=== PATIENT | male | born 1945 | race Caucasian/White ===

== ENCOUNTER 2023-12-24 10:46 | Outpatient (OUT) | payer MEDICARE, SELFPAY ==
--- NOTE | 2023-12-24 | XR_ITS ---
The [address] [id number] Patient Name: STEVEN DANIELS MRN: [id number] date: 1945 Sex: M Assigned Patient Location: Current Patient Location: Accession/Order Number: [id number] Exam Date: 12/24/2023 11:00 Report Date: 12/28/2023 08:58 At the request of: WILFRIDO DAMON Procedure: XR lumbar spine min 4V EXAMINATION: XR lumbar spine min 4V HISTORY: LUMBAR SPINE PAIN COMPARISON: No relevant comparison available. FINDINGS: BONES: Neutral projection demonstrates 9 mm retrolisthesis of L2 on L3. Posterior decompression and transpedicular fusion L2-L3. Moderate spondylosis and facet osteoarthropathy DISC SPACES: Moderate multilevel disc space narrowing PARASPINOUS: Negative. No paraspinous abnormality is seen. OTHER: No transient spondylolisthesis with flexion or extension. Diffuse atherosclerosis XR/XR lumbar spine min 4V IMPRESSION: Stable fusion with no dynamic instability Electronically authenticated by: KALANI ROUSSEAU Date: 12/28/2023 08:58
== END 2023-12-24 10:47 | disposition home or self-care (01) ==
PROVIDERS: Visit Provider Orthopaedic Surgery Orthopaedic Surgery of the Spine
DX: M54.50 Low back pain, unspecified (principal); M43.26 Fusion of spine, lumbar region
CPT/HCPCS: 72110

== ENCOUNTER 2024-02-24 09:17 | Outpatient (OUT) | payer MEDICARE, SELFPAY ==
--- OUTSIDE RECORDS SUMMARY | 2024-02-24 09:22 | XMS_ITS | CCD ---
Author Organization [facility] [place] [facility] Care Team Providers Care Pcas Name Role Phone Venkatesh Gallagher Primary Care Unavailab Venkatesh Beck Consulting UnavailMD LIONEL Sanchez Attending Unavailable Venkatesh Gallagher Primary Care Unavailab MD LIONEL Buchanan Attending Unavailable Venkatesh Gallagher Primary Care Unavailab Venkatesh Beck Consulting Unavailab MD ILONEL Buchanan Attending Unavailable Venkatesh Gallagher Primary Care Unavailab Venkatesh Beck Consulting Unavailab MD LIONEL Buchanan Attending Unavailable Venkatesh Gallagher Primary Care Unavailab MD LIONEL Buchanan Attending Unavailable MD LIONEL TOMLINSON Attending Unavailable Venkatesh Gallagher Primary Care Unavailab Venkatesh Beck Primary Care Unavailab Venkatesh Beck Attending Unavailab MD LIONEL Buchanan Admitting Unavailable Tomás Fishman Consulting Unavailable Venkatesh Gallagher Primary Care Unavailab MD LIONEL Buchanan Attending Unavailable MD LIONEL TOMLINSON Attending Unavailable MD LIONEL TOMLINSON Admitting Unavailable Tomás Fishman Consulting Unavailable Venkatesh Gallagher Primary Care Unavailab Venkatesh Beck Consulting UnavailArelis Marrero MD Primary Care Provider [phone] ARELIS FORBES Primary Care Unavailable KALANI RODRIGUEZ Admitting Unavailable KALANI RODRIGUEZ Attending Unavailable ALEXSANDER SPENCER Consulting Unavailable JEFFREY ESPINO Consulting Unavailable JEFFREY ESPINO Admitting Unavailable JEFFREY ESPINO Attending Unavailable ANDREI, ARELIS F Primary Care Unavailable PASHA, TARIF A Consulting Unavailable ANDREI, ARELIS Gonzalez Primary Care Unavailable DIBARDINO, JEFFREY Referring Unavailable ANDREI, ARELIS Gonzalez Primary Care Unavailable SCHELKUN, EUGENIO L Referring Unavailable ANDREI, ARELIS Gonzalez Primary Care Unavailable SCHELKUN, EUGENIO L Referring Unavailable ANDREI, ARELIS Gonzalez Primary Care Unavailable SCHELKUN, EUGENIO L Referring Unavailable ANDREI, ARELIS Gonzalez Primary Care Unavailable SCHELKUN, EUGENIO L Referring Unavailable ANDREI, ARELIS Gonzalez Primary Care Unavailable DIBARDINO, JEFFREY Referring Unavailable DANIELERSARAHY Attending Unavailable ANDREI, ARELIS Gonzalez Attending Unavailable ANDREI, ARELIS Gonzalez Referring Unavailable ROSANGELAELIO ODEN Attending Unavailable ANDREI, ARELIS Gonzalez Referring Unavailable ELIO ADAMES Attending Unavailable ANDREI, ARELIS Gonzalez Referring Unavailable SHARON SALVADOR Attending Unavailable ANDREI, ARELIS Gonzalez Referring Unavailable ANDREI, ARELIS Gonzalez Attending Unavailable ANDREI, ARELIS Gonzalez Referring Unavailable Andrei , Arelis Gonzalez Primary Care Provider Andrei CLARK, Arelis Gonzalez Unavailable Allergies Allergy Classification Reported Allergen(s) Allergy Type Date of Onset Reaction(s) Facility Penicillins (antibiotic) (1 source) Penicillin; Translations: [penicillin] Drug Allergy [facility] Sulfonamides (antibiotic) (1 source) Sulfonamides (Antibiotic); Translations: [sulfa drugs] Drug Allergy [facility] (6 sources) Penicillins Propensity to adverse reactions to drug 8 Other (See Comments), Swelling [employer] Work Phone: (6 sources) pregabalin Drug Allergy 0 Swelling [employer] Work Phone: (6 sources) Sulfonamides (Antibiotic) Propensity to adverse reactions to drug 8 Other (See Comments) [employer] Work Phone: (1 source) Penicillin G Drug Allergy 3 Hives [facility] Work Phone: (1 source) Pregabalin Propensity to adverse reactions 0 Swelling [facility] (1 source) Sulfanilamide Allergy to substance 3 Hives [facility] NEGATED: Highlighted row has been ruled out! (6 sources) Other Propensity to adverse reactions Swelling [employer] Medications Current Medications Medication Drug Class(es) Dates Sig (Normalized) Sig (Original) acetaminophen 325 mg oral tablet (3 sources) Start: 05-27-2021 take 650 mg by mouth every four hours as needed for pain, then take 4000 mg by mouth every twenty-four hours as needed for pain 650 mg, Oral, EVERY 4 HOURS PRN, Pain Mild (1-3), Fever, Fever >100.5 F (38 C), Starting on Wed05/27/21 at 1247 Maximum dose of acetaminophen is 4000 mg from all sources in 24 hours. Post-op Start: 04-22-2021 take 650 mg by mouth every four hours as needed for pain, then take 4000 mg by mouth every twenty-four hours as needed for pain 650 mg, Oral, EVERY 4 HOURS PRN, Pain Mild (1-3), Fever, Fever >100.5 F (38 C), Starting on Darlene 04/24/21 at 1618 Maximum dose of acetaminophen is 4000 mg from all sources in 24 hours. Recovery(Cath) acetaminophen 325 mg / oxyCODONE hydrochloride 5 mg oral tablet (2 sources) Opioid Agonist Start: 05-31-2021 End: 06-07-2021 take 1 tablet by mouth every eight hours as needed for pain oxyCODONE-acetaminophen (PERCOCET) 5-325 MG per tablet Indications: S/P CABG x 3 Take 1 tablet by mouth every 8 hours as needed for Pain for up to 7 days. 21 tablet 0 05/31/2021 06/07/2021 Active Start: 05-27-2021 oxyCODONE-acet aminophen (PERCOCET) 5-325 MG per tablet 1 tablet 500 ml albumin human, fdc 50 mg/ml injection (1 source) Human Serum Albumin Start: 05-27-2021 25 g, IntraVENous, at 500 mL/hr, Administer over 60 Minutes, PRN, Other, PAD below goal and Low CI and/or Low BP and /or Low urine output per hemodynamic goals, Starting on Wed05/27/21 at 1247 Up to a max of 2000 mL. Notify surgeon for further orders if max volume infused. Post-op albuterol 0.833 mg/ml / ipratropium bromide 0.167 mg/ml inhalation solution (1 source) Anticholinergic, beta2-Adrenergic Agonist Start: 05-27-2021 1 ampule, Inhalation, EVERY 4 HOURS WHILE AWAKE, First dose on Wed05/27/21 at 1600, Post-op amiodarone hydrochloride 200 mg oral tablet (4 sources) Antiarrhythmic Start: 05-31-2021 take 1 tablet by mouth twice daily amiodarone (CORDARONE) 200 MG tablet Take 1 tablet by mouth 2 times daily 30 tablet 0 05/31/2021 Active Start: 05-27-2021 take 200 mg by mouth three times daily 200 mg, Oral, 3 TIMES DAILY, First dose on Wed05/27/21 at 1400, Post-op aspirin 81 mg delayed release oral tablet (7 sources) Platelet Aggregation Inhibitor, Nonsteroidal Anti-inflammatory Drug Start: 05-27-2021 take 1 tablet by mouth once daily aspirin 81 MG EC tablet Take 1 tablet by mouth daily 30 tablet 3 05/31/2021 Active Start: 05-27-2021 aspirin chewab le tablet 81 mg Start: 04-24-2021 aspirin EC tab let 81 mg atorvastatin 40 mg oral tablet (11 sources) HMG-CoA Reductase Inhibitor Start: 02-18-2024 take 1 tablet by mouth once daily atorvastatin (Lipitor) 40 MG tablet 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) TAKE 1 TABLET BY MOUTH ONCE DAILY 90 tablet 11 02/18/2024 Active Start: 12-26-2022 End: 02-18-2024 take 1 tablet by mouth once daily atorvastatin (Lipitor) 40 MG tablet 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) TAKE 1 TABLET BY MOUTH ONCE DAILY 90 tablet 3 12/26/2022 02/18/2024 Discontinued Start: 05-28-2021 take 1 tablet by antonio th once daily atorvastatin (LIPITOR) 80 MG tablet Take 1 tablet by mouth nightly 30 tablet 3 05/31/2021 Active Start: 04-24-2021 atorvastatin ( LIPITOR) tablet 80 mg End: 05-31-2021 take 1 tablet by mouth once daily in the evening atorvastatin (LIPITOR) 40 MG tablet Take 40 mg by mouth every evening 0 05/31/2021 Discontinued (Stop Taking at Discharge) bisacodyl 5 mg delayed release oral tablet (1 source) Stimulant Laxative Start: 05-27-2021 take 5 mg by mouth once daily as needed for constipation 5 mg, Oral, DAILY PRN, Constipation, Starting on Wed05/27/21 at 1247 First line therapy for constipation. Post-op calcium chloride 1,000 mg in sodium chloride 0.9 % 100 mL IVPB (1 source) Start: 05-27-2021 1,000 mg, IntraVENous, at 100 mL/hr, Administer over 60 Minutes, PRN, Other, Electrolyte Replacement, Starting on Wed05/27/21 at 1247 Administer 1 gram over 1 hour for ionic calcium level less than 1.05 mmol/L Post-op cetirizine hydrochloride 10 mg oral tablet (4 sources) Histamine-1 Receptor Antagonist Start: 05-27-2021 End: 05-31-2021 take 10 mg by mouth once daily 10 mg, Oral, DAILY, First dose on Wed05/27/21 at 1315 cholecalciferol 0.025 mg oral tablet (8 sources) Vitamin D Start: 05-27-2021 take 1 tablet by mouth once daily Vitamin D (CHOLECALCIFEROL) 25 MCG (1000 UT) TABS tablet Take 1 tablet by mouth daily 60 tablet 0 06/01/2021 Active take 1 capsule by mo uth in the morning cholecalciferol (Vitamin D-3) 25 MCG (1000 UT) capsule Take 25 mcg by mouth in the morning. Active End: 05-31-2021 Vitamin D (CHOLECALCIFEROL) 25 MCG (1000 UT) TABS tablet Take 1,000 Units by mouth daily 0 05/31/2021 Discontinued (Stop Taking at Discharge) clopidogrel 75 mg oral tablet (5 sources) P2Y12 Platelet Inhibitor Start: 07-21-2022 take 1 tablet by mouth in the morning clopidogrel (Plavix) 75 MG tablet Take 75 mg by mouth in the morning. 07/21/2022 Active Start: 05-28-2021 take 1 tablet by antonio th once daily clopidogrel (PLAVIX) 75 MG tablet Take 1 tablet by mouth daily 30 tablet 3 05/31/2021 Active diphenhydrAMINE hydrochloride 25 mg oral tablet (1 source) Histamine-1 Receptor Antagonist Start: 05-28-2021 take 25 mg by mouth once daily as needed for sleep 25 mg, Oral, NIGHTLY PRN, Sleep, Starting on Wed05/28/21 at 0000, Post-op 0.4 ml enoxaparin sodium 100 mg/ml prefilled syringe (1 source) Low Molecular Weight Heparin Start: 04-22-2021 inject 40 mg by subcutaneous injection once daily 40 mg, SubCUTAneous, DAILY, First dose on Wed04/22/21 at 1845 fentaNYL (SUBLIMAZE) injection 25 mcg (1 source) Start: 05-27-2021 fentaNYL (SUBLIMAZE) injection 25 mcg ferrous gluconate 240 mg oral tablet (1 source) Start: 03-12-2023 End: 03-11-2024 take 1 tablet by mouth at mealtime ferrous gluconate (Fergon) 240 (27 Fe) MG tablet Indications: Iron deficiency anemia secondary to inadequate dietary iron intake Take 1 tablet (240 mg) by mouth in the morning. Take with meals. 90 tablet 3 03/12/2023 03/11/2024 Active ferrous sulfate 325 mg delayed release oral tablet (7 sources) Start: 06-01-2021 take 1 tablet by mouth once daily at breakfast ferrous sulfate (FE TABS 325) 325 (65 Fe) MG EC tablet Take 1 tablet by mouth daily (with breakfast) 90 tablet 3 06/01/2021 Active Start: 05-29-2021 ferrous sulfat e (FE TABS 325) EC tablet 325 mg End: 05-31-2021 take 220 mg by mouth once daily ferrous sulfate 220 (44 Fe) MG/5ML solution Take 220 mg by mouth daily 0 05/31/2021 Discontinued (Stop Taking at Discharge) 4 ml furosemide 10 mg/ml injection (4 sources) Loop Diuretic Start: 05-30-2021 furosemide (LA SIX) injection 40 mg Start: 05-28-2021 End: 05-30-2021 furosemide (LASIX) injection 20 mg Start: 05-28-2021 End: 05-28-2021 furosemide (LASIX) 10 MG/ML injection gabapentin 400 mg oral capsule (6 sources) Anti-epileptic Agent Start: 08-02-2023 take 1 capsule by mouth twice daily gabapentin (Neurontin) 400 MG capsule Indications: Radiculopathy, unspecified spinal region TAKE 1 CAPSULE BY MOUTH TWICE DAILY 180 capsule 3 08/02/2023 Active Start: 05-27-2021 End: 05-31-2021 take 400 mg by mouth three times daily 400 mg, Oral, 3 TIMES DAILY, First dose on Wed05/27/21 at 1400 glucagon (rdna) 1 mg injection (2 sources) Antihypoglycemic Agent Start: 05-27-2021 take 1 mL intravenously every hour 1 mg, IntraMUSCular, PRN, Low blood sugar, Blood glucose less than 70 mg/dL and patient NOT ALERT or NPO and does not have IV access., Starting on Wed05/27/21 at 1247 After administration, attempt intravenous access and start D5W at 100 mL/hr. Repeat blood glucose in 15 minutes x2 and notify provider. Start: 04-23-2021 glucagon (rDNA ) injection 1 mg 1000 ml glucose 500 mg/ml injection (6 sources) Start: 05-27-2021 15 g, Oral, NH N, Low blood sugar, Starting on Wed05/27/21 at 1247 If blood glucose less than 50 mg/dL and patient ALERT and TOLERATING PO, give 2 tubes glucose gel. If blood glucose less than 70 mg/dL and patient ALERT and TOLERATING PO, give 1 tube glucose gel. Repeat blood glucose in 15 minutes. If blood glucose is less than 70 mg/dL, repeat treatment and recheck blood glucose in 15 minutes x2 and notify provider. Post-op Start: 05-27-2021 12.5 g, IntraV ENous, PRN, Low blood sugar, Blood glucose less than 70 mg/dL and patient NOT ALERT or NPO., Starting on Wed05/27/21 at 1247 If patient does not respond within 5 minutes, repeat dose x1. Start D5W at 100 mL/hour until ordering provider can be reached. Repeat blood glucose in 15 minutes. If blood glucose is less than 70 mg/dL, repeat treatment and recheck blood glucose in 15 minutes x2. If using Glucostabilizer, dose as instructed per system. Post-op Start: 05-27-2021 100 mL/hr, Int raVENous, PRN, Low blood sugar, Starting on Wed05/27/21 at 1247 Start infusion following administration of dextrose 50% or glucagon. Post-op Start: 04-23-2021 glucose (GLUTO SE) 40 % oral gel 15 g Start: 04-23-2021 dextrose 50 % IV solution Start: 04-23-2021 dextrose 5 % s olution 1 ml hydrALAZINE hydrochloride 20 mg/ml injection (1 source) Arteriolar Vasodilator Start: 05-27-2021 5 mg, IntraVENous, EVERY 5 MIN PRN, High Blood Pressure, Starting on Wed05/27/21 at 1247 Refer to hemodynamic goals for specific blood pressure parameters. May repeat doses up to a total of 20mg IV every 6 hours. Post-op insulin glargine 100 unt/ml injectable solution (1 source) Insulin Analog Start: 05-28-2021 15 Units (rounded from 14.895 Units = 0.15 Units/kg 99.3 kg), SubCUTAneous, NIGHTLY, First dose on Wed05/28/21 at 2100, Post-op insulin lispro 100 unt/ml injectable solution (2 sources) Insulin Analog Start: 04-23-2021 insulin lispro (HUMALOG) injection vial 0-3 Units 100 ml magnesium sulfate 10 mg/ml injection (1 source) Start: 05-27-2021 1,000 mg, IntraVENous, at 100 mL/hr, Administer over 1 Hours, PRN, Other, Electrolyte Replacement, Starting on Wed05/27/21 at 1247 For magnesium less than 2 mg/dl give 1 gram X 2 doses (Total of 2 grams). Check with MD if elevation of BUN and creatinine. Repeat magnesium level in AM. Post-op metoclopramide 5 mg oral tablet (1 source) Dopamine-2 Receptor Antagonist Start: 05-29-2021 metoclopramide (REGLAN) tablet 5 mg metoprolol tartrate 25 mg oral tablet (11 sources) beta-Adrenergic Mandie Start: 09-09-2022 take 1 tablet by mouth in the morning metoprolol tartrate (Lopressor) 25 MG tablet Take 25 mg by mouth in the morning and 25 mg before bedtime. 09/09/2022 Active Start: 05-27-2021 2.5 mg, IntraV ENous, EVERY 10 MIN PRN, High Blood Pressure, For HR greater than 120, Starting on Wed05/27/21 at 1247, For 3 doses Call cardiothoracic surgeon if HR still greater than 120 after 3 doses Please hold for HR less than 70 and/or SBP less than 100 Post-op Start: 04-24-2021 End: 05-31-2021 take 1 tablet by mouth twice daily metoprolol tartrate (LOPRESSOR) 25 MG tablet Take 1 tablet by mouth 2 times daily 60 tablet 3 05/31/2021 Active mupirocin 0.02 mg/mg topical ointment (1 source) RNA Synthetase Inhibitor Antibacterial Start: 05-27-2021 End: 06-01-2021 Nasal, 2 TIMES DAILY, First dose on Wed05/27/21 at 1315, For 10 doses, Post-op norepinephrine (LEVOPHED) 16 mg in sodium chloride 0.9 % 250 mL infusion (1 source) Start: 05-27-2021 0.2 mcg/kg/min 99.3 kg (18.6188 mL/hr, rounded to 18.6 mL/hr), IntraVENous, CONTINUOUS PRN, Cardiac Index above hemodynamic goal, SBP below hemodynamic goal and PAD above hemodynamic goal, Starting on Wed05/27/21 at 1247 Initial Dose is 0.04 mcg/kg/min. &nbsp ; May titrate up to 3.3 mcg/kg/min & nbsp;Titrate by 0.05 mcg/kg/min no faster than every 1 minute to goal M ay titrate outside of defined titration parameters (increments and frequency) under the direction of the provider. If cardiac index above hemodynamic goal or SBP above hemodynamic goal or PAD above hemodynamic goal, wean drip, re-evaluate, once hemodynamic parameters are back within range; resume drip using previous ordered parameters. For unstable, emergent situation, may titrate accordingly to meet hemodynamic goal. Notify Physician if reach max dose and patient not at hemodynamic goal of 0.08 mcg/kg/min Post-op ondansetron 4 mg oral tablet (3 sources) Serotonin-3 Receptor Antagonist Start: 06-03-2021 take 1 tablet by mouth every eight hours as needed for nausea ondansetron (ZOFRAN) 4 MG tablet Indications: Nausea Take 1 tablet by mouth every 8 hours as needed for Nausea or Vomiting 30 tablet 0 06/03/2021 Active Start: 05-27-2021 4 mg, IntraVEN ous, EVERY 8 HOURS PRN, Nausea, Starting on Wed05/27/21 at 1247, Post-op ondansetron (ZOFRAN-ODT) disintegrating tablet 4 mg (1 source) Start: 04-22-2021 ondansetron (ZOFRAN-ODT) disintegrating tablet 4 mg pantoprazole 20 mg delayed release oral tablet (10 sources) Proton Pump Inhibitor Start: 11-23-2023 take 1 tablet by mouth once daily pantoprazole (ProtoNix) 20 MG EC tablet Indications: Gastroesophageal reflux disease with esophagitis without hemorrhage TAKE 1 TABLET BY MOUTH ONCE DAILY 90 tablet 3 11/23/2023 Active Start: 05-27-2021 take 1 tablet by antonio once daily pantoprazole (PROTONIX) 40 MG tablet Take 1 tablet by mouth daily 30 tablet 3 06/01/2021 Active Start: 04-25-2021 End: 05-31-2021 pantoprazole (PROTONIX) tabl et 20 mg polyethylene glycol [id number] mg powder for oral solution (1 source) Osmotic Laxative Start: 05-27-2021 17 g, Oral, D AILY, First dose on Wed05/27/21 at 1315, Post-op 50 ml potassium chloride 0.4 meq/ml injection (1 source) Start: 05-27-2021 20 mEq, IntraV ENous, at 25 mL/hr, PRN, Other, Electrolyte Replacement, Starting on Wed05/27/21 at 1247 KCL 40 mEq IVPB for K less than 3.5 mmol/l. &nbs p;KCL 30 mEq IVPB for K 3.5-3.9 mmol/l. KCL 20 mEq IVPB for K 4-4.4 mmol/l. ALL KCL doses to be given in central line only. Notify MD if K greater than 5 mmol/l. Post-op 5 ml sodium chloride 9 mg/ml injection (12 sources) Start: 05-27-2021 10 mL, IntraVE Nous, EVERY 12 HOURS SCHEDULED (2 times per day), First dose on Wed05/27/21 at 2100, Post-op Start: 05-27-2021 take 10 mL intravenously once 10 mL, IntraVENous, PRN, Line Care, Starting on Wed05/27/21 at 1247 After every IV line use Post-op Start: 05-27-2021 take 25 mL intraveno usly every hour as needed 25 mL, IntraVENous, at 100 mL/hr, PRN, If patient receiving piggyback infusions without ordered maintenance IV fluids or with frequent/long duration piggyback infusions, Starting on e 05/27/21 at 1247 Administer at the same rate as the piggyback being infused. Post-op Start: 04-23-2021 End: 04-23-2021 5-40 mL, IntraVENous, PRN, L ine Care, Starting on Darlene 04/24/21 at 1618 For Line Patency: Peripheral IV = 5 mL; Midline or Central Line = 10 mL/lumen. If following IV push medication, administer flush at same rate as the IV push. Flush volume is determined by type of infusion therapy being given. For non-viscous solutions use: Peripheral IV = 5 mL Midline or Central Line = 10 mL/lumen For viscous solutions (i.e. blood components, parenteral nutrition, contrast media, or after obtaining blood sample) use: Peripheral IV = 10 mL Midline or Central Line = 20 mL/lumen Recovery(Cath) Start: 04-22-2021 take 1 dose intraven ously twice daily 5-40 mL, IntraVENous, EVERY 12 HOURS SCHEDULED (2 times per day), First dose on Darlene 04/24/21 at 2100 For Line Patency: Peripheral IV = 5 mL; Midline or Central Line = 10 mL/lumen. If following IV push medication, administer flush at same rate as the IV push. Flush volume is determined by type of infusion therapy being given. For non-viscous solutions use: Peripheral IV = 5 mL Midline or Central Line = 10 mL/lumen For viscous solutions (i.e. blood components, parenteral nutrition, contrast media, or after obtaining blood sample) use: Peripheral IV = 10 mL Midline or Central Line = 20 mL/lumen Recovery(Cath) Start: 04-22-2021 take 5-40 mL intrave nously once as needed 5-40 mL, IntraVENous, PRN, Line Care, After every IV line use, Starting on Wed04/22/21 at 1831 For Line Patency: Peripheral IV = 5 mL; Midline or Central Line = 10 mL/lumen. If following IV push medication, administer flush at same rate as the IV push. Flush volume is determined by type of infusion therapy being given. For non-viscous solutions use: Peripheral IV = 5 mL Midline or Central Line = 10 mL/lumen For viscous solutions (i.e. blood components, parenteral nutrition, contrast media, or after obtaining blood sample) use: Peripheral IV = 10 mL Midline or Central Line = 20 mL/lumen Start: 04-22-2021 take 25 mL intraveno usly every hour as needed 25 mL, IntraVENous, at 100 mL/hr, PRN, If patient receiving piggyback infusions without ordered maintenance IV fluids or with frequent/long duration piggyback infusions, Starting on Darlene 04/24/21 at 1618 Administer at the same rate as the piggyback being infused. Recovery(Cath) sodium phosphate, dibasic 35.5 mg/ml / sodium phosphate, monobasic 96.4 mg/ml enema (1 source) Start: 05-27-2021 1 enema, Recta l, DAILY PRN, Constipation, Starting on Wed05/27/21 at 1247 Second line therapy for constipation, After 24 hours, if no result from first line PRN therapy, give second line therapy in combination with first line therapy. Post-op tamsulosin hydrochloride 0.4 mg oral capsule (4 sources) alpha-Adrenergic Mandie Start: 05-29-2021 take 1 capsule by mouth once daily tamsulosin (FLOMAX) 0.4 MG capsule Take 1 capsule by mouth daily 30 capsule 3 06/01/2021 Active traZODone hydrochloride 50 mg oral tablet (6 sources) Serotonin Reuptake Inhibitor Start: 05-27-2021 take 50 mg by mouth once daily 50 mg, Oral, NIGHTLY, First dose on Wed05/27/21 at 2100 Start: 04-22-2021 End: 05-31-2021 traZODone (DESYREL) tablet 5 0 mg triamcinolone acetonide 1 mg/ml topical cream (1 source) Corticosteroid Start: 08-26-2023 triamcinolone (Kenalog) 0.1 % cream Indications: Allergic contact dermatitis due to plants, except food Apply to affected areas on the arms, up to twice a day when flared, do not use one the face, groin, or underarms, 30 day supply 80 g 11 08/26/2023 Active vitamin b12 1 mg oral tablet (7 sources) Vitamin B12 Start: 06-01-2021 take 1 tablet by mouth once daily vitamin B-12 1000 MCG tablet Take 1 tablet by mouth daily 30 tablet 3 06/01/2021 Active Start: 05-27-2021 take 1000 ug by mout h once daily 1,000 mcg, Oral, DAILY, First dose on Wed05/27/21 at 1315 End: 05-31-2021 take 1 tablet by mouth once daily Cyanocobalamin (VITAMIN B-12) 1000 MCG extended release tablet Take 1,000 mcg by mouth daily 0 05/31/2021 Discontinued (Stop Taking at Discharge) Completed/Discontinued Medications Medication Drug Class(es) Dates Sig (Normalized) Sig (Original) calcium chloride 0.0014 meq/ml / potassium chloride 0.004 meq/ml / sodium chloride 0.103 meq/ml / sodium lactate 0.028 meq/ml injectable solution (1 source) Start: 2 End: 2 lactated ringers infusion chlorhexidine gluconate 1.2 mg/ml mouthwash (1 source) Start: 2 End: 2 chlorhexidine (PERIDEX) 0.12 % solution 15 mL hydroCHLOROthiazide 25 mg oral tablet (4 sources) Thiazide Diuretic End: 2 take 1 tablet by mouth once daily hydroCHLOROthiazide (HYDRODIURIL) 25 MG tablet Take 25 mg by mouth daily 0 05/31/2021 Discontinued (Stop Taking at Discharge) insulin regular (HUMULIN R;NOVOLIN R) 100 Units in sodium chloride 0.9 % 100 mL infusion (1 source) Start: 2 End: 2 take 1 [IU] intravenously every hour, then take 1 mL intravenously every hour 1 Units/hr (1 mL/hr), IntraVENous, CONTINUOUS, Starting on Wed05/27/21 at 1315 Low target 80. High target 130. Begin infusion rate by the following formula: (BG - 60) x 0.03 = insulin units per hour. Adjust current multiplier(0.03) in drip formula by doing the following steps: * Whenever BG is greater than 130 increase multiplier by 0.01 * Whenever BG is less than 80 decrease multiplier by 0.01 * Whenever BG is between 80 - 130 no change in multiplier * Recalculate insulin dose with every BG drawn, even if the multiplier does not change. Post-op losartan potassium 100 mg oral tablet (4 sources) Angiotensin 2 Receptor Mandie End: 2 take 1 tablet by mouth once daily losartan (COZAAR) 100 MG tablet Take 100 mg by mouth daily 0 05/31/2021 Discontinued (Stop Taking at Discharge) meperidine hydrochloride 50 mg/ml injectable solution (1 source) Opioid Agonist Start: 2 End: 2 25 mg, IntraVENous, ONCE PRN, Shivering, Starting on Wed05/27/21 at 1247, For 1 dose, Post-op 100 ml propofol 10 mg/ml injection (2 sources) General Anesthetic Start: 2 End: 2 10 mcg/kg/min 99.3 kg (5.958 mL/hr, rounded to 6 mL/hr), IntraVENous, CONTINUOUS, Starting on Wed05/27/21 at 1315 For sedation, titrate to RASS -1 to -2 Dose Range: 5 to 50 mcg/kg/min Max dose: 50 mcg/kg/min Contac t physician if max dose does not achieve desired response If RASS 1 point below goal - decrease dose by 5mcg/kg/min no faster than every 5 min If RASS 2 points below goal- decrease dose by 10mcg/kg/min no faster than every 5 min If RASS at goal, continue current dose If RASS 2 or more points above goal - increase dose by 10mcg/kg/min no faster than every 5 min If RASS 1 point above goal - increase dosee by 5mcg/kg/min no faster than every 5 min If after titration rate change patient exhibits adverse hemodynamic response, next titration rate change may be adjusted by one-half of the previous rate change If patient fails sedation interruption, resume propofol titration at 50% of previous rate Do not administer through the same I.V. catheter with blood or plasma. Tubing and any unused portions of propofol vials should be discarded after 12 hours. Post-op regadenoson (LEXISCAN) injection 0.4 mg (1 source) Start: 1 End: 1 regadenoson (LEXISCAN) injection 0.4 mg 10 ml sodium bicarbonate 84 mg/ml injection (1 source) Start: 2 End: 2 50 mEq, IntraVENous, EVERY 30 MIN PRN, Other, For Base deficit greater than -5, Starting on Wed05/27/21 at 1247, For 3 days Please call MD if greater than 2 amps is administered Post-op technetium sestamibi (CARDIOLITE) injection 11 millicurie (1 source) Start: 1 End: 1 technetium sestamibi (CARDIOLITE) injection 11 millicurie technetium sestamibi (CARDIOLITE) injection 42.5 millicurie (1 source) Start: 1 End: 1 technetium sestamibi (CARDIOLITE) injection 42.5 millicurie vancomycin (VANCOCIN) 1500 mg in dextrose 5 % 250 mL IVPB (1 source) Start: 2 End: 2 1,500 mg, IntraVENous, EVERY 12 HOURS, 3 doses, First dose on Wed05/27/21 at 1315, Last dose on Wed05/28/21 at 1315 Do not give if Creatinine greater than 1.4. Give first dose 12 hours after pre op dose. Post-op Problems Active Problems Problem Classification Problem Date Documented Da te Episodic/Chronic Coronary atherosclerosis and other heart disease (8 sources) Multi vessel coronary artery disease; Translations: [Atherosclerotic heart disease of [place] coronary artery without angina pectoris] Onset: 05-27-2021 Chronic Disorders of lipid metabolism (1 source) Hypercholesterolemia ; Translations: [Pure hypercholesterolemia , unspecified] Onset: 11-17-2022 11-17-2022 Chronic Esophageal disorders (1 source) Gastro-esophageal reflux disease with esophagitis; Translations: [Gastroesophageal reflux disease with esophagitis] Onset: 11-17-2022 11-17-2022 Chronic Essential hypertension (1 source) Benign essential hypertension; Translations: [Essential (primary) hypertension] Onset: 11-17-2022 11-17-2022 Chronic Nutritional deficiencies (1 source) Vitamin D deficiency; Translations: [Vitamin D deficiency, unspecified] Onset: 11-17-2022 11-17-2022 Chronic Osteoarthritis (8 sources) Osteoarthritis of left knee joint; Translations: [Unilateral primary osteoarthritis, left knee] Onset: 08-01-2018 04-24-2021 Chronic Other nervous system disorders (1 source) Neuropathy; Translations: [Polyneuropathy, unspecified] Onset: 11-17-2022 11-17-2022 Chronic Other nervous system disorders (1 source) Chronic pain; Translations: [Other chronic pain] Onset: 11-17-2022 11-17-2022 Chronic Other nervous system disorders (1 source) Cervical myelopathy; Translations: [Disease of spinal cord, unspecified] Onset: 11-09-2023 11-09-2023 Chronic Other nervous system disorders (1 source) Ulnar neuropathy of left arm; Translations: [Lesion of ulnar nerve, left upper limb] Onset: 11-09-2023 11-09-2023 Chronic Other nutritional; endocrine; and metabolic disorders (1 source) Body mass index 30+ - obesity; Translations: [Obesity, unspecified] Onset: 11-17-2022 11-17-2022 Chronic Other upper respiratory disease (1 source) Allergic rhinitis due to pollen; Translations: [Allergic rhinitis due to pollen] Onset: 11-17-2022 11-17-2022 Chronic Spondylosis; intervertebral disc disorders; other back problems (10 sources) Lumbosacral spondylosis without myelopathy; Translations: [Spondylosis without myelopathy or radiculopathy, lumbosacral region] Onset: 11-22-2018 04-24-2021 Chronic Past or Other Problems Problem Classification Problem Date Documented Da te Episodic/Chronic Acute and unspecified renal failure (2 sources) Acute injury of kidney; Translations: [Acute kidney failure, unspecified] Onset: 03-31-2020 Episodic Deficiency and other anemia (6 sources) Iron deficiency anemia; Translations: [Iron deficiency anemia, unspecified] Onset: 04-04-2020 04-24-2021 Episodic Deficiency and other anemia (1 source) Iron deficiency anemia secondary to inadequate dietary iron intake; Translations: [Other iron deficiency anemias] Onset: 11-17-2022 11-17-2022 Episodic Deficiency and other anemia (1 source) Anemia; Translations: [Anemia, unspecified] Onset: 11-17-2022 Resolved: 11-17-2022 11-17-2022 Episodic Gastritis and duodenitis (1 source) Acute hemorrhagic gastritis; Translations: [Gastritis, unspecified, with bleeding] Onset: 11-17-2022 Resolved: 11-17-2022 11-17-2022 Episodic Miscellaneous mental health disorders (1 source) Primary insomnia; Translations: [Primary insomnia] Onset: 11-17-2022 Resolved: 11-09-2023 11-09-2023 Chronic Nutritional deficiencies (7 sources) Cobalamin deficiency; Translations: [Deficiency of other specified B group vitamins] Onset: 04-04-2020 04-24-2021 Episodic Other acquired deformities (1 source) Lumbar spondylolisthesis; Translations: [Spondylolisthesis , lumbar region] Onset: 11-17-2022 11-17-2022 Episodic Other gastrointestinal disorders (1 source) Diarrhea; Translations: [Diarrhea, unspecified] Onset: 03-31-2020 Resolved: 11-09-2023 11-09-2023 Episodic Other non-epithelial cancer of skin (1 source) Basal cell carcinoma of upper extremity; Translations: [Basal cell carcinoma of skin of right upper limb, including shoulder] Onset: 11-17-2022 11-17-2022 Episodic Other non-traumatic joint disorders (1 source) Pain in left knee; Translations: [Pain in joint, lower leg] Onset: 09-06-2018 11-18-2022 Episodic Residual codes; unclassified (1 source) Obstructive sleep apnea syndrome; Translations: [Obstructive sleep apnea (adult) (pediatric)] Onset: 11-17-2022 Resolved: 11-09-2023 11-09-2023 Chronic Spondylosis; intervertebral disc disorders; other back problems (11 sources) Peripheral neuritis; Translations: [Radiculopathy, lumbar region] Onset: 10-11-2018 04-24-2021 Episodic Syncope (15 sources) Near syncope; Translations: [Syncope and collapse] Onset: 03-31-2020 Resolved: 11-09-2023 Episodic Viral infection (1 source) Disease caused by 2019-nCoV; Translations: [COVID-19] Onset: 03-31-2020 11-18-2022 Episodic Results Test Name Value Interpretation Reference Range Facility MR LUMBAR SPINE W AND WO CON TRASTon 11-18-2023 MR LUMBAR SPINE W AND WO CONTRAST Exam: MR - MRI LUMBAR SPINE WWO CONTRAST Clinical History: Chronic low back pain radiating into left leg, numbness, tingling Reference Exam: X-ray 09/28/2023 FINDINGS: Technique: Multiplanar MRI evaluation is provided, having been acquired without IV contrast, performed in the dedicated spine coil. This scan is then repeated after the IV delivery of MRI contrast material. MRI contrast: ProHance, 20 mL Findings: Normal conus medullaris terminating at T12-L1. Sagittal STIR imaging: No abnormal STIR weighted signal is identified. Bilateral pedicle screw fixation with posterior stabilization at L2-L3. Disc replacement L4-L5. Extrathecal fluid collection relative to the posterior elements of L4-L5, extending in cephalocaudad extent 5.4 cm, 5.7 cm in width, and 2.3 cm in anterior/posterior dimension. Screw tracts are present in the L3, L4, L5, and S1 pedicles. The hardware has been removed from these locations. Thoracolumbar junction: Degenerative disc changes with endplate degenerative phenomenon. L1-2: Minor disc space height loss and desiccation. Minimal dorsal bulging of disc material. The L1 nerve roots course through patent neuroforamina. No canal diameter sequela. L2-3: Gentle retrolisthesis of L2 on the axis of L3. This level is fused with bilateral pedicle fixation screws and posterior stabilization devices. No residual disc pathology. The L2 nerve roots course through slightly narrowed neuroforamina. No canal diameter sequela. L3-4: Disc space height loss. Prior fusion. No residual recurrent disc pathology. L3 nerve roots are thought to course through slightly narrowed neuroforamina. No canal diameter sequela. L4-5: Disc space height loss. Disc replacement. Prior fusion. The L4 nerve roots course through patent neuroforamina. No canal diameter sequela. L5-S1: Disc space height loss. Prior fusion. No residual recurrent disc pathology. The S1 nerve roots are appropriately contained in the canal. The L5 nerve roots course through patent neuroforamina. No canal diameter sequela. There is no spondylolisthesis or spondylolysis. There are no infiltrative or destructive processes. There are no paraspinous abnormalities. Post gadolinium enhanced imaging: Normal enhancement. No abnormal enhancement. Impression: 1. Extensive postprocedural changes in the lumbar spine. 2. Seroma in the dorsal soft tissues at the L4-L5 level. 3. No significant residual or recurrent disc pathology. 4. Negative for acute compression or other fracture. No significant subluxation. 5. Post gadolinium enhanced imaging demonstrates appropriate enhancement and no abnormal enhancement. Dictated on: 11/18/2023 4:57 PM This report has been electronically signed and approved by the interpreting Radiologist. Electronically Signed Lanre Martinez M.D. 2023-11-19 15:26:46 Normal Not Available XR LUMBAR SPINE 2-3 VIEWSon 09-28-2023 XR LUMBAR SPINE 2-3 VIEWS FINDINGS: L2-3 pedicle screw fusion hardware, Grade I retrolisthesis at, above, and below this level. L3-S1 laminectomy, endplate and posterior element fusion. No osseous or hardware acute fracture. Prominent aorto iliac arterial calcifications. IMPRESSION: Post-surgical changes, no acute fracture TRANSCRIBED BY: ELECTRONICALLY SIGNED BY: Cayden Franks MD Normal Not Available XR THORACIC SPINE 3 VIEWSon 09-28-2023 XR THORACIC SPINE 3 VIEWS FINDINGS: Mild midthoracic dextroscoliosis. Endplate sclerosis, anterior osteophyte formation throughout the mid and distal thoracic spine. Normal alignment. Mild central end plate depressions. No acute fracture. Sternotomy wires. IMPRESSION: Diffuse thoracic arthritis, normal alignment, no acute fracture TRANSCRIBED BY: ELECTRONICALLY SIGNED BY: Cayden Franks MD Normal Not Available Basic Metabolic Panelon 05-1 7-2022 Anion gap [Moles/Vol] 14 mmol/L Normal 12-20 [facility] Comment on above: Result Comment: Effe ctive 05/15/2019 reference range changed. Performed By: #### B MP #### [facility] [address], [place] [id number] Calcium [Mass/Vol] 9.2 mg/dL Normal 8.6-10.2 [facility] [place] [facility] Comment on above: Performed By: #### B MP #### [facility] [address], [place] [id number] Chloride [Moles/Vol] 105 mmol/L Normal 98-107 [facility] Comment on above: Performed By: #### B MP #### [facility] [address], [place] [id number] CO2 [Moles/Vol] 26 mmol/L Normal 20-31 [facility] Comment on above: Performed By: #### B MP #### [facility] [address], [place] [id number] Creatinine [Mass/Vol] 1.1 mg/dL Normal 0.7-1.4 [facility] Comment on above: Performed By: #### B MP #### [facility] [address], [place] [id number] eGFRAA 83 mL/min/1.73m2 Normal >60 [facility] Comment on above: Performed By: #### B MP #### [facility] [address], [place] [id number] eGFRNAA 69 mL/min/1.73m2 Normal >60 [facility] Comment on above: Performed By: #### B MP #### [facility] [address], [place] [id number] Glucose [Mass/Vol] 104 mg/dL High 65-99 [facility] [place] [facility] Comment on above: Result Comment: For FASTING Glucose --- ADA reference ranges: Normal 65-99 mg/dl Prediabetes 100-125 Diabetes >/= 126 Performed By: #### B MP #### [facility] [address], [place] [id number] Potassium [Moles/Vol] 4.5 mmol/L Normal 3.5-5.[address] [facility] Comment on above: Performed By: #### B MP #### [facility] [address], [place] [id number] Sodium [Moles/Vol] 140 mmol/L Normal 135-146 [facility] Comment on above: Performed By: #### B MP #### [facility] [address], [place] [id number] Urea nitrogen [Mass/Vol] 14 mg/dL Normal 7-[address] [facility] Comment on above: Performed By: #### B MP #### [facility] [address], [place] [id number] Diagnostic Mammogram, Bilate ral w/Cory (3D)on 09-19-2021 Diagnostic Mammogram, Bilateral w/Cory (3D) COMPARISON: No prior examinations are available for comparison TECHNIQUE: 2D and 3D Tomosynthesis of the right and left breasts was performed. FINDINGS: Breast composition demonstrates almost entirely fat. No suspicious microcalcifications, asymmetry, architectural distortion or associated features are present. IMPRESSION: BI RADS 1 : NEGATIVE MAMMOGRAM Board Certified Radiologist. Accredited by the ACR and FDA. MAMMOGRAPHY IS VERY IMPORTANT TO YOUR HEALTH. THE CURRENT [employer] GUIDELINES RECOMMENDS ANNUAL MAMMOGRAPHY BEGINNING AT AGE 40. THIS FACILITY USES A REMINDER SYSTEM TO ENSURE ALL PATIENTS RECEIVE REMINDER NOTIFICATIONS AT THE APPROPRIATE TIME BASED ON THE RECOMMENDATIONS OF THIS EXAM. Report reported and signed by Cayden Franks on 09/19/2021 [address] [facility] Complete Blood Count with Au to Diffon 07-09-2021 Basophils (Bld) [#/Vol] 0.03 10*3/uL Normal 0.00-0.[address] [facility] Comment on above: Performed By: #### C BCAD #### [facility] [address], [place] [id number] Basophils/100 WBC (Bld) 0.4 % Normal [facility] Comment on above: Performed By: #### C BCAD #### [facility] [address], [place] [id number] Eosinophils (Bld) [#/Vol] 0.11 10*3/uL Normal 0.02-0.[address] [facility] Comment on above: Performed By: #### C BCAD #### [facility] [address], [place] [id number] Eosinophils/100 WBC (Bld) 1.5 % Normal [facility] Specialist Comment on above: Performed By: #### C BCAD #### [facility] [address], [place] [id number] Erythrocyte distribution width (RBC) [Ratio] 13.7 % Normal 11.0-15.0 [facility] Comment on above: Performed By: #### C BCAD #### [facility] [address], [place] [id number] Hematocrit (Bld) [Volume fraction] 36.4 % Low 38.5-50.0 [facility] Comment on above: Performed By: #### C BCAD #### [facility] [address], [place] [id number] Hemoglobin (Bld) [Mass/Vol] 11.2 g/dL Low 13.0-17.1 [facility] Comment on above: Performed By: #### C BCAD #### [facility] [address], [place] [id number] Lymphocytes (Bld) [#/Vol] 2.2 10*3/uL Normal 0.9-3.9 [facility] Comment on above: Performed By: #### C BCAD #### [facility] [address], [place] [id number] Lymphocytes/100 WBC (Bld) 30.4 % Normal [facility] Comment on above: Performed By: #### C BCAD #### [facility] [address], [place] [id number] MCH (RBC) [Entitic mass] 27.9 pg Normal 27.0-33.0 [facility] Comment on above: Performed By: #### C BCAD #### [facility] [address], [place] [id number] MCHC (RBC) [Mass/Vol] 30.8 g/dL Low 32.0-36.0 [facility] Comment on above: Performed By: #### C BCAD #### [facility] [address], [place] [id number] MCV (RBC) [Entitic vol] 91 fL Normal 80-100 [facility] Comment on above: Performed By: #### C BCAD #### [facility] [address], [place] [id number] Monocytes (Bld) [#/Vol] 0.7 10*3/uL Normal 0.2-0.9 [facility] Comment on above: Performed By: #### C BCAD #### [facility] [address], [place] [id number] Monocytes/100 WBC (Bld) 10.2 % Normal [facility] Comment on above: Performed By: #### C BCAD #### [facility] [address], [place] [id number] Neutrophils (Bld) [#/Vol] 4.2 10*3/uL Normal 1.5-7.8 [facility] Comment on above: Performed By: #### C BCAD #### [facility] [address], [place] [id number] Neutrophils/100 WBC (Bld) 57.1 % Normal [facility] Comment on above: Performed By: #### C BCAD #### [facility] [address], [place] [id number] Platelet mean volume (Bld) [Entitic vol] 11.30 fL Normal 7.50-12.50 [facility] Comment on above: Performed By: #### C BCAD #### [facility] [address], [place] [id number] Platelets (Bld) [#/Vol] 203 10*3/uL Normal 140-400 [facility] Comment on above: Performed By: #### C BCAD #### [facility] [address], [place] [id number] RBC (Bld) [#/Vol] 4.01 10*6/uL Low 4.20-5.80 [facility] Specialist Comment on above: Performed By: #### C BCAD #### [facility] [address], [place] [id number] RDW-SD 46.0 fL Normal 37.0-50.0 [place] [facility] Comment on above: Performed By: #### C BCAD #### [facility] [address], [place] [id number] WBC (Bld) [#/Vol] 7.3 10*3/uL Normal 3.8-11.0 [facility] Comment on above: Performed By: #### C BCAD #### [facility] [address], [place] [id number] XR CHEST (2 VW)on 06-10-2021 XR CHEST (2 VW) EXAMINATION: TWO XRAY VIEWS OF THE CHEST 06/10/2021 11:24 am COMPARISON: May 31, 2021 HISTORY: ORDERING SYSTEM PROVIDED HISTORY: S/P CABG (coronary artery bypass graft) FINDINGS: Improved aeration throughout the lungs with decreased congestive changes. Redemonstrated left basilar atelectasis or infiltrate and small left-sided pleural effusion. Cardiac size stable. Sternotomy wire sutures present. No acute osseous abnormality. IMPRESSION: Decreased congestive changes. Small left-sided pleural effusion with atelectasis or infiltrate left base. Interpreted by: Cristian Szymanski DO Signed by: Cristian Szymanski DO 06/10/21 Final result Normal [facility] Decreased congestive changes. Small left-sided pleural effusion with atelectasis or infiltrate left base. [facility] EXAMINATION: TWO XRAY VIEWS OF THE CHEST 06/10/2021 11:24 am COMPARISON: May 31, 2021 HISTORY: ORDERING SYSTEM PROVIDED HISTORY: S/P CABG (coronary artery bypass graft) FINDINGS: Improved aeration throughout the lungs with decreased congestive changes. Redemonstrated left basilar atelectasis or infiltrate and small left-sided pleural effusion. Cardiac size stable. Sternotomy wire sutures present. No acute osseous abnormality. [facility] Cristian Szymanski DO - 06/10/2021 EXAMINATION: TWO XRAY VIEWS OF THE CHEST 06/10/2021 11:24 am COMPARISON: May 31, 2021 HISTORY: ORDERING SYSTEM PROVIDED HISTORY: S/P CABG (coronary artery bypass graft) FINDINGS: Improved aeration throughout the lungs with decreased congestive changes. Redemonstrated left basilar atelectasis or infiltrate and small left-sided pleural effusion. Cardiac size stable. Sternotomy wire sutures present. No acute osseous abnormality. IMPRESSION: Decreased congestive changes. Small left-sided pleural effusion with atelectasis or infiltrate left base. [employer] Work Phone: Radiology Study observation (narrative) [employer] Work Phone: XR CHEST (2 VW)Ordered By: Conor Szymanski on 06-10-2021 [employer] Phone: Basic Metabolic Panelon 05-11 Anion gap [Moles/Vol] 10 mmol/L 9 - 17 mmol/L [employer] Calcium [Mass/Vol] 8.1 mg/dL Low 8.6 - 10. 4 mg/dL [employer] Chloride [Moles/Vol] 105 mmol/L 98 - 107 mmol/L [employer] CO2 [Moles/Vol] 26 mmol/L 20 - 31 mmol/L [employer] Creatinine [Mass/Vol] 1.44 mg/dL High 0.70 - 1.20 mg/dL [employer] GFR 58 mL/min Low >60 [employer] GFR Non- 48 mL/min Low >60 [employer] GFR/1.73 sq M.predicted MDRD (S/P/Bld) [Vol rate/Area] [employer] Comment on above: Average GFR for 70 o r more years old: 75 mL/min/1.73sq m Chronic Kidney Disease: <60 mL/min/1.73sq m Kidney failure: <15 mL/min/1.73sq m eGFR calculated using average adult body mass. Additional eGFR calculator available at: http://www.[employer]multiple_crcl_2012.htm GFR/1.73 sq M.predicted MDRD (S/P/Bld) [Vol rate/Area] NOT REPORTED [employer] Glucose [Mass/Vol] 133 mg/dL High 70 - 99 mg/dL [facility] [employer] Interpretation and review of laboratory results Abnormal [employer] Potassium [Moles/Vol] 4.5 mmol/L 3.7 - 5.3 mmol/L [employer] Sodium [Moles/Vol] 141 mmol/L 135 - 144 mmol/L [employer] Urea nitrogen (BldV) [Mass/Vol] 36 mg/dL High 8 - 23 mg/dL [employer] Urea nitrogen/Creatinine (Bld) [Mass ratio] NOT REPORTED [facility] Basic Metabolic Profon 05-31 (cont.) Normal [facility] Comment on above: Result Comment: Aver age GFR for 70 or more years old: 75 mL/min/1.73sq m Chronic Kidney Disease: <60 mL/min/1.73sq m Kidney failure: <15 mL/min/1.73sq m eGFR calculated using average adult body mass. Additional eGFR calculator available at: http://www.[employer]/multiple_crcl_2011.htm Performed By: #### C DP, IPF, BMPX, BNP, TROPI, GLYHGB #### [employer] [address] [place] [phone] Web [employer] Strategist: Juancho Miguel MD Anion gap [Moles/Vol] 10 mmol/L Normal 9-17 [facility] Comment on above: Performed By: #### C DP, IPF, BMPX, BNP, TROPI, GLYHGB #### [facility] [address] [place] [phone] [employer] Strategist: Juancho Miguel MD Calcium [Mass/Vol] 8.1 mg/dL Low 8.6-10.4 [facility] Comment on above: Performed By: #### C DP, IPF, BMPX, BNP, TROPI, GLYHGB #### [facility] [employer] [address] [place] [phone] [employer] Strategist: Juancho Miguel MD Chloride [Moles/Vol] 105 mmol/L Normal 98-107 [facility] Comment on above: Performed By: #### C DP, IPF, BMPX, BNP, TROPI, GLYHGB #### [employer] [address] [place] [phone] [employer] Strategist: Juancho Miguel MD CO2 [Moles/Vol] 26 mmol/L Normal 20-31 [facility] Comment on above: Performed By: #### C DP, IPF, BMPX, BNP, TROPI, GLYHGB #### [address] [id number] [employer] Strategist: Juancho Miguel MD Creatinine [Mass/Vol] 1.44 mg/dL High 0.70-1.20 [facility] Comment on above: Performed By: #### C DP, IPF, BMPX, BNP, TROPI, GLYHGB #### [address] [id number] [employer] Strategist: Juancho Miguel MD GFR, Amer 58 mL/min Low >60 [facility] Comment on above: Performed By: #### C DP, IPF, BMPX, BNP, TROPI, GLYHGB #### [address] [address] [employer] Strategist: Juancho Miguel MD GFR,non Amer 48 mL/min Low >60 [facility] Comment on above: Performed By: #### C DP, IPF, BMPX, BNP, TROPI, GLYHGB #### [address] [id number] [employer] Strategist: Juancho Miguel MD Glucose [Mass/Vol] 133 mg/dL High 70-99 [facility] Comment on above: Performed By: #### C DP, IPF, BMPX, BNP, TROPI, GLYHGB #### [address] [id number] [employer] Strategist: Juancho Miguel MD Potassium [Moles/Vol] 4.5 mmol/L Normal 3.7-5.3 [facility] Comment on above: Performed By: #### C DP, IPF, BMPX, BNP, TROPI, GLYHGB #### [address] [address] Web Marketing Strategist: Juancho Miguel MD Sodium [Moles/Vol] 141 mmol/L Normal 135-144 [facility] Comment on above: Performed By: #### C DP, IPF, BMPX, BNP, TROPI, GLYHGB #### [facility] [employer] [facility] [place] [address] Web Marketing Strategist: Juancho Miguel MD Urea nitrogen [Mass/Vol] 36 mg/dL High 12-30 [facility] Comment on above: Performed By: #### C DP, IPF, BMPX, BNP, TROPI, GLYHGB #### [facility] [employer] [address] [place] [phone] Web Marketing Strategist: Juancho Miguel MD BUN/CRE Ratio NOT REPORTED Normal 01-27 [facility] Comment on above: Performed By: #### C DP, IPF, BMPX, BNP, TROPI, GLYHGB #### [facility] [employer] [address] [place] [phone] Web Marketing Strategist: Juancho Miguel MD Staging: NOT REPORTED Normal [facility] Comment on above: Performed By: #### C DP, IPF, BMPX, BNP, TROPI, GLYHGB #### [facility] [employer] [address] [place] [address] Web Marketing Strategist: Juancho Miguel MD CBCon 05-31-2021 Erythrocyte distribution width (RBC) [Ratio] 14.0 % Normal 11.8-14.4 [facility] Comment on above: Performed By: #### C DP, IPF, BMPX, BNP, TROPI, GLYHGB #### [facility] [employer] [address] [place] [phone] Web Marketing Strategist: Juancho Miguel MD Hematocrit (Bld) [Volume fraction] 25.0 % Low 40.7-50.3 [facility] Comment on above: Performed By: #### C DP, IPF, BMPX, BNP, TROPI, GLYHGB #### [facility] [employer] [address] [place] [address] Web Marketing Strategist: Juancho Miguel MD Hemoglobin (Bld) [Mass/Vol] 8.0 g/dL Low 13.0-17.0 [facility] Comment on above: Performed By: #### C DP, IPF, BMPX, BNP, TROPI, GLYHGB #### [address] [id number] Web Marketing Strategist: Juancho Miguel MD MCH (RBC) [Entitic mass] 29.7 pg Normal 25.2-33.5 [facility] Comment on above: Performed By: #### C DP, IPF, BMPX, BNP, TROPI, GLYHGB #### [address] [address] Web Marketing Strategist: Juancho Miguel MD MCHC (RBC) [Mass/Vol] 32.0 g/dL Normal 28.4-34.8 [facility] Comment on above: Performed By: #### C DP, IPF, BMPX, BNP, TROPI, GLYHGB #### [address] [address] Web Marketing Strategist: Juancho Miguel MD MCV (RBC) [Entitic vol] 92.9 fL Normal 82.6-102.9 [facility] Comment on above: Performed By: #### C DP, IPF, BMPX, BNP, TROPI, GLYHGB #### [address] [id number] Web Marketing Strategist: Juancho Miguel MD NRBC Automated 0.0 per 100 WBC Normal 0.0 [facility] Comment on above: Performed By: #### C DP, IPF, BMPX, BNP, TROPI, GLYHGB #### [address] [phone] Web Marketing Strategist: Juancho Miguel MD Platelet mean volume (Bld) [Entitic vol] 11.5 fL Normal 8.1-13.5 [facility] Comment on above: Performed By: #### C DP, IPF, BMPX, BNP, TROPI, GLYHGB #### [employer] [address] [place] [address] Web Marketing Strategist: Juancho Miguel MD Platelets (Bld) [#/Vol] 95 10*3/uL Low 138-453 [facility] Comment on above: Performed By: #### C DP, IPF, BMPX, BNP, TROPI, GLYHGB #### [employer] [address] [place] [address] Web Marketing Strategist: Juancho Miguel MD RBC (Bld) [#/Vol] 2.69 10*6/uL Low 4.21-5.77 [facility] Comment on above: Performed By: #### C DP, IPF, BMPX, BNP, TROPI, GLYHGB #### [facility] [place], [place] [phone] Web Marketing Strategist: Juancho Miguel MD WBC (Bld) [#/Vol] 8.2 10*3/uL Normal 3.5-11.3 [facility] Comment on above: Performed By: #### C DP, IPF, BMPX, BNP, TROPI, GLYHGB #### [employer] [facility] [place] [address] Web Marketing Strategist: Juancho Miguel MD Hematocrit (Bld) [Volume fraction] 25.0 % Low 40.7 - 50.3 % [facility] Hemoglobin.gastroin testinal spec 1 Ql (Stl) 8.0 g/dL Low 13.0 - 17.0 g/dL [facility] Interpretation and review of laboratory results Abnormal [facility] MCH (RBC) [Entitic mass] 29.7 pg 25.2 - 33.5 pg [facility] MCHC (RBC) [Mass/Vol] 32.0 g/dL 28.4 - 34.8 g/dL [facility] MCV (RBC) [Entitic vol] 92.9 fL 82.6 - 102.9 fL [facility] NRBC Automated 0.0 0.0 per 100 WBC [facility] Platelet distribution width (Bld) [Ratio] 14.0 % 11.8 - 14.4 % [facility] Platelet mean volume (Bld) [Entitic vol] 11.5 fL 8.1 - 13.5 fL [facility] Platelets (Bld) [#/Vol] 95 10*3/uL Low [facility] RBC (Bld) [#/Vol] 2.69 10*6/uL Low 4.21 - 5.7 7 m/uL [facility] WBC (Bld) [#/Vol] 8.2 10*3/uL [facility] Magnesiumon 05-31-2021 Magnesium [Mass/Vol] 2.3 mg/dL Normal 1.6-2.6 [facility] Comment on above: Performed By: #### C DP, IPF, BMPX, BNP, TROPI, GLYHGB #### [facility] [employer] [place] [address] Web Marketing Strategist: Juancho Miguel MD Magnesium [Mass/Vol] 2.3 mg/dL 1.6 - 2.6 mg/dL [facility] No Panel Informationon 05-31 [facility] PTon 05-31-2021 INR Coag (PPP) [Relative time] 0.9 {INR} Normal [facility] Comment on above: Result Comment: Therapeutic Range: Moderate Anticoagulant Intensity: INR = 2.0-3.0 High Anticoagulant Intensity: INR = 2.5-3.5 Performed By: #### C DP, IPF, BMPX, BNP, TROPI, GLYHGB #### [employer] [facility] [place] [address] Web Marketing Strategist: Juancho Miguel MD PT Coag (PPP) [Time] 10.0 s Normal 9.1-12.3 [facility] Comment on above: Performed By: #### C DP, IPF, BMPX, BNP, TROPI, GLYHGB #### [facility] [facility] [place] [address] Web Marketing Strategist: Juancho Miguel MD Protime-INRon 05-31-2021 INR Coag (Bld) [Relative time] 0.9 {INR} [facility] Comment on above: Therapeutic Range: Moderate Anticoagulant Intensity: INR = 2.0-3.0 High Anticoagulant Intensity: INR = 2.5-3.5 PT Coag (PPP) [Time] 10 s [facility] XR CHEST PORTABLEon 05-31-19 XR CHEST PORTABLE EXAMINATION: ONE XRAY VIEW OF THE CHEST 05/31/2021 6:06 am COMPARISON: 05/30/2021, 515 hours HISTORY: ORDERING SYSTEM PROVIDED HISTORY: Post op CABG TECHNOLOGIST PROVIDED HISTORY: Post op CABG Reason for Exam: Upright port, CABG 76-year-old male who is postop CABG FINDINGS: Portable upright view of the chest. Prior median sternotomy and CABG. signal engineer leads overlie the chest. No pneumothorax. Trachea midline. Stable cardiomegaly. Cardiac and mediastinal contours remain unchanged. Development of mild bibasilar airspace disease, atelectasis and/or infiltrate. Trace bilateral pleural effusions. Visualized osseous structures remain unchanged. IMPRESSION: 1. Mild bibasilar airspace disease, atelectasis and/or infiltrate. Trace bilateral pleural effusions. Follow-up is recommended to document resolution. 2. Stable cardiomegaly. Prior median sternotomy and CABG. Interpreted by: Jones Birmingham MD Signed by: Jones Birmingham MD 05/31/21 Final result Normal [facility] 1. Mild bibasilar airspace disease, atelectasis and/or infiltrate. Trace bilateral pleural effusions. Follow-up is recommended to document resolution. 2. Stable cardiomegaly. Prior median sternotomy and CABG. [facility] RIS CONSOLIDATED EXAMINATION: ONE XRAY VIEW OF THE CHEST 05/31/2021 6:06 am COMPARISON: 05/30/2021, 515 hours HISTORY: ORDERING SYSTEM PROVIDED HISTORY: Post op CABG TECHNOLOGIST PROVIDED HISTORY: Post op CABG Reason for Exam: Upright port, CABG 76-year-old male who is postop CABG FINDINGS: Portable upright view of the chest. Prior median sternotomy and CABG. signal engineer leads overlie the chest. No pneumothorax. Trachea midline. Stable cardiomegaly. Cardiac and mediastinal contours remain unchanged. Development of mild bibasilar airspace disease, atelectasis and/or infiltrate. Trace bilateral pleural effusions. Visualized osseous structures remain unchanged. [facility] Jones Ho MD - 05/31/2021 EXAMINATION: ONE XRAY VIEW OF THE CHEST 05/31/2021 6:06 am COMPARISON: 05/30/2021, 515 hours HISTORY: ORDERING SYSTEM PROVIDED HISTORY: Post op CABG TECHNOLOGIST PROVIDED HISTORY: Post op CABG Reason for Exam: Upright port, CABG 76-year-old male who is postop CABG FINDINGS: Portable upright view of the chest. Prior median sternotomy and CABG. signal engineer leads overlie the chest. No pneumothorax. Trachea midline. Stable cardiomegaly. Cardiac and mediastinal contours remain unchanged. Development of mild bibasilar airspace disease, atelectasis and/or infiltrate. Trace bilateral pleural effusions. Visualized osseous structures remain unchanged. IMPRESSION: 1. Mild bibasilar airspace disease, atelectasis and/or infiltrate. Trace bilateral pleural effusions. Follow-up is recommended to document resolution. 2. Stable cardiomegaly. Prior median sternotomy and CABG. [employer] Phone: Radiology Study observation (narrative) [employer] Phone: XR CHEST PORTABLEOrdered By: Jones Birmingham on 05-31-2021 [employer] Phone: Basic Metabolic Panelon 05-11 Anion gap [Moles/Vol] 13 mmol/L 9 - 17 mmol/L [employer] Calcium [Mass/Vol] 8.6 mg/dL 8.6 - 10. 4 mg/dL [employer] Chloride [Moles/Vol] 106 mmol/L 98 - 107 mmol/L [employer] CO2 [Moles/Vol] 22 mmol/L 20 - 31 mmol/L [employer] Creatinine [Mass/Vol] 1.3 mg/dL High 0.70 - 1.20 mg/dL [employer] GFR >60 >60 mL/min [employer] GFR Non- 54 mL/min Low >60 [employer] GFR/1.73 sq M.predicted MDRD (S/P/Bld) [Vol rate/Area] [employer] Comment on above: Average GFR for 70 o r more years old: 75 mL/min/1.73sq m Chronic Kidney Disease: <60 mL/min/1.73sq m Kidney failure: <15 mL/min/1.73sq m eGFR calculated using average adult body mass. Additional eGFR calculator available at: http://www.[employer]/multiple_crcl_2012.htm GFR/1.73 sq M.predicted MDRD (S/P/Bld) [Vol rate/Area] NOT REPORTED [facility] [employer] Glucose [Mass/Vol] 138 mg/dL High 70 - 99 mg/dL [facility] Interpretation and review of laboratory results Abnormal [facility] [employer] Potassium [Moles/Vol] 3.8 mmol/L 3.7 - 5.3 mmol/L [facility] [employer] Sodium [Moles/Vol] 141 mmol/L 135 - 144 mmol/L [facility] [employer] Urea nitrogen (BldV) [Mass/Vol] 37 mg/dL High 8 - 23 mg/dL [facility] [employer] Urea nitrogen/Creatinine (Bld) [Mass ratio] NOT REPORTED [facility] Basic Metabolic Profon 05-30 (cont.) Normal [facility] Comment on above: Result Comment: Aver age GFR for 70 or more years old: 75 mL/min/1.73sq m Chronic Kidney Disease: <60 mL/min/1.73sq m Kidney failure: <15 mL/min/1.73sq m eGFR calculated using average adult body mass. Additional eGFR calculator available at: http://www.[employer]/multiple_crcl_2011.htm Performed By: #### C DP, IPF, BMPX, BNP, TROPI, GLYHGB #### [employer] [facility] [place] [address] Web Marketing Strategist: Juancho Miguel MD Anion gap [Moles/Vol] 13 mmol/L Normal 9-17 [facility] Comment on above: Performed By: #### C DP, IPF, BMPX, BNP, TROPI, GLYHGB #### [employer] [address] [place] [address] Web Marketing Strategist: Juancho Miguel MD Calcium [Mass/Vol] 8.6 mg/dL Normal 8.6-10.4 [facility] Comment on above: Performed By: #### C DP, IPF, BMPX, BNP, TROPI, GLYHGB #### [facility] [employer] [address] [place] [phone] Web Marketing Strategist: Juancho Mgiuel MD Chloride [Moles/Vol] 106 mmol/L Normal 98-107 [facility] Comment on above: Performed By: #### C DP, IPF, BMPX, BNP, TROPI, GLYHGB #### [address] [address] Web Marketing Strategist: Juancho Miguel MD CO2 [Moles/Vol] 22 mmol/L Normal 20-31 [facility] Comment on above: Performed By: #### C DP, IPF, BMPX, BNP, TROPI, GLYHGB #### [address] [address] Web Marketing Strategist: Juancho Miguel MD Creatinine [Mass/Vol] 1.30 mg/dL High 0.70-1.20 [facility] Comment on above: Performed By: #### C DP, IPF, BMPX, BNP, TROPI, GLYHGB #### [facility] [employer] [address] [place] [address] Web Marketing Strategist: Juancho Miguel MD GFR, Amer >60 Normal >60 [facility] Comment on above: Performed By: #### C DP, IPF, BMPX, BNP, TROPI, GLYHGB #### [facility] [employer] [address] [place] [address] Web [employer] Strategist: Juancho Miguel MD GFR,non Amer 54 mL/min Low >60 [facility] Comment on above: Performed By: #### C DP, IPF, BMPX, BNP, TROPI, GLYHGB #### [facility] [employer] [address] [place] [address] Web Marketing Strategist: Juancho Miguel MD Glucose [Mass/Vol] 138 mg/dL High 70-99 [facility] Comment on above: Performed By: #### C DP, IPF, BMPX, BNP, TROPI, GLYHGB #### [facility] [employer] [address] [place] [address] Web Marketing Strategist: Juancho Miguel MD Potassium [Moles/Vol] 3.8 mmol/L Normal 3.7-5.3 [facility] Comment on above: Performed By: #### C DP, IPF, BMPX, BNP, TROPI, GLYHGB #### [facility] [employer] [address] [place] [address] Web Marketing Strategist: Juancho Miguel MD Sodium [Moles/Vol] 141 mmol/L Normal 135-144 [facility] Comment on above: Performed By: #### C DP, IPF, BMPX, BNP, TROPI, GLYHGB #### [facility] [employer] [address] [place] [address] Web Marketing Strategist: Juancho Miguel MD Urea nitrogen [Mass/Vol] 37 mg/dL High 8-23 [facility] Comment on above: Performed By: #### C DP, IPF, BMPX, BNP, TROPI, GLYHGB #### [facility] [employer] [address] [place] [address] Web Marketing Strategist: Juancho Miguel MD BUN/CRE Ratio NOT REPORTED Normal - [facility] Comment on above: Performed By: #### C DP, IPF, BMPX, BNP, TROPI, GLYHGB #### [facility] [place] [address] Web Marketing Strategist: Juancho Miguel MD Staging: NOT REPORTED Normal [facility] Comment on above: Performed By: #### C DP, IPF, BMPX, BNP, TROPI, GLYHGB #### [facility] [employer] [address] [place] [address] Web Marketing Strategist: Juancho Miguel MD CBCon 05-30-2021 Erythrocyte distribution width (RBC) [Ratio] 14.0 % Normal 11.8-14.4 [facility] Comment on above: Performed By: #### C DP, IPF, BMPX, BNP, TROPI, GLYHGB #### [address] [address] Web Marketing Strategist: Juancho Miguel MD Hematocrit (Bld) [Volume fraction] 25.4 % Low 40.7-50.3 [facility] Comment on above: Performed By: #### C DP, IPF, BMPX, BNP, TROPI, GLYHGB #### [address] [address] Web Marketing Strategist: Juancho Miguel MD Hemoglobin (Bld) [Mass/Vol] 8.2 g/dL Low 13.0-17.0 [facility] Comment on above: Performed By: #### C DP, IPF, BMPX, BNP, TROPI, GLYHGB #### [facility] [employer] [address] [place] [address] Web Marketing Strategist: Juancho Miguel MD MCH (RBC) [Entitic mass] 30.1 pg Normal 25.2-33.5 [facility] Comment on above: Performed By: #### C DP, IPF, BMPX, BNP, TROPI, GLYHGB #### [address] [address] Web Marketing Strategist: Juancho Miguel MD MCHC (RBC) [Mass/Vol] 32.3 g/dL Normal 28.4-34.8 [facility] Comment on above: Performed By: #### C DP, IPF, BMPX, BNP, TROPI, GLYHGB #### [address] [address] Web Marketing Strategist: Juancho Miguel MD MCV (RBC) [Entitic vol] 93.4 fL Normal 82.6-102.9 [facility] Comment on above: Performed By: #### C DP, IPF, BMPX, BNP, TROPI, GLYHGB #### [address] [address] Web Marketing Strategist: Juancho Miguel MD NRBC Automated 0.0 per 100 WBC Normal 0.0 [facility] Comment on above: Performed By: #### C DP, IPF, BMPX, BNP, TROPI, GLYHGB #### [address] [address] Web Marketing Strategist: Juancho Miguel MD Platelet mean volume (Bld) [Entitic vol] 11.7 fL Normal 8.1-13.5 [facility] Comment on above: Performed By: #### C DP, IPF, BMPX, BNP, TROPI, GLYHGB #### [address] [address] Web Marketing Strategist: Juancho Miguel MD Platelets (Bld) [#/Vol] 76 10*3/uL Low 138-453 [facility] Comment on above: Performed By: #### C DP, IPF, BMPX, BNP, TROPI, GLYHGB #### [address] [address] Web Marketing Strategist: Juancho Miguel MD RBC (Bld) [#/Vol] 2.72 10*6/uL Low 4.21-5.77 [facility] Comment on above: Performed By: #### C DP, IPF, BMPX, BNP, TROPI, GLYHGB #### [address] [address] Web Marketing Strategist: Juancho Miguel MD WBC (Bld) [#/Vol] 7.2 10*3/uL Normal 3.5-11.3 [facility] Comment on above: Performed By: #### C DP, IPF, BMPX, BNP, TROPI, GLYHGB #### [address] [place] [address] Web Marketing Strategist: Juancho Miguel MD Hematocrit (Bld) [Volume fraction] 25.4 % Low 40.7 - 50.3 % [facility] Hemoglobin.gastroin testinal spec 1 Ql (Stl) 8.2 g/dL Low 13.0 - 17.0 g/dL [facility] Interpretation and review of laboratory results Abnormal [facility] [employer] MCH (RBC) [Entitic mass] 30.1 pg 25.2 - 33.5 pg [facility] MCHC (RBC) [Mass/Vol] 32.3 g/dL 28.4 - 34.8 g/dL [facility] MCV (RBC) [Entitic vol] 93.4 fL 82.6 - 102.9 fL [facility] NRBC Automated 0.0 0.0 per 100 WBC [facility] Platelet distribution width (Bld) [Ratio] 14.0 % 11.8 - 14.4 % [facility] [employer] Platelet mean volume (Bld) [Entitic vol] 11.7 fL 8.1 - 13.5 fL [facility] [employer] Platelets (Bld) [#/Vol] 76 10*3/uL Low [facility] RBC (Bld) [#/Vol] 2.72 10*6/uL Low 4.21 - 5.7 7 m/uL [facility] WBC (Bld) [#/Vol] 7.2 10*3/uL [facility] Magnesiumon 05-30-2021 Magnesium [Mass/Vol] 2.4 mg/dL Normal 1.6-2.6 [facility] Comment on above: Performed By: #### C DP, IPF, BMPX, BNP, TROPI, GLYHGB #### [employer] [address] [place] [address] Web Marketing Strategist: Juancho Miguel MD Magnesium [Mass/Vol] 2.4 mg/dL 1.6 - 2.6 mg/dL [facility] No Panel Informationon 05-30 [facility] PTon 05-30-2021 INR Coag (PPP) [Relative time] 0.9 {INR} Normal [facility] Comment on above: Result Comment: Therapeutic Range: Moderate Anticoagulant Intensity: INR = 2.0-3.0 High Anticoagulant Intensity: INR = 2.5-3.5 Performed By: #### C DP, IPF, BMPX, BNP, TROPI, GLYHGB #### [employer] [address] [place], [place] [id number] Web [employer] Strategist: Juancho Miguel MD PT Coag (PPP) [Time] 9.6 s Normal 9.1-12.3 [facility] Comment on above: Performed By: #### C DP, IPF, BMPX, BNP, TROPI, GLYHGB #### [employer] [address] [place], [place] [phone] Web Marketing Strategist: Juancho Miguel MD Protime-INRon 05-30-2021 INR Coag (Bld) [Relative time] 0.9 {INR} [facility] Comment on above: Therapeutic Range: Moderate Anticoagulant Intensity: INR = 2.0-3.0 High Anticoagulant Intensity: INR = 2.5-3.5 PT Coag (PPP) [Time] 9.6 s [facility]on 05-30-19 XR CHEST PORTABLE EXAMINATION: ONE XRAY VIEW OF THE CHEST 05/30/2021 5:58 am COMPARISON: 29 May 2021 HISTORY: ORDERING SYSTEM PROVIDED HISTORY: Post op CABG TECHNOLOGIST PROVIDED HISTORY: Post op CABG Reason for Exam: post CABG upright port FINDINGS: AP portable upright view of the chest, electronically labeled regarding sides. Median sternotomy wires and postsurgical changes of CABG are observed. 2 chest tubes seen on the left, 1 of which may be a mediastinal tube. Left subclavian central venous catheter no longer visualized. Stable calcified granuloma within the left lateral lung. No focal infiltrates, effusions or pneumothoraces. Pulmonary vascularity is within normal limits. Cardiac size is borderline. Prior postsurgical changes of the lower cervical spine. The remaining visualized osseous and soft tissues are unchanged. IMPRESSION: No radiologic evidence of acute cardiopulmonary disease. Interpreted by: Jeffrey Nielson Signed by: Jeffrey Nielson 05/30/21 Final result Normal [facility] No radiologic eviden ce of acute cardiopulmonary disease. [facility] RIS CONSOLIDATED EXAMINATION: ONE XRAY VIEW OF THE CHEST 05/30/2021 5:58 am COMPARISON: 29 May 2021 HISTORY: ORDERING SYSTEM PROVIDED HISTORY: Post op CABG TECHNOLOGIST PROVIDED HISTORY: Post op CABG Reason for Exam: post CABG upright port FINDINGS: AP portable upright view of the chest, electronically labeled regarding sides. Median sternotomy wires and postsurgical changes of CABG are observed. 2 chest tubes seen on the left, 1 of which may be a mediastinal tube. Left subclavian central venous catheter no longer visualized. Stable calcified granuloma within the left lateral lung. No focal infiltrates, effusions or pneumothoraces. Pulmonary vascularity is within normal limits. Cardiac size is borderline. Prior postsurgical changes of the lower cervical spine. The remaining visualized osseous and soft tissues are unchanged. [facility] Jeffrey Moore J - 05/30/2021 EXAMINATION: ONE XRAY VIEW OF THE CHEST 05/30/2021 5:58 am COMPARISON: 29 May 2021 HISTORY: ORDERING SYSTEM PROVIDED HISTORY: Post op CABG TECHNOLOGIST PROVIDED HISTORY: Post op CABG Reason for Exam: post CABG upright port FINDINGS: AP portable upright view of the chest, electronically labeled regarding sides. Median sternotomy wires and postsurgical changes of CABG are observed. 2 chest tubes seen on the left, 1 of which may be a mediastinal tube. Left subclavian central venous catheter no longer visualized. Stable calcified granuloma within the left lateral lung. No focal infiltrates, effusions or pneumothoraces. Pulmonary vascularity is within normal limits. Cardiac size is borderline. Prior postsurgical changes of the lower cervical spine. The remaining visualized osseous and soft tissues are unchanged. IMPRESSION: No radiologic evidence of acute cardiopulmonary disease. [employer] Phone: Radiology Study observation (narrative) [employer] Phone: XR CHEST PORTABLEOrdered By: Jeffrey Nielson on 05-30-2021 [employer] Phone: Basic Metabolic Panelon 05-11 Anion gap [Moles/Vol] 11 mmol/L 9 - 17 mmol/L [employer] Calcium [Mass/Vol] 8.3 mg/dL Low 8.6 - 10. 4 mg/dL [employer] Chloride [Moles/Vol] 104 mmol/L 98 - 107 mmol/L [facility] [employer] CO2 [Moles/Vol] 24 mmol/L 20 - 31 mmol/L [facility] [employer] Creatinine [Mass/Vol] 1.67 mg/dL High 0.70 - 1.20 mg/dL [facility] [employer] GFR 49 mL/min Low >60 [facility] GFR Non- 40 mL/min Low >60 [facility] GFR/1.73 sq M.predicted MDRD (S/P/Bld) [Vol rate/Area] [facility] Comment on above: Average GFR for 70 o r more years old: 75 mL/min/1.73sq m Chronic Kidney Disease: <60 mL/min/1.73sq m Kidney failure: <15 mL/min/1.73sq m eGFR calculated using average adult body mass. Additional eGFR calculator available at: http://www.[employer]_crcl_2011.htm GFR/1.73 sq M.predicted MDRD (S/P/Bld) [Vol rate/Area] NOT REPORTED [facility] [employer] Glucose [Mass/Vol] 123 mg/dL High 70 - 99 mg/dL [facility] Interpretation and review of laboratory results Abnormal [facility] Potassium [Moles/Vol] 4.4 mmol/L 3.7 - 5.3 mmol/L [facility] [employer] Sodium [Moles/Vol] 139 mmol/L 135 - 144 mmol/L [facility] Urea nitrogen (BldV) [Mass/Vol] 35 mg/dL High 8 - 23 mg/dL [facility] [employer] Urea nitrogen/Creatinine (Bld) [Mass ratio] NOT REPORTED [facility] Basic Metabolic Profon 05-29 (cont.) Normal [facility] Comment on above: Result Comment: Aver age GFR for 70 or more years old: 75 mL/min/1.73sq m Chronic Kidney Disease: <60 mL/min/1.73sq m Kidney failure: <15 mL/min/1.73sq m eGFR calculated using average adult body mass. Additional eGFR calculator available at: http://www.[employer]ing [employer] [email or web address] Performed By: #### C DP, IPF, BMPX, BNP, TROPI, GLYHGB #### [address] [address] Web Marketing Strategist: Juancho Miguel MD Anion gap [Moles/Vol] 11 mmol/L Normal 9-17 [facility] Comment on above: Performed By: #### C DP, IPF, BMPX, BNP, TROPI, GLYHGB #### [address] [address] Web Marketing Strategist: Juancho Miguel MD Calcium [Mass/Vol] 8.3 mg/dL Low 8.6-10.4 [facility] Comment on above: Performed By: #### C DP, IPF, BMPX, BNP, TROPI, GLYHGB #### [address] [address] Web Marketing Strategist: Juancho Miguel MD Chloride [Moles/Vol] 104 mmol/L Normal 98-107 [facility] Comment on above: Performed By: #### C DP, IPF, BMPX, BNP, TROPI, GLYHGB #### [address] [address] Web Marketing Strategist: Juancho Miguel MD CO2 [Moles/Vol] 24 mmol/L Normal 20-31 [facility] Comment on above: Performed By: #### C DP, IPF, BMPX, BNP, TROPI, GLYHGB #### [address] [address] Web Marketing Strategist: Juancho Miguel MD Creatinine [Mass/Vol] 1.67 mg/dL High 0.70-1.20 [facility] Comment on above: Performed By: #### C DP, IPF, BMPX, BNP, TROPI, GLYHGB #### [address] [address] Web Marketing Strategist: Juancho Miguel MD GFR, Amer 49 mL/min Low >60 [facility] Comment on above: Performed By: #### C DP, IPF, BMPX, BNP, TROPI, GLYHGB #### [facility] [employer] [address] [place] [address] Web Marketing Strategist: Juancho Miguel MD GFR,non Amer 40 mL/min Low >60 [facility] Comment on above: Performed By: #### C DP, IPF, BMPX, BNP, TROPI, GLYHGB #### [address] [address] Web Marketing Strategist: Juancho Miguel MD Glucose [Mass/Vol] 123 mg/dL High 70-99 [facility] Comment on above: Performed By: #### C DP, IPF, BMPX, BNP, TROPI, GLYHGB #### [address] [address] Web Marketing Strategist: Juancho Miguel MD Potassium [Moles/Vol] 4.4 mmol/L Normal 3.7-5.3 [facility] Comment on above: Performed By: #### C DP, IPF, BMPX, BNP, TROPI, GLYHGB #### [address] [address] Web Marketing Strategist: Juancho Miguel MD Sodium [Moles/Vol] 139 mmol/L Normal 135-144 [facility] Comment on above: Performed By: #### C DP, IPF, BMPX, BNP, TROPI, GLYHGB #### [address] [address] Web Marketing Strategist: Juancho Miguel MD Urea nitrogen [Mass/Vol] 35 mg/dL High 8-23 [facility] Comment on above: Performed By: #### C DP, IPF, BMPX, BNP, TROPI, GLYHGB #### [facility] [employer] [address] [place] [address] Web Marketing Strategist: Juancho Miguel MD BUN/CRE Ratio NOT REPORTED Normal 9-20 [facility] Comment on above: Performed By: #### C DP, IPF, BMPX, BNP, TROPI, GLYHGB #### [address] [phone] Web Marketing Strategist: Juancho Miguel MD Staging: NOT REPORTED Normal [facility] Comment on above: Performed By: #### C DP, IPF, BMPX, BNP, TROPI, GLYHGB #### [address] [phone] Web Marketing Strategist: Juancho Miguel MD CALCIUM, IONIZEDon Calcium [Moles/Vol] 1.17 mmol/L 1.13 - 1 .33 mmol/L [facility] 05-29-2021 Erythrocyte distribution width (RBC) [Ratio] 14.1 % Normal 11.8-14.4 [facility] Comment on above: Performed By: #### C DP, IPF, BMPX, BNP, TROPI, GLYHGB #### [address] [phone] Web Marketing Strategist: Juancho Miguel MD Hematocrit (Bld) [Volume fraction] 26.3 % Low 40.7-50.3 [facility] Comment on above: Performed By: #### C DP, IPF, BMPX, BNP, TROPI, GLYHGB #### [address] [address] Web Marketing Strategist: Juancho Miguel MD Hemoglobin (Bld) [Mass/Vol] 8.4 g/dL Low 13.0-17.0 [facility] Comment on above: Performed By: #### C DP, IPF, BMPX, BNP, TROPI, GLYHGB #### [address] [address] Web Marketing Strategist: Juancho Miguel MD MCH (RBC) [Entitic mass] 29.9 pg Normal 25.2-33.5 [facility] Comment on above: Performed By: #### C DP, IPF, BMPX, BNP, TROPI, GLYHGB #### [address] [address] Web Marketing Strategist: Juancho Miguel MD MCHC (RBC) [Mass/Vol] 31.9 g/dL Normal 28.4-34.8 [facility] Comment on above: Performed By: #### C DP, IPF, BMPX, BNP, TROPI, GLYHGB #### [address] [address] Web Marketing Strategist: Juancho Miguel MD MCV (RBC) [Entitic vol] 93.6 fL Normal 82.6-102.9 [facility] Comment on above: Performed By: #### C DP, IPF, BMPX, BNP, TROPI, GLYHGB #### [address] [address] Web Marketing Strategist: Juancho Miguel MD NRBC Automated 0.0 per 100 WBC Normal 0.0 [facility] Comment on above: Performed By: #### C DP, IPF, BMPX, BNP, TROPI, GLYHGB #### [address] [address] Web Marketing Strategist: Juancho Miguel MD Platelet mean volume (Bld) [Entitic vol] 11.8 fL Normal 8.1-13.5 [facility] Comment on above: Performed By: #### C DP, IPF, BMPX, BNP, TROPI, GLYHGB #### [address] [address] Web Marketing Strategist: Juancho Miguel MD Platelets (Bld) [#/Vol] 73 10*3/uL Low 138-453 [facility] Comment on above: Performed By: #### C DP, IPF, BMPX, BNP, TROPI, GLYHGB #### [address] [phone] Web Marketing Strategist: Juancho Miguel MD RBC (Bld) [#/Vol] 2.81 10*6/uL Low 4.21-5.77 [facility] Comment on above: Performed By: #### C DP, IPF, BMPX, BNP, TROPI, GLYHGB #### [employer] [facility] [address] [place], [place] [phone] Web Marketing Strategist: Juancho Miguel MD WBC (Bld) [#/Vol] 8.7 10*3/uL Normal 3.5-11.3 [facility] Comment on above: Performed By: #### C DP, IPF, BMPX, BNP, TROPI, GLYHGB #### [facility] [address] [place], [place] [phone] Web Marketing Strategist: Juancho Miguel MD Hematocrit (Bld) [Volume fraction] 26.3 % Low 40.7 - 50.3 % [facility] Hemoglobin.gastroin testinal spec 1 Ql (Stl) 8.4 g/dL Low 13.0 - 17.0 g/dL [facility] Interpretation and review of laboratory results Abnormal [facility] [employer] MCH (RBC) [Entitic mass] 29.9 pg 25.2 - 33.5 pg [facility] MCHC (RBC) [Mass/Vol] 31.9 g/dL 28.4 - 34.8 g/dL [facility] MCV (RBC) [Entitic vol] 93.6 fL 82.6 - 102.9 fL [facility] [employer] NRBC Automated 0.0 0.0 per 100 WBC [facility] [employer] Platelet distribution width (Bld) [Ratio] 14.1 % 11.8 - 14.4 % [facility] [employer] Platelet mean volume (Bld) [Entitic vol] 11.8 fL 8.1 - 13.5 fL [facility] [employer] Platelets (Bld) [#/Vol] 73 10*3/uL Low [facility] [employer] RBC (Bld) [#/Vol] 2.81 10*6/uL Low 4.21 - 5.7 7 m/uL [facility] [employer] WBC (Bld) [#/Vol] 8.7 10*3/uL [facility] [employer] Calcium, [employer] 05-29-2021 Calcium [Moles/Vol] 1.17 mmol/L Normal 1.13-1.33 [facility] Comment on above: Performed By: #### C DP, IPF, BMPX, BNP, TROPI, GLYHGB #### [employer] [address] [place], [place] [phone] Web Marketing Strategist: Juancho Miguel MD Magnesiumon 05-29-2021 Magnesium [Mass/Vol] 2.4 mg/dL Normal 1.6-2.6 [facility] Comment on above: Performed By: #### C DP, IPF, BMPX, BNP, TROPI, GLYHGB #### [facility] [place] [address] Web Marketing Strategist: Juancho Miguel MD Magnesium [Mass/Vol] 2.4 mg/dL 1.6 - 2.6 mg/dL [facility] No Panel Informationon 05-29 [facility] POC Glucose Fingerstickon Glucose [Mass/Vol] 132 mg/dL High 75 - 110 mg/dL [facility] Interpretation and review of laboratory results Abnormal [facility] Glucose [Mass/Vol] 108 mg/dL 75 - 110 mg/dL [facility] Glucose [Mass/Vol] 105 mg/dL 75 - 110 mg/dL [facility] Glucose [Mass/Vol] 120 mg/dL High 75 - 110 mg/dL [facility] Interpretation and review of laboratory results Abnormal [facility] PTon 05-29-2021 INR Coag (PPP) [Relative time] 0.9 {INR} Normal [facility] Comment on above: Result Comment: Therapeutic Range: Moderate Anticoagulant Intensity: INR = 2.0-3.0 High Anticoagulant Intensity: INR = 2.5-3.5 Performed By: #### C DP, IPF, BMPX, BNP, TROPI, GLYHGB #### [employer] [address] [place] [address] Web Marketing Strategist: Juancho Miguel MD PT Coag (PPP) [Time] 9.9 s Normal 9.1-12.3 [facility] Comment on above: Performed By: #### C DP, IPF, BMPX, BNP, TROPI, GLYHGB #### [facility] [employer] [address] [place] [address] Web Marketing Strategist: Juancho Miguel MD [employer]-INRon 05-29-2021 INR Coag (Bld) [Relative time] 0.9 {INR} [facility] Comment on above: Therapeutic Range: Moderate Anticoagulant Intensity: INR = 2.0-3.0 High Anticoagulant Intensity: INR = 2.5-3.5 PT Coag (PPP) [Time] 9.9 s [facility] XR CHEST PORTABLEon 05-29-19 XR CHEST PORTABLE EXAMINATION: ONE XRAY VIEW OF THE CHEST 05/29/2021 5:56 am COMPARISON: 05/28/2021, 05/27/2021 HISTORY: ORDERING SYSTEM PROVIDED HISTORY: Post op CABG TECHNOLOGIST PROVIDED HISTORY: Post op CABG Reason for Exam: post CABG upright port FINDINGS: Chest tubes remain in place. No pneumothorax identified. Left subclavian line remains in place. The cardiac and mediastinal contours appear unchanged. Vascular congestion and basilar subsegmental atelectasis is without appreciable change. No new airspace disease or significant effusion identified. IMPRESSION: No significant interval change. Interpreted by: Malik Smith MD Signed by: Malik Smith MD 05/29/21 Final result Normal [facility] No significant inter sanchez change. [facility] EXAMINATION: ONE XRAY VIEW OF THE CHEST 05/29/2021 5:56 am COMPARISON: 05/28/2021, 05/27/2021 HISTORY: ORDERING SYSTEM PROVIDED HISTORY: Post op CABG TECHNOLOGIST PROVIDED HISTORY: Post op CABG Reason for Exam: post CABG upright port FINDINGS: Chest tubes remain in place. No pneumothorax identified. Left subclavian line remains in place. The cardiac and mediastinal contours appear unchanged. Vascular congestion and basilar subsegmental atelectasis is without appreciable change. No new airspace disease or significant effusion identified. [facility] Malik Smith MD - 05/29/2021 EXAMINATION: ONE XRAY VIEW OF THE CHEST 05/29/2021 5:56 am COMPARISON: 05/28/2021, 05/27/2021 HISTORY: ORDERING SYSTEM PROVIDED HISTORY: Post op CABG TECHNOLOGIST PROVIDED HISTORY: Post op CABG Reason for Exam: post CABG upright port FINDINGS: Chest tubes remain in place. No pneumothorax identified. Left subclavian line remains in place. The cardiac and mediastinal contours appear unchanged. Vascular congestion and basilar subsegmental atelectasis is without appreciable change. No new airspace disease or significant effusion identified. IMPRESSION: No significant interval change. [employer] Work Phone: Radiology Study observation (narrative) [employer] Phone: XR CHEST PORTABLEOrdered By: Malik Smith on 05-29-2021 [employer] Phone: Basic Metabolic Panelon 05-10 Anion gap [Moles/Vol] 15 mmol/L 9 - 17 mmol/L [employer] Calcium [Mass/Vol] 8.1 mg/dL Low 8.6 - 10. 4 mg/dL [employer] Chloride [Moles/Vol] 105 mmol/L 98 - 107 mmol/L [employer] CO2 [Moles/Vol] 22 mmol/L 20 - 31 mmol/L [employer] Creatinine [Mass/Vol] 1.67 mg/dL High 0.70 - 1.20 mg/dL [employer] GFR 49 mL/min Low >60 [employer] GFR Non- 40 mL/min Low >60 [employer] GFR/1.73 sq M.predicted MDRD (S/P/Bld) [Vol rate/Area] [employer] Comment on above: Average GFR for 70 o r more years old: 75 mL/min/1.73sq m Chronic Kidney Disease: <60 mL/min/1.73sq m Kidney failure: <15 mL/min/1.73sq m eGFR calculated using average adult body mass. Additional eGFR calculator available at: http://www.[employer]multiple_crcl_2012.htm GFR/1.73 sq M.predicted MDRD (S/P/Bld) [Vol rate/Area] NOT REPORTED [employer] Glucose [Mass/Vol] 133 mg/dL High 70 - 99 mg/dL [facility] Interpretation and review of laboratory results Abnormal [facility] Potassium [Moles/Vol] 4.8 mmol/L 3.7 - 5.3 mmol/L [facility] Sodium [Moles/Vol] 142 mmol/L 135 - 144 mmol/L [facility] Urea nitrogen (BldV) [Mass/Vol] 25 mg/dL High 8 - 23 mg/dL [facility] Urea nitrogen/Creatinine (Bld) [Mass ratio] NOT REPORTED [facility] Basic Metabolic Profon 05-28 (cont.) Normal [facility] Comment on above: Result Comment: Aver age GFR for 70 or more years old: 75 mL/min/1.73sq m Chronic Kidney Disease: <60 mL/min/1.73sq m Kidney failure: <15 mL/min/1.73sq m eGFR calculated using average adult body mass. Additional eGFR calculator available at: http://www.[employer]/multiple_crcl_2012.htm Performed By: #### C DP, IPF, BMPX, BNP, TROPI, GLYHGB #### [employer] [address] [place] [address] [phone] Web Marketing Strategist: Juancho Miguel MD Anion gap [Moles/Vol] 15 mmol/L Normal 9-17 [facility] Comment on above: Performed By: #### C DP, IPF, BMPX, BNP, TROPI, GLYHGB #### [employer] [address] [place] [address] [phone] Web Marketing Strategist: Juancho Miguel MD Calcium [Mass/Vol] 8.1 mg/dL Low 8.6-10.4 [facility] Comment on above: Performed By: #### C DP, IPF, BMPX, BNP, TROPI, GLYHGB #### [employer] [address] [place] [phone] Web Marketing Strategist: Juancho Miguel MD Chloride [Moles/Vol] 105 mmol/L Normal 98-107 [facility] Comment on above: Performed By: #### C DP, IPF, BMPX, BNP, TROPI, GLYHGB #### [employer] [address] [place] [address] Web Marketing Strategist: Juancho Miguel MD CO2 [Moles/Vol] 22 mmol/L Normal 20-31 [facility] Comment on above: Performed By: #### C DP, IPF, BMPX, BNP, TROPI, GLYHGB #### [address] [address] Web Marketing Strategist: Juancho Miguel MD Creatinine [Mass/Vol] 1.67 mg/dL High 0.70-1.20 [facility] Comment on above: Performed By: #### C DP, IPF, BMPX, BNP, TROPI, GLYHGB #### [address] [address] Web Marketing Strategist: Juancho Miguel MD GFR, Amer 49 mL/min Low >60 [facility] Comment on above: Performed By: #### C DP, IPF, BMPX, BNP, TROPI, GLYHGB #### [facility] [employer] [address] [place] [address] Web Marketing Strategist: Juancho Miguel MD GFR,non Amer 40 mL/min Low >60 [facility] Comment on above: Performed By: #### C DP, IPF, BMPX, BNP, TROPI, GLYHGB #### [address] [address] Web Marketing Strategist: Juancho Miguel MD Glucose [Mass/Vol] 133 mg/dL High 70-99 [facility] Comment on above: Performed By: #### C DP, IPF, BMPX, BNP, TROPI, GLYHGB #### [facility] [employer] [address] [place] [address] Web [employer] Strategist: Juancho Miguel MD Potassium [Moles/Vol] 4.8 mmol/L Normal 3.7-5.3 [facility] Comment on above: Performed By: #### C DP, IPF, BMPX, BNP, TROPI, GLYHGB #### [facility] [place], [place] [phone] Web Marketing Strategist: Juancho Miguel MD Sodium [Moles/Vol] 142 mmol/L Normal 135-144 [facility] Comment on above: Performed By: #### C DP, IPF, BMPX, BNP, TROPI, GLYHGB #### [facility] [address] [place] [address] [phone] Web Marketing Strategist: Juancho Miguel MD Urea nitrogen [Mass/Vol] 25 mg/dL High - [facility] Comment on above: Performed By: #### C DP, IPF, BMPX, BNP, TROPI, GLYHGB #### [facility] [employer] [address] [place] [address] [phone] Web Marketing Strategist: Juancho Miguel MD BUN/CRE Ratio NOT REPORTED Normal - [facility] Comment on above: Performed By: #### C DP, IPF, BMPX, BNP, TROPI, GLYHGB #### [facility] [employer] [address] [place] [phone] Web Marketing Strategist: Juancho Miguel MD Staging: NOT REPORTED Normal [facility] Comment on above: Performed By: #### C DP, IPF, BMPX, BNP, TROPI, GLYHGB #### [facility] [employer] [address] [place] [address] [phone] Web Marketing Strategist: Juancho Miguel MD CALCIUM, IONIZEDon Calcium [Moles/Vol] 1.11 mmol/L Low 1.13 - 1 .33 mmol/L [facility] Interpretation and review of laboratory results Abnormal [facility] CBCon 05-28-2021 Erythrocyte distribution width (RBC) [Ratio] 14.1 % Normal 11.8-14.4 [facility] Comment on above: Performed By: #### C DP, IPF, BMPX, BNP, TROPI, GLYHGB #### [address] [address] Web Marketing Strategist: Juancho Miguel MD Hematocrit (Bld) [Volume fraction] 30.2 % Low 40.7-50.3 [facility] Comment on above: Performed By: #### C DP, IPF, BMPX, BNP, TROPI, GLYHGB #### [address] [address] Web Marketing Strategist: Juancho Miguel MD Hemoglobin (Bld) [Mass/Vol] 9.4 g/dL Low 13.0-17.0 [facility] Comment on above: Performed By: #### C DP, IPF, BMPX, BNP, TROPI, GLYHGB #### [address] [address] Web Marketing Strategist: Juancho Miguel MD MCH (RBC) [Entitic mass] 29.9 pg Normal 25.2-33.5 [facility] Comment on above: Performed By: #### C DP, IPF, BMPX, BNP, TROPI, GLYHGB #### [address] [address] Web Marketing Strategist: Juancho Miguel MD MCHC (RBC) [Mass/Vol] 31.1 g/dL Normal 28.4-34.8 [facility] Comment on above: Performed By: #### C DP, IPF, BMPX, BNP, TROPI, GLYHGB #### [address] [address] Web Marketing Strategist: Juancho Miguel MD MCV (RBC) [Entitic vol] 96.2 fL Normal 82.6-102.9 [facility] Comment on above: Performed By: #### C DP, IPF, BMPX, BNP, TROPI, GLYHGB #### [address] [address] Web Marketing Strategist: Juancho Miguel MD NRBC Automated 0.0 per 100 WBC Normal 0.0 [facility] Comment on above: Performed By: #### C DP, IPF, BMPX, BNP, TROPI, GLYHGB #### [facility] [address] [place] [phone] Web Marketing Strategist: Juancho Miguel MD Platelet mean volume (Bld) [Entitic vol] 11.0 fL Normal 8.1-13.5 [facility] Comment on above: Performed By: #### C DP, IPF, BMPX, BNP, TROPI, GLYHGB #### [facility] [employer] [address] [place] [phone] Web [employer] Strategist: Juancho Miguel MD Platelets (Bld) [#/Vol] 81 10*3/uL Low 138-453 [facility] Comment on above: Performed By: #### C DP, IPF, BMPX, BNP, TROPI, GLYHGB #### [facility] [address] [place] [phone] Web Marketing Strategist: Juancho Miguel MD RBC (Bld) [#/Vol] 3.14 10*6/uL Low 4.21-5.77 [facility] Comment on above: Performed By: #### C DP, IPF, BMPX, BNP, TROPI, GLYHGB #### [facility] [employer] [address] [place] [address] Web Marketing Strategist: Juancho Miguel MD WBC (Bld) [#/Vol] 10.6 10*3/uL Normal 3.5-11.3 [facility] Comment on above: Performed By: #### C DP, IPF, BMPX, BNP, TROPI, GLYHGB #### [facility] [employer] [address] [place] [phone] Web [employer] Strategist: Juancho Miguel MD Hematocrit (Bld) [Volume fraction] 30.2 % Low 40.7 - 50.3 % [facility] Hemoglobin.gastroin testinal spec 1 Ql (Stl) 9.4 g/dL Low 13.0 - 17.0 g/dL [facility] Interpretation and review of laboratory results Abnormal [facility] MCH (RBC) [Entitic mass] 29.9 pg 25.2 - 33.5 pg [facility] MCHC (RBC) [Mass/Vol] 31.1 g/dL 28.4 - 34.8 g/dL [facility] MCV (RBC) [Entitic vol] 96.2 fL 82.6 - 102.9 fL [facility] NRBC Automated 0.0 0.0 per 100 WBC [facility] Platelet distribution width (Bld) [Ratio] 14.1 % 11.8 - 14.4 % [facility] Platelet mean volume (Bld) [Entitic vol] 11.0 fL 8.1 - 13.5 fL [facility] Platelets (Bld) [#/Vol] 81 10*3/uL Low [facility] RBC (Bld) [#/Vol] 3.14 10*6/uL Low 4.21 - 5.7 7 m/uL [facility] WBC (Bld) [#/Vol] 10.6 10*3/uL [facility] Erythrocyte distribution width (RBC) [Ratio] 13.6 % Normal 11.8-14.4 [facility] Comment on above: Performed By: #### C DP, IPF, BMPX, BNP, TROPI, GLYHGB #### [employer] [address] [place] [address] Web Marketing Strategist: Juancho Miguel MD Hematocrit (Bld) [Volume fraction] 26.5 % Low 40.7-50.3 [facility] Comment on above: Performed By: #### C DP, IPF, BMPX, BNP, TROPI, GLYHGB #### [employer] [address] [place] [address] Web Marketing Strategist: Juancho Miguel MD Hemoglobin (Bld) [Mass/Vol] 8.6 g/dL Low 13.0-17.0 [facility] Comment on above: Performed By: #### C DP, IPF, BMPX, BNP, TROPI, GLYHGB #### [address] [address] [employer] Strategist: Juancho Miguel MD MCH (RBC) [Entitic mass] 29.8 pg Normal 25.2-33.5 [facility] Comment on above: Performed By: #### C DP, IPF, BMPX, BNP, TROPI, GLYHGB #### [address] [address] [employer] Strategist: Juancho Miguel MD MCHC (RBC) [Mass/Vol] 32.5 g/dL Normal 28.4-34.8 [facility] Comment on above: Performed By: #### C DP, IPF, BMPX, BNP, TROPI, GLYHGB #### [address] [address] Web [employer] Strategist: Juancho Miguel MD MCV (RBC) [Entitic vol] 91.7 fL Normal 82.6-102.9 [facility] Comment on above: Performed By: #### C DP, IPF, BMPX, BNP, TROPI, GLYHGB #### [address] [address] [employer] Strategist: Juancho Miguel MD NRBC Automated 0.0 per 100 WBC Normal 0.0 [facility] Comment on above: Performed By: #### C DP, IPF, BMPX, BNP, TROPI, GLYHGB #### [address] [address] [employer] Strategist: Juancho Miguel MD Platelet mean volume (Bld) [Entitic vol] 10.5 fL Normal 8.1-13.5 [facility] Comment on above: Performed By: #### C DP, IPF, BMPX, BNP, TROPI, GLYHGB #### [address] [address] [employer] Strategist: Juancho Miguel MD Platelets (Bld) [#/Vol] 78 10*3/uL Low 138-453 [facility] Comment on above: Performed By: #### C DP, IPF, BMPX, BNP, TROPI, GLYHGB #### [employer] [address] [place], [place] [phone] Web [employer] Strategist: Juancho Miguel MD RBC (Bld) [#/Vol] 2.89 10*6/uL Low 4.21-5.77 [facility] Comment on above: Performed By: #### C DP, IPF, BMPX, BNP, TROPI, GLYHGB #### [employer] [facility] [place], [place] [phone] Web [employer] Strategist: Juancho Miguel MD WBC (Bld) [#/Vol] 8.5 10*3/uL Normal 3.5-11.3 [facility] Comment on above: Performed By: #### C DP, IPF, BMPX, BNP, TROPI, GLYHGB #### [employer] [address] [place], [place] [phone] Web [employer] Strategist: Juancho Miguel MD Hematocrit (Bld) [Volume fraction] 26.5 % Low 40.7 - 50.3 % [facility] Hemoglobin.gastroin testinal spec 1 Ql (Stl) 8.6 g/dL Low 13.0 - 17.0 g/dL [facility] Interpretation and review of laboratory results Abnormal [facility] MCH (RBC) [Entitic mass] 29.8 pg 25.2 - 33.5 pg [facility] MCHC (RBC) [Mass/Vol] 32.5 g/dL 28.4 - 34.8 g/dL [facility] MCV (RBC) [Entitic vol] 91.7 fL 82.6 - 102.9 fL [facility] NRBC Automated 0.0 0.0 per 100 WBC [facility] Platelet distribution width (Bld) [Ratio] 13.6 % 11.8 - 14.4 % [employer] Platelet mean volume (Bld) [Entitic vol] 10.5 fL 8.1 - 13.5 fL [employer] Platelets (Bld) [#/Vol] 78 10*3/uL Low [facility] RBC (Bld) [#/Vol] 2.89 10*6/uL Low 4.21 - 5.7 7 m/uL [facility] WBC (Bld) [#/Vol] 8.5 10*3/uL [facility] Erythrocyte distribution width (RBC) [Ratio] 13.5 % Normal 11.8-14.4 [facility] Comment on above: Performed By: #### C DP, IPF, BMPX, BNP, TROPI, GLYHGB #### [facility] [address] [place] [phone] [employer] Strategist: Juancho Miguel MD Hematocrit (Bld) [Volume fraction] 28.1 % Low 40.7-50.3 [facility] Comment on above: Performed By: #### C DP, IPF, BMPX, BNP, TROPI, GLYHGB #### [facility] [employer] [address] [place] [address] [phone] [employer]ist: Juancho Miguel MD Hemoglobin (Bld) [Mass/Vol] 9.3 g/dL Low 13.0-17.0 [facility] Comment on above: Performed By: #### C DP, IPF, BMPX, BNP, TROPI, GLYHGB #### [facility] [address] [place] [id number] Web Marketing Strategist: Juancho Miguel MD MCH (RBC) [Entitic mass] 30.0 pg Normal 25.2-33.5 [facility] Comment on above: Performed By: #### C DP, IPF, BMPX, BNP, TROPI, GLYHGB #### [facility] [employer] [address] [place] [address] [id number] Web Marketing Strategist: Juancho Miguel MD MCHC (RBC) [Mass/Vol] 33.1 g/dL Normal 28.4-34.8 [facility] Comment on above: Performed By: #### C DP, IPF, BMPX, BNP, TROPI, GLYHGB #### [address] [address] Web Marketing Strategist: Juancho Miguel MD MCV (RBC) [Entitic vol] 90.6 fL Normal 82.6-102.9 [facility] Comment on above: Performed By: #### C DP, IPF, BMPX, BNP, TROPI, GLYHGB #### [address] [address] Web Marketing Strategist: Juancho Miguel MD NRBC Automated 0.0 per 100 WBC Normal 0.0 [facility] Comment on above: Performed By: #### C DP, IPF, BMPX, BNP, TROPI, GLYHGB #### [address] [address] Web Marketing Strategist: Juancho Miguel MD Platelet mean volume (Bld) [Entitic vol] 10.5 fL Normal 8.1-13.5 [facility] Comment on above: Performed By: #### C DP, IPF, BMPX, BNP, TROPI, GLYHGB #### [address] [address] Web Marketing Strategist: Juancho Miguel MD Platelets (Bld) [#/Vol] 90 10*3/uL Low 138-453 [facility] Comment on above: Performed By: #### C DP, IPF, BMPX, BNP, TROPI, GLYHGB #### [address] [address] Web Marketing Strategist: Juancho Miguel MD RBC (Bld) [#/Vol] 3.10 10*6/uL Low 4.21-5.77 [facility] Comment on above: Performed By: #### C DP, IPF, BMPX, BNP, TROPI, GLYHGB #### [address] [address] Web Marketing Strategist: Juancho Miguel MD WBC (Bld) [#/Vol] 9.4 10*3/uL Normal 3.5-11.3 [facility] Comment on above: Performed By: #### C DP, IPF, BMPX, BNP, TROPI, GLYHGB #### [employer] [address] [place], [place] [id number] Web Marketing Strategist: Juancho Miguel MD Calcium, Ionicon 05-28-2021 Calcium [Moles/Vol] 1.11 mmol/L Low 1.13-1.33 [facility] Comment on above: Performed By: #### C DP, IPF, BMPX, BNP, TROPI, GLYHGB #### [facility] [address] [place], [place] [id number] Web Marketing Strategist: Juancho Miguel MD EKG 12 leadOrdered By: Deepali Hawkins on 05-28-2021 Atrial Rate 81 BPM [employer] Work Phone: P [place] 53 degrees [employer] Phone: P-R Interval 152 ms [employer] Phone: Q-T Interval 406 ms [employer] Phone: QRS Duration 94 ms [employer] Phone: QTc Calculation (Bazett) 471 ms [employer] Phone: R [place] 1 degrees [employer] Work Phone: T [place] 26 degrees [employer] Phone: Ventricular Rate 81 BPM [employer] Work Phone: [employer] Phone: EKG 12 leadon 05-28-2021 Normal sinus rhythm Normal ECG When compared with ECG of 22-APR-2021 13:47, QT has lengthened [facility] Demetrio Tierney MD - 05/28/2021 Normal sinus rhythm Normal ECG When compared with ECG of 22-APR-2021 13:47, QT has lengthened [employer] Work Phone: K (Potassium)on 05-28-2021 Potassium [Moles/Vol] 4.2 mmol/L Normal 3.7-5.3 [facility] Comment on above: Performed By: #### C DP, IPF, BMPX, BNP, TROPI, GLYHGB #### [employer] [address] [place], [place] [id number] Web Marketing Strategist: Juancho Miguel MD Laboratory - Blood bankon Blood product type Nom (BPU) Leukocyte Reduced Red Cell [facility] MAGNESIUMon 05-28-2021 Magnesium [Mass/Vol] 2.5 mg/dL 1.6 - 2.6 mg/dL [facility] Magnesiumon 05-28-2021 Magnesium [Mass/Vol] 2.2 mg/dL Normal 1.6-2.6 [facility] Comment on above: Performed By: #### C DP, IPF, BMPX, BNP, TROPI, GLYHGB #### [employer] [address] [place], [place] [id number] Web Marketing Strategist: Juancho Miguel MD Magnesium [Mass/Vol] 2.2 mg/dL 1.6 - 2.6 mg/dL [facility] Magnesium [Mass/Vol] 2.5 mg/dL Normal 1.6-2.6 [facility] Comment on above: Performed By: #### C DP, IPF, BMPX, BNP, TROPI, GLYHGB #### [facility] [place], [place] [id number] Web Marketing Strategist: Juancho Miguel MD No Panel Informationon 05-28 TEG Comment NOT REPORTED [facility] TEG Comment NOT REPORTED [facility] Crossmatch Result COMPATIBLE [facility] ealt Dispense Status REL FROM [facility] Transfusion Status OK TO TRANSFUSE [facility] 0 [facility] OPERATIVE REPORTon 2 OPERATIVE REPORT [address] [id number] OPERATIVE REPORT PATIENT NAME: STEVEN FORD : 1945 MED REC NO: [id number] ROOM: 1010 ACCOUNT NO: [id number] ADMIT DATE: 05/27/2021 PROVIDER: Jeffrey Espino MD DATE OF PROCEDURE: 05/27/2021 PRIMARY ATTENDING SURGEON: Jeffrey Espino MD OTHER ASSISTANTS: Included Cynthia Bartholomew RN, RFA and John Ramos CSA PREOPERATIVE DIAGNOSES: Critical multivessel coronary artery disease, history of non-STEMI, CHF, volume overload. POSTOPERATIVE DIAGNOSES: Critical multivessel coronary artery disease, history of non-STEMI, CHF, volume overload. PROCEDURES PERFORMED: Median sternotomy; EMILIE; endoscopic vein harvest; CABG x3 with skeletonized ZARAGOZA to LAD, reverse saphenous vein graft 1 to OM1, and reverse saphenous vein graft 2 to RPDA. COMPLICATIONS: None. CONDITION: Stable. DISPOSITION: To CVICU. ESTIMATED BLOOD LOSS: Not applicable. ANESTHESIA: General endotracheal with Dr. Saavedra. CARDIOPULMONARY BYPASS TIME: 63 minutes. CROSS-CLAMP TIME: 53 minutes. LOWEST TEMPERATURE: 33.8 degrees. INDICATIONS FOR SURGERY: The patient is a 76-year-old man who was with the above-mentioned diagnoses and was found to be an appropriate candidate for surgical revascularization. He was thus taken to surgery on 05/27/2021 with the consent of he and his family. FINDINGS AT SURGERY: There was good quality skeletonized left internal mammary artery and there was good quality reverse saphenous vein graft. This allowed CABG x3 as described above. There were palpable pulses in all the grafts with no EKG or echo evidence of any ischemia at the conclusion of the case. SURGERY IN DETAIL: The patient was identified in his bed in the CVICU and was transported to the operating room where he was induced for general endotracheal anesthesia without difficulty. This included an uneventful endotracheal intubation, the appropriate placement of lines and access for cardiac surgery. He was prepped and draped in normal sterile fashion. The time-out was performed and documented. The operation began with the performance of the midline median sternotomy through which I took down his skeletonized left internal mammary artery while simultaneous endoscopic vein harvest was performed. Once all the conduit was taken and deemed appropriate, a pericardial well was created. A preliminary dissection was performed in order to achieve aorto-right atrial cardiopulmonary bypass which was achieved with excellent flows and drainage after appropriate heparinization. I placed an ascending aorta cardioplegia needle in the ascending aorta. A cross-clamp was applied and a dose of cold del Nido solution was given to achieve an adequate diastolic arrest. I placed topical ice. I looked about the heart with the above-mentioned findings. I then conducted the operation by performing the reverse saphenous vein graft anastomosis first to the RPDA. I then performed a reverse saphenous vein graft anastomosis to the OM. I then performed a skeletonized ZARAGOZA to LAD anastomosis and lastly connected the proximal portion of the reverse saphenous vein grafts to their takeoffs at the ascending aorta. The heart was de-aired, the cross-clamp was removed, and there was the eventual return of normal sinus rhythm. A ventricular wire was placed. Ultimately, I was able to wean the patient from cardiopulmonary bypass with good hemodynamics on minimal inotropic support. Satisfied with this, I thus decannulated and administered protamine. Hemostasis was achieved and verified and chest tubes were placed. The sternum was closed with my double stainless steel wire technique. The remainder of the incisions were closed in usual layered fashion. There were no adequately trained or available residents for assistance in this operation, and the presence of Cynthia Bartholomew and John Ramos were critical for the first assistance necessary to complete the operation and also for the independent performance of the endoscopic vein harvest. JEFFREY ESPINO MD [id number] Doc#: [id number] CC: Normal [facility] POC Glucose Fingerstickon Glucose [Mass/Vol] 125 mg/dL High 75 - 110 mg/dL [facility] Interpretation and review of laboratory results Abnormal [facility] Glucose [Mass/Vol] 112 mg/dL High 75 - 110 mg/dL [facility] Interpretation and review of laboratory results Abnormal [facility] Glucose [Mass/Vol] 114 mg/dL High 75 - 110 mg/dL [facility] Interpretation and review of laboratory results Abnormal [facility] Glucose [Mass/Vol] 113 mg/dL High 75 - 110 mg/dL [facility] Interpretation and review of laboratory results Abnormal [facility] Glucose [Mass/Vol] 128 mg/dL High 75 - 110 mg/dL [facility] Interpretation and review of laboratory results Abnormal [facility] Glucose [Mass/Vol] 118 mg/dL High 75 - 110 mg/dL [facility] Interpretation and review of laboratory results Abnormal [facility] Glucose [Mass/Vol] 134 mg/dL High 75 - 110 mg/dL [facility] Interpretation and review of laboratory results Abnormal [facility] Glucose [Mass/Vol] 123 mg/dL High 75 - 110 mg/dL [facility] Interpretation and review of laboratory results Abnormal [facility] POC Kaolin TEGon 05-28-2021 POC Angle TEG 65.2 deg 59 - 74 deg [facility] POC EPL TEG 0.7 % 0.0 - 15.0 % [facility] POC Kinetics TEG 1.8 min 1 - 3 min [facility] POC LY30(Lysis) TEG 0.7 % 0 - 8 % [facility] POC MA(Max Clot) TEG 62.4 mm 55 - 74 mm [facility] POC Reaction Time TEG 7.0 min 4 - 9 min [facility] POC Angle TEG 68.4 deg 59 - 74 deg [facility] POC EPL TEG NOT REPORTED 0.0 - 15.0 % [facility] POC Kinetics TEG 1.5 min 1 - 3 min [facility] POC LY30(Lysis) TEG NOT REPORTED 0 - 8 % [facility] POC MA(Max Clot) TEG 69.7 mm 55 - 74 mm [facility] POC Reaction Time TEG 6.0 min 4 - 9 min [facility] POC Kaolin TEG with Heparino n 05-28-2021 POC Angle TEG w Hep 63.8 deg 59 - 74 deg [facility] POC EPL TEG W/HEP 0.3 % 0.0 - 15.0 % [facility] POC Kinetics TEG w Hep 1.8 min 1 - 3 min [facility] POC LY30(Lysis) TEG w Hep 0.3 % 0 - 8 % [facility] POC Max Clot TEG w Hep 61.7 mm 55 - 74 mm [facility] POC Reaction Time TEG w Hep 7.1 min 4 - 9 min [facility] POC Angle TEG w Hep 67.7 deg 59 - 74 deg [facility] POC EPL TEG W/HEP NOT REPORTED 0.0 - 15.0 % [facility] [employer] POC Kinetics TEG w Hep 1.6 min 1 - 3 min [facility] [employer] POC LY30(Lysis) TEG w Hep NOT REPORTED 0 - 8 % [facility] [employer] POC Max Clot TEG w Hep 69.3 mm 55 - 74 mm [facility] [employer] POC Reaction Time TEG w Hep 6.4 min 4 - 9 min [facility] [employer] PTon 05-28-2021 INR Coag (PPP) [Relative time] 1.1 {INR} Normal [facility] Comment on above: Result Comment: Therapeutic Range: Moderate Anticoagulant Intensity: INR = 2.0-3.0 High Anticoagulant Intensity: INR = 2.5-3.5 Performed By: #### C DP, IPF, BMPX, BNP, TROPI, GLYHGB #### [employer] [facility] [place] [address] Web Marketing Strategist: Juancho Miguel MD PT Coag (PPP) [Time] 11.2 s Normal 9.1-12.3 [facility] Comment on above: Performed By: #### C DP, IPF, BMPX, BNP, TROPI, GLYHGB #### [employer] [facility] [place] [address] Web Marketing Strategist: Juancho Miguel MD Potassiumon 05-28-2021 Potassium [Moles/Vol] 4.2 mmol/L 3.7 - 5.3 mmol/L [facility] Protime-INRon 05-28-2021 INR Coag (Bld) [Relative time] 1.1 {INR} [facility] [employer] Comment on above: Therapeutic Range: Moderate Anticoagulant Intensity: INR = 2.0-3.0 High Anticoagulant Intensity: INR = 2.5-3.5 PT Coag (PPP) [Time] 11.2 s [facility] [employer] TYPE AND SCREENon 05-28-2021 ABO/Rh Negative [facility] Arm Band Number [id number] [facility] Expiration Date 05/30/2021,2359 [employer] Unit Number [id number] [facility] Unit Number [id number] [facility] Unit Number [id number] [facility] Unit Number [id number] [facility] XR CHEST PORTABLEon 05-28-19 XR CHEST PORTABLE EXAMINATION: ONE XRAY VIEW OF THE CHEST 05/28/2021 6:02 am COMPARISON: 05/27/2021 HISTORY: ORDERING SYSTEM PROVIDED HISTORY: Post op CABG TECHNOLOGIST PROVIDED HISTORY: Post op CABG Reason for Exam: post CABG upright port FINDINGS: Median sternotomy wires are noted. The endotracheal tube and enteric tube have been removed. Mediastinal drain and left chest tube remain in place. Cardiac monitoring leads are overlying the chest. Mild cardiomegaly is unchanged. Mild vascular congestion and hazy bibasilar opacity is not significantly changed. No visible pneumothorax. IMPRESSION: 1. Interval extubation. Mediastinal drain and left chest tube remain in place. 2. Unchanged mild vascular congestion and hazy bibasilar opacity. Interpreted by: Génesis Quintero DO Signed by: Génesis Quintero DO 05/28/21 Final result Normal [facility] 1. Interval extubati on. Mediastinal drain and left chest tube remain in place. 2. Unchanged mild vascular congestion and hazy bibasilar opacity. MHPN RIS CONSOLIDATED EXAMINATION: ONE XRAY VIEW OF THE CHEST 05/28/2021 6:02 am COMPARISON: 05/27/2021 HISTORY: ORDERING SYSTEM PROVIDED HISTORY: Post op CABG TECHNOLOGIST PROVIDED HISTORY: Post op CABG Reason for Exam: post CABG upright port FINDINGS: Median sternotomy wires are noted. The endotracheal tube and enteric tube have been removed. Mediastinal drain and left chest tube remain in place. Cardiac monitoring leads are overlying the chest. Mild cardiomegaly is unchanged. Mild vascular congestion and hazy bibasilar opacity is not significantly changed. No visible pneumothorax. MHPN RIS CONSOLIDATED Génesis Quintero DO - 05/28/2021 EXAMINATION: ONE XRAY VIEW OF THE CHEST 05/28/2021 6:02 am COMPARISON: 05/27/2021 HISTORY: ORDERING SYSTEM PROVIDED HISTORY: Post op CABG TECHNOLOGIST PROVIDED HISTORY: Post op CABG Reason for Exam: post CABG upright port FINDINGS: Median sternotomy wires are noted. The endotracheal tube and enteric tube have been removed. Mediastinal drain and left chest tube remain in place. Cardiac monitoring leads are overlying the chest. Mild cardiomegaly is unchanged. Mild vascular congestion and hazy bibasilar opacity is not significantly changed. No visible pneumothorax. IMPRESSION: 1. Interval extubation. Mediastinal drain and left chest tube remain in place. 2. Unchanged mild vascular congestion and hazy bibasilar opacity. [employer] Work Phone: Radiology Study observation (narrative) [employer] Work Phone: XR CHEST PORTABLEOrdered By: Génesis Quintero on 05-28-2021 [employer] Work Phone: APTTon 05-27-2021 aPTT Coag (Bld) [Time] 27.4 s Normal 20.5-30.5 [facility] Comment on above: Result Comment: IV Heparin Therapy Range: 48.6-77.8 Performed By: #### C DP, IPF, BMPX, BNP, TROPI, GLYHGB #### [facility] [address] [place] [address] Web Marketing Strategist: Juancho Miguel MD aPTT Coag (Bld) [Time] 27.4 s [facility] [employer] Comment on above: IV Heparin Therapy Range: 48.6-77.8 Arterial Blood Gas, POCon Sanjeev Test NOT REPORTED [facility] FIO2 NOT REPORTED [facility] HCO3 (Bld) [Moles/Vol] 22.2 mmol/L 21.0 - 28.0 mmol/L [facility] Mode NOT REPORTED [facility] Negative Base Excess, Art 4 High [employer] O2 Device/Flow/% NOT REPORTED [facility] Oxygen saturation in Blood 98 % 94.0 - 98.0 % [facility] POC pCO2 42.2 [facility] POC pCO2 Temp 44 mm Hg [facility] POC pH 7.329 Low [facility] POC pH Temp 7.32 [facility] POC PO2 119.9 High [facility] [employer] POC pO2 Temp 126 mm Hg [facility] [employer] Positive Base Excess, Art NOT REPORTED [employer] Pt Temp 38.0 [facility] [employer] Sample Site NOT REPORTED [facility] h TCO2 (calc), Art NOT REPORTED 22.0 - 29.0 mmol/L [facility] Sanjeev Test NOT REPORTED [facility] FIO2 NOT REPORTED [facility] HCO3 (Bld) [Moles/Vol] 23.9 mmol/L 21.0 - 28.0 mmol/L [facility] Health Mode NOT REPORTED [facility] Negative Base Excess, Art 4 High [facility] O2 Device/Flow/% NOT REPORTED [facility] Oxygen saturation in Blood 96 % 94.0 - 98.0 % [facility] POC pCO2 61.4 High [facility] POC pCO2 Temp NOT REPORTED mm Hg [facility] POC pH 7.199 Critically low [facility] POC pH Temp NOT [facility]PORTED [facility] POC PO2 105.6 [facility] POC pO2 Temp NOT REPORTED mm Hg [facility] th Positive Base Excess, Art NOT REPORTED [facility] Pt Temp NOT REPORTED [facility] Sample Site NOT REPORTED [facility] TCO2 (calc), Art NOT REPORTED 22.0 - 29.0 mmol/L [facility] Sanjeev Test NOT APPLICABLE [facility] FIO2 40.0 [facility] HCO3 (Bld) [Moles/Vol] 24.1 mmol/L 21.0 - 28.0 mmol/L [facility] Health Interpretation and review of laboratory results Abnormal [facility] Health Mode NOT REPORTED [facility] Negative Base Excess, Art 5 High [facility] O2 Device/Flow/% NOT REPORTED [facility] Oxygen saturation in Blood 95 % 94.0 - 98.0 % [facility] POC pCO2 65.0 High [facility] POC pCO2 Temp NOT REPORTED mm Hg [facility] POC pH 7.177 Critically low [facility] th POC pH Temp NOT REPORTED [facility] P[facility] PO2 95.1 [facility] POC pO2 Temp NOT REPORTED mm Hg [facility] th Positive Base Excess, Art NOT REPORTED [facility] Pt Temp NOT REPORTED [facility] Sample Site Arterial Line [facility] th TCO2 (calc), Art NOT REPORTED 22.0 - 29.0 mmol/L [facility] Sanjeev Test NOT APPLICABLE [facility] FIO2 40.0 [facility] HCO3 (Bld) [Moles/Vol] 21.7 mmol/L 21.0 - 28.0 mmol/L [facility] Health Mode NOT REPORTED [facility] Negative Base Excess, Art 7 High [facility] O2 Device/Flow/% NOT REPORTED [facility] Oxygen saturation in Blood 94 % 94.0 - 98.0 % [facility] POC pCO2 61.9 High [facility] POC pCO2 Temp NOT REPORTED mm Hg [facility] POC pH 7.153 Critically low [facility] POC pH Temp NOT REPORTED [facility] POC PO2 92.6 [facility] POC pO2 Temp NOT REPORTED mm Hg [facility] Positive Base Excess, Art NOT REPORTED [facility] Pt Temp NOT REPORTED [facility] Sample Site Arterial Line [facility] TCO2 (calc), Art NOT REPORTED 22.0 - 29.0 mmol/L [facility] Sanjeev Test NOT REPORTED [facility] FIO2 100.0 [facility] HCO3 (Bld) [Moles/Vol] 23.7 mmol/L 21.0 - 28.0 mmol/L [facility] Mode NOT REPORTED [facility] Negative Base Excess, Art 2 [facility] O2 Device/Flow/% Adult Ventil[facility] Oxygen saturation in Blood 100 % High 94.0 - 98.0 % [facility] POC pCO2 42.2 [facility] POC pCO2 Temp NOT REPORTED mm Hg [facility] POC pH 7.357 [facility] POC pH Temp NOT REPORTED [facility] POC PO2 375.8 High [facility] POC pO2 Temp NOT REPORTED mm Hg [facility] Positive Base Excess, Art NOT REPORTED [facility] Pt Temp NOT REPORTED [facility] Health Sample Site Arterial Line [facility] TCO2 (calc), Art NOT REPORTED 22.0 - 29.0 mmol/L [facility] Sanjeev Test NOT REPORTED [facility] FIO2 NOT REPORTED [facility] HCO3 (Bld) [Moles/Vol] 24.1 mmol/L 21.0 - 28.0 mmol/L [facility] Mode NOT REPORTED [facility] Negative Base Excess, Art 1 [facility] O2 Device/Flow/% NOT REPORTED [facility] Oxygen saturation in Blood 99 % High 94.0 - 98.0 % [facility] POC pCO2 39.5 [facility] POC pCO2 Temp NOT REPORTED mm Hg [facility] POC pH 7.394 [facility] POC pH Temp NOT REPORTED [facility] POC PO2 136.1 High [facility] POC pO2 Temp NOT REPORTED mm Hg [facility] Positive Base Excess, Art NOT REPORTED [facility] Pt Temp NOT REPORTED [facility] Health Sample Site NOT REPORTED [facility] TCO2 (calc), Art NOT REPORTED 22.0 - 29.0 mmol/L [facility] Sanjeev Test NOT REPORTED [facility] FIO2 NOT REPORTED [facility] HCO3 (Bld) [Moles/Vol] 25.6 mmol/L 21.0 - 28.0 mmol/L [facility] Mode NOT REPORTED [facility] Negative Base Excess, Art NOT REPORTED [facility] O2 Device/Flow/% NOT REPORTED [facility] Oxygen saturation in Blood 100 % High 94.0 - 98.0 % [facility] POC pCO2 35.5 [facility] POC pCO2 Temp NOT REPORTED mm Hg [facility] POC pH 7.466 High [facility] POC pH Temp NOT REPORTED [facility] POC PO2 377.7 High [facility] POC pO2 Temp NOT REPORTED mm Hg [facility] Positive Base Excess, Art 2 [facility] Pt Temp NOT REPORTED [facility] Health Sample Site NOT REPORTED [facility] TCO2 (calc), Art NOT REPORTED 22.0 - 29.0 mmol/L [facility] Sanjeev Test NOT REPORTED [facility] FIO2 NOT REPORTED [facility] HCO3 (Bld) [Moles/Vol] 26.6 mmol/L 21.0 - 28.0 mmol/L [facility] Mode NOT REPORTED [facility] Negative Base Excess, Art NOT REPORTED [facility] O2 Device/Flow/% NOT REPORTED [facility] Oxygen saturation in Blood 100 % High 94.0 - 98.0 % [facility] POC pCO2 40.4 [facility] POC pCO2 Temp NOT REPORTED mm Hg [facility] POC pH 7.427 [facility] POC pH Temp NOT REPORTED [facility] POC PO2 458.5 High [facility] POC pO2 Temp NOT REPORTED mm Hg [facility] Positive Base Excess, Art 2 [facility] Pt Temp NOT REPORTED [facility] Health Sample Site NOT REPORTED [facility] TCO2 (calc), Art NOT REPORTED 22.0 - 29.0 mmol/L [facility] Sanjeev Test NOT REPORTED [facility] FIO2 NOT REPORTED [facility] HCO3 (Bld) [Moles/Vol] 29.6 mmol/L High 21.0 - 28.0 mmol/L [facility] Mode NOT REPORTED [facility] Negative Base Excess, Art NOT REPORTED [facility] O2 Device/Flow/% NOT REPORTED [facility] Oxygen saturation in Blood 100 % High 94.0 - 98.0 % [facility] POC pCO2 64.6 High [facility] POC pCO2 Temp NOT REPORTED mm Hg [facility] POC pH 7.269 Low [facility] POC pH Temp NOT REPORTED [facility] POC PO2 235.5 High [facility] POC pO2 Temp NOT REPORTED mm Hg [facility] th Positive Base Excess, Art 1 [facility] Pt Temp NOT REPORTED [facility] Sample Site NOT REPORTED [facility] Healt h TCO2 (calc), Art NOT REPORTED 22.0 - 29.0 mmol/L [facility] [employer] Sanjeev Test NOT REPORTED [facility] FIO2 NOT REPORTED [facility] [employer] HCO3 (Bld) [Moles/Vol] 27.3 mmol/L 21.0 - 28.0 mmol/L [facility] [employer] Mode NOT REPORTED [facility] [employer] Negative Base Excess, Art NOT REPORTED [employer] O2 Device/Flow/% NOT REPORTED [facility] [employer] Oxygen saturation in Blood 100 % High 94.0 - 98.0 % [employer] POC pCO2 41.5 [facility] POC pCO2 Temp NOT REPORTED [facility] pH 7.426 [facility] POC pH Temp NOT REPORTED [facility] h POC PO2 221.1 High [facility] POC pO2 Temp NOT REPORTED mm Hg [facility] th Positive Base Excess, Art 3 [facility] Pt Temp NOT REPORTED [facility] Sample Site NOT REPORTED [facility] h TCO2 (calc), Art NOT REPORTED 22.0 - 29.0 mmol/L [employer] Basic Metabolic Panelon 05-10 Anion gap [Moles/Vol] 20 mmol/L High 9 - 17 mmol/L [employer] Calcium [Mass/Vol] 8.5 mg/dL Low 8.6 - 10. 4 mg/dL [employer] Chloride [Moles/Vol] 113 mmol/L High 98 - 107 mmol/L [employer] CO2 [Moles/Vol] 16 mmol/L Low 20 - 31 mmol/L [employer] Creatinine [Mass/Vol] 1.23 mg/dL High 0.70 - 1.20 mg/dL [employer] GFR >60 >60 mL/min [employer] GFR Non- 57 mL/min Low >60 [employer] GFR/1.73 sq M.predicted MDRD (S/P/Bld) [Vol rate/Area] [facility] [employer] Comment on above: Average GFR for 70 o r more years old: 75 mL/min/1.73sq m Chronic Kidney Disease: <60 mL/min/1.73sq m Kidney failure: <15 mL/min/1.73sq m eGFR calculated using average adult body mass. Additional eGFR calculator available at: http://www.Inhabi/multiple_crcl_2012.htm GFR/1.73 sq M.predicted MDRD (S/P/Bld) [Vol rate/Area] NOT REPORTED [facility] [employer] Glucose [Mass/Vol] 120 mg/dL High 70 - 99 mg/dL [facility] Potassium [Moles/Vol] 4.2 mmol/L 3.7 - 5.3 mmol/L [facility] Sodium [Moles/Vol] 149 mmol/L High 135 - 144 mmol/L [facility] Urea nitrogen (BldV) [Mass/Vol] 22 mg/dL 8 - 23 mg/dL [facility] Urea nitrogen/Creatinine (Bld) [Mass ratio] NOT REPORTED [facility] Basic Metabolic Profon 05-27 (cont.) Normal [facility] Comment on above: Result Comment: Aver age GFR for 70 or more years old: 75 mL/min/1.73sq m Chronic Kidney Disease: <60 mL/min/1.73sq m Kidney failure: <15 mL/min/1.73sq m eGFR calculated using average adult body mass. Additional eGFR calculator available at: http://www.Inhabi/multiple_crcl_2012.htm Performed By: #### C DP, IPF, BMPX, BNP, TROPI, GLYHGB #### [employer] [address] [place] [phone] Web Marketing Strategist: Juancho Miguel MD Anion gap [Moles/Vol] 20 mmol/L High 9-17 [facility] Comment on above: Performed By: #### C DP, IPF, BMPX, BNP, TROPI, GLYHGB #### [employer] [address] [place] [phone] Web Marketing Strategist: Juancho Miguel MD Calcium [Mass/Vol] 8.5 mg/dL Low 8.6-10.4 [facility] Comment on above: Performed By: #### C DP, IPF, BMPX, BNP, TROPI, GLYHGB #### [facility] [address] [place] [address] Web Marketing Strategist: Juancho Miguel MD Chloride [Moles/Vol] 113 mmol/L High 98-107 [facility] Comment on above: Performed By: #### C DP, IPF, BMPX, BNP, TROPI, GLYHGB #### [address] [address] Web Marketing Strategist: Juancho Miguel MD CO2 [Moles/Vol] 16 mmol/L Low 20-31 [facility] Comment on above: Performed By: #### C DP, IPF, BMPX, BNP, TROPI, GLYHGB #### [address] [address] Web Marketing Strategist: Juancho Miguel MD Creatinine [Mass/Vol] 1.23 mg/dL High 0.70-1.20 [facility] Comment on above: Performed By: #### C DP, IPF, BMPX, BNP, TROPI, GLYHGB #### [address] [address] Web Marketing Strategist: Juancho Miguel MD GFR, Amer >60 Normal >60 [facility] Comment on above: Performed By: #### C DP, IPF, BMPX, BNP, TROPI, GLYHGB #### [address] [address] Web Marketing Strategist: Junacho Miguel MD GFR,non Amer 57 mL/min Low >60 [facility] Comment on above: Performed By: #### C DP, IPF, BMPX, BNP, TROPI, GLYHGB #### [address] [address] Web Marketing Strategist: Juancho Miguel MD Glucose [Mass/Vol] 120 mg/dL High 70-99 [facility] Comment on above: Performed By: #### C DP, IPF, BMPX, BNP, TROPI, GLYHGB #### [facility] [employer] [address] [place] [address] Web Marketing Strategist: Juancho Miguel MD Potassium [Moles/Vol] 4.2 mmol/L Normal 3.7-5.3 [facility] Comment on above: Performed By: #### C DP, IPF, BMPX, BNP, TROPI, GLYHGB #### [facility] [employer] [address] [place] [address] Web Marketing Strategist: Juancho Miguel MD Sodium [Moles/Vol] 149 mmol/L High 135-144 [facility] Comment on above: Performed By: #### C DP, IPF, BMPX, BNP, TROPI, GLYHGB #### [facility] [employer] [address] [place] [address] Web Marketing Strategist: Juancho Miguel MD Urea nitrogen [Mass/Vol] 22 mg/dL Normal 8-23 [facility] Comment on above: Performed By: #### C DP, IPF, BMPX, BNP, TROPI, GLYHGB #### [facility] [employer] [address] [place] [phone] Web Marketing Strategist: Juancho Miguel MD BUN/CRE Ratio NOT REPORTED Normal 9-20 [facility] Comment on above: Performed By: #### C DP, IPF, BMPX, BNP, TROPI, GLYHGB #### [facility] [employer] [address] [place] [phone] Web Marketing Strategist: Juancho Miguel MD Staging: NOT REPORTED Normal [facility] Comment on above: Performed By: #### C DP, IPF, BMPX, BNP, TROPI, GLYHGB #### [facility] [employer] [address] [place] [phone] Web Marketing Strategist: Juancho Miguel MD CALCIUM, IONIC (POC)on 05-27 POC Ionized Calcium 1.22 mmol/L 1.15 - 1 .33 mmol/L [facility] POC Ionized Calcium 1.32 mmol/L 1.15 - 1 .33 mmol/L [facility] POC Ionized Calcium 1.01 mmol/L Low 1.15 - 1 .33 mmol/L [facility] POC Ionized Calcium 1.03 mmol/L Low 1.15 - 1 .33 mmol/L [facility] POC Ionized Calcium 1.23 mmol/L 1.15 - 1 .33 mmol/L [facility] POC Ionized Calcium 1.17 mmol/L 1.15 - 1 .33 mmol/L [facility] CALCIUM, IONIZEDon Calcium [Moles/Vol] 1.13 mmol/L 1.13 - 1 .33 mmol/L [facility] CBCon 05-27-2021 Hematocrit (Bld) [Volume fraction] 28.1 % Low 40.7 - 50.3 % [facility] Hemoglobin.gastroin testinal spec 1 Ql (Stl) 9.3 g/dL Low 13.0 - 17.0 g/dL [facility] Interpretation and review of laboratory results Abnormal [facility] MCH (RBC) [Entitic mass] 30.0 pg 25.2 - 33.5 pg [facility] MCHC (RBC) [Mass/Vol] 33.1 g/dL 28.4 - 34.8 g/dL [facility] MCV (RBC) [Entitic vol] 90.6 fL 82.6 - 102.9 fL [facility] NRBC Automated 0.0 0.0 per 100 WBC [facility] Platelet distribution width (Bld) [Ratio] 13.5 % 11.8 - 14.4 % [facility] Platelet mean volume (Bld) [Entitic vol] 10.5 fL 8.1 - 13.5 fL [facility] Platelets (Bld) [#/Vol] 90 10*3/uL Low [facility] RBC (Bld) [#/Vol] 3.10 10*6/uL Low 4.21 - 5.7 7 m/uL [facility] WBC (Bld) [#/Vol] 9.4 10*3/uL [facility] Erythrocyte distribution width (RBC) [Ratio] 12.9 % Normal 11.8-14.4 [facility] Comment on above: Performed By: #### C DP, IPF, BMPX, BNP, TROPI, GLYHGB #### [address] [address] Web Marketing Strategist: Juancho Miguel MD Hematocrit (Bld) [Volume fraction] 30.3 % Low 40.7-50.3 [facility] Comment on above: Performed By: #### C DP, IPF, BMPX, BNP, TROPI, GLYHGB #### [place] [address] Web Marketing Strategist: Juancho Miguel MD Hemoglobin (Bld) [Mass/Vol] 10.1 g/dL Low 13.0-17.0 [facility] Comment on above: Performed By: #### C DP, IPF, BMPX, BNP, TROPI, GLYHGB #### [place] [address] Web Marketing Strategist: Juancho Miguel MD MCH (RBC) [Entitic mass] 30.1 pg Normal 25.2-33.5 [facility] Comment on above: Performed By: #### C DP, IPF, BMPX, BNP, TROPI, GLYHGB #### [place] [address] Web Marketing Strategist: Juancho Miguel MD MCHC (RBC) [Mass/Vol] 33.3 g/dL Normal 28.4-34.8 [facility] Comment on above: Performed By: #### C DP, IPF, BMPX, BNP, TROPI, GLYHGB #### [place] [address] Web Marketing Strategist: Juancho Miguel MD MCV (RBC) [Entitic vol] 90.2 fL Normal 82.6-102.9 [facility] Comment on above: Performed By: #### C DP, IPF, BMPX, BNP, TROPI, GLYHGB #### [place] [phone] Web Marketing Strategist: Juancho Miguel MD NRBC Automated 0.0 per 100 WBC Normal 0.0 [facility] Comment on above: Performed By: #### C DP, IPF, BMPX, BNP, TROPI, GLYHGB #### [facility] [place] [address] Web Marketing Strategist: Juancho Miguel MD Platelet mean volume (Bld) [Entitic vol] 10.3 fL Normal 8.1-13.5 [facility] Comment on above: Performed By: #### C DP, IPF, BMPX, BNP, TROPI, GLYHGB #### [facility] [employer] [address] [place] [phone] Web Marketing Strategist: Juancho Miguel MD Platelets (Bld) [#/Vol] 80 10*3/uL Low 138-453 [facility] Comment on above: Performed By: #### C DP, IPF, BMPX, BNP, TROPI, GLYHGB #### [facility] [employer] [address] [place] [address] Web Marketing Strategist: Juancho Miguel MD RBC (Bld) [#/Vol] 3.36 10*6/uL Low 4.21-5.77 [facility] Comment on above: Performed By: #### C DP, IPF, BMPX, BNP, TROPI, GLYHGB #### [facility] [employer] [address] [place] [phone] Web Marketing Strategist: Juancho Miguel MD WBC (Bld) [#/Vol] 9.2 10*3/uL Normal 3.5-11.3 [facility] Comment on above: Performed By: #### C DP, IPF, BMPX, BNP, TROPI, GLYHGB #### [facility] [place] [address] Web Marketing Strategist: Juancho Miguel MD Hematocrit (Bld) [Volume fraction] 30.3 % Low 40.7 - 50.3 % [employer] Hemoglobin.gastroin testinal spec 1 Ql (Stl) 10.1 g/dL Low 13.0 - 17.0 g/dL [facility] Interpretation and review of laboratory results Abnormal [facility] [employer] MCH (RBC) [Entitic mass] 30.1 pg 25.2 - 33.5 pg [facility] MCHC (RBC) [Mass/Vol] 33.3 g/dL 28.4 - 34.8 g/dL [facility] [employer] MCV (RBC) [Entitic vol] 90.2 fL 82.6 - 102.9 fL [facility] [employer] NRBC Automated 0.0 0.0 per 100 WBC [employer] Platelet distribution width (Bld) [Ratio] 12.9 % 11.8 - 14.4 % [employer] Platelet mean volume (Bld) [Entitic vol] 10.3 fL 8.1 - 13.5 fL [facility] [employer] Platelets (Bld) [#/Vol] 80 10*3/uL Low [facility] [employer] RBC (Bld) [#/Vol] 3.36 10*6/uL Low 4.21 - 5.7 7 m/uL [employer] WBC (Bld) [#/Vol] 9.2 10*3/uL [facility] Calcium, [employer]icon 05-27-2021 Calcium [Moles/Vol] 1.13 mmol/L Normal 1.13-1.33 [facility] Comment on above: Performed By: #### C DP, IPF, BMPX, BNP, TROPI, GLYHGB #### [facility] [address] [place] [address] Web Marketing Strategist: Juancho Miguel MD Creatinine W/GFR Point of Ca reon 05-27-2021 Creatinine [Mass/Vol] 1.26 mg/dL High 0.51 - 1.19 mg/dL [employer] GFR Non- 56 mL/min Low >60 [employer] GFR/1.73 sq M.predicted MDRD (S/P/Bld) [Vol rate/Area] mL/min/{1.73_m2} >60 mL/min [employer] GFR/1.73 sq M.predicted MDRD (S/P/Bld) [Vol rate/Area] [facility] Comment on above: Average GFR for 70 o r more years old: 75 mL/min/1.73sq m Chronic Kidney Disease: <60 mL/min/1.73sq m Kidney failure: <15 mL/min/1.73sq m eGFR calculated using average adult body mass. Additional eGFR calculator available at: http://www.Inhabi/multiple_crcl_2012.htm ELECTROLYTES PLUSon 05-27-19 Anion gap [Moles/Vol] 13 mmol/L 7 - 16 mmol/L [facility] Chloride [Moles/Vol] 105 mmol/L 98 - 107 mmol/L [facility] CO2 [Moles/Vol] 24 mmol/L 22 - 30 mmol/L [facility] Potassium [Moles/Vol] 3.9 mmol/L 3.5 - 4.5 mmol/L [facility] Sodium [Moles/Vol] 141 mmol/L 138 - 146 mmol/L [facility] Hemoglobin and hematocrit, b [facility] 05-27-2021 Hematocrit (Bld) [Volume fraction] 29 % Low 41 - 53 % [facility] Hemoglobin (Bld) [Mass/Vol] 9.9 g/dL Low 13.5 - 17.5 g/dL [facility] Hematocrit (Bld) [Volume fraction] 26 % Low 41 - 53 % [facility] Hemoglobin (Bld) [Mass/Vol] 8.7 g/dL Low 13.5 - 17.5 g/dL [facility] Hematocrit (Bld) [Volume fraction] 23 % Low 41 - 53 % [facility] Hemoglobin (Bld) [Mass/Vol] 7.8 g/dL Low 13.5 - 17.5 g/dL [facility] Hematocrit (Bld) [Volume fraction] 23 % Low 41 - 53 % [facility] Hemoglobin (Bld) [Mass/Vol] 7.7 g/dL Low 13.5 - 17.5 g/dL [facility] Hematocrit (Bld) [Volume fraction] 35 % Low 41 - 53 % [facility] Hemoglobin (Bld) [Mass/Vol] 12.0 g/dL Low 13.5 - 17.5 g/dL [facility] Hematocrit (Bld) [Volume fraction] 36 % Low 41 - 53 % [facility] Hemoglobin (Bld) [Mass/Vol] 12.4 g/dL Low 13.5 - 17.5 g/dL [facility] Lactic Acid, POCon POC Lactic Acid 3.27 mmol/L High 0.56 - 1.39 mmol/L [facility] POC Lactic Acid 3.45 mmol/L High 0.56 - 1.39 mmol/L [facility] Magnesiumon 05-27-2021 Magnesium [Mass/Vol] 2.7 mg/dL High 1.6-2.6 [facility] Comment on above: Performed By: #### C DP, IPF, BMPX, BNP, TROPI, GLYHGB #### [facility] [employer] [address] [place] [address] Web Marketing Strategist: Juancho Miguel MD Magnesium [Mass/Vol] 2.7 mg/dL High 1.6 - 2.6 mg/dL [facility] No Panel Informationon 05-27 Interpretation and review of laboratory results Abnormal [facility] Interpretation and review of laboratory results Abnormal [facility] Interpretation and review of laboratory results Abnormal [facility] Interpretation and review of laboratory results Abnormal [facility] Interpretation and review of laboratory results Abnormal [facility] Interpretation and review of laboratory results Abnormal [facility] Interpretation and review of laboratory results Abnormal [facility] Interpretation and review of laboratory results Abnormal [facility] Interpretation and review of laboratory results Abnormal [facility] Interpretation and review of laboratory results Abnormal [facility] POC Glucose Fingerstickon Glucose [Mass/Vol] 117 mg/dL High 75 - 110 mg/dL [facility] Interpretation and review of laboratory results Abnormal [facility] Glucose [Mass/Vol] 125 mg/dL High 75 - 110 mg/dL [facility] Interpretation and review of laboratory results Abnormal [facility] POCT Glucoseon 05-27-2021 Glucose [Mass/Vol] 114 mg/dL High 74 - 100 mg/dL [facility] Glucose [Mass/Vol] 157 mg/dL High 74 - 100 mg/dL [facility] Glucose [Mass/Vol] 126 mg/dL High 74 - 100 mg/dL [facility] Glucose [Mass/Vol] 97 mg/dL 74 - 100 mg/dL [facility] Glucose [Mass/Vol] 130 mg/dL High 74 - 100 mg/dL [facility] Glucose [Mass/Vol] 127 mg/dL High 74 - 100 mg/dL [facility] Glucose [Mass/Vol] 106 mg/dL High 74 - 100 mg/dL [facility] Glucose [Mass/Vol] 128 mg/dL High 74 - 100 mg/dL [facility] Glucose [Mass/Vol] 113 mg/dL High 74 - 100 mg/dL [facility] POCT urea (BUN)on 05-27-2021 Urea nitrogen [Mass/Vol] 22 mg/dL 8 - 26 mg/dL [facility] POTASSIUM (POC)on 05-27-2021 Potassium [Moles/Vol] 4.7 mmol/L High 3.5 - 4.5 mmol/L [facility] Potassium [Moles/Vol] 4.5 mmol/L 3.5 - 4.5 mmol/L [facility] Potassium [Moles/Vol] 5.1 mmol/L High 3.5 - 4.5 mmol/L [facility] Potassium [Moles/Vol] 4.9 mmol/L High 3.5 - 4.5 mmol/L [facility] Potassium [Moles/Vol] 4.3 mmol/L 3.5 - 4.5 mmol/L [facility] Potassium [Moles/Vol] 4.3 mmol/L 3.5 - 4.5 mmol/L [facility] PTon 05-27-2021 INR Coag (PPP) [Relative time] 1.1 {INR} Normal [facility] Comment on above: Result Comment: Therapeutic Range: Moderate Anticoagulant Intensity: INR = 2.0-3.0 High Anticoagulant Intensity: INR = 2.5-3.5 Performed By: #### C DP, IPF, BMPX, BNP, TROPI, GLYHGB #### [employer] [address] [place], [place] [id number] Web Marketing Strategist: Juancho Miguel MD PT Coag (PPP) [Time] 11.9 s Normal 9.1-12.3 [facility] Comment on above: Performed By: #### C DP, IPF, BMPX, BNP, TROPI, GLYHGB #### [employer] [address] [place], [place] [phone] Web Marketing Strategist: Juancho Miguel MD Protime-INRon 05-27-2021 INR Coag (Bld) [Relative time] 1.1 {INR} [facility] [employer] Comment on above: Therapeutic Range: Moderate Anticoagulant Intensity: INR = 2.0-3.0 High Anticoagulant Intensity: INR = 2.5-3.5 PT Coag (PPP) [Time] 11.9 s [facility] SODIUM (POC)on 05-27-2021 Sodium [Moles/Vol] 140 mmol/L 138 - 146 mmol/L [facility] TOTAL CO2on 05-27-2021 CO2 [Moles/Vol] 25 mmol/L 22 - 30 mmol/L [facility] CO2 [Moles/Vol] 26 mmol/L 22 - 30 mmol/L [facility] CO2 [Moles/Vol] 27 mmol/L 22 - 30 mmol/L [facility] CO2 [Moles/Vol] 31 mmol/L High 22 - 30 mmol/L [facility] CO2 [Moles/Vol] 28 mmol/L 22 - 30 mmol/L [facility] Type + Screenon 05-27-2021 Type + Screen Sample Expiration 05/30/2021,2359 Arm Band Number [id number] ABO/Rh(D) O NEGATIVE Antibody Screen NEGATIVE Unit Number [id number] Blood Component Type Leukocyte Reduced Red Cell Unit Division 00 Status of Unit REL FROM ALLOC Transfusion Status OK TO TRANSFUSE Crossmatch Result COMPATIBLE Unit Number [id number] Blood Component Type Leukocyte Reduced Red Cell Unit Division 00 Status of Unit REL FROM ALLOC Transfusion Status OK TO TRANSFUSE Crossmatch Result COMPATIBLE Unit Number [id number] Blood Component Type Leukocyte Reduced Red Cell Unit Division 00 Status of Unit REL FROM ALLOC Transfusion Status OK TO TRANSFUSE Crossmatch Result COMPATIBLE Unit Number [id number] Blood Component Type Leukocyte Reduced Red Cell Unit Division 00 Status of Unit REL FROM ALLOC Transfusion Status OK TO TRANSFUSE Crossmatch Result COMPATIBLE Normal [facility] Comment on above: Performed By: #### C DP, IPF, BMPX, BNP, TROPI, GLYHGB #### [employer] [address] [place], [place] [phone] Web Marketing Strategist: Juancho Miguel MD XR CHEST PORTABLEon 05-27-19 XR CHEST PORTABLE EXAMINATION: ONE XRAY VIEW OF THE CHEST 05/27/2021 2:05 pm COMPARISON: May 13, 2021 HISTORY: ORDERING SYSTEM PROVIDED HISTORY: Post op open heart surgery TECHNOLOGIST PROVIDED HISTORY: Post op open heart surgery FINDINGS: New sternotomy wires. New ET tube 1 cm above the alvaro. New enteric tube in the stomach. Chest tube on the left. Multiple leads project over the chest and are presumably external. Left subclavian catheter terminates in the superior vena cava. No pneumothorax. Perihilar interstitial infiltrates. Cardiomegaly. Mediastinum normal. Bony thorax intact. IMPRESSION: Interval sternotomy and new life support apparatus as above. Mild perihilar infiltrates. Interpreted by: Joey Valverde MD Signed by: Joey Valverde MD 05/27/21 Final result Normal [facility] Interval sternotomy and new life support apparatus as above. Mild perihilar infiltrates. MHPN RIS CONSOLIDATED EXAMINATION: ONE XRAY VIEW OF THE CHEST 05/27/2021 2:05 pm COMPARISON: May 13, 2021 HISTORY: ORDERING SYSTEM PROVIDED HISTORY: Post op open heart surgery TECHNOLOGIST PROVIDED HISTORY: Post op open heart surgery FINDINGS: New sternotomy wires. New ET tube 1 cm above the alvaro. New enteric tube in the stomach. Chest tube on the left. Multiple leads project over the chest and are presumably external. Left subclavian catheter terminates in the superior vena cava. No pneumothorax. Perihilar interstitial infiltrates. Cardiomegaly. Mediastinum normal. Bony thorax intact. MHPN RIS CONSOLIDATED Joey Valverde MD - 05/27/2021 EXAMINATION: ONE XRAY VIEW OF THE CHEST 05/27/2021 2:05 pm COMPARISON: May 13, 2021 HISTORY: ORDERING SYSTEM PROVIDED HISTORY: Post op open heart surgery TECHNOLOGIST PROVIDED HISTORY: Post op open heart surgery FINDINGS: New sternotomy wires. New ET tube 1 cm above the alvaro. New enteric tube in the stomach. Chest tube on the left. Multiple leads project over the chest and are presumably external. Left subclavian catheter terminates in the superior vena cava. No pneumothorax. Perihilar interstitial infiltrates. Cardiomegaly. Mediastinum normal. Bony thorax intact. IMPRESSION: Interval sternotomy and new life support apparatus as above. Mild perihilar infiltrates. [facility] [employer] Phone: Radiology Study observation (narrative) [facility] [employer] Phone: XR CHEST PORTABLEOrdered By: Joey Valverde on 05-27-2021 [facility] [employer] Phone: MRSA, DNA, Nasalon MRSA, DNA, Nasal NEGATIVE: MRSA DNA n ot detected by nucleic acid amplification. Normal [facility] Comment on above: Result Comment: Results should be used as an adjunct to nosocomial control efforts to identify patients needing enhanced precautions. The test is not intended to identify patients with staphylococcal infections. Results should not be used to guide or monitor treatment for MRSA infections. Performed By: #### M RSANO #### [address] [id number] Web Marketing Strategist: Juancho Miguel MD [facility] [address] [place] [address] [place] [address] Web Marketing Strategist: Kalani Olivares MD Arterial Blood Gaseson 05-13 Sanjeev Test PASS Normal [facility] Comment on above: Performed By: #### A BG #### [facility] [address] [place] [address] [place] [address] Web Marketing Strategist: Kalani Olivares MD Body Temp. 37.0 Normal [facility] Comment on above: Performed By: #### A BG #### [facility] [address] [place] [address] Web Marketing Strategist: Kalani Olivares MD Carboxy Hgb 0.5 % Normal 0-5 [facility] Comment on above: Result Comment: Reference Range: Non-Smokers 0-2% Average Smoker 2-4% Heavy Smoker <10% Performed By: #### A BG #### [facility] [address] [place] [address] Web Marketing Strategist: Kalani Olivares MD HCO3 (Bld) [Moles/Vol] 24.7 mmol/L Normal 22-26 [facility] Comment on above: Performed By: #### A BG #### [facility] [address] [place], [place] [phone] Web Marketing Strategist: Kalani Olivares MD Methemoglobin 0.2 % Normal 0.0-1.9 [facility] Comment on above: Performed By: #### A BG #### [facility] [address] [place], [place] [phone] Web Marketing Strategist: Kalani Olivares MD Negative Base Excess 0.4 mmol/L Normal 0.0-2.0 [facility] Comment on above: Performed By: #### A BG #### [facility] [address] [place], [place] [phone] Web Marketing Strategist: Kalani Olivares MD O2 Device/Flow/% ROOM AIR Normal [facility] Comment on above: Performed By: #### A BG #### [facility] [address] [place], [place] [id number] Web Marketing Strategist: Kalani Olivares MD Oxygen (Bld) [Partial pressure] 78.2 mm[Hg] Low 80-100 [facility] Comment on above: Performed By: #### A BG #### [facility] [address] [place], [place] [id number] Web Marketing Strategist: Kalani Olivares MD Oxygen saturation in Blood 95.3 % Normal 95-98 [facility] Comment on above: Performed By: #### A BG #### [facility] [address] [place], [place] 5487683 Web Marketing Strategist: Kalani Olivares MD pCO2 42.3 mmHg Normal 35-45 [facility] Comment on above: Performed By: #### A BG #### [facility] [address] [place] [id number] Web Marketing Strategist: Kalani Olivares MD pH (Bld) 7.384 [pH] Normal 7.35-7.45 [facility] Comment on above: Performed By: #### A BG #### [facility] [address] [place], [place] [id number] Web Marketing Strategist: Kalani Olivares MD Pt. Position SEMI-FOWLERS Normal [facility] Comment on above: Performed By: #### A BG #### [facility] [address] [place], [place] 5266183 Web Marketing Strategist: Kalani Olivares MD Site Drawn Right Brachial Artery Normal [facility] Comment on above: Performed By: #### A BG #### [facility] [address] [place], [place] 8506583 Web Marketing Strategist: Kalani Olivares MD FIO2 NOT REPORTED Normal [facility] Comment on above: Performed By: #### A BG #### [facility] [address] [place], [place] [id number] Web Marketing Strategist: Kalani Olivares MD Mode NOT REPORTED Normal [facility] Comment on above: Performed By: #### A BG #### [facility] [address] [place], [place] 1386983 Web Marketing Strategist: Kalani Olivares MD Notification Time NOT REPORTED Normal [facility] Comment on above: Performed By: #### A BG #### [facility] [address] [place], [place] 2096183 Web Marketing Strategist: Kalani Olivares MD Notification: NOT REPORTED Normal [facility] Comment on above: Performed By: #### A BG #### [facility] [address] [place], [place] 7152283 Web Marketing Strategist: Kalani Olivares MD Oxyhemoglobin NOT REPORTED Normal 95.0-98.0 [facility] Comment on above: Performed By: #### A BG #### [facility] [address] [place], [place] 9263083 Web Marketing Strategist: Kalani Olivares MD pCO2 Adj'd for Temp NOT REPORTED Normal [facility] Comment on above: Performed By: #### A BG #### [facility] [address] [place] [address] [place] [place], [place] [id number] Web Marketing Strategist: Kalani Olivares MD PEEP/CPAP NOT REPORTED Normal [facility] Comment on above: Performed By: #### A BG #### [facility] [address] [place], [place] [id number] Web Marketing Strategist: Kalani Olivares MD pH Adjst'd for Temp. NOT REPORTED Normal 7.350-7.450 [facility] Comment on above: Performed By: #### A BG #### [address] [place], [place] 2423683 Web Marketing Strategist: Kalani Olivares MD pO2 Adjst'd for Temp NOT REPORTED Normal 80.0-100.0 [facility] Comment on above: Performed By: #### A BG #### [facility] [address] [place] [address] [place] [address] Web Marketing Strategist: Kalani Olivares MD Positive Base Excess NOT REPORTED Normal 0.0-2.0 [facility] Comment on above: Performed By: #### A BG #### [facility] [address] [place] [address] Dr[place], [place] [id number] Web Marketing Strategist: Kalani Olivares MD PSV NOT REPORTED Normal [facility] Comment on above: Performed By: #### A BG #### [facility] [address] [place], [place] 6464383 Web Marketing Strategist: Kalani Olivares MD Respiratory Rate NOT REPORTED Normal [facility] Comment on above: Performed By: #### A BG #### [facility] [address] [place], [place] 1911583 Web Marketing Strategist: Kalani Olivares MD Set Rate NOT REPORTED Normal [facility] Comment on above: Performed By: #### A BG #### [facility] [address] [place], [facility]83 Web Marketing Strategist: Kalani Olivares MD Text for Respiratory NOT REPORTED Normal [facility] Comment on above: Performed By: #### A BG #### [facility] [address] [place] [address] Web Marketing Strategist: Kalani Olivares MD Total Hb NOT REPORTED Normal 12.0-16.0 [facility] Comment on above: Performed By: #### A BG #### [facility] [address] [place] [address] Web Marketing Strategist: Kalani Olivares MD Total Rate NOT REPORTED Normal [facility] Comment on above: Performed By: #### A BG #### [facility] [address] [place], [facility]83 Web Marketing Strategist: Kalani Olivares MD VT NOT REPORTED Normal [facility] Comment on above: Performed By: #### A BG #### [facility] [address] [place] [id number] Web Marketing Strategist: Kalani Olivares MD CBC Auto Differentialon 01-0 Absolute Eos # 0.23 [facility] Absolute Immature Granulocyte <0.03 [facility] Absolute Lymph # 2.70 [facility] alth Absolute [place] # 0.46 [facility] lt Basophils (Bld) [#/Vol] 0.05 10*3/uL [facility] Basophils/100 WBC (Bld) 1 % 0 - 2 % [facility] Differential Type NOT REPORTED [facility] Eosinophils/100 WBC (Bld) 4 % 1 - 4 % [facility] Hematocrit (Bld) [Volume fraction] 39.3 % Low 40.7 - 50.3 % [facility] Hemoglobin.gastroin testinal spec 1 Ql (Stl) 12.6 g/dL Low 13.0 - 17.0 g/dL [facility] Immature granulocytes/100 WBC (Bld) 0 % 0 [facility] Interpretation and review of laboratory results Abnormal [facility] Lymphocytes/100 WBC (Bld) 42 % 24 - 43 % [facility] MCH (RBC) [Entitic mass] 29.4 pg 25.2 - 33.5 pg [facility] MCHC (RBC) [Mass/Vol] 32.1 g/dL 28.4 - 34.8 g/dL [facility] MCV (RBC) [Entitic vol] 91.8 fL 82.6 - 102.9 fL [facility] Monocytes/100 WBC (Bld) 7 % 3 - 12 % [facility] NRBC Automated 0.0 0.0 per 100 WBC [facility] Platelet distribution width (Bld) [Ratio] 13.2 % 11.8 - 14.4 % [facility] Platelet Estimate NOT REPORTED [facility] Platelet mean volume (Bld) [Entitic vol] 10.9 fL 8.1 - 13.5 fL [facility] Platelets (Bld) [#/Vol] 158 10*3/uL [facility] RBC (Bld) [#/Vol] 4.28 10*6/uL 4.21 - 5.7 7 m/uL [facility] RBC (Bld) [#/Vol] NOT REPORTED [facility] Segmented neutrophils/100 WBC (Bld) 46 % 36 - 65 % [facility] Segs Absolute 3.05 [facility] h WBC (Bld) [#/Vol] 6.5 10*3/uL [facility] WBC (Bld) [#/Vol] NOT REPORTED [facility] CBC with Diffon 05-13-2021 Abs. Basophil 0.05 k/uL Normal 0.00-0.20 [facility] Comment on above: Performed By: #### P T, CP, CDP #### [facility] [address] [place] [address] Web Marketing Strategist: Kalani Olivares MD Abs.Imm.Granulocyte <0.03 Normal 0.00-0.30 [facility] Comment on above: Performed By: #### P T, CP, CDP #### [facility] [address] [place] [address] Web Marketing Strategist: Kalani Olivares MD Abs.Neutrophil (Seg) 3.05 k/uL Normal 1.50-8.10 [facility] Comment on above: Performed By: #### P T, CP, CDP #### [address] [place], [place] [address] Web Marketing Strategist: Kalani Olivares MD Basophils/100 WBC (Bld) 1 % Normal 0-2 [facility] Comment on above: Performed By: #### P T, CP, CDP #### [address] [place], [place] [address] Web Marketing Strategist: Kalani Olivares MD Eosinophils (Bld) [#/Vol] 0.23 10*3/uL Normal 0.00-0.44 [facility] Comment on above: Performed By: #### P T, CP, CDP #### [address] [place], [place] [address] Web Marketing Strategist: Kalani Olivares MD Eosinophils/100 WBC (Bld) 4 % Normal 1-4 [facility] Comment on above: Performed By: #### P T CP, CDP #### [address] [place], [facility] Web Marketing Strategist: Kalani Olivares MD Erythrocyte distribution width (RBC) [Ratio] 13.2 % Normal 11.8-14.4 [facility] Comment on above: Performed By: #### P T, CP, CDP #### [address] [place], [facility] Web Marketing Strategist: Kalani Olivares MD Hematocrit (Bld) [Volume fraction] 39.3 % Low 40.7-50.3 [facility] Comment on above: Performed By: #### P T, CP, CDP #### [address] [place], [facility] Web Marketing Strategist: Kalani Olivares MD Hemoglobin (Bld) [Mass/Vol] 12.6 g/dL Low 13.0-17.0 [facility] Comment on above: Performed By: #### P T, CP, CDP #### [address] [place], [place] [address] Web Marketing Strategist: Kalani Olivares MD Immature granulocytes/100 WBC (Bld) 0 % Normal 0 [facility] Comment on above: Performed By: #### P T, CP, CDP #### [address] [place], [facility] Web Marketing Strategist: Kalani Olivares MD Lymphocytes (Bld) [#/Vol] 2.70 10*3/uL Normal 1.10-3.70 [facility] Comment on above: Performed By: #### P T, CP, CDP #### [address] [place], [place] [address] Web Marketing Strategist: Kalani Olivares MD Lymphocytes/100 WBC (Bld) 42 % Normal 24-43 [facility] Comment on above: Performed By: #### P T, CP, CDP #### [address] [place], [place] [address] Web Marketing Strategist: Kalani Olivares MD MCH (RBC) [Entitic mass] 29.4 pg Normal 25.2-33.5 [facility] Comment on above: Performed By: #### P T, CP, CDP #### [address] [place], [facility]83 Web Marketing Strategist: Kalani Olivares MD MCHC (RBC) [Mass/Vol] 32.1 g/dL Normal 28.4-34.8 [facility] Comment on above: Performed By: #### P T, CP, CDP #### [address] [place] [address] Web Marketing Strategist: Kalani Olivares MD MCV (RBC) [Entitic vol] 91.8 fL Normal 82.6-102.9 [facility] Comment on above: Performed By: #### P T, CP, CDP #### [facility] [address] [place], [place] [id number] Web [employer] Strategist: Kalani Olivares MD Monocytes (Bld) [#/Vol] 0.46 10*3/uL Normal 0.10-1.20 [facility] Comment on above: Performed By: #### P T, CP, CDP #### [facility] [address] [place], [facility]83 Web Marketing Strategist: Kalani Olivares MD Monocytes/100 WBC (Bld) 7 % Normal 3-12 [facility] Comment on above: Performed By: #### P T, CP, CDP #### [address] [place], [facility]83 Web [employer] Strategist: Kalani Olivares MD Neutrophil (Seg) 46 % Normal 36-65 [facility] Comment on above: Performed By: #### P T, CP, CDP #### [facility] [address] [place] [address] Dr[address] [place], [facility]83 Web Marketing Strategist: Kalani Olivares MD NRBC Automated 0.0 per 100 WBC Normal 0.0 [facility] Comment on above: Performed By: #### P T, CP, CDP #### [address] [place], [facility]83 Web Marketing Strategist: Kalani Olivares MD Platelet mean volume (Bld) [Entitic vol] 10.9 fL Normal 8.1-13.5 [facility] Comment on above: Performed By: #### P T, CP, CDP #### [facility] [address] [place], [facility] Web Marketing Strategist: Kalani Olivares MD Platelets (Bld) [#/Vol] 158 10*3/uL Normal 138-453 [facility] Comment on above: Performed By: #### P T, CP, CDP #### [facility] [address] [place] [address] [place], [place] 7274983 Web [employer] Strategist: Kalani Olivares MD RBC (Bld) [#/Vol] 4.28 10*6/uL Normal 4.21-5.77 [facility] Comment on above: Performed By: #### P T, CP, CDP #### [address] [place], [place] 3429683 Web Marketing Strategist: Kalani Olivares MD WBC (Bld) [#/Vol] 6.5 10*3/uL Normal 3.5-11.3 [facility] Comment on above: Performed By: #### P T, CP, CDP #### [address] [place], [place] 0714883 Web Marketing Strategist: Kalani Olivares MD Auto Diff Performed NOT REPORTED Normal [facility] Comment on above: Performed By: #### P T, CP, CDP #### [address] [place], [place] 764[address]83 Web Marketing Strategist: Kalani Olivares MD Platelet Comment NOT REPORTED Normal [facility] Comment on above: Performed By: #### P T, CP, CDP #### [address] [place], [place] 4454383 Web Marketing Strategist: Kalani Olivares MD RBC morphology finding Nom (Bld) NOT REPORTED Normal [facility] Comment on above: Performed By: #### P T, CP, CDP #### [address] [place], [place] 5145983 Web Marketing Strategist: Kalani Olivares MD WBC Morphology NOT REPORTED Normal [facility] Comment on above: Performed By: #### P T, CP, CDP #### [address] [place], [place] 0537083 Web Marketing Strategist: Kalani Olivares MD Comp Metabolic Profon 2021 (cont.) Normal [facility] Comment on above: Result Comment: Aver age GFR for 70 or more years old: 75 mL/min/1.73sq m Chronic Kidney Disease: <60 mL/min/1.73sq m Kidney failure: <15 mL/min/1.73sq m eGFR calculated using average adult body mass. Additional eGFR calculator available at: http://www.[employer]/multiple_crcl_2011.htm Performed By: #### P T, CP, CDP #### [facility] [address] [place], [place] 3279883 Web Marketing Strategist: Kalani Olivares MD Albumin [Mass/Vol] 4.6 g/dL Normal 3.5-5.2 [facility] Comment on above: Performed By: #### P T, CP, CDP #### [address] [place], [place] 583[address]83 Web Marketing Strategist: Kalani Olivares MD Albumin/Glob Ratio 1.6 Normal 1.0-2.5 [facility] Comment on above: Performed By: #### P T, CP, CDP #### [address] [place], [place] 4925683 Web Marketing Strategist: Kalani Olivares MD Alkaline Phos 69 U/L Normal 40-129 [facility] Comment on above: Performed By: #### P T, CP, CDP #### [address] [place], [place] 4352983 Web Marketing Strategist: Kalani Olivares MD ALT [Catalytic activity/Vol] 27 U/L Normal 5-41 [facility] Comment on above: Performed By: #### P T, CP, CDP #### [facility] [address] [place] [address] Web Marketing Strategist: Kalani Olivares MD Anion gap [Moles/Vol] 10 mmol/L Normal 9-17 [facility] Comment on above: Performed By: #### P T, CP, CDP #### [address] [place], [place] 0693183 Web Marketing Strategist: Kalani Olivares MD AST [Catalytic activity/Vol] 20 U/L Normal <40 [facility] Comment on above: Performed By: #### P T, CP, CDP #### [facility] [address] [place], [place] 9189683 Web Marketing Strategist: Kalani Olivares MD Bilirubin [Mass/Vol] 0.53 mg/dL Normal 0.3-1.2 [facility] Comment on above: Performed By: #### P T, CP, CDP #### [facility] [address] [place], [place] 2935383 Web Marketing Strategist: Kalani Olivares MD BUN/CRE Ratio 16 Normal 9-20 [facility] Comment on above: Performed By: #### P T, CP, CDP #### [facility] [address] [place], [place] 2733983 Web Marketing Strategist: Kalani Olivares MD Calcium [Mass/Vol] 9.6 mg/dL Normal 8.6-10.4 [facility] Comment on above: Performed By: #### P T, CP, CDP #### [facility] [address] [place] [address] Dr[place], [place] 3267283 Web Marketing Strategist: Kalani Olivares MD Chloride [Moles/Vol] 103 mmol/L Normal 98-107 [facility] Comment on above: Performed By: #### P T, CP, CDP #### [facility] [address] [place], [place] 584[address]83 Web Marketing Strategist: Kalani Olivares MD CO2 [Moles/Vol] 28 mmol/L Normal 20-31 [facility] Comment on above: Performed By: #### P T, CP, CDP #### [facility] [address] [place], [place] 6637783 Web Marketing Strategist: Kalani Olivares MD Creatinine [Mass/Vol] 1.14 mg/dL Normal 0.70-1.20 [facility] Comment on above: Performed By: #### P T, CP, CDP #### [facility] [address] [place], [place] 8906283 Web Marketing Strategist: Kalani Olivares MD GFR, Amer >60 Normal >60 [facility] Comment on above: Performed By: #### P T, CP, CDP #### [facility] [address] [place], [place] 0897183 Web Marketing Strategist: Kalani Olivares MD GFR,non Amer >60 Normal >60 [facility] Comment on above: Performed By: #### P T, CP, CDP #### [address] [place], [place] 7347183 Web Marketing Strategist: Kalani Olivares MD Glucose [Mass/Vol] 103 mg/dL High 70-99 [facility] Comment on above: Performed By: #### P T, CP, CDP #### [address] [place], [place] 9801483 Web Marketing Strategist: Kalani Olivares MD Potassium [Moles/Vol] 4.2 mmol/L Normal 3.7-5.3 [facility] Comment on above: Performed By: #### P T, CP, CDP #### [address] [place], [place] 1475183 Web Marketing Strategist: Kalani Olivares MD Protein [Mass/Vol] 7.5 g/dL Normal 6.4-8.3 [facility] Comment on above: Performed By: #### P T, CP, CDP #### [facility] [address] [place] [address] [place], [place] 9924483 Web Marketing Strategist: Kalani Olivares MD Sodium [Moles/Vol] 141 mmol/L Normal 135-144 [facility] Comment on above: Performed By: #### P T, CP, CDP #### [address] [place] [address] Web Marketing Strategist: Kalani Olivares MD Staging: Normal [facility] Comment on above: Result Comment: Stag e 1: Some kidney damage normal GFR Stage 2: Mild kidney damage GFR 60-89 Stage 3: Moderate kidney damage GFR 30-59 Stage 4: Severe kidney damage GFR 15-29 Stage 5: Severe kidney damage GFR <15 ESRD - chronic treatment by dialysis or transplant Performed By: #### P T, FRANTZ, CDP #### [facility] [address] [place], [place] [phone] Web Marketing Strategist: Kalani Olivares MD Urea nitrogen [Mass/Vol] 18 mg/dL Normal 8-23 [facility] Comment on above: Performed By: #### P T, FRANTZ, CDP #### [facility] [address] [place], [place] 5652283 Web Marketing Strategist: Kalani Olivares MD Comprehensive Metabolic Pane [facility] 05-13-2021 Albumin [Mass/Vol] 4.6 g/dL 3.5 - 5.2 g/dL [facility] Albumin/Globulin [Mass ratio] 1.6 {ratio} [facility] ALP (Bld) [Catalytic activity/Vol] 69 U/L 40 - 129 U/L [facility] ALT [Catalytic activity/Vol] 27 U/L 5 - 41 U/L [facility] Anion gap [Moles/Vol] 10 mmol/L 9 - 17 mmol/L [facility] AST [Catalytic activity/Vol] 20 U/L <40 [facility] Bilirubin [Mass/Vol] 0.53 mg/dL 0.3 - 1.2 mg/dL [facility] Calcium [Mass/Vol] 9.6 mg/dL 8.6 - 10. 4 mg/dL [facility] Chloride [Moles/Vol] 103 mmol/L 98 - 107 mmol/L [facility] CO2 [Moles/Vol] 28 mmol/L 20 - 31 mmol/L [facility] Creatinine [Mass/Vol] 1.14 mg/dL 0.70 - 1.20 mg/dL [facility] Free PSA/Total PSA [Mass fraction] 7.5 g/dL 6.4 - 8.3 g/dL [facility] GFR >60 >60 mL/min [employer] GFR Non- >60 >60 mL/min [employer] Glucose [Mass/Vol] 103 mg/dL High 70 - 99 mg/dL [facility] Interpretation and review of laboratory results Abnormal [employer] Potassium [Moles/Vol] 4.2 mmol/L 3.7 - 5.3 mmol/L [employer] Sodium [Moles/Vol] 141 mmol/L 135 - 144 mmol/L [employer] Urea nitrogen (BldV) [Mass/Vol] 18 mg/dL 8 - 23 mg/dL [employer] Urea nitrogen/Creatinine (Bld) [Mass ratio] 16 [employer] [facility] LeadOrdered By: Kandice Perdomo hmad on 05-13-2021 Atrial Rate 58 BPM [employer] Work Phone: P [place] 46 degrees [employer] Work Phone: P-R Interval 144 ms [employer] Work Phone: Q-T Interval 424 ms [employer] Work Phone: QRS Duration 100 ms [employer] Work Phone: QTc Calculation (Bazett) 416 ms [employer] Work Phone: R [place] 31 degrees [employer] Work Phone: T [place] 53 degrees [employer] Work Phone: Ventricular Rate 58 BPM [facility] Work Phone: [employer] Work Phone: EKG 12 Leadon 05-13-[address] elevation, consider early repolarization Borderline ECG No previous ECGs available Confirmed by Kandice Tidwell MD ([id number]) on 05/13/2021 11:31:29 PM [facility] Kandice Tidwell MD - 05/13/[address] elevation, consider early repolarization Borderline ECG No previous ECGs available Confirmed by Kandice Tidwell MD ([id number]) on 05/13/2021 11:31:29 PM [employer] Work Phone: Laboratory - Chemistry and C hemistry - challengeon 05-13-2021 GFR/1.73 sq M.predicted MDRD (S/P/Bld) [Vol rate/Area] [facility] Comment on above: Average GFR for 70 o r more years old: 75 mL/min/1.73sq m Chronic Kidney Disease: <60 mL/min/1.73sq m Kidney failure: <15 mL/min/1.73sq m eGFR calculated using average adult body mass. Additional eGFR calculator available at: http://www.[employer]/multiple_crcl_2012.htm Stage 1: Some kidney damage normal GFR Stage 2: Mild kidney damage GFR 60-89 Stage 3: Moderate kidney damage GFR 30-59 Stage 4: Severe kidney damage GFR 15-29 Stage 5: Severe kidney damage GFR <15 ESRD - chronic treatment by dialysis or transplant MRSA, DNA, Nasalon 2 Specimen Description .NASAL SWAB Normal [facility] Comment on above: Performed By: #### M RSANO #### [facility] [address] [place], [place] 9334[address] Web Marketing Strategist: Juancho Miguel MD [facility] [address] [place] [address] [place] [address] Web Marketing Strategist: Kalani Olivares MD PTon 5 INR Coag (PPP) [Relative time] 1.0 {INR} Normal [facility] Comment on above: Result Comment: Non-therapeutic Range: INR = 0.9-1.2 Therapeutic Range: Moderate Anticoagulant Intensity: INR = 2.0-3.0 High Anticoagulant Intensity: INR = 2.5-3.5 Performed By: #### P T, CP, CDP #### [facility] [address] [place] [address] [place] [address] Web Marketing Strategist: Kalani Olivares MD PT Coag (PPP) [Time] 13.0 s Normal 11.5-14.2 [facility] Comment on above: Performed By: #### P T, CP, CDP #### [facility] [facility] [address] [place] [address] [place] [address] Web Marketing Strategist: Kalani Olivares MD Protime-INRon 05-13-2021 INR Coag (Bld) [Relative time] 1.0 {INR} [facility] Comment on above: Non-therapeutic Range: INR = 0.9-1.2 Therapeutic Range: Moderate Anticoagulant Intensity: INR = 2.0-3.0 High Anticoagulant Intensity: INR = 2.5-3.5 PT Coag (PPP) [Time] 13 s [facility] Urinalysis w/ Microon 2021 ----- Normal [facility] Comment on above: Performed By: #### U AMIC #### [facility] [address] [place] [address] Web Marketing Strategist: Kalani Olivares MD Bilirubin, SemiQt,Ur Negative Normal NEG [facility] Comment on above: Performed By: #### U AMIC #### [facility] [address] [place] [phone] Web Marketing Strategist: Kalani Olivares MD Blood, Urine Negative Normal NEG [facility] Comment on above: Performed By: #### U AMIC #### [facility] [address] [place] [address] Web Marketing Strategist: Kalani Olivares MD Clarity (U) Clear Normal CLEAR [facility] Comment on above: Performed By: #### U AMIC #### [facility] [address] [place], [place] [address] Web Marketing Strategist: Kalani Olivares MD Color (U) Yellow Normal YEL [facility] Comment on above: Performed By: #### U AMIC #### [facility] [address] [place] [address] Web Marketing Strategist: Kalani Olivares MD Epithelial cells LM Ql (Urine sed) 0 TO 2 Normal 0-5 [facility] Comment on above: Performed By: #### U AMIC #### [facility] [address] [place] [address] Web Marketing Strategist: Kalani Olivares MD Glucose Ql (U) Negative Normal NEG [facility] Comment on above: Performed By: #### U AMIC #### [facility] [address] [place] [address] Dr. [place], [place] [phone] Web Marketing Strategist: Kalani Olivares MD Ketones Ql (U) Negative Normal NEG [facility] Comment on above: Performed By: #### U AMIC #### [facility] [address] [place] [address] Dr. [place], [place] [phone] Web Marketing Strategist: Kalani Olivares MD Leukocyte esterase Test strip Ql (U) Negative Normal NEG [facility] Comment on above: Performed By: #### U AMIC #### [address] [place], [place] [phone] Web Marketing Strategist: Kalani Olivares MD Nitrite,Ur Negative Normal NEG [facility] Comment on above: Performed By: #### U AMIC #### [facility] [address] [place] [address] Dr. [place], [place] [phone] Web Marketing Strategist: Kalani Olivares MD PH,Ur 7.0 Normal 5.0-9.0 [facility] Comment on above: Performed By: #### U AMIC #### [address] [place], [place] [phone] Web Marketing Strategist: Kalani Olivares MD Protein Ql (U) Negative Normal NEG [facility] Comment on above: Performed By: #### U AMIC #### [facility] [address] [place] [address] [place] [address] Web Marketing Strategist: Kalani Olivares MD Spec. [place],Ur 1.015 Normal 1.010-1.020 [facility] Comment on above: Performed By: #### U AMIC #### [facility] [address] [place] [address] Dr. [place], [place] [phone] Web Marketing Strategist: Kalani Olivares MD Urine RBC's 0 TO 2 Normal 0-2 [facility] Comment on above: Performed By: #### U AMIC #### [facility] [address] [place] [phone] Web Marketing Strategist: Kalani Olivares MD Urine WBC's 0 TO 2 Normal 0-5 [facility] Comment on above: Performed By: #### U AMIC #### [facility] [address] [place] [phone] Web Marketing Strategist: Kalani Olivares MD Urobilinogen,Ur Normal Normal NORM [facility] Comment on above: Performed By: #### U AMIC #### [address] [place] [phone] Web Marketing Strategist: Kalani Olivares MD Amorphous sediment LM Ql (Urine sed) NOT REPORTED Normal NONE [facility] Comment on above: Performed By: #### U AMIC #### [address] [place] [phone] Web Marketing Strategist: Kalani Olivares MD Bacteria NOT REPORTED Normal [facility] Comment on above: Performed By: #### U AMIC #### [address] [place] [phone] Web Marketing Strategist: Kalani Olivares MD Casts NOT REPORTED Normal [facility] Comment on above: Performed By: #### U AMIC #### [facility] [address] [place] [phone] Web Marketing Strategist: Kalani Olivares MD Comment NOT REPORTED Normal [facility] Comment on above: Performed By: #### U AMIC #### [address] [place] [address] Web Marketing Strategist: Kalani Olivares MD Crystals LM Nom (Urine sed) NOT REPORTED Normal [facility] Comment on above: Performed By: #### U AMIC #### [facility] [address] [place] [address] Dr. [place], [place] [phone] Web Marketing Strategist: Kalani Olivares MD Epithelial, Renal NOT REPORTED Normal 0 [facility] Comment on above: Performed By: #### U AMIC #### [facility] [address] [place], [place] [phone] Web Marketing Strategist: Kalani Olivares MD Mucus Strands NOT REPORTED Normal NONE [facility] Comment on above: Performed By: #### U AMIC #### [facility] [address] [place], [place] [phone] Web Marketing Strategist: Kalani Olivares MD Other Observations NOT REPORTED Normal NREQ [facility] Comment on above: Performed By: #### U AMIC #### [facility] [address] [place], [place] [phone] Web Marketing Strategist: Kalani Olivares MD Trichomonas NOT REPORTED Normal NONE [facility] Comment on above: Performed By: #### U AMIC #### [facility] [address] [place], [place] [phone] Web Marketing Strategist: Kalani Olivares MD Yeast NOT REPORTED Normal [facility] Comment on above: Performed By: #### U AMIC #### [facility] [address] [place], [place] [phone] Web Marketing Strategist: Kalani Olivares MD Urinalysis with Microscopico n 05-13-2021 - [facility] Amorphous, UA NOT REPORTED None [facility] Bacteria, UA NOT REPORTED None [facility] Bilirubin Urine Negative NEGATIVE [facility] Casts UA NOT REPORTED /LPF [facility] Color, UA Yellow Yellow [facility] Crystals, UA NOT REPORTED None /HPF [facility] Epithelial Cells UA 0 TO 2 [facility] Glucose, Ur Negative NEGATIVE [facility] Ketones Ql (U) Negative NEGATIVE [facility] Leukocyte esterase Test strip Ql (U) Negative NEGATIVE [facility] Mucus, UA NOT REPORTED None [facility] Nitrite, Urine Negative NEGATIVE [facility] Other Observations UA NOT REPORTED NOT REQ. [facility] pH, UA 7.0 [facility] Protein, UA Negative NEGATIVE [facility] RBC, UA 0 TO 2 [facility] Renal Epithelial, UA NOT REPORTED 0 /HPF [facility] Specific [place], UA 1.015 [facility] Trichomonas, UA NOT REPORTED None [facility] Turbidity UA Clear Clear [facility] Urinalysis Comments NOT REPORTED [facility] Urine Hgb Negative NEGATIVE [facility] Urobilinogen, Urine Normal Normal [facility] WBC, UA 0 TO 2 [facility] Yeast, UA NOT REPORTED None [facility] XR CHEST (2 VW)on 05-13-2021 XR CHEST (2 VW) EXAMINATION: TWO XRAY VIEWS OF THE CHEST 05/13/2021 10:30 am COMPARISON: 04/22/2021 HISTORY: ORDERING SYSTEM PROVIDED HISTORY: CAD, multiple vessel TECHNOLOGIST PROVIDED HISTORY: Pre Op FINDINGS: The lungs are without acute focal process. There is no effusion or pneumothorax. The cardiomediastinal silhouette is stable. The osseous structures are stable. IMPRESSION: No acute process. Interpreted by: Venkatesh Gutierrez MD Signed by: Venkatesh Gutierrez MD 05/13/21 Final result Normal [facility] CBC Auto Differentialon 04-09 Absolute Eos # 0.21 [facility] Absolute Immature Granulocyte <0.03 [facility] Absolute Lymph # 3.26 [facility] alth Absolute [place] # 0.62 [facility] lt Basophils (Bld) [#/Vol] 0.03 10*3/uL [facility] Basophils/100 WBC (Bld) 0 % 0 - 2 % [facility] Differential Type NOT REPORTED [facility] Eosinophils/100 WBC (Bld) 3 % 1 - 4 % [facility] Hematocrit (Bld) [Volume fraction] 38.2 % Low 40.7 - 50.3 % [facility] Hemoglobin.gastroin testinal spec 1 Ql (Stl) 13.0 g/dL 13.0 - 17.0 g/dL [facility] Immature granulocytes/100 WBC (Bld) 0 % 0 [facility] Interpretation and review of laboratory results Abnormal [facility] Lymphocytes/100 WBC (Bld) 46 % High 24 - 43 % [facility] MCH (RBC) [Entitic mass] 29.5 pg 25.2 - 33.5 pg [facility] MCHC (RBC) [Mass/Vol] 34.0 g/dL 28.4 - 34.8 g/dL [facility] MCV (RBC) [Entitic vol] 86.8 fL 82.6 - 102.9 fL [facility] [employer] Monocytes/100 WBC (Bld) 9 % 3 - 12 % [facility] [employer] NRBC Automated 0.0 0.0 per 100 WBC [facility] Platelet distribution width (Bld) [Ratio] 13.3 % 11.8 - 14.4 % [facility] Platelet Estimate NOT REPORTED [facility] Platelet mean volume (Bld) [Entitic vol] NOT REPORTED 8.1 - 13.5 fL [facility] Platelets (Bld) [#/Vol] See Reflexed IPF Result [facility] alth RBC (Bld) [#/Vol] 4.40 10*6/uL 4.21 - 5.7 7 m/uL [facility] RBC (Bld) [#/Vol] NOT REPORTED [facility] [employer] Segmented neutrophils/100 WBC (Bld) 42 % 36 - 65 % [facility] [employer] Segs Absolute 2.98 [facility] WBC (Bld) [#/Vol] 7.1 10*3/uL [facility] WBC (Bld) [#/Vol] NOT REPORTED [facility] CBC with Diffon 04-25-2021 Abs. Basophil 0.03 k/uL Normal 0.00-0.20 [facility] Comment on above: Performed By: #### C DP, IPF, BMPX, BNP, TROPI, GLYHGB #### [employer] [address] [place] [address] Web Marketing Strategist: Juancho Miguel MD Abs.Imm.Granulocyte <0.03 Normal 0.00-0.30 [facility] Comment on above: Performed By: #### C DP, IPF, BMPX, BNP, TROPI, GLYHGB #### [employer] [address] [place], [place] [phone] Web Marketing Strategist: Juancho Miguel MD Abs.Neutrophil (Seg) 2.98 k/uL Normal 1.50-8.10 [facility] Comment on above: Performed By: #### C DP, IPF, BMPX, BNP, TROPI, GLYHGB #### [facility] [employer] [address] [place] [address] Web Marketing Strategist: Juancho Miguel MD Basophils/100 WBC (Bld) 0 % Normal 0-2 [facility] Comment on above: Performed By: #### C DP, IPF, BMPX, BNP, TROPI, GLYHGB #### [address] [address] Web Marketing Strategist: Juancho Miguel MD Eosinophils (Bld) [#/Vol] 0.21 10*3/uL Normal 0.00-0.44 [facility] Comment on above: Performed By: #### C DP, IPF, BMPX, BNP, TROPI, GLYHGB #### [address] [address] Web Marketing Strategist: Juancho Miguel MD Eosinophils/100 WBC (Bld) 3 % Normal 1-4 [facility] Comment on above: Performed By: #### C DP, IPF, BMPX, BNP, TROPI, GLYHGB #### [place] [address] Web Marketing Strategist: Juancho Miguel MD Erythrocyte distribution width (RBC) [Ratio] 13.3 % Normal 11.8-14.4 [facility] Comment on above: Performed By: #### C DP, IPF, BMPX, BNP, TROPI, GLYHGB #### [address] [address] Web Marketing Strategist: Juancho Miguel MD Hematocrit (Bld) [Volume fraction] 38.2 % Low 40.7-50.3 [facility] Comment on above: Performed By: #### C DP, IPF, BMPX, BNP, TROPI, GLYHGB #### [address] [address] Web Marketing Strategist: Juancho Miguel MD Hemoglobin (Bld) [Mass/Vol] 13.0 g/dL Normal 13.0-17.0 [facility] Comment on above: Performed By: #### C DP, IPF, BMPX, BNP, TROPI, GLYHGB #### [facility] [employer] [address] [place] [address] Web Marketing Strategist: Juancho Miguel MD Immature granulocytes/100 WBC (Bld) 0 % Normal 0 [facility] Comment on above: Performed By: #### C DP, IPF, BMPX, BNP, TROPI, GLYHGB #### [facility] [employer] [address] [place] [address] Web Marketing Strategist: Juancho Miguel MD Lymphocytes (Bld) [#/Vol] 3.26 10*3/uL Normal 1.10-3.70 [facility] Comment on above: Performed By: #### C DP, IPF, BMPX, BNP, TROPI, GLYHGB #### [facility] [employer] [address] [place] [address] Web Marketing Strategist: Juancho Miguel MD Lymphocytes/100 WBC (Bld) 46 % High 24-43 [facility] Comment on above: Performed By: #### C DP, IPF, BMPX, BNP, TROPI, GLYHGB #### [facility] [employer] [address] [place] [address] Web Marketing Strategist: Juancho Miguel MD [facility] (RBC) [Entitic mass] 29.5 pg Normal 25.2-33.5 [facility] Comment on above: Performed By: #### C DP, IPF, BMPX, BNP, TROPI, GLYHGB #### [facility] [employer] [address] [place] [address] Web Marketing Strategist: Juancho Miguel MD [facility] (RBC) [Mass/Vol] 34.0 g/dL Normal 28.4-34.8 [facility] Comment on above: Performed By: #### C DP, IPF, BMPX, BNP, TROPI, GLYHGB #### [address] [address] Web Marketing Strategist: Juancho Miguel MD MCV (RBC) [Entitic vol] 86.8 fL Normal 82.6-102.9 [facility] Comment on above: Performed By: #### C DP, IPF, BMPX, BNP, TROPI, GLYHGB #### [address] [address] Web Marketing Strategist: Juancho Miguel MD Monocytes (Bld) [#/Vol] 0.62 10*3/uL Normal 0.10-1.20 [facility] Comment on above: Performed By: #### C DP, IPF, BMPX, BNP, TROPI, GLYHGB #### [address] [address] Web Marketing Strategist: Juancho Miguel MD Monocytes/100 WBC (Bld) 9 % Normal 3-12 [facility] Comment on above: Performed By: #### C DP, IPF, BMPX, BNP, TROPI, GLYHGB #### [address] [address] Web Marketing Strategist: Juancho Miguel MD Neutrophil (Seg) 42 % Normal 36-65 [facility] Comment on above: Performed By: #### C DP, IPF, BMPX, BNP, TROPI, GLYHGB #### [address] [address] Web Marketing Strategist: Juancho Miguel MD NRBC Automated 0.0 per 100 WBC Normal 0.0 [facility] Comment on above: Performed By: #### C DP, IPF, BMPX, BNP, TROPI, GLYHGB #### [address] [address] Web Marketing Strategist: Juancho Miguel MD Platelet Count See Reflexed IPF Result Normal 138-453 [facility] Comment on above: Performed By: #### C DP, IPF, BMPX, BNP, TROPI, GLYHGB #### [facility] [employer] [address] [place] [address] Web Marketing Strategist: Juancho Miguel MD RBC (Bld) [#/Vol] 4.40 10*6/uL Normal 4.21-5.77 [facility] Comment on above: Performed By: #### C DP, IPF, BMPX, BNP, TROPI, GLYHGB #### [facility] [employer] [address] [place] [address] Web Marketing Strategist: Juancho Miguel MD WBC (Bld) [#/Vol] 7.1 10*3/uL Normal 3.5-11.3 [facility] Comment on above: Performed By: #### C DP, IPF, BMPX, BNP, TROPI, GLYHGB #### [address] [address] Web Marketing Strategist: Juancho Miguel MD Auto Diff Performed NOT REPORTED Normal [facility] Comment on above: Performed By: #### C DP, IPF, BMPX, BNP, TROPI, GLYHGB #### [address] [address] Web Marketing Strategist: Juancho Miguel MD MPV NOT REPORTED Normal 8.1-13.5 [facility] Comment on above: Performed By: #### C DP, IPF, BMPX, BNP, TROPI, GLYHGB #### [facility] [employer] [address] [place] [address] Web Marketing Strategist: Juancho Miguel MD Platelet Comment NOT REPORTED Normal [facility] Comment on above: Performed By: #### C DP, IPF, BMPX, BNP, TROPI, GLYHGB #### [facility] [employer] [address] [place] [address] Web Marketing Strategist: Juancho Miguel MD RBC morphology finding Nom (Bld) NOT REPORTED Normal [facility] Comment on above: Performed By: #### C DP, IPF, BMPX, BNP, TROPI, GLYHGB #### [facility] [address] [place], [place] [phone] Web Marketing Strategist: Juancho Miguel MD WBC Morphology NOT REPORTED Normal [facility] Comment on above: Performed By: #### C DP, IPF, BMPX, BNP, TROPI, GLYHGB #### [employer] [address] [place], [place] [phone] Web Marketing Strategist: Juancho Miguel MD CT CHEST WO CONTRASTon 04-25 CT CHEST WO CONTRAST EXAMINATION: CT OF THE CHEST WITHOUT CONTRAST 04/24/2021 7:18 pm TECHNIQUE: CT of the chest was performed without the administration of intravenous contrast. Multiplanar reformatted images are provided for review. Dose modulation, iterative reconstruction, and/or weight based adjustment of the mA/kV was utilized to reduce the radiation dose to as low as reasonably achievable. COMPARISON: None. HISTORY: ORDERING SYSTEM PROVIDED HISTORY: pre-op CABG TECHNOLOGIST PROVIDED HISTORY: pre-op CABG Reason for Exam: pre op FINDINGS: Mediastinum: There are a few small nonspecific lymph nodes seen in the middle mediastinum. No suspicious lymphadenopathy. Lungs/pleura: Mild bullous changes in the right lung.. No acute infiltrates. A few calcified pulmonary granulomas. No suspicious pulmonary masses are noted. No pleural effusions are identified. Cardiomediastinal Structures: Coronary arterial calcifications are seen. Intimal calcifications associated with the thoracic aorta. No evidence of thoracic aortic aneurysm . Cardiac chambers are normal. Status post CABG Upper Abdomen: Unremarkable Soft Tissues/Bones: There are hypertrophic degenerative changes in the thoracic spine. No acute osseous abnormalities. IMPRESSION: No acute intrathoracic abnormalities are noted. Coronary artery/atherosclerotic disease RECOMMENDATIONS: Unavailable Interpreted by: Kian Faye MD Signed by: Kian Faye MD 04/24/21 Final result Normal [facility] Comp Metabolic Profon 2020 (cont.) Normal [facility] Comment on above: Result Comment: Aver age GFR for 70 or more years old: 75 mL/min/1.73sq m Chronic Kidney Disease: <60 mL/min/1.73sq m Kidney failure: <15 mL/min/1.73sq m eGFR calculated using average adult body mass. Additional eGFR calculator available at: http://www.[employer]/multiple_crcl_2011.htm Performed By: #### C DP, IPF, BMPX, BNP, TROPI, GLYHGB #### [facility] [employer] [address] [place] [phone] Web Marketing Strategist: Juancho Miguel MD Albumin [Mass/Vol] 4.2 g/dL Normal 3.5-5.2 [facility] Comment on above: Performed By: #### C DP, IPF, BMPX, BNP, TROPI, GLYHGB #### [address] [address] Web Marketing Strategist: Juancho Miguel MD Albumin/Glob Ratio 1.4 Normal 1.0-2.5 [facility] Comment on above: Performed By: #### C DP, IPF, BMPX, BNP, TROPI, GLYHGB #### [facility] [employer] [address] [place] [address] Web Marketing Strategist: Juancho Miguel MD Alkaline Phos 69 U/L Normal 40-129 [facility] Comment on above: Performed By: #### C DP, IPF, BMPX, BNP, TROPI, GLYHGB #### [address] [address] Web Marketing Strategist: Juancho Miguel MD ALT [Catalytic activity/Vol] 26 U/L Normal 5-41 [facility] Comment on above: Performed By: #### C DP, IPF, BMPX, BNP, TROPI, GLYHGB #### [facility] [employer] [address] [place] [address] Web Marketing Strategist: Juancho Miguel MD Anion gap [Moles/Vol] 14 mmol/L Normal 9-17 [facility] Comment on above: Performed By: #### C DP, IPF, BMPX, BNP, TROPI, GLYHGB #### [facility] [employer] [address] [place] [phone] Web Marketing Strategist: Juancho Miguel MD AST [Catalytic activity/Vol] 24 U/L Normal <40 [facility] Comment on above: Performed By: #### C DP, IPF, BMPX, BNP, TROPI, GLYHGB #### [facility] [employer] [address] [place] [address] Web Marketing Strategist: Juancho Miguel MD Bilirubin [Mass/Vol] 0.71 mg/dL Normal 0.3-1.2 [facility] Comment on above: Performed By: #### C DP, IPF, BMPX, BNP, TROPI, GLYHGB #### [facility] [employer] [address] [place] [address] Web Marketing Strategist: Juancho Miguel MD Calcium [Mass/Vol] 9.1 mg/dL Normal 8.6-10.4 [facility] Comment on above: Performed By: #### C DP, IPF, BMPX, BNP, TROPI, GLYHGB #### [facility] [employer] [address] [place] [address] Web Marketing Strategist: Juancho Miguel MD Chloride [Moles/Vol] 105 mmol/L Normal 98-107 [facility] Comment on above: Performed By: #### C DP, IPF, BMPX, BNP, TROPI, GLYHGB #### [facility] [employer] [address] [place] [address] Web Marketing Strategist: Juancho Miguel MD CO2 [Moles/Vol] 23 mmol/L Normal 20-31 [facility] Comment on above: Performed By: #### C DP, IPF, BMPX, BNP, TROPI, GLYHGB #### [facility] [employer] [address] [place] [phone] Web Marketing Strategist: Juancho Miguel MD Creatinine [Mass/Vol] 1.04 mg/dL Normal 0.70-1.20 [facility] Comment on above: Performed By: #### C DP, IPF, BMPX, BNP, TROPI, GLYHGB #### [facility] [employer] [address] [place] [address] Web Marketing Strategist: Juancho Miguel MD GFR, Amer >60 Normal >60 [facility] Comment on above: Performed By: #### C DP, IPF, BMPX, BNP, TROPI, GLYHGB #### [facility] [employer] [address] [place] [phone] Web Marketing Strategist: Juancho Miguel MD GFR,non Amer >60 Normal >60 [facility] Comment on above: Performed By: #### C DP, IPF, BMPX, BNP, TROPI, GLYHGB #### [facility] [employer] [address] [place] [phone] Web Marketing Strategist: Juancho Miguel MD Glucose [Mass/Vol] 97 mg/dL Normal 70-99 [facility] Comment on above: Performed By: #### C DP, IPF, BMPX, BNP, TROPI, GLYHGB #### [facility] [employer] [address] [place] [phone] Web Marketing Strategist: Juancho Miguel MD Potassium [Moles/Vol] 4.3 mmol/L Normal 3.7-5.3 [facility] Comment on above: Performed By: #### C DP, IPF, BMPX, BNP, TROPI, GLYHGB #### [facility] [employer] [address] [place] [phone] Web Marketing Strategist: Juancho Miguel MD Protein [Mass/Vol] 7.1 g/dL Normal 6.4-8.3 [facility] Comment on above: Performed By: #### C DP, IPF, BMPX, BNP, TROPI, GLYHGB #### [facility] [employer] [address] [place] [phone] Web Marketing Strategist: Juancho Miguel MD Sodium [Moles/Vol] 142 mmol/L Normal 135-144 [facility] Comment on above: Performed By: #### C DP, IPF, BMPX, BNP, TROPI, GLYHGB #### [employer] [address] [place], [place] [phone] Web Marketing Strategist: Juancho Miguel MD Urea nitrogen [Mass/Vol] 21 mg/dL Normal 8- [facility] Comment on above: Performed By: #### C DP, IPF, BMPX, BNP, TROPI, GLYHGB #### [employer] [address] [place], [place] [phone] Web Marketing Strategist: Juancho Miguel MD BUN/CRE Ratio NOT REPORTED Normal 9- [facility] Comment on above: Performed By: #### C DP, IPF, BMPX, BNP, TROPI, GLYHGB #### [employer] [address] [place], [place] [id number] Web Marketing Strategist: Juancho Miguel MD Staging: NOT REPORTED Normal [facility] Comment on above: Performed By: #### C DP, IPF, BMPX, BNP, TROPI, GLYHGB #### [employer] [address] [place], [place] [id number] Web Marketing Strategist: Juancho Miguel MD Comprehensive Metabolic Pane [facility] 04-25-2021 Albumin [Mass/Vol] 4.2 g/dL 3.5 - 5.2 g/dL [facility] Albumin/Globulin [Mass ratio] 1.4 {ratio} [facility] ALP (Bld) [Catalytic activity/Vol] 69 U/L 40 - 129 U/L [facility] [employer] ALT [Catalytic activity/Vol] 26 U/L 5 - 41 U/L [facility] [employer] Anion gap [Moles/Vol] 14 mmol/L 9 - 17 mmol/L [facility] AST [Catalytic activity/Vol] 24 U/L <40 [facility] [employer] Bilirubin [Mass/Vol] 0.71 mg/dL 0.3 - 1.2 mg/dL [facility] [employer] Calcium [Mass/Vol] 9.1 mg/dL 8.6 - 10. 4 mg/dL [facility] [employer] Chloride [Moles/Vol] 105 mmol/L 98 - 107 mmol/L [facility] [employer] CO2 [Moles/Vol] 23 mmol/L 20 - 31 mmol/L [facility] [employer] Creatinine [Mass/Vol] 1.04 mg/dL 0.70 - 1.20 mg/dL [facility] [employer] Free PSA/Total PSA [Mass fraction] 7.1 g/dL 6.4 - 8.3 g/dL [facility] [employer] GFR >60 >60 mL/min [facility] [employer] GFR Non- >60 >60 mL/min [facility] [employer] GFR/1.73 sq M.predicted MDRD (S/P/Bld) [Vol rate/Area] [facility] Comment on above: Average GFR for 70 o r more years old: 75 mL/min/1.73sq m Chronic Kidney Disease: <60 mL/min/1.73sq m Kidney failure: <15 mL/min/1.73sq m eGFR calculated using average adult body mass. Additional eGFR calculator available at: http://www.[employer]/multiple_crcl_2012.htm GFR/1.73 sq M.predicted MDRD (S/P/Bld) [Vol rate/Area] NOT REPORTED [facility] Glucose [Mass/Vol] 97 mg/dL 70 - 99 mg/dL [facility] [employer] Potassium [Moles/Vol] 4.3 mmol/L 3.7 - 5.3 mmol/L [facility] [employer] Sodium [Moles/Vol] 142 mmol/L 135 - 144 mmol/L [facility] Urea nitrogen (BldV) [Mass/Vol] 21 mg/dL 8 - 23 mg/dL [facility] [employer] Urea nitrogen/Creatinine (Bld) [Mass ratio] NOT REPORTED [facility] Hemoglobin A1Con 04-25-2021 Glucose [Mass/Vol] 114 mg/dL Normal [facility] Comment on above: Result Comment: The ADA and AACC recommend providing the estimated average glucose result to permit better patient understanding of their HBA1c result. Performed By: #### C DP, IPF, BMPX, BNP, TROPI, GLYHGB #### [employer] [address] [place], [place] [id number] Web Marketing Strategist: Juancho Miguel MD HbA1c (Bld) [Mass fraction] 5.6 % Normal 4.0-6.0 [facility] Comment on above: Performed By: #### C DP, IPF, BMPX, BNP, TROPI, GLYHGB #### [address] [phone] Web Marketing Strategist: Juancho Miguel MD Immature Platelet Fractionon 2 Interpretation and review of laboratory results Abnormal [employer] Platelet, Fluorescence 129 Low [facility] [employer] Comment on above: ORDERED BY LAB Platelet, Immature Fraction 4.1 % 1.1 - 10.3 % [employer] Comment on above: [facility], Immature Fract.on 04-25 Platelet, Fluoresc. 129 k/uL Low 138-453 [facility] Comment on above: Result Comment: ORDE RED BY LAB Performed By: #### C DP, IPF, BMPX, BNP, TROPI, GLYHGB #### [facility] [employer] [address] [place] [id number] Web Marketing Strategist: Juancho Miugel MD PLT, Immature Fract. 4.1 % Normal 1.1-10.3 [facility] Comment on above: Result Comment: ORDE RED BY LAB Performed By: #### C DP, IPF, BMPX, BNP, TROPI, GLYHGB #### [address] [phone] Web Marketing Strategist: Juancho Miguel MD CT CHEST WO CONTRASTon 04-248 No acute intrathorac ic abnormalities are noted. Coronary artery/atherosclerotic disease RECOMMENDATIONS: Unavailable [facility] EXAMINATION: CT OF THE CHEST WITHOUT CONTRAST 04/24/2021 7:18 pm TECHNIQUE: CT of the chest was performed without the administration of intravenous contrast. Multiplanar reformatted images are provided for review. Dose modulation, iterative reconstruction, and/or weight based adjustment of the mA/kV was utilized to reduce the radiation dose to as low as reasonably achievable. COMPARISON: None. HISTORY: ORDERING SYSTEM PROVIDED HISTORY: pre-op CABG TECHNOLOGIST PROVIDED HISTORY: pre-op CABG Reason for Exam: pre op FINDINGS: Mediastinum: There are a few small nonspecific lymph nodes seen in the middle mediastinum. No suspicious lymphadenopathy. Lungs/pleura: Mild bullous changes in the right lung.. No acute infiltrates. A few calcified pulmonary granulomas. No suspicious pulmonary masses are noted. No pleural effusions are identified. Cardiomediastinal Structures: Coronary arterial calcifications are seen. Intimal calcifications associated with the thoracic aorta. No evidence of thoracic aortic aneurysm . Cardiac chambers are normal. Status post CABG Upper Abdomen: Unremarkable Soft Tissues/Bones: There are hypertrophic degenerative changes in the thoracic spine. No acute osseous abnormalities. [facility] Kian Faye MD - 04/24/2021 EXAMINATION: CT OF THE CHEST WITHOUT CONTRAST 04/24/2021 7:18 pm TECHNIQUE: CT of the chest was performed without the administration of intravenous contrast. Multiplanar reformatted images are provided for review. Dose modulation, iterative reconstruction, and/or weight based adjustment of the mA/kV was utilized to reduce the radiation dose to as low as reasonably achievable. COMPARISON: None. HISTORY: ORDERING SYSTEM PROVIDED HISTORY: pre-op CABG TECHNOLOGIST PROVIDED HISTORY: pre-op CABG Reason for Exam: pre op FINDINGS: Mediastinum: There are a few small nonspecific lymph nodes seen in the middle mediastinum. No suspicious lymphadenopathy. Lungs/pleura: Mild bullous changes in the right lung.. No acute infiltrates. A few calcified pulmonary granulomas. No suspicious pulmonary masses are noted. No pleural effusions are identified. Cardiomediastinal Structures: Coronary arterial calcifications are seen. Intimal calcifications associated with the thoracic aorta. No evidence of thoracic aortic aneurysm . Cardiac chambers are normal. Status post CABG Upper Abdomen: Unremarkable Soft Tissues/Bones: There are hypertrophic degenerative changes in the thoracic spine. No acute osseous abnormalities. IMPRESSION: No acute intrathoracic abnormalities are noted. Coronary artery/atherosclerotic disease RECOMMENDATIONS: Unavailable [employer] Phone: Radiology Study observation (narrative) [employer] Phone: CT CHEST WO CONTRASTOrdered By: Kian Faye on 04-24-2021 [employer] Phone: Catheterization and angiogra phy procedure details panelon 04-24-2021 Cardiac Diagnostic Report Demographics Patient LOGAN LANGSTON Date of Study 04/24/2021 Name Date of 1945 Gender Male Age 76 year(s) Race Room [id number]^HIRAM^DEMETRIO Height: 69 inch, 175.26 cm Number [id number] Weight: 209 pounds, 94.8 kg ID # Patient [id number] BSA: 2.1 m^2 BMI: 30.86 Acct # kg/m^2 MR # [id number] Performing Phil Almanza Physician Referring # Physician Assisting Physician Additional Comments H&P reviewed and patient examined by performing physician prior to the procedure on 04-24-21 at No changes noted. If changes, see note below.: Patient medications reviewed by Physician prior to procedure. Procedure Procedure Type: Diagnostic procedure: Lt Heart, Coronary Angio, LVgram Complications: - No complication Indications: - Angina - Unstable Conclusions Procedure Summary Multi-vessel Coronary Artery Disease. Normal LV systolic function. Recommendations CTS consult for CABG. Medical therapy as needed. Risk factor modification. Signature Angiographic Findings Cardiac Arteries and Lesion Findings LMCA: Mild irregularities 30-40%. LAD: Multiple stenosis. Lesion on Prox LAD: 70% stenosis. Lesion on Mid LAD: 80% stenosis. Lesion on 1st Diag: Proximal subsection.80% stenosis. LCx: Multiple stenosis. Lesion on Prox CX: 80% stenosis. Lesion on 1st Ob Belkis: Proximal subsection.90% stenosis. RCA: Multiple stenosis.Ectatic vessel Lesion on Dist RCA: 70% stenosis. Lesion on R PDA: Proximal subsection.80% stenosis. Coronary Tree Dominance: Right LV Analysis LV function assessed as:Normal. Ejection Fraction + --+---+ !Method !EF%! + --+---+ !LV gram !60 ! + --+---+ LV Segment Contractility 1 - Normal 3 - Mild 5 - Severe 7 - Dyskinesis hypokinesis hypokinesis 2 - 4 - Moderate 6 - Akinesis 8 - Aneurysm Hypokinesis hypokinesis Procedure Data Procedure Start Time: 04/24/2021 15:54. Procedure End Time: 04/24/2021 16:24. The procedure was explained in detail to the patient. Risks, complications and alternative treatments were reviewed. Written consent was obtained. Diagnostic Cath Status: Urgent Entry Locations - Percutaneous access was performed through the Right Radial artery. A 6 Fr sheath was inserted. Hemostasis was successfully obtained using Vasc Band. Procedure Medications: - Versed I.V. 2 mg. - Fentanyl I.V. 50 mcg. - Lidocaine HCl 1% 10mg/ml S.Q. 5 ml. - Verapamil I.A. 2.5 mg. - Nitroglycerin I.A. 400 mcg. - Heparin I.A. 2000 units. Catheters and Wires: - 6F Catheter JR 4 was used for LV Pressure. - 6F Catheter JR 4 was used for Left ventriculography. - 6F Catheter JR 4 was used for Right coronary angiography. - 6F Catheter JL 3.5 was used for Left coronary angiography. Contrast Material: - Isovue 18105 ml Fluoroscopy Time: Diagnostic: 1:08 minutes. Total: 1:08 minutes. Medical History Allergies - *Unlisted:(pencillin, sulfa, pregabalin). Risk Factors The patient risk factors include:treated hypercholesterolemia, treated hypertension, last creatinine: 1.4 mg/dl and creatinine clearance: 61.13 ml/min. Admission Data Admission Date: 04/22/2021 Admission Status: Outpatient. -The patient's anginal syndrome was assessed as CCS III according to the [place] clinical classification. Hemodynamics Condition: Baseline Room Air Estimated: 247.46Heart Rate: 78 bpm Pressure +-----+ ------+ !Site !Pressure ! +-----+ ------+ !AO !91/51 (68) ! +-----+ - (more content not included)... [facility] Phil Almanza MD - 04/24/2021 Cardiac Diagnostic Report Demographics Patient LOGAN LANGSTON Date of Study 04/24/2021 Name Date of 1945 Gender Male Age 76 year(s) Race Room [id number]^TALEB^MOHAMMED Height: 69 inch, 175.26 cm Number [employer] [id number] Weight: 209 pounds, 94.8 kg ID # Patient [id number] BSA: 2.1 m^2 BMI: 30.86 Acct # kg/m^2 MR # [id number] Performing Phil Almanza Physician Referring # Physician Assisting Physician Additional Comments H&P reviewed and patient examined by performing physician prior to the procedure on 04-24-21 at No changes noted. If changes, see note below.: Patient medications reviewed by Physician prior to procedure. Procedure Procedure Type: Diagnostic procedure: Lt Heart, Coronary Angio, LVgram Complications: - No complication Indications: - Angina - Unstable Conclusions Procedure Summary Multi-vessel Coronary Artery Disease. Normal LV systolic function. Recommendations CTS consult for CABG. Medical therapy as needed. Risk factor modification. Signature Angiographic Findings Cardiac Arteries and Lesion Findings LMCA: Mild irregularities 30-40%. LAD: Multiple stenosis. Lesion on Prox LAD: 70% stenosis. Lesion on Mid LAD: 80% stenosis. Lesion on 1st Diag: Proximal subsection.80% stenosis. LCx: Multiple stenosis. Lesion on Prox CX: 80% stenosis. Lesion on 1st Ob Belkis: Proximal subsection.90% stenosis. RCA: Multiple stenosis.Ectatic vessel Lesion on Dist RCA: 70% stenosis. Lesion on R PDA: Proximal subsection.80% stenosis. Coronary Tree Dominance: Right LV Analysis LV function assessed as:Normal. Ejection Fraction + --+--- + !Method !EF%! + --+--- + !LV gram !60 ! + --+--- + LV Segment Contractility 1 - Normal 3 - Mild 5 - Severe 7 - Dyskinesis hypokinesis hypokinesis 2 - 4 - Moderate 6 - Akinesis 8 - Aneurysm Hypokinesis hypokinesis Procedure Data Procedure Start Time: 04/24/2021 15:54. Procedure End Time: 04/24/2021 16:24. The procedure was explained in detail to the patient. Risks, complications and alternative treatments were reviewed. Written consent was obtained. Diagnostic Cath Status: Urgent Entry Locations - Percutaneous access was performed through the Right Radial artery. A 6 Fr sheath was inserted. Hemostasis was successfully obtained using Vasc Band. Procedure Medications: - Versed I.V. 2 mg. - Fentanyl I.V. 50 mcg. - Lidocaine HCl 1% 10mg/ml S.Q. 5 ml. - Verapamil I.A. 2.5 mg. - Nitroglycerin I.A. 400 mcg. - Heparin I.A. 2000 units. Catheters and Wires: - 6F Catheter JR 4 was used for LV Pressure. - 6F Catheter JR 4 was used for Left ventriculography. - 6F Catheter JR 4 was used for Right coronary angiography. - 6F Catheter JL 3.5 was used for Left coronary angiography. Contrast Material: - Isovue 07569 ml Fluoroscopy Time: Diagnostic: 1:08 minutes. Total: 1:08 minutes. Medical History Allergies - *Unlisted:(pencillin, sulfa, pregabalin). Risk Factors The patient risk factors include:treated hypercholesterolemia, treated hypertension, last creatinine: 1.4 mg/dl and creatinine clearance: 61.13 ml/min. Admission Data Admission Date: 04/22/2021 Admission Status: Outpatient. -The patient's anginal syndrome was assessed as CCS III according to the Vers[place] clinical classification. Hemodynamics Condition: Baseline Room Air Estimated: 247.46Heart Rate: 78 bpm Pressure +-----+ ------ + !Site !Pressure ! +-----+ ------ + !AO !91/51 (68) ! +-----+ ------ + !AO !89/47 (65) ! +-----+ ------ + !AO !102/58 (78) ! +-----+ ------ + !LV !105/2 ,7 ! +-----+ ------ + !LV !105/2 ,7 ! +-----+ ------ + Valve Gradients and Areas + +---------+ ---------+---------+--- -------+---------+----- ------ + !Valve !Peak !Mean !Area !Index !Flow !Source ! + +--------- (more content not included)... [employer] Phone: Catheterization and angiogra phy procedure details panelOrdered By: Phil Almanza on 04-24-2021 [employer] Phone: Catheterization and angiogra phy procedure details panelOrdered By: Unknown Result on 04-24-2021 [employer] ECHO Complete 2D W Doppler W Coloron 04-24-2021 Transthoracic Echocardiography Report (TTE) Patient Name FORD Date of Study 04/23/2021 STEVEN LANGSTON Date of 1945 Gender Male Age 76 year(s) Race Room Number 0344 Height: 69 inch, 175.26 cm Corporate ID [id number] Weight: 209 pounds, 94.8 kg # Patient Acct [id number] BSA: 2.1 m^2 BMI: 30.86 # kg/m^2 MR # [id number] [employer] Katie De La Torre Interpreting Physician Quinten Ingram Fellow Referring Nurse Practitioner Interpreting Referring Physician Demetrio Hawkins Type of Study TTE procedure:2D Echocardiogram, M-Mode, Doppler, Color Doppler. Procedure Date Date: 04/23/2021 Start: 12:31 PM Study Location: [facility] Technical Quality: Fair visualization Indications:Syncope. History / Tech. Comments: Procedure explained to patient. Patient Status: Inpatient Height: 69 inches Weight: 209 pounds BSA: 2.1 m^2 BMI: 30.86 kg/m^2 HR: 75 bpm CONCLUSIONS Summary Left ventricle is normal in size. Global left ventricular systolic function is normal. Calculated EF via 3D Heart Model is 54 %. Normal left ventricular wall thickness. Mildly dilated right ventricular cavity. Right ventricular function appears normal . Trivial mitral regurgitation. Trivial tricuspid regurgitation. Estimated right ventricular systolic pressure is 23 mmHg. Signature ------- ------- ------- ------- FINDINGS Left Atrium Left atrium is normal in size. Left Ventricle Left ventricle is normal in size. Global left ventricular systolic function is normal. Calculated EF via 3D Heart Model is 54 %. Normal left ventricular wall thickness. Right Atrium Right atrium is normal size . Right Ventricle Mildly dilated right ventricular cavity. Right ventricular function appears normal . Mitral Valve Normal mitral valve structure. Trivial mitral regurgitation. No mitral stenosis. Aortic Valve Aortic valve structure and function normal. Aortic valve is trileaflet. No aortic insufficiency. No aortic stenosis. Tricuspid Valve Normal tricuspid valve leaflets. Trivial tricuspid regurgitation. No tricuspid stenosis. Estimated right ventricular systolic pressure is 23 mmHg. Pulmonic Valve Pulmonic valve is normal in structure and function. No pulmonic insufficiency. No evidence of pulmonic stenosis. Pericardial Effusion No pericardial effusion seen. Miscellaneous Normal aortic root dimension. The ascending aorta is normal in size. E/E' average = 7.2. IVC normal diameter & inspiratory collapse indicating normal RA filling pressure . M-mode / 2D Measurements & Calculations: LVIDd:4.4 cm(3.7 - 5.6 cm) Diastolic Volume:160 ml LVIDs:3 cm(2.2 - 4.0 cm) Systolic Volume:74 ml IVSd:1.1 cm(0.6 - 1.1 cm) Aortic Root:3.3 cm(2.0 - 3.7 cm) LVPWd:1.1 cm(0.6 - 1.1 cm) LA Dimension: 3.2 cm(1.9 - 4.0 cm) Fractional Shortenin.82 % LA volume/Index: 53.87 ml /26m^2 Calculated LVEF (%): 53.75 % LVOT:2.1 cm RVDd:4.2 cm Mitral: Aortic Valve Area (P1/2-Time): 3.33 cm^2 Peak Velocity: 1.10 m/s Peak E-Wave: 0.50 m/s Mean Velocity: 0.78 m/s Peak A-Wave: 0.62 m/s Peak Gradient: 4.84 mmHg E/A Ratio: 0.81 Mean Gradient: 3 mmHg Peak Gradient: 1 mmHg Mean Gradient: 1 mmHg Deceleration Time: 250 msec Area (continuity): 3.31 cm^2 P1/2t: 66 msec AV VTI: 24.7 cm Area (continuity): 3.89 cm^2 Mean Velocity: 0.46 m/s Tricuspid: Pulmonic: Estimated RVSP: 23 mmHg Peak Velocity: 1.22 m/s Peak TR Velocity: 2.14 m/s Peak Gradient: 5.95 mmHg Peak TR Gradient: 18.3184 mmHg Estimated RA Pressure: 5 mmHg Estimated PASP: 23.32 mmHg Diastology / Tissue Doppler Septal Wall E' velocity:0.06 m/s Septal Wall E/E':8.5 Lateral Wall E' velocity:0.08 m/s Lateral Wall E/E':5.9 [facility] Quinten Ingram, - 04/24/2021 Transthoracic Echocardiography Report (TTE) Patient Name FORD Date of Study 04/23/2021 STEVEN LANGSTON Date of 1945 Gender Male Age 76 year(s) Race Room Number 0344 Height: 69 inch, 175.26 cm Corporate ID [id number] Weight: 209 pounds, 94.8 kg # Patient Acct [id number] BSA: 2.1 m^2 BMI: 30.86 # kg/m^2 MR # [id number] [employer] Wil, Katie Interpreting Physician Quinten Ingram Fellow Referring Nurse Practitioner Interpreting Referring Physician Demetrio Hawkins Fellow Type of Study TTE procedure:2D Echocardiogram, M-Mode, Doppler, Color Doppler. Procedure Date Date: 04/23/2021 Start: 12:31 PM Study Location: [facility] Technical Quality: Fair visualization Indications:Syncope. History / Tech. Comments: Procedure explained to patient. Patient Status: Inpatient Height: 69 inches Weight: 209 pounds BSA: 2.1 m^2 BMI: 30.86 kg/m^2 HR: 75 bpm CONCLUSIONS Summary Left ventricle is normal in size. Global left ventricular systolic function is normal. Calculated EF via 3D Heart Model is 54 %. Normal left ventricular wall thickness. Mildly dilated right ventricular cavity. Right ventricular function appears normal . Trivial mitral regurgitation. Trivial tricuspid regurgitation. Estimated right ventricular systolic pressure is 23 mmHg. Signature ------ - ------ - ------ - ------ - FINDINGS Left Atrium Left atrium is normal in size. Left Ventricle Left ventricle is normal in size. Global left ventricular systolic function is normal. Calculated EF via 3D Heart Model is 54 %. Normal left ventricular wall thickness. Right Atrium Right atrium is normal size . Right Ventricle Mildly dilated right ventricular cavity. Right ventricular function appears normal . Mitral Valve Normal mitral valve structure. Trivial mitral regurgitation. No mitral stenosis. Aortic Valve Aortic valve structure and function normal. Aortic valve is trileaflet. No aortic insufficiency. No aortic stenosis. Tricuspid Valve Normal tricuspid valve leaflets. Trivial tricuspid regurgitation. No tricuspid stenosis. Estimated right ventricular systolic pressure is 23 mmHg. Pulmonic Valve Pulmonic valve is normal in structure and function. No pulmonic insufficiency. No evidence of pulmonic stenosis. Pericardial Effusion No pericardial effusion seen. Miscellaneous Normal aortic root dimension. The ascending aorta is normal in size. E/E' average = 7.2. IVC normal diameter & inspiratory collapse indicating normal RA filling pressure . M-mode / 2D Measurements & Calculations: LVIDd:4.4 cm(3.7 - 5.6 cm) Diastolic Volume:160 ml LVIDs:3 cm(2.2 - 4.0 cm) Systolic Volume:74 ml IVSd:1.1 cm(0.6 - 1.1 cm) Aortic Root:3.3 cm(2.0 - 3.7 cm) LVPWd:1.1 cm(0.6 - 1.1 cm) LA Dimension: 3.2 cm(1.9 - 4.0 cm) Fractional Shortenin.82 % LA volume/Index: 53.87 ml /26m^2 Calculated LVEF (%): 53.75 % LVOT:2.1 cm RVDd:4.2 cm Mitral: Aortic Valve Area (P1/2-Time): 3.33 cm^2 Peak Velocity: 1.10 m/s Peak E-Wave: 0.50 m/s Mean Velocity: 0.78 m/s Peak A-Wave: 0.62 m/s Peak Gradient: 4.84 mmHg E/A Ratio: 0.81 Mean Gradient: 3 mmHg Peak Gradient: 1 mmHg Mean Gradient: 1 mmHg Deceleration Time: 250 msec Area (continuity): 3.31 cm^2 P1/2t: 66 msec AV VTI: 24.7 cm Area (continuity): 3.89 cm^2 Mean Velocity: 0.46 m/s Tricuspid: Pulmonic: Estimated RVSP: 23 mmHg Peak Velocity: 1.22 m/s Peak TR Velocity: 2.14 m/s Peak Gradient: 5.95 mmHg Peak TR Gradient: 18.3184 mmHg Estimated RA Pressure: 5 mmHg Estimated PASP: 23.32 mmHg Diastology / Tissue Doppler Septal Wall E' velocity:0.06 m/s Septal Wall E/E':8.5 Lateral Wall E' velocity:0.08 m/s Lateral Wall E/E':5.9 [employer] Phone: ECHO Complete 2D W Doppler W ColorOrdered By: Quinten Ingram on 04-24-2021 [employer] Phone: POC Glucose Fingerstickon Glucose [Mass/Vol] 108 mg/dL 75 - 110 mg/dL [facility] Glucose [Mass/Vol] 98 mg/dL 75 - 110 mg/dL [facility] Glucose [Mass/Vol] 96 mg/dL 75 - 110 mg/dL [facility] CARDIAC STRESS TESTon 2020 CARDIAC STRESS TEST [address] [address] CARDIAC STRESS TEST PATIENT NAME: STEVEN FORD : 1945 MED REC NO: [id number] ROOM: 0344 ACCOUNT NO: [id number] ADMIT DATE: 04/22/2021 PROVIDER: Demetrio Hawkins DATE OF STUDY: 04/23/2021 ORDERING PROVIDER: Demetrio Hawkins MD PRIMARY CARE PROVIDER: Arelis Forbes MD INTERPRETING PHYSICIAN: Demetrio Hawkins MD LEXISCAN STRESS STUDY: Indication: Chest pain Procedure was explained and consent was signed Medications: Lexiscan, 0.4 mg Resting heart rate: 66 bpm Resting blood pressure: 189/102 mm/Hg Infusion heart rate: 98 bpm Infusion blood pressure: 194/96 mm/Hg Resting EKG: Normal Stress heart response: Normal Response Stress BP response: Appropriate Stress EKG's: No changes seen Chest discomfort: None Ischemic EKG changes: None IMPRESSION: Electrocardiographicall y negative Lexiscan stress study. Radio-isotope results to follow from the department of Nuclear Medicine. DEMETRIO HAWKINS [place]/ELIZABETH Doc#: Unknown CC: Normal [facility] Cardiac Stress Test- W Pharm on 04-23-2021 Demetrio Hawkins MD - 04/23/2021 3:18 PM EST [address] [address] CARDIAC STRESS TEST PATIENT NAME: STEVEN FORD : 1945 MED REC NO: [id number] ROOM: 0344 ACCOUNT NO: [id number] ADMIT DATE: 04/22/2021 PROVIDER: Demetrio Hawkins DATE OF STUDY: 04/23/2021 ORDERING PROVIDER: Demetrio Hawkins MD PRIMARY CARE PROVIDER: Arelis Forbes MD INTERPRETING PHYSICIAN: Demetrio Hawkins MD LEXISCMARLON STRESS STUDY: Indication: Chest pain Procedure was explained and consent was signed Medications: Lexiscan, 0.4 mg Resting heart rate: 66 bpm Resting blood pressure: 189/102 mm/Hg Infusion heart rate: 98 bpm Infusion blood pressure: 194/96 mm/Hg Resting EKG: Normal Stress heart response: Normal Response Stress BP response: Appropriate Stress EKG's: No changes seen Chest discomfort: None Ischemic EKG changes: None IMPRESSION: Electrocardiographicall y negative Lexiscan stress study. Radio-isotope results to follow from the department of Nuclear Medicine. DEMETRIO HAWKINS [place]/SARAHMARLENEELKE Doc#: Unknown CC: [employer] Phone: TicketsNow Phone: EKG 12 LeadOrdered By: Mike Head on 04-23-2021 Atrial Rate 61 BPM [employer] Phone: P [place] 54 degrees [employer]Now Phone: P-R Interval 138 ms [employer] Phone: Q-T Interval 416 ms [employer] Phone: QRS Duration 92 ms [employer] Phone: QTc Calculation (Bazett) 418 ms [employer] Phone: R [place] 29 degrees [employer]Now Phone: T [place] 42 degrees [employer]Now Phone: Ventricular Rate 61 BPM [employer] Phone: [employer] Phone: EKG 12 Leadon 04-23-2021 Normal sinus rhythm Normal ECG No previous ECGs available [facility] STAngel Luis Tavarez MD - 04/23/2021 Normal sinus rhythm Normal ECG No previous ECGs available [employer] Phone: nm Cardiac Stress Test Nucle radha Woodsonon 04-23-2021 Perfusion: No significant perfusion defects at stress or rest. Function: Normal. Normal left ventricular ejection fraction is 62%. Risk stratification: LOW Notes concerning risk stratification: Risk stratification incorporates both clinical history and some testing results. Final risk determination is the responsibility of the ordering provider as other patient information and test results may increase or decrease the risk assessment reported for this examination. Risk stratification criteria are adapted from Noninvasive Risk Stratification criteria from Iyer et. Al, ACC/AATS/AHA/ASE/ASNC/S SUSIE/SCCT/STS 2017 Appropriate Use Criteria For Coronary Revascularization in Patients With Stable Ischemic Heart Disease [facility] Volume 69, Issue 17, September 2016 High risk (>3% annual or [place]) 1. Severe resting LV dysfunction (LVEF <35%) not readily explained by non coronary causes 2. Resting perfusion abnormalities greater than 10% of the myocardium in patients without prior history or evidence of MI3. Stress-induced perfusion abnormalities encumbering greater than or equal to 10% myocardium or stress segmental scores indicating multiple vascular territories with abnormalities 4. Stress-induced LV dilatation (TID ratio greater than 1.19 for exercise and greater than 1.39 for regadenoson) Intermediate risk (1% to 3% annual or [place]) 1. Mild/moderate resting LV dysfunction (LVEF 35% to 49%) not readily explained by non coronary causes. 2. Resting perfusion abnormalities in 5%-9.9% of the myocardium in patients without a history or prior evidence of [place] 3. Stress-induced perfusion abnormality encumbering 5%-9.9% of the myocardium or stress segmental scores indicating 1 vascular territory with abnormalities but without LV dilation 4. Small wall motion abnormality involving 1-2 segments and only 1 coronary bed. Low Risk (Less than 1% annual or [place]) 1. Normal or small myocardial perfusion defect at rest or with stress encumbering less than 5% of the myocardium. [facility] EXAMINATION: MYOCARDIAL PERFUSION IMAGING 04/23/2021 12:08 pm TECHNIQUE: For the rest study, 11 mCi of Tc 99 labeled sestamibi were injected. SPECT images were acquired. Under cardiology supervision, 0.4mg Lexiscan was infused. After pharmacologic stress, 42.5 mCi of Tc 99 labeled sestamibi were injected. SPECT images with ECG gating were acquired. COMPARISON: None Available. HISTORY: ORDERING SYSTEM PROVIDED HISTORY: Chest pain TECHNOLOGIST PROVIDED HISTORY: Reason for Exam: Chest pain Procedure Type->Rx chest pain Reason for Exam: chest pain, numbness in Arms or hands , Shortness of breath , Dizzy, Sweating, HTN, Additional signs and symptoms: near syncopal episode FINDINGS: Images interpreted utilizing [employer] system and Quinn software. Perfusion defect in the anterolateral segment is noted, mild with reperfusion, 1% of left ventricular myocardial involvement at stress. Perfusion elsewhere is unremarkable. Perfusion scores are visually adjusted to account for artifact. Summed stress score: 1 Summed rest score: 1 Summed reversibility score: 1 Function: End diastolic volume: 82mL Left ventricular ejection fraction: 62% Wall motion abnormalities: None. TID score: 0.87 (scores greater than 1.39 are considered elevated for Lexiscan stress with Tc99m) [facility] Wall, Arelis Castro MD - 04/23/2021 EXAMINATION: MYOCARDIAL PERFUSION IMAGING 04/23/2021 12:08 pm TECHNIQUE: For the rest study, 11 mCi of Tc 99 labeled sestamibi were injected. SPECT images were acquired. Under cardiology supervision, 0.4mg Lexiscan was infused. After pharmacologic stress, 42.5 mCi of Tc 99 labeled sestamibi were injected. SPECT images with ECG gating were acquired. COMPARISON: None Available. HISTORY: ORDERING SYSTEM PROVIDED HISTORY: Chest pain TECHNOLOGIST PROVIDED HISTORY: Reason for Exam: Chest pain Procedure Type->Rx chest pain Reason for Exam: chest pain, numbness in Arms or hands , Shortness of breath , Dizzy, Sweating, HTN, Additional signs and symptoms: near syncopal episode FINDINGS: Images interpreted utilizing [employer] system and Quinn software. Perfusion defect in the anterolateral segment is noted, mild with reperfusion, 1% of left ventricular myocardial involvement at stress. Perfusion elsewhere is unremarkable. Perfusion scores are visually adjusted to account for artifact. Summed stress score: 1 Summed rest score: 1 Summed reversibility score: 1 Function: End diastolic volume: 82mL Left ventricular ejection fraction: 62% Wall motion abnormalities: None. TID score: 0.87 (scores greater than 1.39 are considered elevated for Lexiscan stress with Tc99m) IMPRESSION: Perfusion: No significant perfusion defects at stress or rest. Function: Normal. Normal left ventricular ejection fraction is 62%. Risk stratification: LOW Notes concerning risk stratification: Risk stratification incorporates both clinical history and some testing results. Final risk determination is the responsibility of the ordering provider as other patient information and test results may increase or decrease the risk assessment reported for this examination. Risk stratification criteria are adapted from Noninvasive Risk Stratification criteria from Iyer et. Al, ACC/AATS/AHA/ASE/ASNC/S SUSIE/SCCT/STS 2017 Appropriate Use Criteria For Coronary Revascularization in Patients With Stable Ischemic Heart Disease [facility] Volume 69, Issue 17September 2016 High risk (>3% annual or [place]) 1. Severe resting LV dysfunction (LVEF <35%) not readily explained by non coronary causes 2. Resting perfusion abnormalities greater than 10% of the myocardium in patients without prior history or evidence of MI3. Stress-induced perfusion abnormalities encumbering greater than or equal to 10% myocardium or stress segmental scores indicating multiple vascular territories with abnormalities 4. Stress-induced LV dilatation (TID ratio greater than 1.19 for exercise and greater than 1.39 for regadenoson) Intermediate risk (1% to 3% annual or [place]) 1. Mild/moderate resting LV dysfunction (LVEF 35% to 49%) not readily explained by non coronary causes. 2. Resting perfusion abnormalities in 5%-9.9% of the myocardium in patients without a history or prior evidence of [place] 3. Stress-induced perfusion abnormality encumbering 5%-9.9% of the myocardium or stress segmental scores indicating 1 vascular territory with abnormalities but without LV dilation 4. Small wall motion abnormality involving 1-2 segments and only 1 coronary bed. Low Risk (Less than 1% annual or [place]) 1. Normal or small myocardial perfusion defect at rest or with stress encumbering less than 5% of the myocardium. [employer]Now Phone: Radiology Study observation (narrative) [employer] Phone: NM Cardiac Stress Test Nucle ar ImagingOrdered By: Arelis Munoz on 04-23-2021 [employer]Now Phone: NM MYOCARDIAL SPECT REST EXE RCISE OR RXon 04-23-2021 NM MYOCARDIAL SPECT REST EXERCISE OR RX EXAMINATION: MYOCARDIAL PERFUSION IMAGING 04/23/2021 12:08 pm TECHNIQUE: For the rest study, 11 mCi of Tc 99 labeled sestamibi were injected. SPECT images were acquired. Under cardiology supervision, 0.4mg Lexiscan was infused. After pharmacologic stress, 42.5 mCi of Tc 99 labeled sestamibi were injected. SPECT images with ECG gating were acquired. COMPARISON: None Available. HISTORY: ORDERING SYSTEM PROVIDED HISTORY: Chest pain TECHNOLOGIST PROVIDED HISTORY: Reason for Exam: Chest pain Procedure Type->Rx chest pain Reason for Exam: chest pain, numbness in Arms or hands , Shortness of breath , Dizzy, Sweating, HTN, Additional signs and symptoms: near syncopal episode FINDINGS: Images interpreted utilizing [employer] system and [employer] software. Perfusion defect in the anterolateral segment is noted, mild with reperfusion, 1% of left ventricular myocardial involvement at stress. Perfusion elsewhere is unremarkable. Perfusion scores are visually adjusted to account for artifact. Summed stress score: 1 Summed rest score: 1 Summed reversibility score: 1 Function: End diastolic volume: 82mL Left ventricular ejection fraction: 62% Wall motion abnormalities: None. TID score: 0.87 (scores greater than 1.39 are considered elevated for Lexiscan stress with Tc99m) IMPRESSION: Perfusion: No significant perfusion defects at stress or rest. Function: Normal. Normal left ventricular ejection fraction is 62%. Risk stratification: LOW Notes concerning risk stratification: Risk stratification incorporates both clinical history and some testing results. Final risk determination is the responsibility of the ordering provider as other patient information and test results may increase or decrease the risk assessment reported for this examination. Risk stratification criteria are adapted from Noninvasive Risk Stratification criteria from Iyer et. Al, ACC/AATS/AHA/ASE/ASNC/S SUSIE/SCCT/STS 2017 Appropriate Use Criteria For Coronary Revascularization in Patients With Stable Ischemic Heart Disease [facility] Volume 69, Issue 17, September 2016 High risk (>3% annual or [place]) 1. Severe resting LV dysfunction (LVEF <35%) not readily explained by non coronary causes 2. Resting perfusion abnormalities greater than 10% of the myocardium in patients without prior history or evidence of MI3. Stress-induced perfusion abnormalities encumbering greater than or equal to 10% myocardium or stress segmental scores indicating multiple vascular territories with abnormalities 4. Stress-induced LV dilatation (TID ratio greater than 1.19 for exercise and greater than 1.39 for regadenoson) Intermediate risk (1% to 3% annual or [place]) 1. Mild/moderate resting LV dysfunction (LVEF 35% to 49%) not readily explained by non coronary causes. 2. Resting perfusion abnormalities in 5%-9.9% of the myocardium in patients without a history or prior evidence of [place] 3. Stress-induced perfusion abnormality encumbering 5%-9.9% of the myocardium or stress segmental scores indicating 1 vascular territory with abnormalities but without LV dilation 4. Small wall motion abnormality involving 1-2 segments and only 1 coronary bed. Low Risk (Less than 1% annual or [place]) 1. Normal or small myocardial perfusion defect at rest or with stress encumbering less than 5% of the myocardium. Interpreted by: Arelis Munoz MD Signed by: Arelis Munoz MD 04/23/21 Final result Normal [facility] POC Glucose Fingerstickon Glucose [Mass/Vol] 105 mg/dL 75 - 110 mg/dL [facility] Glucose [Mass/Vol] 69 mg/dL Low 75 - 110 mg/dL [facility] Interpretation and review of laboratory results Abnormal [facility] Basic Metab w/rfx MGon 04-22 (cont.) Normal [facility] Comment on above: Result Comment: Aver age GFR for 70 or more years old: 75 mL/min/1.73sq m Chronic Kidney Disease: <60 mL/min/1.73sq m Kidney failure: <15 mL/min/1.73sq m eGFR calculated using average adult body mass. Additional eGFR calculator available at: http://www.DreamHost.com/multiple_crcl_2012.htm Performed By: #### C DP, IPF, BMPX, BNP, TROPI, GLYHGB #### [employer] [address] [place] [address] [phone] Web Marketing Strategist: Juancho Miguel MD Anion gap [Moles/Vol] 12 mmol/L Normal - [facility] Comment on above: Performed By: #### C DP, IPF, BMPX, BNP, TROPI, GLYHGB #### [address] [address] Web Marketing Strategist: uJancho Miguel MD Calcium [Mass/Vol] 9.2 mg/dL Normal 8.6-10.4 [facility] Comment on above: Performed By: #### C DP, IPF, BMPX, BNP, TROPI, GLYHGB #### [address] [address] Web Marketing Strategist: Juancho Miguel MD Chloride [Moles/Vol] 103 mmol/L Normal 98-107 [facility] Comment on above: Performed By: #### C DP, IPF, BMPX, BNP, TROPI, GLYHGB #### [address] [address] Web Marketing Strategist: Juancho Miguel MD CO2 [Moles/Vol] 25 mmol/L Normal 20-31 [facility] Comment on above: Performed By: #### C DP, IPF, BMPX, BNP, TROPI, GLYHGB #### [address] [address] Web [employer] Strategist: Juancho Miguel MD Creatinine [Mass/Vol] 1.37 mg/dL High 0.70-1.20 [facility] Comment on above: Performed By: #### C DP, IPF, BMPX, BNP, TROPI, GLYHGB #### [address] [address] Web Marketing Strategist: Juancoh Miguel MD GFR, Amer >60 Normal >60 [facility] Comment on above: Performed By: #### C DP, IPF, BMPX, BNP, TROPI, GLYHGB #### [facility] [employer] [address] [place] [id number] Web Marketing Strategist: Juancho Miguel MD GFR,non Amer 51 mL/min Low >60 [facility] Comment on above: Performed By: #### C DP, IPF, BMPX, BNP, TROPI, GLYHGB #### [facility] [employer] [address] [place] [phone] Web Marketing Strategist: Juancho Miguel MD Glucose [Mass/Vol] 116 mg/dL High 70-99 [facility] Comment on above: Performed By: #### C DP, IPF, BMPX, BNP, TROPI, GLYHGB #### [facility] [employer] [address] [place] [phone] Web Marketing Strategist: Juancho Miguel MD Potassium [Moles/Vol] 4.1 mmol/L Normal 3.7-5.3 [facility] Comment on above: Performed By: #### C DP, IPF, BMPX, BNP, TROPI, GLYHGB #### [address] [address] Web Marketing Strategist: Juancho Miguel MD Sodium [Moles/Vol] 140 mmol/L Normal 135-144 [facility] Comment on above: Performed By: #### C DP, IPF, BMPX, BNP, TROPI, GLYHGB #### [facility] [employer] [address] [place] [phone] Web Marketing Strategist: Juancho Miguel MD Urea nitrogen [Mass/Vol] 29 mg/dL High 8-23 [facility] Comment on above: Performed By: #### C DP, IPF, BMPX, BNP, TROPI, GLYHGB #### [facility] [employer] [address] [place] [phone] Web Marketing Strategist: Juancho Miguel MD BUN/CRE Ratio NOT REPORTED Normal 9-20 [facility] Comment on above: Performed By: #### C DP, IPF, BMPX, BNP, TROPI, GLYHGB #### [facility] [employer] [address] [place] [phone] Web Marketing Strategist: Juancho Miguel MD Staging: NOT REPORTED Normal [facility] Comment on above: Performed By: #### C DP, IPF, BMPX, BNP, TROPI, GLYHGB #### [employer] [address] [phone] Web Marketing Strategist: Juancho Miguel MD Basic Metabolic Panel w/ Ref brennon to MGon 04-22-2021 Anion gap [Moles/Vol] 12 mmol/L 9 - 17 mmol/L [employer] Calcium [Mass/Vol] 9.2 mg/dL 8.6 - 10. 4 mg/dL [employer] Chloride [Moles/Vol] 103 mmol/L 98 - 107 mmol/L [employer] CO2 [Moles/Vol] 25 mmol/L 20 - 31 mmol/L [employer] Creatinine [Mass/Vol] 1.37 mg/dL High 0.70 - 1.20 mg/dL [employer] GFR >60 >60 mL/min [employer] GFR Non- 51 mL/min Low >60 [employer] GFR/1.73 sq M.predicted MDRD (S/P/Bld) [Vol rate/Area] [facility] Comment on above: Average GFR for 70 o r more years old: 75 mL/min/1.73sq m Chronic Kidney Disease: <60 mL/min/1.73sq m Kidney failure: <15 mL/min/1.73sq m eGFR calculated using average adult body mass. Additional eGFR calculator available at: http://www.DreamHost.[employer]multiple_crcl_2012.htm GFR/1.73 sq M.predicted MDRD (S/P/Bld) [Vol rate/Area] NOT REPORTED [employer] Glucose [Mass/Vol] 116 mg/dL High 70 - 99 mg/dL [facility] [employer] Interpretation and review of laboratory results Abnormal [employer] Potassium [Moles/Vol] 4.1 mmol/L 3.7 - 5.3 mmol/L [employer] Sodium [Moles/Vol] 140 mmol/L 135 - 144 mmol/L [employer] Urea nitrogen (BldV) [Mass/Vol] 29 mg/dL High 8 - 23 mg/dL [employer] Urea nitrogen/Creatinine (Bld) [Mass ratio] NOT REPORTED [employer] [facility] Brain Natri. Peptideon 04-22 BNP Interpretation NOT REPORTED Normal [facility] Comment on above: Performed By: #### C DP, IPF, BMPX, BNP, TROPI, GLYHGB #### [employer] [address] [place], [place] [phone] Web Marketing Strategist: Juancho Miguel MD Natriuretic peptide B (Bld) [Mass/Vol] 361 pg/mL High <300 [facility] [employer] Comment on above: An age-independent cutoff point of 300 pg/ml has a 98% negative predictive value excluding acute heart failure. Result Comment: An age-independent cutoff point of 300 pg/ml has a 98% negative predictive value excluding acute heart failure. Performed By: #### C DP, IPF, BMPX, BNP, TROPI, GLYHGB #### [employer] [address] [place] [address] Web Marketing Strategist: Juancho Miguel MD Brain Natriuretic Peptideon 04-22-2021 BNP Interpretation NOT REPORTED [facility] Interpretation and review of laboratory results Abnormal [facility] CBC Auto Differentialon 04-09 Absolute Eos # 0.15 [facility] Absolute Immature Granulocyte <0.03 [facility] Absolute Lymph # 2.44 [facility] alth Absolute [place] # 0.49 [facility] lth Basophils (Bld) [#/Vol] 0.04 10*3/uL [facility] Basophils/100 WBC (Bld) 1 % 0 - 2 % [facility] Differential Type NOT REPORTED [facility] Eosinophils/100 WBC (Bld) 2 % 1 - 4 % [facility] Hematocrit (Bld) [Volume fraction] 38.2 % Low 40.7 - 50.3 % [facility] Hemoglobin.gastroin testinal spec 1 Ql (Stl) 12.2 g/dL Low 13.0 - 17.0 g/dL [facility] Immature granulocytes/100 WBC (Bld) 0 % 0 [facility] Interpretation and review of laboratory results Abnormal [facility] Lymphocytes/100 WBC (Bld) 38 % 24 - 43 % [facility] MCH (RBC) [Entitic mass] 29.0 pg 25.2 - 33.5 pg [facility] MCHC (RBC) [Mass/Vol] 31.9 g/dL 28.4 - 34.8 g/dL [facility] MCV (RBC) [Entitic vol] 90.7 fL 82.6 - 102.9 fL [facility] [employer] Monocytes/100 WBC (Bld) 8 % 3 - 12 % [facility] NRBC Automated 0.0 0.0 per 100 WBC [facility] Platelet distribution width (Bld) [Ratio] 13.4 % 11.8 - 14.4 % [employer] Platelet Estimate NOT REPORTED [facility] [employer] Platelet mean volume (Bld) [Entitic vol] NOT REPORTED 8.1 - 13.5 fL [facility] [employer] Platelets (Bld) [#/Vol] See Reflexed IPF Result [facility] RBC (Bld) [#/Vol] 4.21 10*6/uL 4.21 - 5.7 7 m/uL [facility] [employer] RBC (Bld) [#/Vol] NOT REPORTED [facility] [employer] Segmented neutrophils/100 WBC (Bld) 51 % 36 - 65 % [facility] [employer] Segs Absolute 3.27 [facility] h WBC (Bld) [#/Vol] 6.4 10*3/uL [facility] [employer] WBC (Bld) [#/Vol] NOT REPORTED [facility] [employer] CBC with Diffon 04-22-2021 Abs. Basophil 0.04 k/uL Normal 0.00-0.20 [facility] Comment on above: Performed By: #### C DP, IPF, BMPX, BNP, TROPI, GLYHGB #### [employer] [address] [place], [place] [phone] Web Marketing Strategist: Juancho Miguel MD Abs.Imm.Granulocyte <0.03 Normal 0.00-0.30 [facility] Comment on above: Performed By: #### C DP, IPF, BMPX, BNP, TROPI, GLYHGB #### [employer] [address] [place], [place] [phone] Web Marketing Strategist: Juancho Miguel MD Abs.Neutrophil (Seg) 3.27 k/uL Normal 1.50-8.10 [facility] Comment on above: Performed By: #### C DP, IPF, BMPX, BNP, TROPI, GLYHGB #### [employer] [address] [place] [phone] Web Marketing Strategist: Juancho Miguel MD Basophils/100 WBC (Bld) 1 % Normal 0-2 [facility] Comment on above: Performed By: #### C DP, IPF, BMPX, BNP, TROPI, GLYHGB #### [place] [address] Web [employer] Strategist: Juancho Miguel MD Eosinophils (Bld) [#/Vol] 0.15 10*3/uL Normal 0.00-0.44 [facility] Comment on above: Performed By: #### C DP, IPF, BMPX, BNP, TROPI, GLYHGB #### [place] [address] Web [employer] Strategist: Juancho Miguel MD Eosinophils/100 WBC (Bld) 2 % Normal 1-4 [facility] Comment on above: Performed By: #### C DP, IPF, BMPX, BNP, TROPI, GLYHGB #### [place] [address] Web Marketing Strategist: Juancho Miguel MD Erythrocyte distribution width (RBC) [Ratio] 13.4 % Normal 11.8-14.4 [facility] Comment on above: Performed By: #### C DP, IPF, BMPX, BNP, TROPI, GLYHGB #### [facility] [employer] [address] [place] [address] Web Marketing Strategist: Juancho Miguel MD Hematocrit (Bld) [Volume fraction] 38.2 % Low 40.7-50.3 [facility] Comment on above: Performed By: #### C DP, IPF, BMPX, BNP, TROPI, GLYHGB #### [facility] [employer] [address] [place] [phone] Web Marketing Strategist: Juancho Miguel MD Hemoglobin (Bld) [Mass/Vol] 12.2 g/dL Low 13.0-17.0 [facility] Comment on above: Performed By: #### C DP, IPF, BMPX, BNP, TROPI, GLYHGB #### [facility] [employer] [facility] [place] [address] Web Marketing Strategist: Juancho Miguel MD Immature granulocytes/100 WBC (Bld) 0 % Normal 0 [facility] Comment on above: Performed By: #### C DP, IPF, BMPX, BNP, TROPI, GLYHGB #### [facility] [employer] [address] [place] [id number] Web Marketing Strategist: Juancho Miguel MD Lymphocytes (Bld) [#/Vol] 2.44 10*3/uL Normal 1.10-3.70 [facility] Comment on above: Performed By: #### C DP, IPF, BMPX, BNP, TROPI, GLYHGB #### [facility] [employer] [address] [place] [phone] Web Marketing Strategist: Juancho Miguel MD Lymphocytes/100 WBC (Bld) 38 % Normal 24-43 [facility] Comment on above: Performed By: #### C DP, IPF, BMPX, BNP, TROPI, GLYHGB #### [facility] [employer] [facility] [place] [address] Web Marketing Strategist: Juancho Miguel MD MCH (RBC) [Entitic mass] 29.0 pg Normal 25.2-33.5 [facility] Comment on above: Performed By: #### C DP, IPF, BMPX, BNP, TROPI, GLYHGB #### [facility] [employer] [facility] [place] [address] Web Marketing Strategist: Juancho Miguel MD MCHC (RBC) [Mass/Vol] 31.9 g/dL Normal 28.4-34.8 [facility] Comment on above: Performed By: #### C DP, IPF, BMPX, BNP, TROPI, GLYHGB #### [address] [address] Web Marketing Strategist: Juancho Miguel MD MCV (RBC) [Entitic vol] 90.7 fL Normal 82.6-102.9 [facility] Comment on above: Performed By: #### C DP, IPF, BMPX, BNP, TROPI, GLYHGB #### [address] [address] Web Marketing Strategist: Juancho Miguel MD Monocytes (Bld) [#/Vol] 0.49 10*3/uL Normal 0.10-1.20 [facility] Comment on above: Performed By: #### C DP, IPF, BMPX, BNP, TROPI, GLYHGB #### [address] [id number] Web Marketing Strategist: Juancho Miguel MD Monocytes/100 WBC (Bld) 8 % Normal 3-12 [facility] Comment on above: Performed By: #### C DP, IPF, BMPX, BNP, TROPI, GLYHGB #### [address] [address] Web Marketing Strategist: Juancho Miguel MD Neutrophil (Seg) 51 % Normal 36-65 [facility] Comment on above: Performed By: #### C DP, IPF, BMPX, BNP, TROPI, GLYHGB #### [address] [address] Web Marketing Strategist: Juancho Miguel MD NRBC Automated 0.0 per 100 WBC Normal 0.0 [facility] Comment on above: Performed By: #### C DP, IPF, BMPX, BNP, TROPI, GLYHGB #### [address] [address] [address] Web Marketing Strategist: Juancho Miguel MD Platelet Count See Reflexed IPF Result Normal 138-453 [facility] Comment on above: Performed By: #### C DP, IPF, BMPX, BNP, TROPI, GLYHGB #### [id number] [place] [address] Web Marketing Strategist: Juancho Miguel MD RBC (Bld) [#/Vol] 4.21 10*6/uL Normal 4.21-5.77 [facility] Comment on above: Performed By: #### C DP, IPF, BMPX, BNP, TROPI, GLYHGB #### [facility] [address] [place] [address] Web Marketing Strategist: Juancho Miguel MD WBC (Bld) [#/Vol] 6.4 10*3/uL Normal 3.5-11.3 [facility] Comment on above: Performed By: #### C DP, IPF, BMPX, BNP, TROPI, GLYHGB #### [address] [address] Web Marketing Strategist: Junacho Miguel MD Auto Diff Performed NOT REPORTED Normal [facility] Comment on above: Performed By: #### C DP, IPF, BMPX, BNP, TROPI, GLYHGB #### [address] [address] Web Marketing Strategist: Juancho Miguel MD MPV NOT REPORTED Normal 8.1-13.5 [facility] Comment on above: Performed By: #### C DP, IPF, BMPX, BNP, TROPI, GLYHGB #### [facility] [employer] [address] [place] [address] Web Marketing Strategist: Juancho Miguel MD Platelet Comment NOT REPORTED Normal [facility] Comment on above: Performed By: #### C DP, IPF, BMPX, BNP, TROPI, GLYHGB #### [facility] [employer] [address] [place] [id number] Web Marketing Strategist: Juancho Miguel MD RBC morphology finding Nom (Bld) NOT REPORTED Normal [facility] Comment on above: Performed By: #### C DP, IPF, BMPX, BNP, TROPI, GLYHGB #### [facility] [place] [address] Web Marketing Strategist: Juancho Miguel MD WBC Morphology NOT REPORTED Normal [facility] Comment on above: Performed By: #### C DP, IPF, BMPX, BNP, TROPI, GLYHGB #### [facility] [address] [place] [id number] Web Marketing Strategist: Juancho Miguel MD COVID-19, Rapidon 04-22-2021 Specimen Description .NASOPHARYNGEAL SWAB [facility] Imm[facility] Platelet Fractionon 04-22-2021 Interpretation and review of laboratory results Abnormal [facility] Platelet, Fluorescence 128 Low [facility] Comment on above: ORDERED BY LAB Platelet, Immature Fraction 4.2 % 1.1 - 10.3 % [facility] [employer] Comment on above: ORDERED BY LAB [facility] No Panel Informationon 04-22 [facility] [employer] PLT, Immature Fract.on 04-22 Platelet, Fluoresc. 128 k/uL Low 138-453 [facility] Comment on above: Result Comment: ORDE RED BY LAB Performed By: #### C DP, IPF, BMPX, BNP, TROPI, GLYHGB #### [facility] [employer] [address] [place] [address] Web Marketing Strategist: Juancho Miguel MD PLT, Immature Fract. 4.2 % Normal 1.1-10.3 [facility] Comment on above: Result Comment: ORDE RED BY LAB Performed By: #### C DP, IPF, BMPX, BNP, TROPI, GLYHGB #### [facility] [employer] [facility] [place] [address] Web Marketing Strategist: Juancho Miguel MD [id number] 04-22-2021 SARS-CoV-2 (COVID-19) RNA HIPOLITO+probe Ql (Unsp spec) Not detected Normal NOTDET [facility] Comment on above: Rapid NAAT: The specimen is NEGATIVE for SARS-CoV-2, the novel coronavirus associated with COVID-19. The ID NOW COVID-19 assay is designed to detect the virus that causes COVID-19 in patients with signs and symptoms of infection who are suspected of COVID-19. An individual without symptoms of COVID-19 and who is not shedding SARS-CoV-2 virus would expect to have a negative (not detected) result in this assay. Negative results should be treated as presumptive and, if inconsistent with clinical signs and symptoms or necessary for patient management, should be tested with an alternative molecular assay. Negative results do not preclude SARS-CoV-2 infection and should not be used as the sole basis for patient management decisions. Fact sheet for Healthcare Providers: https://www.fda.gov/media/916453/download Fact sheet for Patients: https://www.fda.gov/media/849554/download Methodology: Isothermal Nucleic Acid Amplification Result Comment: Rapid NAAT: The specimen is NEGATIVE for SARS-CoV-2, the novel coronavirus associated with COVID-19. The ID NOW COVID-19 assay is designed to detect the virus that causes COVID-19 in patients with signs and symptoms of infection who are suspected of COVID-19. An individual without symptoms of COVID-19 and who is not shedding SARS-CoV-2 virus would expect to have a negative (not detected) result in this assay. Negative results should be treated as presumptive and, if inconsistent with clinical signs and symptoms or necessary for patient management, should be tested with an alternative molecular assay. Negative results do not preclude SARS-CoV-2 infection and should not be used as the sole basis for patient management decisions. Fact sheet for Healthcare Providers: https://www.fda.gov/media/652395/download Fact sheet for Patients: https://www.fda.gov/media/654119/download Methodology: Isothermal Nucleic Acid Amplification Performed By: #### C OVRB #### [employer] [facility] [place] [address] Web Marketing Strategist: Juancho Miguel MD Troponinon 04-22-2021 Troponin, High Sens 10 ng/L Normal 0-22 [facility] Comment on above: Result Comment: High Sensitivity Troponin values cannot be compared with other Troponin methodologies. Patients with high levels of Biotin oral intake (i.e >5mg/day) may have falsely decreased Troponin levels. Samples collected within 8 hours of biotin intake may require additional information for diagnosis. Performed By: #### T ROPI #### [employer] [address] [place] [address] Web Marketing Strategist: Juancho Miguel MD Troponin Interp. NOT REPORTED Normal [facility] Comment on above: Performed By: #### T ROPI #### [employer] [address] [place], [place] [id number] Web Marketing Strategist: Juancho Miguel MD Troponin T NOT REPORTED Normal <0.03 [facility] Comment on above: Performed By: #### T ROPI #### [employer] [address] [place], [place] [id number] Web Marketing Strategist: Juancho Miguel MD Troponin Interp [facility]ED [facility] NOT REPORTED <0.03 ng/mL [facility] Troponin, High Sensitivity 10 ng/L 0 - 22 ng/L [facility] Comment on above: High Sensitivity Troponin values cannot be compared with other Troponin methodologies. Patients with high levels of Biotin oral intake (i.e >5mg/day) may have falsely decreased Troponin levels. Samples collected within 8 hours of biotin intake may require additional information for diagnosis. [facility] Troponin, High Sens 12 ng/L Normal 0-22 [facility] Comment on above: Result Comment: High Sensitivity Troponin values cannot be compared with other Troponin methodologies. Patients with high levels of Biotin oral intake (i.e >5mg/day) may have falsely decreased Troponin levels. Samples collected within 8 hours of biotin intake may require additional information for diagnosis. Performed By: #### C DP, IPF, BMPX, BNP, TROPI, GLYHGB #### [employer] [address] [place], [place] [phone] Web Marketing Strategist: Juancho Miguel MD Troponin Interp. NOT REPORTED Normal [facility] Comment on above: Performed By: #### C DP, IPF, BMPX, BNP, TROPI, GLYHGB #### [facility] [address] [place] [address] Web Marketing Strategist: Juancho Miguel MD Troponin T NOT REPORTED Normal <0.03 [facility] Comment on above: Performed By: #### C DP, IPF, BMPX, BNP, TROPI, GLYHGB #### [address] [address] Web Marketing Strategist: Juancho Miguel MD Troponin Interp NOT REPORTED [facility] Troponin T NOT REPORTED <0.03 ng/mL [facility] Troponin, High Sensitivity 12 ng/L 0 - 22 ng/L [facility] Comment on above: High Sensitivity Troponin values cannot be compared with other Troponin methodologies. Patients with high levels of Biotin oral intake (i.e >5mg/day) may have falsely decreased Troponin levels. Samples collected within 8 hours of biotin intake may require additional information for diagnosis. UA w/Reflex Cultureon 2020 Bilirubin, SemiQt,Ur Negative Normal NEG [facility] Comment on above: Performed By: #### U AX #### [address] [address] Web Marketing Strategist: Juancho Miguel MD Blood, Urine Negative Normal NEG [facility] Comment on above: Performed By: #### U AX #### [address] [address] Web Marketing Strategist: Juancho Miguel MD Clarity (U) Clear Normal CLEAR [facility] Comment on above: Performed By: #### U AX #### [facility] [employer] [address] [place] [address] Web Marketing Strategist: Juancho Miguel MD Color (U) Dark Yellow Abnormal YEL [facility] Comment on above: Performed By: #### U AX #### [address] [address] Web Marketing Strategist: Juancho Miguel MD Comment Microscopic exam not performed based on chemical results unless requested in Normal [facility] Comment on above: Result Comment: orig inal order. Performed By: #### U AX #### [address] [address] Web Marketing Strategist: Juancho Miguel MD Glucose Ql (U) Negative Normal NEG [facility] Comment on above: Performed By: #### U AX #### [address] [address] Web Marketing Strategist: Juancho Miguel MD Ketones Ql (U) TRACE Abnormal NEG [facility] Comment on above: Performed By: #### U AX #### [address] [address] Web Marketing Strategist: Juancho Miguel MD Leukocyte esterase Test strip Ql (U) Negative Normal NEG [facility] Comment on above: Performed By: #### U AX #### [address] [address] Web Marketing Strategist: Juancho Miguel MD Nitrite,Ur Negative Normal NEG [facility] Comment on above: Performed By: #### U AX #### [address] [address] Web Marketing Strategist: Juancho Miguel MD PH,Ur 6.0 Normal 5.0-8.0 [facility] Comment on above: Performed By: #### U AX #### [address] [address] Web Marketing Strategist: Juancho Miguel MD Protein Ql (U) Negative Normal NEG [facility] Comment on above: Performed By: #### U AX #### [address] [address] Web Marketing Strategist: Juancho Miguel MD Spec. [place],Ur 1.018 Normal 1.005-1.030 [facility] Comment on above: Performed By: #### U AX #### [facility] [address] [place] [address] Web Marketing Strategist: Juancho Miguel MD Urobilinogen,Ur Normal Normal NORM [facility] Comment on above: Performed By: #### U AX #### [facility] [address] [place] [address] Web Marketing Strategist: Juancho Miguel MD Urinalysis Reflex to Culture on 04-22-2021 Bilirubin [facility], UA Dark Yellow Abnormal Yellow [facility] Glucose, Ur Negative NEGATIVE [facility] Interpretation and review of laboratory results Abnormal [facility] Ketones Ql (U) TRACE Abnormal NEGATIVE [facility] Leukocyte esterase Test strip Ql (U) Negative NEGATIVE [facility] Nitrite, Urine Negative NEGATIVE [facility] pH, UA 6.0 [facility] Protein, UA Negative NEGATIVE [facility] Specific [place], UA 1.018 [facility] Turbidity UA Clear Clear [facility] Urinalysis Comments Microscopic exam not performed based on chemical results unless requested in original order. [facility] Urine Hgb Negative NEGATIVE [facility] Urobilinogen, Urine Normal Normal [facility] XR CHEST PORTABLEon 04-22-20 XR CHEST PORTABLE EXAMINATION: ONE XRAY VIEW OF THE CHEST 04/22/2021 1:56 pm COMPARISON: None. HISTORY: ORDERING SYSTEM PROVIDED HISTORY: Near syncope, dizziness TECHNOLOGIST PROVIDED HISTORY: Near syncope, dizziness FINDINGS: The lungs are without acute focal process. There is no effusion or pneumothorax. The cardiomediastinal silhouette is without acute process. The osseous structures are without acute process. IMPRESSION: No acute process. Interpreted by: Venkatesh Gutierrez MD Signed by: Venkatesh Gutierrez MD 04/22/21 Final result Normal [facility] No acute process. [facility] EXAMINATION: ONE XRAY VIEW OF THE CHEST 04/22/2021 1:56 pm COMPARISON: None. HISTORY: ORDERING SYSTEM PROVIDED HISTORY: Near syncope, dizziness TECHNOLOGIST PROVIDED HISTORY: Near syncope, dizziness FINDINGS: The lungs are without acute focal process. There is no effusion or pneumothorax. The cardiomediastinal silhouette is without acute process. The osseous structures are without acute process. [facility] Venkatesh Gutierrez MD - 04/22/2021 EXAMINATION: ONE XRAY VIEW OF THE CHEST 04/22/2021 1:56 pm COMPARISON: None. HISTORY: ORDERING SYSTEM PROVIDED HISTORY: Near syncope, dizziness TECHNOLOGIST PROVIDED HISTORY: Near syncope, dizziness FINDINGS: The lungs are without acute focal process. There is no effusion or pneumothorax. The cardiomediastinal silhouette is without acute process. The osseous structures are without acute process. IMPRESSION: No acute process. [employer] Phone: Radiology Study observation (narrative) [employer] Phone: XR CHEST PORTABLEOrdered By: Venkatesh Gutierrez on 04-22-2021 [employer] Phone: .eGFRon 10-27-2020 eGFR Non-AA >60 Normal >=60 [facility] Comment on above: Result Comment: Stag es of Chronic Kidney Disease GFR Stage 3a Mild to moderate loss of kidney function 59 to 45 Stage 3b Moderate to severe loss of kidney function 44 to 33 Stage 4 Severe loss of kidney function 29 to 15 Stage 5 Kidney failure Less than 15 GFR calculated using the CKD-EPI Creatinine Equation (2009): eGFR = 141 X min(SCr/?, 1)? X max(SCr /?, 1)-1.209 X 0.993Age X 1.018 [if female] X 1.159 [if Black] Abbreviations/Units: eGFR (estimated glomerular filtration rate) = mL/min/1.73 m2 SCr (standardized serum creatinine) = mg/dL ? = 0.7 (females) or 0.9 (males) ? = -0.329 (females) or -0.411 (males) min = indicates the minimum of SCr/? or 1 max = indicates the maximum of SCr/? or 1 age = years Performed By: #### C BCI #### [address] [address] eGFR AA >60 Normal >=60 [facility] Comment on above: Result Comment: See comment. Performed By: #### C BCI #### [address] [address] Basic Metabolic Profileon Anion gap [Moles/Vol] 10 mmol/L Normal 7-17 [facility] Comment on above: Performed By: #### A SA #### [address] [address] Calcium [Mass/Vol] 8.2 mg/dL Low 8.5-10.3 [facility] Comment on above: Performed By: #### A SA #### [address] [address] Chloride [Moles/Vol] 101 mmol/L Normal 98-110 [facility] Comment on above: Performed By: #### A SA #### [address] [address] CO2 [Moles/Vol] 29 mmol/L Normal 22-32 [facility] Comment on above: Performed By: #### A SA #### [address] [address] Creatinine [Mass/Vol] 0.84 mg/dL Normal 0.61-1.24 [facility] Comment on above: Performed By: #### A SA #### [address] [address] Glucose [Mass/Vol] 101 mg/dL High 70-99 [facility] Comment on above: Performed By: #### A SA #### [address] [address] Potassium [Moles/Vol] 3.6 mmol/L Normal 3.4-4.8 [facility] Comment on above: Performed By: #### A SA #### [address] [address] Sodium [Moles/Vol] 136 mmol/L Normal 133-142 [facility] Comment on above: Performed By: #### A SA #### [address] [address] Urea nitrogen [Mass/Vol] 11 mg/dL Normal 8-26 [facility] Comment on above: Performed By: #### A SA #### [address] [address] Urea nitrogen/Creatinine [Mass ratio] 13.1 mg/mg Normal 10.0-20.0 [facility] Comment on above: Performed By: #### A SA #### [address] [address] CBC w/ Diffon 10-27-2020 Erythrocyte distribution width (RBC) [Ratio] 14.0 % Normal 11.6-14.8 [facility] Comment on above: Performed By: #### C BCI #### [address] [address] Hematocrit (Bld) [Volume fraction] 28.3 % Low 41.0-53.0 [facility] Comment on above: Performed By: #### C BCI #### [address] [address] Hemoglobin (Bld) [Mass/Vol] 9.4 g/dL Low 13.5-17.5 [facility] Comment on above: Performed By: #### C BCI #### [address] [address] MCH (RBC) [Entitic mass] 29.2 pg Normal 27.0-35.0 [facility] Comment on above: Performed By: #### C BCI #### [address] [address] MCHC 33.3 % Normal 31.0-37.0 [facility] Comment on above: Performed By: #### C BCI #### [address] [address] MCV (RBC) [Entitic vol] 87.8 fL Normal 80.0-100.0 [facility] Comment on above: Performed By: #### C BCI #### [address] [address] Platelet 128 x10*3/mcL Low 150-350 [facility] Comment on above: Performed By: #### C BCI #### [address] [address] Platelet mean volume (Bld) [Entitic vol] 7.5 fL Normal 6.7-10.6 [facility] Comment on above: Performed By: #### C BCI #### [address] [address] RBC 3.23 x10*6/mcL Low 4.30-5.80 [facility] Comment on above: Performed By: #### C BCI #### [address] [address] WBC 5.6 x10*3/mcL Normal 4.5-11.0 [facility] Comment on above: Performed By: #### C BCI #### [address] [address] Diff Autoon 10-27-2020 Baso Absolute 0.0 x10*3/mcL Normal 0.0-0.2 [facility] Comment on above: Performed By: #### A SA #### [address] [address] Basophils/100 WBC (Bld) 0.4 % Normal 0.0-1.2 [facility] Comment on above: Performed By: #### A SA #### [address] [address] Eos Absolute 0.2 x10*3/mcL Normal 0.0-0.4 [facility] Comment on above: Performed By: #### A SA #### [address] [address] Eosinophils/100 WBC (Bld) 3.6 % Normal 0.0-6.1 [facility] Comment on above: Performed By: #### A SA #### [address] [address] Lymph Absolute 2.4 x10*3/mcL Normal 1.0-4.8 [facility] Comment on above: Performed By: #### A SA #### [address] [address] Lymphocytes/100 WBC (Bld) 43.4 % High 27.2-40.8 [facility] Comment on above: Performed By: #### A SA #### [address] [address] [place] Absolute 0.6 x10*3/mcL Normal 0.3-1.1 [facility] Comment on above: Performed By: #### A SA #### [address] [address] Monocytes/100 WBC (Bld) 10.0 % Normal 4.7-13.9 [facility] Comment on above: Performed By: #### A SA #### [address] [address] Neutro Absolute 2.4 x10*3/mcL Normal 1.8-7.7 [facility] Comment on above: Performed By: #### A SA #### [address] [address] Neutro Auto 42.6 % Low 47.2-70.8 [facility] Comment on above: Performed By: #### A SA #### [address] [address] Inpatient Clinical Summaryon 10-27-2020 Inpatient Clinical Summary [address] [address] [address] [address] Clinical Summary Person Information Name: Steven Ford Jr Age: 75 Years : 1945 Sex: Male PCP: Venkatesh Gallagher MD Marital Status: PCP: [id number] Race: White Ethnicity: Not or Language: Guinean Visit Id: Visit Reason: Speciality: Acuity: Enc Type: Inpatient Med Service: Surgery Arrival: 10/24/2020 12:10:28 Discharge: Dispo Type: Address: [address] [place] [address] [place] [address] Diagnosis: Discharged To: Home Treatments: Devices/Equipment: Professional Skilled Services: Special Services and Community Resources: Mode of Discharge Transportation: Discharge Orders Allergies penicillin (Swelling) sulfa drugs (Swelling) Functional Status: Sensory Deficits: None History of Falls: None Mobility Assistance Prior to Admission: ADLs: Minimal assistance Gait: Unable to assess Ambulation Assist: Assistive Device: Special Orthopedic Devices: Current Level of Assistance for Self-Care/Mobility: Cognitive Status: Orientation: Orientation Assessment Oriented x 4 Level of Consciousness: Alert Characteristics of Speech: Clear Aspiration Risk: None Affect/Behavior: Appropriate, Calm, Cooperative Laboratory or Other Results This Visit (last charted value for your 10/24/2020 visit) Hematology 10/27/2020 6:50 AM WBC: 5.6 x10 RBC: 3.23 x10 Neutro Auto: 42.6 % -- Normal range between ( 47.2 and 70.8 ) Lymph Auto: 43.4 % -- Normal range between ( 27.2 and 40.8 ) [place] Auto: 10.0 % -- Normal range between ( 4.7 and 13.9 ) Eos Auto: 3.6 % -- Normal range between ( 0.0 and 6.1 ) Basophil Auto: 0.4 % -- Normal range between ( 0.0 and 1.2 ) Baso Absolute: 0.0 x10 MCV: 87.8 fL -- Normal range between ( 80.0 and 100.0 ) MCHC: 33.3 % -- Normal range between ( 31.0 and 37.0 ) Lymph Absolute: 2.4 x10 Hct: 28.3 % -- Normal range between ( 41.0 and 53.0 ) [place] Absolute: 0.6 x10 MCH: 29.2 pg -- Normal range between ( 27.0 and 35.0 ) Neutro Absolute: 2.4 x10 Hgb: 9.4 g/dL -- Normal range between ( 13.5 and 17.5 ) Mean Platelet Volume: 7.5 fL -- Normal range between ( 6.7 and 10.6 ) Platelet: 128 x10 Eos Absolute: 0.2 x10 RDW: 14.0 % -- Normal range between ( 11.6 and 14.8 ) Chemistry 10/27/2020 6:50 AM Creatinine Lvl: 0.84 mg/dL -- Normal range between ( 0.61 and 1.24 ) BUN: 11 mg/dL -- Normal range between ( 8 and 26 ) Glucose Lvl: 101 mg/dL -- Normal range between ( 70 and 99 ) Potassium Lvl: 3.6 mmol/L -- Normal range between ( 3.4 and 4.8 ) Sodium Lvl: 136 mmol/L -- Normal range between ( 133 and 142 ) Calcium Lvl: 8.2 mg/dL -- Normal range between ( 8.5 and 10.3 ) Chloride: 101 mmol/L -- Normal range between ( 98 and 110 ) CO2: 29 mmol/L -- Normal range between ( 22 and 32 ) Anion Gap: 10 -- Normal range between ( 7 and 17 ) eGFR Non-AA: >60 mL/min/1.73m? eGFR AA: >60 mL/min/1.73m? BUN Crea Ratio: 13.1 -- Normal range between ( 10.0 and 20.0 ) Blood Bank 10/09/2020 8:00 AM ABO/Rh: O NEG Antibody Screen: Negative [facility]SC Diagnostic Radiology 10/24/2020 4:07 PM XR Spine Lumbosacral 1 View in OR: XR Spine Lumbosacral 1 View in OR Measurements: Height: Weight: Blood Pressure: 133 mmHg / BMI: Respiratory: Respirations: Unlabored, Quiet Respiratory Symptoms: None Cardiovascular: Heart Sounds: Heart Rhythm: Regular Gastrointestinal: GI Symptoms: Bowel Sounds: Present Vital Signs: Temp Axillary: 35.9 degC Temp Temporal Artery: 37.3 degC Temp Oral: 36.4 degC Temp Rectal: Apical Heart Rate: Peripheral Pulse Rate: 74 bpm Heart Rate: 83 bpm Respiratory Rate: 20 br/min Diet Diet: Feeding Tolerance: Appetite: Good Nael Assessment: 20 Procedures No Procedures Documented Immunizations No Immunizations Documented This Visit HERE ARE THE MEDICATION CHANGES THAT OCCURRED DURING YOUR HOSPITAL STAY Medications That Were Updated - Follow Current Instructions Other Medications Current: atorvastatin (atorvastatin 40 mg oral tablet) 1 Tabs Oral (given by mouth) once a day (at bedtime). Last Dose: __ Current: cyanocobalamin (cyanocobalamin 1000 mcg oral tablet) 1 Tabs Oral (given by mouth) every day. Last Dose: __ Current: gabapentin (gabapentin 400 mg oral capsule) 1 Capsules Oral (given by mouth) 3 times a day. Last Dose: __ Current: hydroCHLOROthiazide (hydroCHLOROthiazide 25 mg oral tablet) 1 Tabs Oral (given by mouth) every day. Last Dose: __ Current: losartan (losartan 100 mg oral tablet) 1 Tabs Oral (given by mouth) every day. Last Dose: __ Current: traMADol (traMADol 50 mg oral tablet) 1 Tabs Oral (given by mouth) once a day (at bedtime). Last Dose: __ (more content not included)... Normal [facility] Orthopedic Progress Noteon 0 10-27-2020 Orthopedic Progress Note Subjective POD#3 Patient doing well Ambulating in halls No BM. (+) flatus Voiding without issue Radicular sx improved, c/o burning in hips Objective Drain - 140 mL Vitals & Measurements T: 36.4 ?C (Oral) HR: 74 (Peripheral) RR: 20 BP: 133/76 SpO2: 93% HT: 18 cm WT: 107.5 kg BMI: 31.11 Additional Vitals No qualifying data available. Lab Results Microbiology - Current Encounter No qualifying data available. Diagnostic Results Diagnostic Radiology XR Spine Lumbosacral 1 View in OR 10/24/20 18:39:44 IMPRESSION: This single crosstable lateral view demonstrates there are now paired pedicle screws across the L2-L3 level. The previously seen pedicle screws at L4, L5, and S1 have been removed. Signed By: Luis Manuel Bolivar MD Computed Tomography No qualifying data available. Ultrasound No qualifying data available. Magnetic Resonance Imaging No qualifying data available. Nuclear Medicine No qualifying data available. Physical Exam Patient resting in bed, alert and oriented Dressing - C/D/I 5/5 motor strength Sensory intact LE Medications Inpatient Ativan, 1 mg= 0.5 mL, IV Push, q6hr, PRN atorvastatin, 40 mg, Oral, HS (at bedtime) Colace, 100 mg, Oral, BID cyclobenzaprine, 10 mg, Oral, q8hr, PRN dexamethasone, 8 mg= 2 mL, IV Push, Once Dulcolax Laxative, 10 mg, Oral, Daily, PRN Dulcolax Laxative, 10 mg= 1 supp, Rectal, Daily, PRN Fleet Enema 7 g-19 g rectal enema, 133 mL, Rectal, Daily, PRN gabapentin, 400 mg, Oral, TID hydroCHLOROthiazide, 25 mg, Oral, Daily losartan, 100 mg, Oral, Daily MiraLax, 17 g= 1 EA, Oral, Daily morphine, 2 mg= 0.5 mL, IV Push, q3hr, PRN Lawson 5 mg-325 mg oral tablet, 1 tabs, Oral, q4hr, PRN NS 1,000 mL, 1000 mL, IV pantoprazole, 20 mg, Oral, Daily Zofran, 4 mg= 2 mL, IV Push, q4hr, PRN Assessment/Plan POD#3 s/p L2-3 decompression and fusion extension to L2 Continue drain Hgb improved to 9.4 PT/OT, activity as tolerated, brace when ambulating Bowel regimen Decadron 8 mg x 1 dose Discharge pending- home today pending BM home with HH for drain management Electronically signed by ___ Tomás Fishman PA-C 10/27/20 10:53 EDT Normal [facility] .eGFRon 10-26-2020 eGFR AA >60 Normal >=60 [facility] Comment on above: Result Comment: See comment. Performed By: #### E GFR #### [address] [address] eGFR Non-AA >60 Normal >=60 [facility] Comment on above: Result Comment: Stag es of Chronic Kidney Disease GFR Stage 3a Mild to moderate loss of kidney function 59 to 45 Stage 3b Moderate to severe loss of kidney function 44 to 33 Stage 4 Severe loss of kidney function 29 to 15 Stage 5 Kidney failure Less than 15 GFR calculated using the CKD-EPI Creatinine Equation (2009): eGFR = 141 X min(SCr/?, 1)? X max(SCr /?, 1)-1.209 X 0.993Age X 1.018 [if female] X 1.159 [if Black] Abbreviations/Units: eGFR (estimated glomerular filtration rate) = mL/min/1.73 m2 SCr (standardized serum creatinine) = mg/dL ? = 0.7 (females) or 0.9 (males) ? = -0.329 (females) or -0.411 (males) min = indicates the minimum of SCr/? or 1 max = indicates the maximum of SCr/? or 1 age = years Performed By: #### E GFR #### [address] [address] Basic Metabolic Profileon Anion gap [Moles/Vol] 10 mmol/L Normal 7-17 [facility] Comment on above: Performed By: #### C BCI #### [address] [address] Calcium [Mass/Vol] 7.8 mg/dL Low 8.5-10.3 [facility] Comment on above: Performed By: #### C BCI #### [address] [address] Chloride [Moles/Vol] 105 mmol/L Normal 98-110 [facility] Comment on above: Performed By: #### C BCI #### [address] [address] CO2 [Moles/Vol] 28 mmol/L Normal 22-32 [facility] Comment on above: Performed By: #### C BCI #### [address] [address] Creatinine [Mass/Vol] 1.02 mg/dL Normal 0.61-1.24 [facility] Comment on above: Performed By: #### C BCI #### [address] [address] Glucose [Mass/Vol] 111 mg/dL High 70-99 [facility] Comment on above: Performed By: #### C BCI #### [address] [place] [address] Potassium [Moles/Vol] 3.8 mmol/L Normal 3.4-4.8 [facility] Comment on above: Performed By: #### C BCI #### [address] [address] Sodium [Moles/Vol] 139 mmol/L Normal 133-142 [facility] Comment on above: Performed By: #### C BCI #### [address] [address] Urea nitrogen [Mass/Vol] 14 mg/dL Normal 8-26 [facility] Comment on above: Performed By: #### C BCI #### [address] [address] Urea nitrogen/Creatinine [Mass ratio] 13.7 mg/mg Normal 10.0-20.0 [facility] Comment on above: Performed By: #### C BCI #### [address] [address] CBC w/ Diffon 10-26-2020 Erythrocyte distribution width (RBC) [Ratio] 14.3 % Normal 11.6-14.8 [facility] Comment on above: Performed By: #### A SA #### [address] [address] Hematocrit (Bld) [Volume fraction] 25.3 % Low 41.0-53.0 [facility] Comment on above: Performed By: #### A SA #### [address] [address] Hemoglobin (Bld) [Mass/Vol] 8.5 g/dL Low 13.5-17.5 [facility] Comment on above: Performed By: #### A SA #### [address] [address] MCH (RBC) [Entitic mass] 29.7 pg Normal 27.0-35.0 [facility] Comment on above: Performed By: #### A SA #### [address] [address] MCHC 33.7 % Normal 31.0-37.0 [facility] Comment on above: Performed By: #### A SA #### [address] [address] MCV (RBC) [Entitic vol] 88.2 fL Normal 80.0-100.0 [facility] Comment on above: Performed By: #### A SA #### [place] [id number] Platelet 106 x10*3/mcL Low 150-350 [facility] Comment on above: Performed By: #### A SA #### [place] [id number] Platelet mean volume (Bld) [Entitic vol] 8.8 fL Normal 6.7-10.6 [facility] Comment on above: Performed By: #### A SA #### [place] [id number] RBC 2.87 x10*6/mcL Low 4.30-5.80 [facility] Comment on above: Performed By: #### A SA #### [place] [id number] WBC 5.6 x10*3/mcL Normal 4.5-11.0 [facility] Comment on above: Performed By: #### A SA #### [place] [address] Diff Autoon 10-26-2020 Baso Absolute 0.0 x10*3/mcL Normal 0.0-0.2 [facility] Comment on above: Performed By: #### H GBP #### [place] [id number] Basophils/100 WBC (Bld) 0.4 % Normal 0.0-1.2 [facility] Comment on above: Performed By: #### H GBP #### [place] [id number] Eos Absolute 0.2 x10*3/mcL Normal 0.0-0.4 [facility] Comment on above: Performed By: #### H GBP #### [address] [address] Eosinophils/100 WBC (Bld) 3.2 % Normal 0.0-6.1 [facility] Comment on above: Performed By: #### H GBP #### [address] [address] Lymph Absolute 2.1 x10*3/mcL Normal 1.0-4.8 [facility] Comment on above: Performed By: #### H GBP #### [address] [address] Lymphocytes/100 WBC (Bld) 38.2 % Normal 27.2-40.8 [facility] Comment on above: Performed By: #### H GBP #### [address] [address] [place] Absolute 0.4 x10*3/mcL Normal 0.3-1.1 [facility] Comment on above: Performed By: #### H GBP #### [address] [address] Monocytes/100 WBC (Bld) 7.9 % Normal 4.7-13.9 [facility] Comment on above: Performed By: #### H GBP #### [address] [address] Neutro Absolute 2.8 x10*3/mcL Normal 1.8-7.7 [facility] Comment on above: Performed By: #### H GBP #### [address] [address] Neutro Auto 50.3 % Normal 47.2-70.8 [facility] Comment on above: Performed By: #### H GBP #### [address] [address] Orthopedic Progress Noteon 0 10-26-2020 Orthopedic Progress Note Subjective POD#2 Patient doing well, denies radicular symptoms. Ambulating in the domingo No BM Objective Drain - 50 mL over last 8 hours Vitals & Measurements T: 36.6 ?C (Oral) HR: 81 (Peripheral) RR: 20 BP: 131/70 SpO2: 93% HT: 175.3 cm WT: 109.4 kg BMI: 31.11 Additional Vitals No qualifying data available. Lab Results Microbiology - Current Encounter No qualifying data available. Diagnostic Results Diagnostic Radiology XR Spine Lumbosacral 1 View in OR 10/24/20 18:39:44 IMPRESSION: This single crosstable lateral view demonstrates there are now paired pedicle screws across the L2-L3 level. The previously seen pedicle screws at L4, L5, and S1 have been removed. Signed By: Luis Manuel Bolivar MD Computed Tomography No qualifying data available. Ultrasound No qualifying data available. Magnetic Resonance Imaging No qualifying data available. Nuclear Medicine No qualifying data available. Physical Exam Alert and oriented x3 Normal mood, cooperative Dressing - C/D/I 5/5 motor strength bilateral LE Sensory intact to touch LE Medications Inpatient Ativan, 1 mg= 0.5 mL, IV Push, q6hr, PRN atorvastatin, 40 mg, Oral, HS (at bedtime) Colace, 100 mg, Oral, BID cyclobenzaprine, 10 mg, Oral, q8hr, PRN Dulcolax Laxative, 10 mg, Oral, Daily, PRN Dulcolax Laxative, 10 mg= 1 supp, Rectal, Daily, PRN Fleet Enema 7 g-19 g rectal enema, 133 mL, Rectal, Daily, PRN gabapentin, 400 mg, Oral, TID hydroCHLOROthiazide, 25 mg, Oral, Daily losartan, 100 mg, Oral, Daily MiraLax, 17 g= 1 EA, Oral, Daily morphine, 2 mg= 0.5 mL, IV Push, q3hr, PRN Lawson 5 mg-325 mg oral tablet, 1 tabs, Oral, q4hr, PRN NS 1,000 mL, 1000 mL, IV pantoprazole, 20 mg, Oral, Daily Zofran, 4 mg= 2 mL, IV Push, q4hr, PRN Assessment/Plan POD#2 s/p L2-3 decompression and fusion extension to L2 Continue drain Hgb 8.5. BP stable PT/OT, activity as tolerated, brace when ambulating Bowel regimen Discharge pending, likley tomorrow Electronically signed by ___ Norris Jeff PA-C 10/26/20 10:24 EDT Normal [facility] .eGFRon 10-25-2020 eGFR AA >60 Normal >=60 [facility] Comment on above: Result Comment: See comment. Performed By: #### C BCI #### [address] [address] eGFR Non-AA >60 Normal >=60 [facility] Comment on above: Result Comment: Stag es of Chronic Kidney Disease GFR Stage 3a Mild to moderate loss of kidney function 59 to 45 Stage 3b Moderate to severe loss of kidney function 44 to 33 Stage 4 Severe loss of kidney function 29 to 15 Stage 5 Kidney failure Less than 15 GFR calculated using the CKD-EPI Creatinine Equation (2009): eGFR = 141 X min(SCr/?, 1)? X max(SCr /?, 1)-1.209 X 0.993Age X 1.018 [if female] X 1.159 [if Black] Abbreviations/Units: eGFR (estimated glomerular filtration rate) = mL/min/1.73 m2 SCr (standardized serum creatinine) = mg/dL ? = 0.7 (females) or 0.9 (males) ? = -0.329 (females) or -0.411 (males) min = indicates the minimum of SCr/? or 1 max = indicates the maximum of SCr/? or 1 age = years Performed By: #### C BCI #### [facility] [address] [place] [address] Basic Metabolic Profileon Anion gap [Moles/Vol] 11 mmol/L Normal 7-17 [facility] Comment on above: Performed By: #### H GBP #### [place] [id number] [place] [address] Calcium [Mass/Vol] 7.5 mg/dL Low 8.5-10.3 [facility] Comment on above: Performed By: #### H GBP #### [address] [address] Chloride [Moles/Vol] 105 mmol/L Normal 98-110 [facility] Comment on above: Performed By: #### H GBP #### [address] [address] CO2 [Moles/Vol] 26 mmol/L Normal 22-32 [facility] Comment on above: Performed By: #### H GBP #### [address] [address] Creatinine [Mass/Vol] 1.03 mg/dL Normal 0.61-1.24 [facility] Comment on above: Performed By: #### H GBP #### [address] [address] Glucose [Mass/Vol] 128 mg/dL High 70-99 [facility] Comment on above: Performed By: #### H GBP #### [address] [address] Potassium [Moles/Vol] 3.6 mmol/L Normal 3.4-4.8 [facility] Comment on above: Performed By: #### H GBP #### [address] [address] Sodium [Moles/Vol] 138 mmol/L Normal 133-142 [facility] Comment on above: Performed By: #### H GBP #### [address] [address] Urea nitrogen [Mass/Vol] 18 mg/dL Normal 8-26 [facility] Comment on above: Performed By: #### H GBP #### [address] [address] Urea nitrogen/Creatinine [Mass ratio] 17.5 mg/mg Normal 10.0-20.0 [facility] Comment on above: Performed By: #### H GBP #### [address] [address] CBC w/ Diffon 10-25-2020 Erythrocyte distribution width (RBC) [Ratio] 14.0 % Normal 11.6-14.8 [facility] Comment on above: Performed By: #### A SA #### [place] [id number] Hematocrit (Bld) [Volume fraction] 25.8 % Low 41.0-53.0 [facility] Comment on above: Performed By: #### A SA #### [place] [id number] Hemoglobin (Bld) [Mass/Vol] 8.7 g/dL Low 13.5-17.5 [facility] Comment on above: Performed By: #### A SA #### [place] [id number] MCH (RBC) [Entitic mass] 29.7 pg Normal 27.0-35.0 [facility] Comment on above: Performed By: #### A SA #### [place] [id number] MCHC 33.6 % Normal 31.0-37.0 [facility] Comment on above: Performed By: #### A SA #### [place] [id number] MCV (RBC) [Entitic vol] 88.2 fL Normal 80.0-100.0 [facility] Comment on above: Performed By: #### A SA #### [place] [id number] Platelet 115 x10*3/mcL Low 150-350 [facility] Comment on above: Performed By: #### A SA #### [place] [id number] Platelet mean volume (Bld) [Entitic vol] 8.6 fL Normal 6.7-10.6 [facility] Comment on above: Performed By: #### A SA #### [place] [id number] RBC 2.93 x10*6/mcL Low 4.30-5.80 [facility] Comment on above: Performed By: #### A SA #### [address] [address] WBC 6.3 x10*3/mcL Normal 4.5-11.0 [facility] Comment on above: Performed By: #### A SA #### [address] [address] Diff Autoon 10-25-2020 Baso Absolute 0.0 x10*3/mcL Normal 0.0-0.2 [facility] Comment on above: Performed By: #### C BCI #### [address] [address] Basophils/100 WBC (Bld) 0.2 % Normal 0.0-1.2 [facility] Comment on above: Performed By: #### C BCI #### [address] [address] Eos Absolute 0.0 x10*3/mcL Normal 0.0-0.4 [facility] Comment on above: Performed By: #### C BCI #### [address] [address] Eosinophils/100 WBC (Bld) 0.4 % Normal 0.0-6.1 [facility] Comment on above: Performed By: #### C BCI #### [address] [address] Lymph Absolute 1.2 x10*3/mcL Normal 1.0-4.8 [facility] Comment on above: Performed By: #### C BCI #### [address] [address] Lymphocytes/100 WBC (Bld) 18.6 % Low 27.2-40.8 [facility] Comment on above: Performed By: #### C BCI #### [address] [address] [place] Absolute 0.4 x10*3/mcL Normal 0.3-1.1 [facility] Comment on above: Performed By: #### C BCI #### [address] [address] Monocytes/100 WBC (Bld) 6.8 % Normal 4.7-13.9 [facility] Comment on above: Performed By: #### C BCI #### [address] [address] Neutro Absolute 4.7 x10*3/mcL Normal 1.8-7.7 [facility] Comment on above: Performed By: #### C BCI #### [address] [address] Neutro Auto 74.0 % High 47.2-70.8 [facility] Comment on above: Performed By: #### C BCI #### [address] [address] Hgb & Hcton 10-25-2020 Hematocrit (Bld) [Volume fraction] 28.1 % Low 41.0-53.0 [facility] Comment on above: Performed By: #### H GBP #### [address] [address] Hemoglobin (Bld) [Mass/Vol] 9.5 g/dL Low 13.5-17.5 [facility] Comment on above: Performed By: #### H GBP #### [address] [address] Orthopedic Progress Noteon 0 10-25-2020 Orthopedic Progress Note Subjective POD#1 Patient had an episode of dizziness last night when getting out of bed, BP decreased. BP improved this am. He has not been out of bed since Radicular symptoms improved, denies N/T No BM Urinary retention last night, required straight cath x 1, voided a small amount Patient reports feeling shaky in his hands, he states he does not typically do well with Percocet Objective Drain - 310 mL over last 8 hours Vitals & Measurements T: 36.8 ?C (Oral) HR: 79 (Peripheral) RR: 16 BP: 132/66 SpO2: 94% HT: 175.3 cm WT: 95.6 kg (Dosing) WT: 95.6 kg BMI: 31.11 Additional Vitals No qualifying data available. Lab Results Microbiology - Current Encounter No qualifying data available. Diagnostic Results Diagnostic Radiology XR Spine Lumbosacral 1 View in OR 10/24/20 18:39:44 IMPRESSION: This single crosstable lateral view demonstrates there are now paired pedicle screws across the L2-L3 level. The previously seen pedicle screws at L4, L5, and S1 have been removed. Signed By: Luis Manuel Bolivar MD Physical Exam Alert and oriented x3 Normal mood, cooperative Dressing - C/D/I 5/5 motor strength bilateral LE Sensory intact to touch LE Medications Inpatient Ativan, 1 mg= 0.5 mL, IV Push, q6hr, PRN atorvastatin, 40 mg, Oral, HS (at bedtime) Colace, 100 mg, Oral, BID cyclobenzaprine, 10 mg, Oral, q8hr, PRN Dulcolax Laxative, 10 mg, Oral, Daily, PRN Dulcolax Laxative, 10 mg= 1 supp, Rectal, Daily, PRN Fleet Enema 7 g-19 g rectal enema, 133 mL, Rectal, Daily, PRN gabapentin, 400 mg, Oral, TID hydroCHLOROthiazide, 25 mg, Oral, Daily losartan, 100 mg, Oral, Daily MiraLax, 17 g= 1 EA, Oral, Daily morphine, 2 mg= 0.5 mL, IV Push, q3hr, PRN NS 1,000 mL, 1000 mL, IV pantoprazole, 20 mg, Oral, Daily Percocet 5/325 oral tablet, 1 tabs, Oral, q4hr, PRN vancomycin Zofran, 4 mg= 2 mL, IV Push, q4hr, PRN Assessment/Plan POD#1 s/p L2-3 decompression and fusion extension to L2 Continue drain Hgb 8.7 last night, BP improved this am, AM labs pending PT/OT, activity as tolerated, brace when ambulating Bowel regimen Switch Percocet to Lawson Bladder scan prn, may possibly need santos inserted Discharge pending Electronically signed by ___ Tomás Fishman PA-C 10/25/20 06:59 EDT Normal [facility] Hematocriton 10-24-2020 Hematocrit (Bld) [Volume fraction] 29.4 % Low 41.0-53.0 [facility] Comment on above: Performed By: #### C BCI #### [address] [address] Hemoglobinon 10-24-2020 Hemoglobin (Bld) [Mass/Vol] 9.9 g/dL Low 13.5-17.5 [facility] Comment on above: Performed By: #### H GBP #### [address] [address] XR Spine Lumbosacral 1 View in ORon 10-24-2020 XR Spine Lumbosacral 1 View in OR EXAM: XR Spine Lumbosacral 1 View in OR HISTORY: The patient is a 75-year-old male. Intraoperative. COMPARISON: 12/16/2017. IMPRESSION: This single crosstable lateral view demonstrates there are now paired pedicle screws across the L2-L3 level. The previously seen pedicle screws at L4, L5, and S1 have been removed. Final Dictated by: Luis Manuel Bolivar MD Dictated DT/TM: 10/24/2020 6:37 pm Signed by: Luis Manuel Bolivar MD Signed (Electronic Signature): 10/24/2020 6:39 pm (If Report Is Signed, Electronically Signed in Other Vendor System) Normal [facility] .eGFRon 10-09-2020 eGFR AA >60 Normal >=60 [facility] Comment on above: Result Comment: See comment. Performed By: #### E GFR #### [address] [address] eGFR Non-AA >60 Normal >=60 [facility] Comment on above: Result Comment: Stag es of Chronic Kidney Disease GFR Stage 3a Mild to moderate loss of kidney function 59 to 45 Stage 3b Moderate to severe loss of kidney function 44 to 33 Stage 4 Severe loss of kidney function 29 to 15 Stage 5 Kidney failure Less than 15 GFR calculated using the CKD-EPI Creatinine Equation (2009): eGFR = 141 X min(SCr/?, 1)? X max(SCr /?, 1)-1.209 X 0.993Age X 1.018 [if female] X 1.159 [if Black] Abbreviations/Units: eGFR (estimated glomerular filtration rate) = mL/min/1.73 m2 SCr (standardized serum creatinine) = mg/dL ? = 0.7 (females) or 0.9 (males) ? = -0.329 (females) or -0.411 (males) min = indicates the minimum of SCr/? or 1 max = indicates the maximum of SCr/? or 1 age = years Performed By: #### E GFR #### [address] [address] ABO/Rhon 10-09-2020 ABO/Rh SD 6.16.21 ABO/Rh: O NEG Normal [facility] Comment on above: Performed By: #### A BORH #### [facility] (DEFAULT) [address] [place] [address] [address] [address] ABSC Autoon 10-09-2020 ABSC Auto Negative Normal [facility] Comment on above: Performed By: #### A SA #### [address] [address] Basic Metabolic Profileon Anion gap [Moles/Vol] 15 mmol/L Normal 7-17 [facility] Comment on above: Performed By: #### C BCI #### [address] [address] Calcium [Mass/Vol] 9.3 mg/dL Normal 8.5-10.3 [facility] Comment on above: Performed By: #### C BCI #### [address] [address] Chloride [Moles/Vol] 101 mmol/L Normal 98-110 [facility] Comment on above: Performed By: #### C BCI #### [address] [address] CO2 [Moles/Vol] 30 mmol/L Normal 22-32 [facility] Comment on above: Performed By: #### C BCI #### [address] [address] Creatinine [Mass/Vol] 1.12 mg/dL Normal 0.61-1.24 [facility] Comment on above: Performed By: #### C BCI #### [address] [address] Glucose [Mass/Vol] 115 mg/dL High 70-99 [facility] Comment on above: Performed By: #### C BCI #### [address] [address] Potassium [Moles/Vol] 3.6 mmol/L Normal 3.4-4.8 [facility] Comment on above: Performed By: #### C BCI #### [address] [address] Sodium [Moles/Vol] 142 mmol/L Normal 133-142 [facility] Comment on above: Performed By: #### C BCI #### [address] [address] Urea nitrogen [Mass/Vol] 23 mg/dL Normal 8-26 [facility] Comment on above: Performed By: #### C BCI #### [address] [address] Urea nitrogen/Creatinine [Mass ratio] 20.5 mg/mg High 10.0-20.0 [facility] Comment on above: Performed By: #### C BCI #### [address] [address] CBCon 10-09-2020 Erythrocyte distribution width (RBC) [Ratio] 13.7 % Normal 11.6-14.8 [facility] Comment on above: Performed By: #### A SA #### [address] [address] Hematocrit (Bld) [Volume fraction] 36.1 % Low 41.0-53.0 [facility] Comment on above: Performed By: #### A SA #### [address] [address] Hemoglobin (Bld) [Mass/Vol] 12.2 g/dL Low 13.5-17.5 [facility] Comment on above: Performed By: #### A SA #### [address] [address] MCH (RBC) [Entitic mass] 29.6 pg Normal 27.0-35.0 [facility] Comment on above: Performed By: #### A SA #### [address] [address] MCHC 33.8 % Normal 31.0-37.0 [facility] Comment on above: Performed By: #### A SA #### [place] [id number] MCV (RBC) [Entitic vol] 87.8 fL Normal 80.0-100.0 [facility] Comment on above: Performed By: #### A #### [address] [address] Platelet 158 x10*3/mcL Normal 150-350 [facility] Comment on above: Performed By: #### A #### [address] [address] Platelet mean volume (Bld) [Entitic vol] 8.3 fL Normal 6.7-10.6 [facility] Comment on above: Performed By: #### A SA #### [address] [address] RBC 4.11 x10*6/mcL Low 4.30-5.80 [facility] Comment on above: Performed By: #### A SA #### [address] [address] WBC 5.4 x10*3/mcL Normal 4.5-11.0 [facility] Comment on above: Performed By: #### A SA #### [address] [address] MRSA, PCRon 10-09-2020 Methicillin Resistant Staph aurus(MRSA) Negative Normal [facility] Comment on above: Result Comment: The Estify Xpert MRSA Assay is a qualitative in vitro diagnostic test designed for rapid detection of Methicillin-Resistant Staphylococcus aureus (MRSA) from nasal swabs in patients at risk for nasal colonization.The test utilizes automated real-time polymerase chain reaction (PCR) to detect MRSA DNA,because the detection of MRSA is dependent on the number of organisms present. A positive test result does not necessarily indicate the presence of viable organism. It is however,presumptive for the presence of MRSA.Test results might be affected by concurrent antibiotic therapy. Therefore, therapeutic success or failure cannot be assessed using this test because DNA might persist following antimicrobial therapy. Mutations or polymorphisms in primer or probe binding regions may affect detection of new or unknown MRSA variants resulting in a false negative result. Results from the Xpert MRSA Assay should be interpreted in conjunction with other laboratory and clinical data available to the clinician. Performed By: #### M RSAPC #### [address] [address] PTon 10-09-2020 INR Coag (PPP) [Relative time] 0.9 {INR} Normal <=3.5 [facility] Comment on above: Result Comment: INR has no normal range. INR Therapeutic range is: 2.0-3.0 (AF, CVA, TIAs, DVT prophylaxis, acute DVT) 2.5-3.5 (Mech heart valves, recurrent thrombosis/emboli) Performed By: #### P TINR #### [address] [address] PT Coag (PPP) [Time] 10.1 s Normal 9.4-12.1 [facility] Comment on above: Performed By: #### P TINR #### [address] [address] PTTon 10-09-2020 aPTT Coag (Bld) [Time] 24.1 s Normal 20.2-27.0 [facility] Comment on above: Performed By: #### C BCI #### [address] [address] XR Chest 2 Viewson 06-02-202 1 XR Chest 2 Views EXAM: CHEST 2 VIEWS HISTORY: pre op TECHNIQUE: PA and lateral views chest. COMPARISON: 06/24/2020 FINDINGS: There is a calcified left upper lobe granuloma. The lungs are clear. There is no focal lung consolidation, pleural effusion or pneumothorax. Pulmonary vasculature is within normal limits. There is aortic atherosclerosis and normal heart size. There is fusion instrumentation in the cervical spine. IMPRESSION: 1. No acute cardiopulmonary disease. Final Dictated by: Brandie Castellano MD Dictated DT/TM: 10/09/2020 3:04 pm Signed by: Brandie Castellano MD Signed (Electronic Signature): 10/09/2020 3:05 pm (If Report Is Signed, Electronically Signed in Other Vendor System) [facility] Inpatient Clinical Summaryon 07-12-2020 Inpatient Clinical Summary [address] [address] Clinical Summary Person Information Name: Steven Ford Jr Age: 75 Years : 1945 Sex: Male PCP: Venkatesh Gallagher MD Marital Status: PCP: [phone] Race: White Ethnicity: Not or Language: Guinean Visit Id: Visit Reason: Speciality: Acuity: Enc Type: Observation Med Service: Surgery Arrival: 07/11/2020 05:58:03 Discharge: 07/12/2020 11:35:00 Dispo Type: Home with [facility] Address: [address] [place] [address] [facility] [address] Diagnosis: Discharged To: Home Treatments: Devices/Equipment: Other: drain, vista collar Professional Skilled Services: Special Services and Community Resources: Mode of Discharge Transportation: Discharge Orders Allergies penicillin (Swelling) sulfa drugs (Swelling) Functional Status: Sensory Deficits: None History of Falls: Within last three months Mobility Assistance Prior to Admission: ADLs: Independent Gait: Steady Ambulation Assist: Assistive Device: Cane Special Orthopedic Devices: Immobilizer Current Level of Assistance for Self-Care/Mobility: Cognitive Status: Orientation: Orientation Assessment Oriented x 4 Level of Consciousness: Alert Characteristics of Speech: Clear Aspiration Risk: None Affect/Behavior: Appropriate, Calm, Cooperative Laboratory or Other Results This Visit (last charted value for your 07/11/2020 visit) Blood Bank 06/24/2020 10:49 AM ABO/Rh: O NEG Antibody Screen: Negative ABSC Diagnostic Radiology 07/11/2020 9:22 AM XR Spine Cervical 2 or 3 Views: XR Spine Cervical 2 or 3 Views Measurements: Height: Weight: Blood Pressure: 144 mmHg / BMI: Respiratory: Respirations: Unlabored Respiratory Symptoms: None Cardiovascular: Heart Sounds: Heart Rhythm: Regular Gastrointestinal: GI Symptoms: Bowel Sounds: Present Vital Signs: Temp Axillary: Temp Temporal Artery: 36.6 degC Temp Oral: 36.5 degC Temp Rectal: Apical Heart Rate: Peripheral Pulse Rate: 96 bpm Heart Rate: 90 bpm Respiratory Rate: 17 br/min Diet Diet: Feeding Tolerance: Appetite: Good Nael Assessment: 19 Procedures No Procedures Documented Immunizations No Immunizations Documented This Visit HERE ARE THE MEDICATION CHANGES THAT OCCURRED DURING YOUR HOSPITAL STAY Medications That Have Not Changed Other Medications atorvastatin (atorvastatin 20 mg oral tablet) 1 Tabs Oral (given by mouth) once a day (at bedtime). Last Dose: __ cetirizine (ZyrTEC 10 mg oral tablet) 1 Tabs Oral (given by mouth) once a day (in the morning). Last Dose: __ cyanocobalamin (Vitamin B12) 1,000 Microgram Oral (given by mouth) every day. Last Dose: __ hydroCHLOROthiazide 25 Milligram Oral (given by mouth) every day. Last Dose: __ losartan 100 Milligram Oral (given by mouth) every day. Last Dose: __ losartan-hydrochlorothi azide (losartan-hydroCHLOROth iazide 100 mg-25 mg oral tablet) 1 Tabs Oral (given by mouth) every day. Last Dose: __ pantoprazole (pantoprazole 20 mg oral delayed release tablet) 1 Tabs Oral (given by mouth) every day. Last Dose: __ These Medications Were Removed and Should No Longer Be Taken acetaminophen 500 Milligram Oral (given by mouth) every 6 hours as needed as needed for pain. Stop Taking Reason: Physician Request gabapentin 400 Milligram Oral (given by mouth) 3 times a day. Stop Taking Reason: Physician Request gabapentin (gabapentin 300 mg oral capsule) 1 Capsules Oral (given by mouth) 2 times a day as needed pain. Stop Taking Reason: Physician Request meloxicam 15 Milligram Oral (given by mouth) every day. Stop Taking Reason: Physician Request PROVIDED FOR YOU IS A LIST OF YOUR PATIENT?S CURRENT MEDICATIONS Other Medications atorvastatin (atorvastatin 20 mg oral tablet) 1 Tabs Oral (given by mouth) once a day (at bedtime). cetirizine (ZyrTEC 10 mg oral tablet) 1 Tabs Oral (given by mouth) once a day (in the morning). cyanocobalamin (Vitamin B12) 1,000 Microgram Oral (given by mouth) every day. hydroCHLOROthiazide 25 Milligram Oral (given by mouth) every day. losartan 100 Milligram Oral (given by mouth) every day. losartan-hydrochlorothi azide (losartan-hydroCHLOROth iazide 100 mg-25 mg oral tablet) 1 Tabs Oral (given by mouth) every day. pantoprazole (pantoprazole 20 mg oral delayed release tablet) 1 Tabs Oral (given by mouth) every day. Care Team Members: Attending Physician: [facility] CLARK, Lionel Gonzalez Consulting Physician: Tomás Fishman PA-C Referring Physician: Follow up: With: Address: When: [facility] NVOA, Norris [address] [place] [address] [phone] Comments: Already darrell (more content not included)... [facility] Orthopedic Progress Noteon 0 07-12-2020 Orthopedic Progress Note Subjective doing well, no arm pain Objective drains - 10ml Vitals & Measurements T: 36.5 ?C (Oral) HR: 90 (Monitored) RR: 17 BP: 144/65 SpO2: 95% HT: 175.26 cm HT: 175.26 cm WT: 97.52 kg (Dosing) WT: 97.52 kg BMI: 31.75 BMI: 31.75 Additional Vitals Body Mass Index Measured: 31.75 kg/m2 Peripheral Pulse Rate: 96 bpm Lab Results Microbiology - Current Encounter No qualifying data available. Diagnostic Results Diagnostic Radiology XR Spine Cervical 2 or 3 Views 07/11/20 19:32:08 IMPRESSION: Intraoperative imaging documentation during C4-C5 localization and subsequent C3-C6 ACDF. Signed By: Mir Russo MD Computed Tomography No qualifying data available. Ultrasound No qualifying data available. Magnetic Resonance Imaging No qualifying data available. Nuclear Medicine No qualifying data available. Physical Exam Motor 5/5 NVI Drsg C/D/I Medications Inpatient Ativan, 1 mg= 0.5 mL, IV Push, q6hr, PRN atorvastatin, 20 mg, Oral, HS (at bedtime) Colace, 100 mg, Oral, BID cyclobenzaprine, 10 mg, Oral, q8hr, PRN Dulcolax Laxative, 10 mg, Oral, Daily, PRN Dulcolax Laxative, 10 mg= 1 supp, Rectal, Daily, PRN gabapentin, 400 mg, Oral, TID hydroCHLOROthiazide, 25 mg, Oral, Daily losartan, 100 mg, Oral, Daily MiraLax, 17 g= 1 EA, Oral, Daily morphine, 2 mg= 1 mL, IV Push, q3hr, PRN NS 1,000 mL, 1000 mL, IV pantoprazole, 20 mg, Oral, Daily Percocet 5/325 oral tablet, 1 tabs, Oral, q4hr, PRN vancomycin Zofran, 4 mg= 2 mL, IV Push, q4hr, PRN Assessment/Plan POD #1 s/p C3-6 ACDF Discharge home today with Home Health for drain management Electronically signed by ___ [place] Jeff PA-C 07/12/20 10:23 EST [facility] XR Spine Cervical 2 or 3 Vie wson 07-11-2020 XR Spine Cervical 2 or 3 Views EXAM: XR Spine Cervical 2 or 3 Views HISTORY: anterior cervical spine fusion/discectomy in OR COMPARISON: None. TECHNIQUE: 2 static crosstable lateral views of the cervical spine were obtained intraoperatively. FINDINGS: Initial image was obtained for localization purposes with instrumentation at the C4-C5 level. Subsequent image was obtained following C3-C6 ACDF. IMPRESSION: Intraoperative imaging documentation during C4-C5 localization and subsequent C3-C6 ACDF. Final Dictated by: Mir Russo MD Dictated DT/TM: 07/11/2020 7:30 pm Signed by: Mir Russo MD Signed (Electronic Signature): 07/11/2020 7:32 pm (If Report Is Signed, Electronically Signed in Other Vendor System) [facility] CoV2 Agon 07-09-2020 Employed in healthcare? No [facility] Comment on above: Performed By: #### A SA #### [place] [address] Group care resident? Unknown [facility] Comment on above: Performed By: #### A SA #### [place] [id number] In ICU? No [facility] Comment on above: Performed By: #### A SA #### [place] [id number] status? Not Applicable [facility] Comment on above: Performed By: #### A SA #### [place] [address] SARS-CoV-2 (COVID-19) RNA HIPOLITO+probe Ql (Unsp spec) Normal Negative [facility] Comment on above: Result Comment: * Ne gative (Non-Reactive) * Negative results from patients with symptom onset outside of one to six days should be treated as presumptive. A false-negative test result may occur if the level of viral antigen in a sample is below the detection limit of the test or if the sample was collected or transported improperly; therefore, a negative test result does not eliminate the possibility of SARS-CoV-2 infection. Negative results should not be used as the sole basis for treatment or patient management decisions, including infection control decisions. Negative results should be considered in the context of a patient?s recent exposures, history and the presence of clinical signs and symptoms consistent with COVID-19. Negative SARS-CoV-2 Specimen Source: Nasopharyngeal ADDITIONAL INFORMATION: Testing performed on the MightyQuizs 3600 using the SARS-CoV-2 Antigen test. Results are for the identification of SARS-CoV-2 nucleocapsid antigen. The CrestockS SARS-CoV-2 Antigen test can detect both viable and non-viable SARS-CoV-2 material. The VITROS SARS-CoV-2 Antigen test performance depends on antigen load and may not correlate with other diagnostic methods performed on the same specimen. The performance of this test has not been evaluated for use in patients without signs and symptoms of respiratory infection. Test results should be considered in the context of all available clinical and diagnostic information, including patient history and other test results. In the [place], the CrestockS SARS-CoV-2 Antigen test is only for use under the Food and Drug Administration?s Emergency Use Authorization. HCP Fact Sheet: https://www.fda.gov/media/457187/download Patient Fact Sheet: https://www.fda.gov/media/673068/download Performed By: #### A SA #### [place] [address] SARS-CoV-2 (COVID-19) RNA HIPOLITO+probe Ql (Unsp spec) No [facility] Comment on above: Performed By: #### A SA #### [place] [address] SARS-CoV-2 (COVID-19) RNA HIPOLITO+probe Ql (Unsp spec) Unknown [facility] Comment on above: Performed By: #### A SA #### [place] [address] Symptomatic as defined by CDC? No [facility] Comment on above: Performed By: #### A SA #### [place] [address] .eGFRon 06-24-2020 eGFR AA >60 Normal >=60 [facility] Comment on above: Result Comment: See comment. Performed By: #### C BCI #### [address] [address] eGFR Non-AA >60 Normal >=60 [facility] Comment on above: Result Comment: Stag es of Chronic Kidney Disease GFR Stage 3a Mild to moderate loss of kidney function 59 to 45 Stage 3b Moderate to severe loss of kidney function 44 to 33 Stage 4 Severe loss of kidney function 29 to 15 Stage 5 Kidney failure Less than 15 GFR calculated using the CKD-EPI Creatinine Equation (2009): eGFR = 141 X min(SCr/?, 1)? X max(SCr /?, 1)-1.209 X 0.993Age X 1.018 [if female] X 1.159 [if Black] Abbreviations/Units: eGFR (estimated glomerular filtration rate) = mL/min/1.73 m2 SCr (standardized serum creatinine) = mg/dL ? = 0.7 (females) or 0.9 (males) ? = -0.329 (females) or -0.411 (males) min = indicates the minimum of SCr/? or 1 max = indicates the maximum of SCr/? or 1 age = years Performed By: #### C BCI #### [address] [address] ABO/Rhon 06-24-2020 ABO/Rh ABO/Rh: O NEG [facility] Comment on above: Performed By: #### A SA #### [address] [address] ABSC Autoon 06-24-2020 ABSC Auto Negative [facility] Comment on above: Performed By: #### A SA #### [address] [address] Basic Metabolic Profileon Anion gap [Moles/Vol] 13 mmol/L Normal 7-17 [facility] Comment on above: Performed By: #### A SA #### [address] [address] Calcium [Mass/Vol] 9.1 mg/dL Normal 8.5-10.3 [facility] Comment on above: Performed By: #### A SA #### [address] [address] Chloride [Moles/Vol] 103 mmol/L Normal 98-110 [facility] Comment on above: Performed By: #### A SA #### [address] [address] CO2 [Moles/Vol] 26 mmol/L Normal 22-32 [facility] Comment on above: Performed By: #### A SA #### [address] [address] Creatinine [Mass/Vol] 1.13 mg/dL Normal 0.61-1.24 [facility] Comment on above: Performed By: #### A SA #### [address] [address] Glucose [Mass/Vol] 139 mg/dL High 70-99 [facility] Comment on above: Performed By: #### A SA #### [address] [address] Potassium [Moles/Vol] 4.2 mmol/L Normal 3.4-4.8 [facility] Comment on above: Performed By: #### A SA #### [address] [address] Sodium [Moles/Vol] 138 mmol/L Normal 133-142 [facility] Comment on above: Performed By: #### A SA #### [address] [address] Urea nitrogen [Mass/Vol] 27 mg/dL High 8-26 [facility] Comment on above: Performed By: #### A SA #### [address] [address] Urea nitrogen/Creatinine [Mass ratio] 23.9 mg/mg High 10.0-20.0 [facility] Comment on above: Performed By: #### A SA #### [address] [address] CBCon 06-24-2020 Erythrocyte distribution width (RBC) [Ratio] 13.3 % Normal 11.6-14.8 [facility] Comment on above: Performed By: #### C BCI #### [address] [address] Hematocrit (Bld) [Volume fraction] 36.4 % Low 41.0-53.0 [facility] Comment on above: Performed By: #### C BCI #### [address] [address] Hemoglobin (Bld) [Mass/Vol] 11.8 g/dL Low 13.5-17.5 [facility] Comment on above: Performed By: #### C BCI #### [address] [address] MCH (RBC) [Entitic mass] 30.0 pg Normal 27.0-35.0 [facility] Comment on above: Performed By: #### C BCI #### [address] [address] MCHC 32.5 % Normal 31.0-37.0 [facility] Comment on above: Performed By: #### C BCI #### [address] [address] MCV (RBC) [Entitic vol] 92.2 fL Normal 80.0-100.0 [facility] Comment on above: Performed By: #### C BCI #### [address] [address] Platelet 141 x10*3/mcL Low 150-350 [facility] Comment on above: Performed By: #### C BCI #### [address] [address] Platelet mean volume (Bld) [Entitic vol] 8.5 fL Normal 6.7-10.6 [facility] Comment on above: Performed By: #### C BCI #### [address] [address] RBC 3.95 x10*6/mcL Low 4.30-5.80 [facility] Comment on above: Performed By: #### C BCI #### [address] [address] WBC 4.9 x10*3/mcL Normal 4.5-11.0 [facility] Comment on above: Performed By: #### C BCI #### [address] [address] MRSA, PCRon 06-24-2020 Methicillin Resistant Staph aurus(MRSA) Negative [facility] Comment on above: Result Comment: The Estify Xpert MRSA Assay is a qualitative in vitro diagnostic test designed for rapid detection of Methicillin-Resistant Staphylococcus aureus (MRSA) from nasal swabs in patients at risk for nasal colonization.The test utilizes automated real-time polymerase chain reaction (PCR) to detect MRSA DNA,because the detection of MRSA is dependent on the number of organisms present. A positive test result does not necessarily indicate the presence of viable organism. It is however,presumptive for the presence of MRSA.Test results might be affected by concurrent antibiotic therapy. Therefore, therapeutic success or failure cannot be assessed using this test because DNA might persist following antimicrobial therapy. Mutations or polymorphisms in primer or probe binding regions may affect detection of new or unknown MRSA variants resulting in a false negative result. Results from the Xpert MRSA Assay should be interpreted in conjunction with other laboratory and clinical data available to the clinician. Performed By: #### H GBP #### [address] [address] PTon 06-24-2020 INR Coag (PPP) [Relative time] 1.0 {INR} Normal <=3.5 [facility] Comment on above: Result Comment: INR has no normal range. INR Therapeutic range is: 2.0-3.0 (AF, CVA, TIAs, DVT prophylaxis, acute DVT) 2.5-3.5 (Mech heart valves, recurrent thrombosis/emboli) Performed By: #### A SA #### [address] [address] PT Coag (PPP) [Time] 10.6 s Normal 9.3-12.5 [facility] Comment on above: Performed By: #### A SA #### [address] [address] PTTon 06-24-2020 aPTT Coag (Bld) [Time] 23.3 s Normal 19.5-27.0 [facility] Comment on above: Performed By: #### C BCI #### [facility] [address] [place] [address] XR Chest 2 Viewson XR Chest 2 Views EXAM:XR Chest 2 View s INDICATION:preop, spinal surgery COMPARISON: None FINDINGS: PA and lateral chest radiograph. Heart size is enlarged. There is mild tortuosity of the thoracic aorta. Mild bilateral infrahilar reticular opacities is likely related to atelectasis. The lungs are otherwise clear without any focal consolidative opacity. No pleural effusion. There is no visible pneumothorax. IMPRESSION: No acute cardiopulmonary findings. Final Dictated by: Dottie Khan MD Dictated DT/TM: 06/24/2020 3:42 pm Signed by: Dottie Khan MD Signed (Electronic Signature): 06/24/2020 8:12 pm Transcribed DT/TM: 06/24/2020 7:55 (If Report Is Signed, Electronically Signed in Other Vendor System) [facility] Vital Signs Date Time Vital Sign Value Performing Clinician [facility] 05-31-2021 11:05-0500 Diastolic blood pressure 83 mm[Hg] Jeffrey Espino MD Work Phone: [facility] 05-31-2021 11:05-0500 Heart rate 78 /min Jeffrey Espino MD Work Phone: [facility] 05-31-2021 11:05-0500 Respiratory rate 18 /min Jeffrey Espino MD Work Phone: [facility] 05-31-2021 11:05-0500 SaO2% (BldA) [Mass fraction] 95 % Jeffrey Espino MD Work Phone: [facility] 05-31-2021 11:05-0500 Systolic blood pressure 133 mm[Hg] Jeffrey Espino MD Work Phone: [facility] 05-31-2021 06:00-0500 Body mass index (BMI) [Ratio] 34.67 kg/m2 Jeffrey Espino MD Work Phone: [employer] 05-31-2021 06:00-0500 Body weight 106.5 kg Jeffrey Espino MD Work Phone: [employer] 05-30-2021 19:30-0500 Body temperature 99.3 [degF] Jeffrey Espino MD Work Phone: [employer] 04-25-2021 11:51-0500 Body temperature 97.5 [degF] Ash Villalobos MD Work Phone: [employer] 04-25-2021 11:51-0500 Diastolic blood pressure 61 mm[Hg] Ash Villalobos MD Work Phone: [employer] 04-25-2021 11:51-0500 Heart rate 59 /min Ash Villalobos MD Work Phone: [employer] 04-25-2021 11:51-0500 Respiratory rate 13 /min Ash Villalobos MD Work Phone: [employer] 04-25-2021 11:51-0500 SaO2% (BldA) [Mass fraction] 95 % Ash Villalobos MD Work Phone: [employer] 04-25-2021 11:51-0500 Systolic blood pressure 111 mm[Hg] Ash Villalobos MD Work Phone: [employer] 04-25-2021 03:56-0500 Body mass index (BMI) [Ratio] 28.16 kg/m2 Ash Villalobos MD Work Phone: [employer] 04-25-2021 03:56-0500 Body weight 86.5 kg Ash Villalobos MD Work Phone: [employer] 04-22-2021 20:19-0500 Body height 175.3 cm Ash Villalobos MD Work Phone: [employer] Encounters Encounter Date Encounter Type Care Provider Facility Start: 02-17-2024 End: 02-18-2024 Refill Arelis Forbes MD Work Phone: [facility] Comment on above: CAD in [place] artery (CMS/HCC) Start: 11-18-2023 End: 11-18-2023 ambulatory ARELIS FORBES Not Available Start: 11-09-2023 End: 11-09-2023 ambulatory ARELIS FORBES Not Available Start: 10-12-2023 End: 10-12-2023 ambulatory SHARON SALVADOR Not Available Start: 10-07-2023 End: 10-07-2023 ambulatory ELIO Castro ROSANGELA Not Available Start: 10-05-2023 End: 10-05-2023 ambulatory ELIO ADAMES Not Available Start: 09-28-2023 End: 09-28-2023 ambulatory ARELIS FORBES Not Available Start: 08-26-2023 End: 08-26-2023 ambulatory SARAHY GARNETT Not Available Start: 06-10-2021 End: 06-13-2021 ambulatory [facility]LIS FORBES [facility] Start: 06-10-2021 End: 06-12-2021 Subsequent hospital visit by physician Radha Whitlock Dr Room 2 [facility] Radiology Comment on above: S/P CABG (coronary a rtery bypass graft) Start: 05-27-2021 End: 05-31-2021 Evaluation and management of inpatient JEFFREY ESPINO [facility] Start: 05-27-2021 End: 05-31-2021 Evaluation and management of inpatient Jeffrey Espino MD Work Phone: [facility] Comment on above: VENANCIO (acute kidney in jury) ([facility]) (Primary Dx); CAD in [place] artery; S/P CABG x 3 Start: 05-13-2021 End: 05-16-2021 [facility] Start: 05-13-2021 End: 05-13-2021 Subsequent hospital visit by physician Arelis Forbes MD Work Phone: [facility] Laboratory Comment on above: CAD, multiple vessel Start: 04-22-2021 End: 04-25-2021 Evaluation and management of inpatient ARELIS Lisa FORBES [facility] Start: 04-22-2021 End: 04-25-2021 Evaluation and management of inpatient Ash Villalobos MD Work Phone: [facility] Comment on above: Near syncope (Primar y Dx) Start: 10-24-2020 End: 10-27-2020 Evaluation and management of inpatient MD LIONEL TOMLINSON Facility:[facility] Start: 10-18-2020 End: 10-19-2020 ambulatory Venkatesh Gallagher Facility:[facility] Start: 10-09-2020 End: 10-10-2020 ambulatory Venkatesh Gallagher Facility:[facility] Start: 09-24-2020 ambulatory MD LIONEL TOMLINSON Faci lity:[facility] Start: 07-12-2020 ambulatory Venkatesh Gallagher F acility:[facility] Start: 07-11-2020 End: 07-12-2020 ambulatory MD LIONEL TOMLINSON Facility:[facility] Start: 07-09-2020 End: 07-10-2020 ambulatory Venkatesh Gallagher Facility:[facility] Start: 07-04-2020 End: 07-05-2020 ambulatory Venkatesh Gallagher Facility:[facility] Start: 06-24-2020 End: 06-25-[facility] Procedures Date Procedure Procedure Detail Performing Clinician Start: 01-26-2023 History of coronary artery bypass grafting S/P CABG (coronary artery bypass graft) Arelis Forbes MD Work Phone: Start: 06-10-2021 Radiologic exam chest 2 views Jeffrey Espino MD Work Phone: Start: 05-31-2021 Radiologic exam chest single view Kristin Germain MOTO MIX OPERATOR - CIDER PRESS OPERATOR Start: 05-31-2021 Basic metabolic panel calcium total Jeffrey Espino MD Work Phone: Start: 05-30-2021 Radiologic exam chest single view Kristin Germain MOTO MIX OPERATOR - CIDER PRESS OPERATOR Start: 05-30-2021 Basic metabolic panel calcium total Jeffrey Espino MD Work Phone: Start: 05-29-2021 Glucose blood reagent strip Jeffrey paz MD Work Phone: Start: 05-29-2021 Glucose blood reagent strip Jeffrey paz MD Work Phone: Start: 05-29-2021 Glucose blood reagent strip Jeffrey paz MD Work Phone: Start: 05-29-2021 Glucose blood reagent strip Jeffrey paz MD Work Phone: Start: 05-29-2021 Radiologic exam chest single view Kristin Germain MOTO MIX OPERATOR - CIDER PRESS OPERATOR Start: 05-29-2021 Basic metabolic panel calcium total Jeffrey Espino MD Work Phone: Start: 05-28-2021 Glucose blood reagent strip Jeffrey paz MD Work Phone: Start: 05-28-2021 End: 05-28-2021 Blood count complete automated Jeffrey Espino MD Work Phone: Start: 05-28-2021 Glucose blood reagent strip Jefrfey paz MD Work Phone: Start: 05-28-2021 Glucose blood reagent strip Jeffrey paz MD Work Phone: Start: 05-28-2021 Antibody screen Jeffrey Espino MD Work Phone: Start: 05-28-2021 Glucose blood reagent strip Jeffrey paz MD Work Phone: Start: 05-28-2021 Radiologic exam chest single view Kristin Germain MOTO MIX OPERATOR - CIDER PRESS OPERATOR Start: 05-28-2021 End: 05-28-2021 Basic metabolic panel calcium total Kristin Germain MOTO MIX OPERATOR - CIDER PRESS OPERATOR Start: 05-28-2021 Glucose blood reagent strip Jeffrey paz MD Work Phone: Start: 05-27-2021 End: 05-28-2021 Assay of magnesium Jeffrey Espino MD Work Phone: Start: 05-27-2021 EXTUBATION Eugenio Griffith APR N - CIDER PRESS OPERATOR Work Phone: Start: 05-27-2021 ARTERIAL BLOOD GAS, POC Jeffrey Espino MD Work Phone: Start: 05-27-2021 End: 05-27-2021 Gluc bld gluc mntr dev cleared fda spec home use Jeffrey Espino MD Work Phone: Start: 05-27-2021 LACTIC ACID,POINT OF CARE Jeffrey cardona MD Work Phone: Start: 05-27-2021 ARTERIAL BLOOD GAS, POC Jeffrey Espino MD Work Phone: Start: 05-27-2021 Gluc bld gluc mntr dev cleared fda spec home use Jeffrey Espino MD Work Phone: Start: 05-27-2021 Potassium [Moles/volume] in Serum or Plasma Jeffrey Espino MD Work Phone: Start: 05-27-2021 End: 05-27-2021 ARTERIAL BLOOD GAS, POC Jeffrey Espino MD Work Phone: Start: 05-27-2021 Gluc bld gluc mntr dev cleared fda spec home use Jeffrey Espino MD Work Phone: Start: 05-27-2021 Radiologic exam chest single view Kristin M Gustavo MOTO MIX OPERATOR - CIDER PRESS OPERATOR Start: 05-27-2021 End: 05-27-2021 Basic metabolic panel calcium total Kristin Up Gustavo MOTO MIX OPERATOR - CIDER PRESS OPERATOR Start: 05-27-2021 ARTERIAL BLOOD GAS, POC Jeffrey Espino MD Work Phone: Start: 05-27-2021 CALCIUM, IONIC (POC) Jeffrey Espino MD Work Phone: Start: 05-27-2021 CREATININE W/GFR POINT OF CARE Jeffrey Espino MD Work Phone: Start: 05-27-2021 ELECTROLYTES PLUS Jeffrey Espino MD Work Phone: Start: 05-27-2021 LACTIC ACID,POINT OF CARE Jeffrey cardona MD Work Phone: Start: 05-27-2021 Ecg routine ecg w/least 12 lds i&r only Kristin Germain MOTO MIX OPERATOR - CIDER PRESS OPERATOR Start: 05-27-2021 POC KAOLIN TEG Jeffrey Espino MD Work Phone: Start: 05-27-2021 POC KAOLIN TEG WITH HEPARIN Jeffrey paz MD Work Phone: Start: 05-27-2021 End: 05-27-2021 ARTERIAL BLOOD GAS, POC Jeffrey Espino MD Work Phone: Start: 05-27-2021 End: 05-27-2021 CALCIUM, IONIC (POC) Jeffrey Espino MD Work Phone: Start: 05-27-2021 End: 05-27-2021 Gluc bld gluc mntr dev cleared fda spec home use Jeffrey Espino MD Work Phone: Start: 05-27-2021 End: 05-27-2021 Potassium [Moles/volume] in Serum or Plasma Jeffrey Espino MD Work Phone: Start: 05-27-2021 End: 05-27-2021 TOTAL CO2 Jeffrey Espino MD Work Phone: Start: 05-27-2021 End: 05-27-2021 ARTERIAL BLOOD GAS, POC Jeffrey Espino MD Work Phone: Start: 05-27-2021 End: 05-27-2021 CALCIUM, IONIC (POC) Jeffrey Espino MD Work Phone: Start: 05-27-2021 End: 05-27-2021 Gluc bld gluc mntr dev cleared fda spec home use Jeffrey Espino MD Work Phone: Start: 05-27-2021 End: 05-27-2021 Potassium [Moles/volume] in Serum or Plasma Jeffrey Espino MD Work Phone: Start: 05-27-2021 End: 05-27-2021 TOTAL CO2 Jeffrey Espino MD Work Phone: Start: 05-27-2021 POC KAOLIN TEG Jeffrey Espino MD Work Phone: Start: 05-27-2021 POC KAOLIN TEG WITH HEPARIN Jeffrey paz MD Work Phone: Start: 05-27-2021 ARTERIAL BLOOD GAS, POC Jeffrey Espino MD Work Phone: Start: 05-27-2021 CALCIUM, IONIC (POC) Jeffrey Espino MD Work Phone: Start: 05-27-2021 Gluc bld gluc mntr dev cleared fda spec home use Jeffrey Espino MD Work Phone: Start: 05-27-2021 Potassium [Moles/volume] in Serum or Plasma Jeffrey Espino MD Work Phone: Start: 05-27-2021 Sodium [Moles/volume] in Serum or Plasma Jeffrey Espino MD Work Phone: Start: 05-27-2021 TOTAL CO2 Jeffrey Espino MD Work Phone: Start: 05-27-2021 End: 05-27-2021 Coronary artery bypass 1 coronary venous graft Jeffrey Espino MD Work Phone: Start: 05-27-2021 Blood typing serologic abo Jeffrey thao MD Work Phone: Start: 05-13-2021 Ecg routine ecg w/least 12 lds w/i&r Eugenio Griffith MOTO MIX OPERATOR - CIDER PRESS OPERATOR Work Phone: Start: 05-13-2021 Comprehensive metabolic panel Eugenio Griffith MOTO MIX OPERATOR - CIDER PRESS OPERATOR Work Phone: Start: 05-13-2021 Urnls dip stick/tablet reagent auto microscopy Eugenio Griffith MOTO MIX OPERATOR - CIDER PRESS OPERATOR Work Phone: Start: 04-25-2021 Comprehensive metabolic panel Eugenio Griffith MOTO MIX OPERATOR - CIDER PRESS OPERATOR Work Phone: Start: 04-25-2021 IMMATURE PLATELET FRACTION Eugenio Katzl elizabeth MOTO MIX OPERATOR - CIDER PRESS OPERATOR Work Phone: Start: 04-24-2021 Glucose blood reagent strip Kalani berger MD Work Phone: Start: 04-24-2021 Ct thorax w/o contrast material Eugenio Griffith MOTO MIX OPERATOR - CIDER PRESS OPERATOR Work Phone: Start: 04-24-2021 Cardiac catheterization Demetrio Miles Work Phone: Start: 04-24-2021 Glucose blood reagent strip Kalani berger MD Work Phone: Start: 04-24-2021 Glucose blood reagent strip Kalani berger MD Work Phone: Start: 04-23-2021 Glucose blood reagent strip Kalani berger MD Work Phone: Start: 04-23-2021 Glucose blood reagent strip Kalani berger MD Work Phone: Start: 04-23-2021 CARDIAC STRESS TEST- W PHARM Demetrio Hawkins MD Work Phone: Start: 04-23-2021 Myocardial spect multiple studies Demetrio Hawkins MD Work Phone: Start: 04-23-2021 Echo tthrc r-t 2d w/wom-mode compl spec&colr d Demetrio Hawkins MD Work Phone: Start: 04-22-2021 Assay of troponin quantitative Larry C Stoddard DO Work Phone: Start: 04-22-2021 COVID-19, RAPID Larry C Stoddard DO Work Phone: Start: 04-22-2021 Urnls dip stick/tablet rgnt auto w/o microscopy Larry C Stoddard DO Work Phone: Start: 04-22-2021 Radiologic exam chest single view Larry C Stoddard DO Work Phone: Start: 04-22-2021 BASIC METABOLIC PANEL W/ REFLEX TO MG FOR LOW K Larry C Stoddard DO Work Phone: Start: 04-22-2021 IMMATURE PLATELET FRACTION Larry Powell Wis e DO Work Phone: Start: 04-22-2021 Natriuretic peptide Larry Stoddard DO Work Phone: Start: 04-22-2021 Ecg routine ecg w/least 12 lds trcg only w/o i&r Larry Powell Edwin DO Work Phone: History of coronary artery bypass grafting S/P CABG x 3 Jeffrey Espino MD Work Phone: History of coronary artery bypass grafting S/P CABG (coronary artery bypass graft) [facility] 2 Plan of Treatment Date Care Activity Detail Author Start: 02-06-2031 Screening for malign ant neoplasm of colon Colon cancer screen colonoscopy [facility] [employer] Start: 08-24-2024 End: 08-24-2024 Patient encounter procedure 08/24/2024 10:10 AM EDT Office Visit [facility] [address] [place] [id number] Sarahy Garnett 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 Start: 05-31-2022 [facility] Start: 05-31-2022 Potassium [facility] Start: 05-13-2022 Creatinine measurement [facility] mo [facility] Start: 05-13-2022 [facility] Start: 04-25-2022 Creatinine measurement Creatinine mo [facility] [employer] Start: 04-25-2022 Potassium monitoring Potassium monit [facility] [employer] Start: 06-10-2021 Annual Wellness Visi t (AWV) Annual Wellness Visit (AWV) [facility] [employer] Start: 05-20-2021 End: 05-20-2021 Admission to same day surgery center 05/20/2021 Surgery IP Unit Jeffrey Espino MD [address] [place], [place] [id number] CABG X3, ON PUMP, SWAN, EMILIE [facility] Comment on above: CABG X3, ON PUMP, SW AN, EMILIE Start: 05-20-2021 End: 05-20-2021 Coronary artery bypass 1 coronary venous graft CABG CORONARY ARTERY BYPASS CAD 05/20/2021 9:15 AM EST [facility] Start: 05-20-2021 Subsequent hospital visit by physician 05/20/2021 Hospital Encounter IP Unit [facility] [address] [facility] [address] [place] [address] [facility] Start: 09-20-2015 Shingles Vaccine (2 of 3) Shingles Vaccine (2 of 3) [employer] Start: 1965 DTaP/Tdap/Td vaccine (1 - Tdap) DTaP/Tdap/Td vaccine (1 - Tdap) [facility] Start: 1958 Depression Screen [facility] Screen [facility] Start: 02-10-1956 Lipid panel Lipid screen [facility] Start: 1946 Abdominal aortic aneurysm screening AAA screen [facility] Start: 1946 Hepatitis C screening Hepatitis C sc reen [facility] Start: 1946 Thyroid stimulating hormone measurement TSH testing [employer] Acapella Acapella Respira tory Care Routine Every 2hr while awake until discontinued starting 05/27/2021 [employer] Phone: Comment on above: Every 2hr while awak e until discontinued starting 05/27/2021 Basic metabolic 2000 panel - Serum or Plasma Basic Metabolic Panel Lab Routine Daily until discontinued starting 05/29/2021, 3 completed [employer] Phone: Comment on above: Daily until disconti nued starting 05/29/2021, 3 completed BIPAP post extubation BIPAP post extubation Respiratory Care Routine Every 4hr until discontinued starting 05/27/2021 [employer] Phone: Comment on above: Every 4hr until disc ontinued starting 05/27/2021 CBC panel - Blood by Automated count CBC Lab Routine Daily until discontinued starting 05/29/2021, 3 completed [employer] Phone: Comment on above: Daily until disconti nued starting 05/29/2021, 3 completed CBC W Auto Different ial panel - Blood CBC Auto Differential Lab Routine Tomorrow AM until discontinued starting 04/25/2021, 1 completed [employer] Phone: Comment on above: Tomorrow AM until di scontinued starting 04/25/2021, 1 completed Comprehensive metabo lic 2000 panel - Serum or Plasma Comprehensive Metabolic Panel Lab Routine Tomorrow AM until discontinued starting 04/25/2021, 1 completed [employer] Phone: Comment on above: Tomorrow AM until di scontinued starting 04/25/2021, 1 completed CPAP post extubation CPAP post e xtubation Respiratory Care Routine Every 4hr until discontinued starting 05/27/2021 [employer] Phone: Comment on above: Every 4hr until disc ontinued starting 05/27/2021 EZPAP EZPAP Respirator y Care Routine Every 2hr while awake until discontinued starting 05/27/2021 [employer] Phone: Comment on above: Every 2hr while awak e until discontinued starting 05/27/2021 Glucose [Mass/volume ] in Serum or Plasma [employer] Phone: Comment on above: 4X Daily (AC & HS) u ntil discontinued starting 04/23/2021 As Needed until disc ontinued starting 04/23/2021 Glucose [Mass/volume ] in Serum or Plasma POCT Glucose Point of Care Testing STAT As Needed until discontinued starting 05/27/2021 [employer] Phone: Comment on above: As Needed until disc ontinued starting 05/27/2021 End: 06-08-2021 Glucose [Mass/volume] in Serum or Plasma POCT Glucose Point of Care Testing Timed 4X Daily (AC & HS) for 11 Days starting 05/29/2021 until 06/08/2021 [employer] Phone: Comment on above: 4X Daily (AC & HS) f or 11 Days starting 05/29/2021 until 06/08/2021 End: 04-22-2021 Hemoglobin A1c/Hemoglobin.total in Blood [employer] Phone: Comment on above: Once for 1 Occurrenc es starting 04/22/2021 until 04/22/2021 End: 05-31-2021 Home O2 eval (desaturation screen) Home O2 eval (desaturation screen) Respiratory Care Routine One Time for 1 Occurrences starting 05/31/2021 until 05/31/2021 [employer] Phone: Comment on above: One Time for 1 Occur rences starting 05/31/2021 until 05/31/2021 Magnesium [Mass/volu me] in Serum or Plasma Magnesium Lab Routine Daily until discontinued starting 05/29/2021, 3 completed [employer] Phone: Comment on above: Daily until disconti nued starting 05/29/2021, 3 completed End: 05-13-2021 MRSA DNA Probe, Nasal [employer] Phone: Comment on above: 1 Occurrences starti ng 05/13/2021 until 05/13/2021 Oxygen therapy [Mini mum Data Set] Initiate Oxygen Therapy Protocol Respiratory Care Routine Daily until discontinued starting 04/24/2021 [employer] Phone: Comment on above: Daily until disconti nued starting 04/24/2021 Oxygen therapy [Mini mum Data Set] Initiate Oxygen Therapy Protocol Respiratory Care Routine Daily until discontinued starting 05/27/2021 [employer] Phone: Comment on above: Daily until disconti nued starting 05/27/2021 End: 05-13-2021 Plat Func Assay-EPI Plat Func Assay-EPI Lab Routine CAD, multiple vessel 1 Occurrences starting 05/13/2021 until 05/13/2021 [employer] Phone: Comment on above: 1 Occurrences starti ng 05/13/2021 until 05/13/2021 Protime-INR Protime-INR Lab Routine Daily until discontinued starting 05/29/2021, 3 completed [employer] Phone: Comment on above: Daily until disconti nued starting 05/29/2021, 3 completed Pulse oximetry, overnight Pulse oximetry, overnight Respiratory Care Routine Every 4hr until discontinued starting 05/30/2021 [employer] Work Phone: Comment on above: Every 4hr until disc ontinued starting 05/30/2021 XR CHEST PORTABLE XR CHEST FRANKLIN BLE Imaging Routine Daily until discontinued starting 05/28/2021, 4 completed [employer] Work Phone: Comment on above: Daily until disconti nued starting 05/28/2021, 4 completed Immunizations Immunization Date Immunization Notes Care Provider Fa cili 01-15-2023 Influenza, High-dose Seasonal, Quadrivalent, Preservative Free Arelis Forbes MD Work Phone: [facility] 01-15-2023 influenza virus vacc ine, unspecified formulation Arelis Forbes MD Work Phone: [facility] 11-18-2022 Pneumococcal Conjuga te PCV 20 Arelis Forbes MD Work Phone: [facility] 02-06-2022 Influenza, High-dose Seasonal, Quadrivalent, Preservative Free Arelis Forbes MD Work Phone: [facility] 01-21-2021 Influenza, High-dose Seasonal, Quadrivalent, Preservative Free Arelis Forbes MD Work Phone: [facility] 01-11-2020 Influenza, High-dose Seasonal, Quadrivalent, Preservative Free Arelis Forbes MD Work Phone: [facility] 03-14-2019 Influenza, High-dose Seasonal, Quadrivalent, Preservative Free Arelis Forbes MD Work Phone: [facility] 02-07-2018 Influenza, High-dose Seasonal, Quadrivalent, Preservative Free Arelis Forbes MD Work Phone: [facility] 01-22-2017 Influenza, High-dose Seasonal, Quadrivalent, Preservative Free Arelis Forbes MD Work Phone: [facility] 12-27-2015 seasonal influenza, intradermal, preservative free Arelis Forbes MD Work Phone: [facility] 11-21-2015 pneumococcal conjuga te vaccine, 13 valent Arelis Forbes MD Work Phone: [facility] 07-26-2015 zoster vaccine, live Arelis pollack MD Work Phone: [facility] 02-07-2015 seasonal influenza, intradermal, preservative free Arelis Forbes MD Work Phone: [facility] 01-08-2015 influenza, seasonal, injectable Arelis Forbes MD Work Phone: [facility] 06-24-2012 influenza, seasonal, injectable, preservative free Arelis Forbes MD Work Phone: [facility] 06-24-2012 pneumococcal polysaccharide vaccine, 23 valent Arelis Forbes MD Work Phone: [facility] Payers Date Payer Category Payer Unknown 2020 Private Health Insurance [id number] 2016 Medicare 2016 Medicare [id number] 1946 Unknown [id number] 2.16. [id number] 1946 Unknown [id number] 2.16. 840.1.106311.3.579.2.196 1946 Unknown [id number] 2.16. 840.1.011487.3.579.2.196 1946 Unknown [id number] 2.16. 840.1.677589.3.579.2.196 1946 Unknown [id number] 2.16. 840.1.552489.3.579.2.196 1946 Unknown [id number] 2.16. 840.1.070628.3.579.2.196 1946 Unknown [id number] 2.16. 840.1.173597.3.579.2.196 1946 Unknown [id number] 2.16. 840.1.654726.3.579.2.196 1946 Unknown [id number] 2.16. 840.1.958489.3.579.2.196 1946 Unknown [id number] 2.16.8 40.1.225858.3.579.2.175 1946 Unknown [id number] 2.16.8 40.1.851160.3.579.2.175 1946 Unknown [id number] 2.16.8 40.1.149228.3.579.2.173 1946 Unknown [id number] 2.16.8 40.1.453198.3.579.2.173 1946 Unknown [id number] 2.16.8 40.1.207567.3.579.2.173 1946 Unknown [id number] 2.16.8 40.1.443315.3.579.2.173 1946 Unknown [id number] 2.16.8 40.1.954638.3.579.2.173 1946 Unknown [id number] 2.16.8 40.1.420741.3.579.2.173 1946 Unknown [id number] 2.16.84 0.1.639846.3.579.2.1259 1946 Unknown [id number] 2.16.84 0.1.438701.3.579.2.1259 1946 Unknown [id number] 2.16.84 0.1.141892.3.579.2.1259 1946 Unknown [id number] 2.16.84 0.1.181467.3.579.2.1259 1946 Unknown [id number] 2.16.84 0.1.198950.3.579.2.1259 1946 Unknown [id number] 2.16.84 0.1.639710.3.579.2.1259 1946 Unknown [id number] 2.16.84 0.1.560674.3.579.2.1259 1946 Unknown [id number] 2.16.84 0.1.030580.3.579.2.1259 1946 Unknown [id number] 2.16.84 0.1.030823.3.579.2.1259 Social History Date Type Detail Facility Start: 04-22-2021 Tobacco smoking status HIIS Never smoked tobacco [employer] Start: 04-22-2021 End: 11-18-2022 Tobacco use and exposure Smokeless tobacco non-user [employer] Phone: Start: 04-22-2021 End: 06-11-2021 Alcohol intake Ex-drinker (finding) [employer] Phone: Start: 04-23-2021 History SDOH Alcohol Frequency 2 [employer] Phone: Start: 04-23-2021 History SDOH Alcohol Std Drinks 1 [employer] Phone: Start: 04-23-2021 History SDOH Social Connections Roman Catholic 3 [employer] Phone: Start: 04-23-2021 History SDOH Physical Activity DPW 5 [employer] Phone: Start: 04-23-2021 History SDOH Physical Activity MPS 6 [employer] Phone: Start: 1945 Sex Assigned At Not on file [facility] Phone: Exposure to SARS-CoV -2 (event) Not sure [employer] Phone: Start: 1945 Sex Assigned At Male [employer] Start: 06-11-2021 End: 11-18-2022 Tobacco smoking status HIIS Ex-smoker [employer] Start: 05-10-1959 End: 05-10-2001 History of tobacco use Current smoker [employer] Phone: Start: 06-11-2021 Tobacco use and exposure Former smokeless tobacco user [employer] Phone: Start: 05-10-1959 End: 05-10-1999 History of tobacco use Cigarette Smoker [facility] Start: 11-15-2022 End: 11-18-2022 Cigarettes smoked current (pack per day) - Reported 1.5 [facility] Start: 11-11-2023 Alcoholic beverage intake Lifetime non-drinker (finding) [facility] Start: 11-15-2022 End: 11-18-2022 Humiliation, Afraid, Rape, and Kick questionnaire [HARK] [facility] Within the last year , have you been afraid of your partner or ex-partner? No [facility] Do you belong to any clubs or organizations such as restorationism groups, unions, fraPicmonic or athletic groups, or school groups? Yes [facility] Are you now , , , , never or living with a partner? [facility] How often to you hav e a drink containing alcohol? Monthly or less [facility] How many standard dr inks containing alcohol do you have on a typical day? 3 or 4 [facility] How often do you hav e 6 or more drinks on 1 occasion? Never [facility] How hard is it for y ou to pay for the very basics like food, housing, medical care, and heating Not hard at all [facility] Do you feel stress - tense, restless, nervous, or anxious, or unable to sleep at night because your mind is troubled all the time - these days [OSQ] Only a little [facility] (I/We) worried wheciaran er (my/our) food would run out before (I/we) got money to buy more. Never true [facility] Start: 11-18-2022 Tobacco Comment I don't know exactly when I started or when I quit. [facility] Start: 11-11-2022 Gender identity Identifies as male gender (finding) [facility] Start: 11-11-2022 Sexual orientation Heterosexual (finding) [facility] Clinical Notes 07-10-2020 to 02-18-2024 Telephone Encounter - Arelis Forbes MD - 02/18/2024 10:15 AM EDTTelephone Encounter - Arelis Forbes MD - 02/18/2024 10:15 AM EDTRadha Velarde RN - 05/31/2021 4:00 PM ESTDischarge Instr - STEPHANIE Note Date & Type Note Facility 02-18-2024 Telephone encounter Note Approvals with refills [facility] 02-18-2024 Miscellaneous Notes Approvals with refills documented in this encounter [facility] 05-31-2021 Hospital course Narrative Open heart discharge instructions completed w/pt and , pt taken into bathroom and instructed on incision care/cleaning (chest tubes have previously been removed as well as pacing wires previously clipped), and demonstrated w/no further questions. Neli hose on, pt and verbalize understanding on the importance of wearing during the day and off at night as well as cleaning instructions/hanging to dry, instructed/demonstrated proper application of neli hose using slip given to pts , no further questions. Open heart d/c book reviewed in entirety and detail, pt and deny any further questions and pt is d/c'd home wearing his heart hugger harness, verbalizes the importance to continue using as well as d/c'd w/his incentive spirometer and acapella and the importance of usage upon d/c. Cardiothoracic surgeons card given to pt and f/u appt scheduled. documented in this encounter [employer] Phone: 05-31-2021 History of Present illness Narrative Occupational Therapy Facility/Department: [facility] 1 Daily Treatment Note NAME: Steven Ford : 1945 Date of Service: 05/31/2021 Discharge Recommendations: Pt. Would benefit from further skilled OT services to enhance functional outcomes. Home with Home health OT Assessment Assessment Performance deficits / Impairments: Decreased functional mobility ;Decreased ADL status;Decreased endurance;Decreased high-level IADLs Treatment Diagnosis: MVR Prognosis: Good Decision Making: Medium Complexity OT Education: OT Role;Transfer Training;Precautions;ADL Adaptive Strategies Patient Education: purpose of OT; proper hand placement; heart hugger management; sternal precautions Barriers to Learning: pt mehreen Hinkle carry over able to recal 3/3 sternal precautions REQUIRES OT FOLLOW UP: Yes Activity Tolerance Activity Tolerance: Patient Tolerated treatment well Safety Devices Safety Devices in place: Yes Type of devices: Gait belt;Left in chair;Call light within reach;Chair alarm in place Restraints Initially in place: No Patient Diagnosis(es): The primary encounter diagnosis was VENANCIO (acute kidney injury) (HCC). Diagnoses of CAD in [place] artery and S/P CABG x 3 were also pertinent to this visit. has a past medical history of Arthritis, Gastritis, Hyperlipidemia, and Hypertension. has a past surgical history that includes back surgery; joint replacement; Carpal tunnel release; and Coronary artery bypass graft (N/A, 05/27/2021). Restrictions Restrictions/Precautions Restrictions/Precautions: Fall Risk Required Braces or Orthoses?: Yes Required Braces or Orthoses Other: Heart Hugger Brace Position Activity Restriction Sternal Precautions: 5# Lifting Restrictions Other position/activity restrictions: CABG x3 05/27. ambulate pt, up in chair, Subjective General Chart Reviewed: Yes Patient assessed for rehabilitation services?: Yes Family / Caregiver Present: No Diagnosis: CABG General Comment Comments: Pt and RN agreeable to therapy this day, pt pleasant and cooperative Restrictions Restrictions/Precautions Restrictions/Precautions: Fall Risk Required Braces or Orthoses?: Yes Required Braces or Orthoses Other: Heart Hugger Brace Position Activity Restriction Sternal Precautions: 5# Lifting Restrictions Other position/activity restrictions: ambulate pt, S/p MVR Subjective General Chart Reviewed: Yes Patient assessed for rehabilitation services?: Yes Family / Caregiver Present: No Diagnosis: MVR General Comment Comments: Pt and RN agreeable to therapy this day Pain Assessment Non-Pharmaceutical Pain Intervention(s): Emotional support;Distraction;Ambulation/In creased Activity Pre Treatment Pain Screening Comments / Details: Pt seated in chair at start of session and retired to chair at session end Vital Signs Patient Currently in Pain: Denies Orientation Orientation Overall Orientation Status: Within Functional Limits Objective ADL Grooming: Modified independent ;Increased time to complete UE Bathing: Supervision LE Bathing: Supervision UE Dressing: Verbal cueing;Increased time to complete;Setup;Minimal assistance Toileting: Setup;Stand by assistance Additional Comments: Grooming standing at sink-AZ with support of sink as needed. UB/LB bathe -S, standing at sink with support of sink as needed. Pt. used sx soap appropriatily. UB dress (doff/don gown) min A d/t decreased ROM. Toilet transfer- SBA, 1 verbal cues to use heart hugger, pt. demo G carryover. Balance Sitting Balance: Independent (I sitting on toilet/recliner chiar) Standing Balance: Stand by assistance (SBA progressing to [place] with support of countertop or RW.) Standing Balance Time: ~25 minutes, with 2 sitting rest breaks Activity: static/dynamic/mobility Comment: with and without RW Functional Mobility Functional - Mobility Device: Rolling Walker Activity: Other;To/from bathroom (House hold distances.) Assist Level: Contact guard assistance Functional Mobility Comments: CGA progressing to SBA + RW, Pt walked short distance with out AE in bathroom at CGA level. Toilet Transfers Toilet - Technique: Ambulating Equipment Used: Standard toilet Toilet Transfer: Stand by assistance Transfers Sit to stand: Stand by assistance Stand to sit: Stand by assistance Transfer Comments: utilizing RW demo G/G- heart hugger management Cognition Overall Cognitive Status: WFL Plan Plan Times per week: 4-6x/wk (CABG) AM-PAC Score 20 Goals Short term goals Time Frame for Short term goals: pt will, by discharge Short term goal 1: complete LB ADLs with min A, set up and AE, sa needed Short term goal 2: complete UB ADLs with mod I Short term goal 3: maintain sternal precautions with 0 verbal cues during functional tasks/functional transfers Short term goal 4: dem SBA during functional transfers/functional mobility with LRD ,as needed Short term goal 5: dem 10+ minutes dynamic standing tolerance with supervision in order to complete functional tasks (Goal updated by Natalia KOHLER/Faviola on 05/29/2021) Short term goal 6: increase activity tolerance to 25+ minutes in order to participate in daily tasks Therapy Time Individual Concurrent Group Co-treatment Time In 936 Time Out 1015 Minutes 38 TIFFANIE Darden [facility] Daily Progress Note Surgeon: Dr. Espino S/P : CABG X 3 POD#: 4 EF: 60 % Subjective: Mr. Ford feels well today with no acute complaints. Pain is controlled on current medication regimen. Denies chest pain or shortness of breath. Plan of care reviewed and questions answered. Physical Exam Vital Signs: BP (!) 173/61 Pulse 93 Temp 99.3 F (37.4 C) (Oral) Resp 17 Wt 234 lb 12.6 oz (106.5 kg) SpO2 93% BMI 34.67 kg/m O2 Flow Rate (L/min): (S) 2 L/min Admit Weight: Weight: 218 lb 14.7 oz (99.3 kg) WEIGHTWeight: 234 lb 12.6 oz (106.5 kg) General: alert and oriented to person, place and time, well-developed and well-nourished, in no acute distress. Up in chair Heart: Normal S1 and S2. Regular rhythm. No murmurs, gallops, or rubs. Pacing Wires: Yes -To be clipped prior to discharge Lungs: clear to auscultation bilaterally and diminished breath sounds bibasilar Chest tubes: Yes, Air Leak: No Abdomen: soft, non tender, non distended, BS x4 Extremities: Trace edema Wounds: clean and dry, healing appropriately. Sternum: Covered SVG sites: Covered CXR-atelectatic in left and right base. No pneumothorax. Scheduled Meds: [Held by provider] furosemide 40 mg IntraVENous BID tamsulosin 0.4 mg Oral Daily metoclopramide 5 mg Oral 4x Daily AC & HS ferrous sulfate 325 mg Oral Daily with breakfast cetirizine 10 mg Oral Daily vitamin B-12 1,000 mcg Oral Daily gabapentin 400 mg Oral TID [Held by provider] traZODone 50 mg Oral Nightly Vitamin D 1,000 Units Oral Daily sodium chloride flush 10 mL IntraVENous 2 times per day [Held by provider] aspirin 81 mg Oral Daily [Held by provider] clopidogrel 75 mg Oral Daily amiodarone 200 mg Oral TID mupirocin Nasal BID polyethylene glycol 17 g Oral Daily metoprolol tartrate 25 mg Oral BID atorvastatin 80 mg Oral Nightly pantoprazole 40 mg Oral Daily ipratropium-albuterol 1 ampule Inhalation Q4H WA insulin glargine 0.15 Units/kg SubCUTAneous Nightly Continuous Infusions: sodium chloride norepinephrine Stopped (05/28/21 0116) dextrose Data: CBC: Recent Labs 05/29/21 0546 05/30/21 0555 05/31/21 0420 WBC 8.7 7.2 8.2 HGB 8.4* 8.2* 8.0* HCT 26.3* 25.4* 25.0* MCV 93.6 93.4 92.9 PLT 73* 76* 95* BMP: Recent Labs 05/29/21 0546 05/30/21 0555 05/31/21 0420 NA 139 141 141 K 4.4 3.8 4.5 CL 104 106 105 CO2 24 22 26 BUN 35* 37* 36* CREATININE 1.67* 1.30* 1.44* PT/INR: Recent Labs 05/29/21 0546 05/30/21 0555 05/31/21 0420 PROTIME 9.9 9.6 10.0 INR 0.9 0.9 0.9 APTT: No results for input(s): APTT in the last 72 hours. Chest X-Ray: Reviewed. Normal post-operative findings noted I/O: I/O last 3 completed shifts: In: 1150 [P.O.:1150] Out: 720 [Urine:600; Chest Tube:120] Assessment/Plan: Diagnosis Date Arthritis Gastritis Hyperlipidemia Hypertension Neuro: Intact Lungs: Clear, diminished in the bases HD: VSS Edema: trace peripheral GI: Active bowel sounds X4 : Good urine output Beta-Mandie: yes ASA: yes Plavix: yes GI: yes Statin: yes Coumadin: no CANDE-I: no EF: 60% Pt is ready for DC today He will see a director compensation outpt regarding his elevated Scr. Pt has had BM Tolerates off NC ambulating Home with [facility] Pacer wires clipped The above recommendations including medications and orders were discussed and agreed upon with Dr. Espino, the attending on service for the cardiothoracic surgery group today. On this date 05/30/2021 I have spent 26 minutes reviewing previous notes, test results and face to face with the patient discussing the diagnosis and importance of compliance with the treatment plan as well as documenting on the day of the visit. At least 50% of the time documented was spent with the patient to provide counseling and/or coordination of care. This note was created with the assistance of a speech-recognition program. Although the intention is to generate a document that actually reflects the content of the visit, no guarantees can be provided that every mistake has been identified and corrected by editing. Note was updated later by me after physical examination and completion of the assessment. 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 [place] [employer] Technician Progress Note Date: 05/31/2021 Patient name: Steven Ford Jr. Date of admission: 05/27/2021 5:42 AM Date of : 1945 PCP: Arelis Forbes MD Reason for Admission: CAD in [place] artery [I25.10] Subjective: Clinical Changes / Abnormalities: Patient seen and examined. No acute events overnight. Remained hemodynamically stable and afebrile. I/O last 3 completed shifts: In: 1350 [P.O.:1350] Out: 1865 [Urine:1500; Chest Tube:365] No intake/output data recorded. I/O since admission: +1.1 liters Medications: Scheduled Meds: [Held by provider] furosemide 40 mg IntraVENous BID tamsulosin 0.4 mg Oral Daily metoclopramide 5 mg Oral 4x Daily AC & HS ferrous sulfate 325 mg Oral Daily with breakfast cetirizine 10 mg Oral Daily vitamin B-12 1,000 mcg Oral Daily gabapentin 400 mg Oral TID [Held by provider] traZODone 50 mg Oral Nightly Vitamin D 1,000 Units Oral Daily sodium chloride flush 10 mL IntraVENous 2 times per day [Held by provider] aspirin 81 mg Oral Daily [Held by provider] clopidogrel 75 mg Oral Daily amiodarone 200 mg Oral TID mupirocin Nasal BID polyethylene glycol 17 g Oral Daily metoprolol tartrate 25 mg Oral BID atorvastatin 80 mg Oral Nightly pantoprazole 40 mg Oral Daily ipratropium-albuterol 1 ampule Inhalation Q4H WA insulin glargine 0.15 Units/kg SubCUTAneous Nightly Continuous Infusions: sodium chloride norepinephrine Stopped (05/28/21 0116) dextrose CBC: Recent Labs 05/29/21 0546 05/30/21 0555 05/31/21 0420 WBC 8.7 7.2 8.2 HGB 8.4* 8.2* 8.0* PLT 73* 76* 95* BMP: Recent Labs 05/29/21 0546 05/30/21 0555 NA 139 141 K 4.4 3.8 CL 104 106 CO2 24 22 BUN 35* 37* CREATININE 1.67* 1.30* GLUCOSE 123* 138* Hepatic: No results for input(s): AST, ALT, ALB, BILITOT, ALKPHOS in the last 72 hours. Troponin: No results for input(s): TROPHS in the last 72 hours. BNP: No results for input(s): BNP in the last 72 hours. Lipids: No results for input(s): CHOL, HDL in the last 72 hours. Invalid input(s): LDLCALCU INR: Recent Labs 05/29/21 0546 05/30/21 0555 INR 0.9 0.9 Objective: Vitals: BP (!) 173/61 Pulse 93 Temp 99.3 F (37.4 C) (Oral) Resp 17 Wt 235 lb 7.2 oz (106.8 kg) SpO2 93% BMI 34.77 kg/m General appearance: Alert. No acute distress. HEENT: Head: Normal, normocephalic, atraumatic. Neck: no JVD, trachea midline Lungs: Clear to auscultation bilaterally, no wheeze or crackles Heart: Regular rate and rhythm, S1, S2 normal, no murmur Abdomen: Soft, non-tender Extremities: No edema Neurologic: No focal neurologic deficits - ECHO 04/23/2021 LV normal size. LVEF 54% Normal LV wall thickness. Mildly dilated RV cavity. RV function appears normal. Trivial MR and TR. Est RVSP 23 mmHg - STRESS 04/23/2021 No significant perfusion defect at stress or rest. LVEF 62% - CATH 04/24/2021 LM 30-40% LAD Prox 70% Mid LAD 80%. D1 prox 80%. LCx Prox 80% OM1 90% RCA Dist 70% R PDA Prox 80% LVEF 60% Assessment: 1. 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 Preserved pre op LVEF 3. HTN 4. HLD 5. Renal insufficiency 6. Post op anemia 7. Thrombocytopenia Plan / Recommendations: 1. Hemodynamically stable. 2. ASA and plavix on hold per CTS due to thrombocytopenia. Resume per CTS. 3. Monitor H/H and platelets 4. Continue statin, amio 5. Continue lopressor 25 mg bid with parameters 6. Monitor renal function. Hold lasix. Increasing BUN. Incentive spirometry. 7. Post op care per CTS Thank you for allowing us to participate in Steven Ford 's care. Electronically signed on 05/31/21 at 5:01 AM by: Merrill Marinelli MD, MD Fellow, Cardiovascular Diseases [facility] Attending Physician Statement I have discussed the care of Steven Ford , including pertinent history and exam findings, with the school bus driver/resident. I have seen and examined the patient and the hartley elements of all parts of the encounter have been performed by me. I agree with the assessment, plan and orders as documented by the fellow. Shane Head MD, [facility], [facility] nocturnal pulse ox study machine unavaliable; unable to complete order. Physical Therapy Facility/Department: [facility] 1 Daily Treatment Note NAME: Steven Ford Jr. : 1945 Date of Service: 05/30/2021 Discharge Recommendations: Patient would benefit from continued therapy after discharge PT Equipment Recommendations Other: Pt stated he had a walker at home Assessment Body structures, Functions, Activity limitations: Decreased functional mobility ;Decreased balance;Decreased ADL status;Decreased high-level IADLs;Decreased endurance;Decreased strength Assessment: Pt ambulated 100 ft, with Min A, 3 L of O2, an extra staff as SBA and WC follow, with increased rest breaks, to adjust posture and cues to ambulate within walker [place], pt shuffling gait, and forward lean, head and rounded shoulders, and inconsistent shira. Pt educated reguarding gait defeciets, and how to correct them. Pt able to perform sit laurel stand transfers with CGA this visit with extra time and effort, 1-2 attempts each tx, Pt currently is a high fall risk d/t decreased balance and endurance, requiring 24 hr assistance for functional mobility at this time. Pt would benefit from continued therapy to promote endurance, balance, and strengthening. Prognosis: Good PT Education: Goals;PT Role;Plan of Care;Transfer Training;General Safety;Home Exercise Program REQUIRES PT FOLLOW UP: Yes Activity Tolerance Activity Tolerance: Patient Tolerated treatment well;Patient limited by fatigue;Patient limited by endurance Activity Tolerance: At end of amb pt became very fatigued with assist to chair Patient Diagnosis(es): The encounter diagnosis was CAD in [place] artery. has a past medical history of Arthritis, Gastritis, Hyperlipidemia, and Hypertension. has a past surgical history that includes back surgery; joint replacement; Carpal tunnel release; and Coronary artery bypass graft (N/A, 05/27/2021). Restrictions Restrictions/Precautions Restrictions/Precautions: Fall Risk Required Braces or Orthoses?: Yes Required Braces or Orthoses Other: Heart Hugger Brace Position Activity Restriction Sternal Precautions: 5# Lifting Restrictions,No Pushing,No Pulling Other position/activity restrictions: CABG x3 05/27. ambulate pt, up in chair, Chest tube to waterseal for ambulation Subjective General Chart Reviewed: Yes Response To Previous Treatment: Patient with no complaints from previous session. Family / Caregiver Present: No Subjective Subjective: RN and pt agreeable to PT. pt agreeable and pleasant. pt seated in recliner at start of session. General Comment Comments: Pt retired to chair at end of session with OT Pain Screening Patient Currently in Pain: Denies Pain Assessment Pain Level: 0 Patient's Stated Pain Goal: No pain Vital Signs Patient Currently in Pain: Denies Orientation Orientation Overall Orientation Status: Within Functional Limits Cognition Cognition Overall Cognitive Status: WFL Objective Bed mobility Supine to Sit: Unable to assess Sit to Supine: Unable to assess Scooting: Stand by assistance Comment: Pt in chair upon arrival and retired to chair at end of session Transfers Sit to Stand: Minimal Assistance;Contact guard assistance;2 Person Assistance Stand to sit: Minimal Assistance Bed to Chair: Minimal assistance Comment: Pt required 2 assist for first STS, MIN A and CGA, Verbal and tactile cues for use of heart hugger with fair return. Cues for hand placement with fair return. no complaint of dizziness or lightheadedness during session. Ambulation Ambulation?: Yes More Ambulation?: No Ambulation 1 Surface: level tile Device: Rolling Walker Other Apparatus: Wheelchair follow ; 3 L of O2 Assistance: Minimal assistance;Stand by assistance;2 Person assistance Quality of Gait: Pt ambulated with forward lean ,rounded shoulders, forward head, unsteady at times Gait Deviations: Decreased step length;Decreased step height;Shuffles Distance: ~100ft Comments: Pt ambulated with RW and MIN A, WC follow,( 2nd staff for safety) pt forward lean, rounded shoulders forward head, pt educated in correcting postural defeciets and focusing on safety Stairs/Curb Stairs?: No Balance Posture: Fair Sitting - Static: Good Sitting - Dynamic: Good;- Standing - Static: Fair Standing - Dynamic: Fair Comments: Assessed with RW Exercises Comments: Seated LE exercise program: Long Arc Quads, hip abduction/adduction, heel/toe raises, and marches. Reps: 15 AM-PAC Score AM-PAC Inpatient Mobility Raw Score : 17 (05/30/211056) AM-PAC Inpatient T-Scale Score : 42.13 (05/30/211056) Mobility Inpatient CMS 0-100% Score: 50.57 (05/30/211056) Mobility Inpatient CMS G-Code Modifier : CK (05/30/211056) Goals Short term goals Time Frame for Short term goals: 14 visits Short term goal 1: Complete transfers with mod I and least restrictive v no AD Short term goal 2: Complete 300 ft of gait with mod I and least restrictive v no AD Short term goal 3: Complete one step with no HR and mod I Short term goal 4: Complete cardiac HEP independently Short term goal 5: Participate in 30 minutes of therapy to promote endurance Plan Plan Times per week: 7x per week 1-2x per day Times per day: Daily Current Treatment Recommendations: Strengthening,Transfer Training,Endurance Training,Neuromuscular Re-education,Patient/Caregiver Education & Training,ADL/Self-care Training,Equipment Evaluation, Education, & procurement,Balance Training,IADL Training,Gait Training,Home Exercise Program,Functional Mobility Training,Stair training,Safety Education & Training Safety Devices Type of devices: All fall risk precautions in place,Gait belt,Call light within reach,Left in chair,Nurse notified Restraints Initially in place: No Therapy Time Individual Concurrent Group Co-treatment Time In 0902 Time Out 0940 Minutes 38 Timed Code Treatment Minutes: 23 Minutes ([place] with OT) Ileana Perez PTA Images from the original note were not included. [place] [employer] Technician Progress Note Date: 05/30/2021 Patient name: Steven Ford Jr. Date of admission: 05/27/2021 5:42 AM Date of : 1945 PCP: Arelis Forbes MD Reason for Admission: CAD in [place] artery [I25.10] Subjective: Clinical Changes / Abnormalities: Patient seen and examined. No acute events overnight. Remained hemodynamically stable and afebrile. I/O last 3 completed shifts: In: 600 [P.O.:600] Out: 2315 [Urine:1800; Chest Tube:515] No intake/output data recorded. I/O since admission: +1.1 liters Medications: Scheduled Meds: furosemide 40 mg IntraVENous BID tamsulosin 0.4 mg Oral Daily metoclopramide 5 mg Oral 4x Daily AC & HS ferrous sulfate 325 mg Oral Daily with breakfast cetirizine 10 mg Oral Daily vitamin B-12 1,000 mcg Oral Daily gabapentin 400 mg Oral TID [Held by provider] traZODone 50 mg Oral Nightly Vitamin D 1,000 Units Oral Daily sodium chloride flush 10 mL IntraVENous 2 times per day [Held by provider] aspirin 81 mg Oral Daily [Held by provider] clopidogrel 75 mg Oral Daily amiodarone 200 mg Oral TID mupirocin Nasal BID polyethylene glycol 17 g Oral Daily metoprolol tartrate 25 mg Oral BID atorvastatin 80 mg Oral Nightly pantoprazole 40 mg Oral Daily ipratropium-albuterol 1 ampule Inhalation Q4H WA insulin glargine 0.15 Units/kg SubCUTAneous Nightly Continuous Infusions: sodium chloride norepinephrine Stopped (05/28/21 0116) insulin Stopped (05/28/21 0800) dextrose CBC: Recent Labs 05/28/21 1801 05/29/21 0546 05/30/21 0555 WBC 10.6 8.7 7.2 HGB 9.4* 8.4* 8.2* PLT 81* 73* 76* BMP: Recent Labs 05/28/21 0356 05/29/21 0546 05/30/21 0555 NA 142 139 141 K 4.8 4.4 3.8 CL 105 104 106 CO2 22 24 22 BUN 25* 35* 37* CREATININE 1.67* 1.67* 1.30* GLUCOSE 133* 123* 138* Hepatic: No results for input(s): AST, ALT, ALB, BILITOT, ALKPHOS in the last 72 hours. Troponin: No results for input(s): TROPHS in the last 72 hours. BNP: No results for input(s): BNP in the last 72 hours. Lipids: No results for input(s): CHOL, HDL in the last 72 hours. Invalid input(s): LDLCALCU INR: Recent Labs 05/28/21 0356 05/29/21 0546 05/30/21 0555 INR 1.1 0.9 0.9 Objective: Vitals: BP (!) 115/57 Pulse 76 Temp 98.5 F (36.9 C) (Oral) Resp 20 Wt 235 lb 7.2 oz (106.8 kg) SpO2 100% BMI 34.77 kg/m General appearance: Alert. No acute distress. HEENT: Head: Normal, normocephalic, atraumatic. Neck: no JVD, trachea midline Lungs: Clear to auscultation bilaterally, no wheeze or crackles Heart: Regular rate and rhythm, S1, S2 normal, no murmur Abdomen: Soft, non-tender Extremities: No edema Neurologic: No focal neurologic deficits - ECHO 04/23/2021 LV normal size. LVEF 54% Normal LV wall thickness. Mildly dilated RV cavity. RV function appears normal. Trivial MR and TR. Est RVSP 23 mmHg - STRESS 04/23/2021 No significant perfusion defect at stress or rest. LVEF 62% - CATH 04/24/2021 LM 30-40% LAD Prox 70% Mid LAD 80%. D1 prox 80%. LCx Prox 80% OM1 90% RCA Dist 70% R PDA Prox 80% LVEF 60% Assessment: 1. 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 Preserved pre op LVEF 3. HTN 4. HLD 5. Renal insufficiency 6. Post op anemia 7. Thrombocytopenia Plan / Recommendations: 1. Hemodynamically stable. 2. ASA and plavix on hold per CTS due to thrombocytopenia. Resume per CTS. 3. Monitor H/H and platelets 4. Continue statin, amio 5. Continue lopressor 25 mg bid with parameters 6. Monitor renal function. Hold lasix. Increasing BUN. Incentive spirometry. 7. Post op care per CTS Thank you for allowing us to participate in Steven Ford JrEloisa's care. Electronically signed on 05/30/21 at 8:36 AM by: Wong Seth MD, Fellow, Cardiovascular Diseases [facility] Attending Physician Statement I have discussed the care of Steven Ford JrEloisa, including pertinent history and exam findings, with the school bus driver/resident. I have seen and examined the patient and the hartley elements of all parts of the encounter have been performed by me. I agree with the assessment, plan and orders as documented by the resident Shane Head MD, [facility], [facility] Daily Progress Note Surgeon: Dr. Espino S/P : CABG X 3 POD#: 3 EF: 60 % Subjective: Mr. Ford feels well today with no acute complaints. Pain is controlled on current medication regimen. Denies chest pain or shortness of breath. Plan of care reviewed and questions answered. Physical Exam Vital Signs: BP 118/63 Pulse 79 Temp 98.8 F (37.1 C) (Oral) Resp 17 Wt 235 lb 7.2 oz (106.8 kg) SpO2 (!) 85% BMI 34.77 kg/m O2 Flow Rate (L/min): 3 L/min Admit Weight: Weight: 218 lb 14.7 oz (99.3 kg) WEIGHTWeight: 235 lb 7.2 oz (106.8 kg) General: alert and oriented to person, place and time, well-developed and well-nourished, in no acute distress. Up in chair Heart: Normal S1 and S2. Regular rhythm. No murmurs, gallops, or rubs. Pacing Wires: Yes -To be clipped prior to discharge Lungs: clear to auscultation bilaterally and diminished breath sounds bibasilar Chest tubes: Yes, Air Leak: No Abdomen: soft, non tender, non distended, BS x4 Extremities: Trace edema Wounds: clean and dry, healing appropriately. Sternum: Covered SVG sites: Covered Scheduled Meds: furosemide 40 mg IntraVENous BID tamsulosin 0.4 mg Oral Daily metoclopramide 5 mg Oral 4x Daily AC & HS ferrous sulfate 325 mg Oral Daily with breakfast cetirizine 10 mg Oral Daily vitamin B-12 1,000 mcg Oral Daily gabapentin 400 mg Oral TID [Held by provider] traZODone 50 mg Oral Nightly Vitamin D 1,000 Units Oral Daily sodium chloride flush 10 mL IntraVENous 2 times per day [Held by provider] aspirin 81 mg Oral Daily [Held by provider] clopidogrel 75 mg Oral Daily amiodarone 200 mg Oral TID mupirocin Nasal BID polyethylene glycol 17 g Oral Daily metoprolol tartrate 25 mg Oral BID atorvastatin 80 mg Oral Nightly pantoprazole 40 mg Oral Daily ipratropium-albuterol 1 ampule Inhalation Q4H WA insulin glargine 0.15 Units/kg SubCUTAneous Nightly Continuous Infusions: sodium chloride norepinephrine Stopped (05/28/21 0116) insulin Stopped (05/28/21 0800) dextrose Data: CBC: Recent Labs 05/28/21 1801 05/29/21 0546 05/30/21 0555 WBC 10.6 8.7 7.2 HGB 9.4* 8.4* 8.2* HCT 30.2* 26.3* 25.4* MCV 96.2 93.6 93.4 PLT 81* 73* 76* BMP: Recent Labs 05/27/21 1327 05/27/21 1327 05/27/21 2331 05/28/21 0356 05/29/21 0546 NA 149* -- -- 142 139 K 4.2 < > 4.2 4.8 4.4 CL 113* -- -- 105 104 CO2 16* -- -- 22 24 BUN 22 -- -- 25* 35* CREATININE 1.23* -- -- 1.67* 1.67* < > = values in this interval not displayed. PT/INR: Recent Labs 05/28/21 0356 05/29/21 0546 05/30/21 0555 PROTIME 11.2 9.9 9.6 INR 1.1 0.9 0.9 APTT: Recent Labs 05/27/211326 APTT 27.4 Chest X-Ray: Reviewed. Normal post-operative findings noted I/O: I/O last 3 completed shifts: In: 1060 [P.O.:560; IV Piggyback:500] Out: 2064 [Urine:1500; Chest Tube:565] Assessment/Plan: Diagnosis Date Arthritis Gastritis Hyperlipidemia Hypertension Neuro: Intact Lungs: Clear, diminished in the bases HD: VSS Edema: trace peripheral GI: Active bowel sounds X4 : Good urine output Beta-Mandie: yes ASA: yes- on hold platelets 76 Plavix: yes- on hold platelets 76 GI: yes Statin: yes Coumadin: no CANDE-I: no EF: 60% Oxygen as needed via nasal cannula to maintain SpO2 > 92% o Wean as tolerated o Patient required O2 last night. Will obtain nocturnal pulse ox tonight/home O2 evaluation. Chest x-ray daily Remove chest tubes ABLA d/t above Increase lasix Encourage incentive spirometry, acapella and ambulation Replace electrolytes as needed per sliding scale and recheck per policy Case Management consult for discharge planning- plan is to go home with home care The above recommendations including medications and orders were discussed and agreed upon with Dr. Espino, the attending on service for the cardiothoracic surgery group today. On this date 05/30/2021 I have spent 26 minutes reviewing previous notes, test results and face to face with the patient discussing the diagnosis and importance of compliance with the treatment plan as well as documenting on the day of the visit. At least 50% of the time documented was spent with the patient to provide counseling and/or coordination of care. This note was created with the assistance of a speech-recognition program. Although the intention is to generate a document that actually reflects the content of the visit, no guarantees can be provided that every mistake has been identified and corrected by editing. Note was updated later by me after physical examination and completion of the assessment. Physical Therapy Facility/Department: [place] [address] Daily Treatment Note NAME: Steven Ford JrEloisa : 1945 Date of Service: 05/29/2021 Discharge Recommendations: Patient would benefit from continued therapy after discharge PT Equipment Recommendations Equipment Needed: Yes Mobility Devices: Walker Walker: Rolling Assessment Body structures, Functions, Activity limitations: Decreased functional mobility ;Decreased balance;Decreased ADL status;Decreased high-level IADLs;Decreased endurance;Decreased strength Assessment: Pt ambulates 85 ft, with Min A , RW and 1 L of 02 with increased rest breaks, to adjust posture and cues to ambulate within walker [place], pt shuffling gait, lack of knee flexion on left, and forward lean, head and rounded shoulders, pt at times would picker/puller speed, increasing chances of a fall. Pt educated reguarding gait defeciets, and how to correct them. . Pt is AYLIN/CGA x2 for transfer with RW. Pt currently is a high fall risk d/t decreased balance and endurance, requiring 24 hr assistance for functional mobility at this time. Pt would benefit from continued therapy to promote endurance, balance, and strengthening. Prognosis: Good Decision Making: Medium Complexity PT Education: Goals;PT Role;Plan of Care;Transfer Training;General Safety;Home Exercise Program REQUIRES PT FOLLOW UP: Yes Activity Tolerance Activity Tolerance: Patient Tolerated treatment well Activity Tolerance: No SOB Patient Diagnosis(es): The encounter diagnosis was CAD in [place] artery. has a past medical history of Arthritis, Gastritis, Hyperlipidemia, and Hypertension. has a past surgical history that includes back surgery; joint replacement; Carpal tunnel release; and Coronary artery bypass graft (N/A, 05/27/2021). Restrictions Restrictions/Precautions Restrictions/Precautions: Fall Risk Required Braces or Orthoses?: Yes Required Braces or Orthoses Other: Heart Hugger Brace Position Activity Restriction Sternal Precautions: 5# Lifting Restrictions Other position/activity restrictions: CABG x3 05/27. ambulate pt, up in chair Subjective General Chart Reviewed: Yes Response To Previous Treatment: Patient with no complaints from previous session. Family / Caregiver Present: No Subjective Subjective: RN and pt agreeable to PT. pt agreeable and pleasant. pt seated in recliner at start of session. General Comment Comments: Pt retired to chair at end of session Pain Screening Patient Currently in Pain: Denies Pain Assessment Pain Assessment: 0-10 Pain Level: 0 Patient's Stated Pain Goal: No pain Vital Signs Patient Currently in Pain: Denies Orientation Orientation Overall Orientation Status: Within Functional Limits Cognition Cognition Overall Cognitive Status: WFL Objective Bed mobility Supine to Sit: Unable to assess Sit to Supine: Unable to assess Scooting: Stand by assistance Comment: pt in chair upon arrival and retired to chair at end of session Transfers Sit to Stand: Minimal Assistance;Contact guard assistance;2 Person Assistance Stand to sit: Minimal Assistance Bed to Chair: Minimal assistance Comment: Pt required 2 assist for first STS, MIN A and CGA, Verbal and tactile cues for use of heart hugger with fair return. Cues for hand placement with fair return. no complaint of dizziness or lightheadedness during session. Ambulation Ambulation?: Yes More Ambulation?: No Ambulation 1 Surface: level tile Device: Rolling Walker Other Apparatus: O2 (2 L) Assistance: Minimal assistance Quality of Gait: Pt ambulated with forward lean ,rounded shoulders, forward head, unsteady at times Gait Deviations: Decreased step length;Decreased step height;Shuffles Distance: ~85 ft Comments: Pt ambulated with RW and MIN A, pt forward lean, rounded shoulders forward head, pt L knee not bending, than he would be able to and pace would increase, causing unsafe gait, pt educated in correcting postural defeciets and focusing on safety Stairs/Curb Stairs?: No Balance Posture: Fair Sitting - Static: Good Sitting - Dynamic: Good;- Standing - Static: Fair Standing - Dynamic: Fair Comments: Assessed with RW Exercises Comments: Seated LE exercise program: Long Arc Quads, hip abduction/adduction, heel/toe raises, and marches. Reps: 10-15 as marcela Goals Short term goals Time Frame for Short term goals: 14 visits Short term goal 1: Complete transfers with mod I and least restrictive v no AD Short term goal 2: Complete 300 ft of gait with mod I and least restrictive v no AD Short term goal 3: Complete one step with no HR and mod I Short term goal 4: Complete cardiac HEP independently Short term goal 5: Participate in 30 minutes of therapy to promote endurance Plan Plan Times per week: 7x per week 1-2x per day Times per day: Daily Current Treatment Recommendations: Strengthening,Transfer Training,Endurance Training,Neuromuscular Re-education,Patient/Caregiver Education & Training,ADL/Self-care Training,Equipment Evaluation, Education, & procurement,Balance Training,IADL Training,Gait Training,Home Exercise Program,Functional Mobility Training,Stair training,Safety Education & Training Safety Devices Type of devices: All fall risk precautions in place,Gait belt,Call light within reach,Left in chair,Nurse notified Restraints Initially in place: No Therapy Time Individual Concurrent Group Co-treatment Time In 930 Time Out 1009 Minutes 38 Timed Code Treatment Minutes: 38 Minutes Ileana Perez PTA Occupational Therapy Facility/Department: [facility] 1 Daily Treatment Note NAME: Steven Langston Logan Wood : 1945 Date of Service: 05/29/2021 S/p CABG Discharge Recommendations: Further therapy recommended at discharge. Assessment Performance deficits / Impairments: Decreased functional mobility ;Decreased ADL status;Decreased endurance;Decreased high-level IADLs Assessment: pt would benefit from further therapy at discharge in order to increase safety and independence with ADLS and functional transfers/functional mobility. Treatment Diagnosis: CABG Prognosis: Good Decision Making: Medium Complexity Patient Education: pt ed on POC, purpose of session, donning/doffing heart hugger, sternal precautions, modifying daily tasks. good return REQUIRES OT FOLLOW UP: Yes Activity Tolerance Activity Tolerance: Patient Tolerated treatment well Safety Devices Safety Devices in place: Yes Type of devices: Gait belt;Call light within reach;Left in chair Restraints Initially in place: No Patient Diagnosis(es): The encounter diagnosis was CAD in [place] artery. has a past medical history of Arthritis, Gastritis, Hyperlipidemia, and Hypertension. has a past surgical history that includes back surgery; joint replacement; Carpal tunnel release; and Coronary artery bypass graft (N/A, 05/27/2021). Restrictions Restrictions/Precautions Restrictions/Precautions: Fall Risk Required Braces or Orthoses?: Yes Required Braces or Orthoses Other: Heart Hugger Brace Position Activity Restriction Sternal Precautions: 5# Lifting Restrictions Other position/activity restrictions: CABG x3 05/27. ambulate pt, up in chair Subjective General Patient assessed for rehabilitation services?: Yes Family / Caregiver Present: No Diagnosis: CABG General Comment Comments: RN ok'd for therapy this morning. pt agreeable to participate insession and cooperative/pleasant throughout Vital Signs Patient Currently in Pain: Denies Orientation Orientation Overall Orientation Status: Within Functional Limits Objective ADL Grooming: Modified independent UE Bathing: Stand by assistance LE Bathing: Minimal assistance UE Dressing: Stand by assistance LE Dressing: Moderate assistance Toileting: Contact guard assistance Additional Comments: OT facilitated pt in brushing teeth, washing UB/LB, dressing UB/LB and using restroom during session. pt able to brush teeth while standing at sink with supervision for safety. Pt washed UB and LB (min A for feet) with SBA seated in chair at sink with increased time to complete and verbal cues on appropriate use of surgical soap. Pt stood in order to wash groin area with SBA. pt donned/doffing hospital gown and heart hugger with SBA while seated. Pt required mod A For donning/doffing B socks due to using sock aide at baseline. pt used restroom while standing at toilet with CGA Balance Sitting Balance: Modified independent (~30 minutes in chair at sink and reclining chair) Standing Balance: Contact guard assistance (with RW) Standing Balance Time: ~8 minutes Activity: pt completed functional mobility to/from bathroom, stood for oral care and using restroom Comment: pt with no LOB and reported no fatigue upon completion. pt slow to complete functional mobility with occasional verbal cues for continuation Functional Mobility Functional - Mobility Device: Rolling Walker Activity: To/from bathroom Assist Level: Contact guard assistance Toilet Transfers Toilet - Technique: Ambulating Equipment Used: Standard toilet Toilet Transfer: Contact guard assistance Bed mobility Comment: pt in chair upon arrival and returned to chair at end of session Transfers Sit to stand: Contact guard assistance Stand to sit: Contact guard assistance Transfer Comments: with RW Cognition Overall Cognitive Status: WFL Plan Plan Times per week: 4-6x/wk (CABG) AM-PAC Score AM-PAC Inpatient Daily Activity Raw Score: 20 (05/29/21 115) AM-PAC Inpatient ADL T-Scale Score : 42.03 (05/29/21 115) ADL Inpatient CMS 0-100% Score: 38.32 (05/29/211158) ADL Inpatient CMS G-Code Modifier : CJ (05/29/211158) Goals Short term goals Time Frame for Short term goals: pt will, by discharge Short term goal 1: complete LB ADLs with min A, set up and AE, sa needed Short term goal 2: complete UB ADLs with mod I Short term goal 3: maintain sternal precautions with 0 verbal cues during functional tasks/functional transfers Short term goal 4: dem SBA during functional transfers/functional mobility with LRD ,as needed Short term goal 5: dem 10+ minutes dynamic standing tolerance with supervision in order to complete functional tasks (Goal updated by Natalia KOHLER/Faviola on 05/29/2021) Short term goal 6: increase activity tolerance to 25+ minutes in order to participate in daily tasks Therapy Time Individual Concurrent Group Co-treatment Time In 1032 Time Out 1110 Minutes 38 Timed Code Treatment Minutes: 38 Minutes EDITA López/Faviola Physician Progress Note PATIENT: STEVEN FORD CSN #: [id number] : 1945 ADMIT DATE: 05/27/2021 5:42 AM DISCH DATE: RESPONDING PROVIDER #: KRISTIN GERMAIN QUERY TEXT: Pt admitted with MV CAD s/p CABG. Pt noted to have increase in creatinine. If possible, please document in the progress notes and discharge summary if you are evaluating and/or treating any of the following: The medical record reflects the following: Risk Factors: s/p CABG Clinical Indicators: creatinine 05/27 was 1.23, up to 1.67 on 05/28 Treatment: IV fluids, labs, monitoring Defined by Kidney Disease Improving Global Outcomes (KDIGO) clinical practice guideline for acute kidney injury: -Increase in SCr by greater than or equal to 0.3 mg/dl within 48 hours; or -Increase or decrease in SCr to greater than or equal to 1.5 times baseline, which is known or presumed to have occurred within the prior 7 days; or -Urine volume < 0.5ml/kg/h for 6 hours Call if any questions. Thank you, Katie SOSA,RN, [facility] [phone] Options provided: -- Acute kidney injury -- Acute kidney failure -- Elevated creatinine not clinically significant -- Other - I will add my own diagnosis -- Disagree - Not applicable / Not valid -- Disagree - Clinically unable to determine / Unknown -- Refer to Clinical Documentation Reviewer PROVIDER RESPONSE TEXT: This patient has an Acute kidney injury. Query created by: Katie Luevano on 05/28/2021 12:05 PM Electronically signed by: KRISTIN GERMAIN 05/29/2021 8:56 AM Images from the original note were not included. [employer] Technician Progress Note Date: 05/29/2021 Patient name: Steven Ford Jr. Date of admission: 05/27/2021 5:42 AM Date of : 1945 PCP: Arelis Forbes MD Reason for Admission: CAD in [place] artery [I25.10] Subjective: Clinical Changes / Abnormalities: Patient seen and examined. No acute events overnight. Remained hemodynamically stable and afebrile. I/O last 3 completed shifts: In: 1957 [P.O.:360; I.V.:1048; NG/GT:50; IV Piggyback:500] Out: 1884 [Urine:1185; Chest Tube:700] No intake/output data recorded. I/O since admission: +2 liters Medications: Scheduled Meds: furosemide 20 mg IntraVENous BID tamsulosin 0.4 mg Oral Daily metoclopramide 5 mg Oral 4x Daily AC & HS ferrous sulfate 325 mg Oral Daily with breakfast cetirizine 10 mg Oral Daily vitamin B-12 1,000 mcg Oral Daily gabapentin 400 mg Oral TID [Held by provider] traZODone 50 mg Oral Nightly Vitamin D 1,000 Units Oral Daily sodium chloride flush 10 mL IntraVENous 2 times per day [Held by provider] aspirin 81 mg Oral Daily [Held by provider] clopidogrel 75 mg Oral Daily amiodarone 200 mg Oral TID mupirocin Nasal BID polyethylene glycol 17 g Oral Daily metoprolol tartrate 25 mg Oral BID atorvastatin 80 mg Oral Nightly pantoprazole 40 mg Oral Daily ipratropium-albuterol 1 ampule Inhalation Q4H WA insulin glargine 0.15 Units/kg SubCUTAneous Nightly Continuous Infusions: sodium chloride norepinephrine Stopped (05/28/21 0116) insulin Stopped (05/28/21 0800) dextrose CBC: Recent Labs 05/28/21 0356 05/28/21 1801 05/29/21 0546 WBC 8.5 10.6 8.7 HGB 8.6* 9.4* 8.4* PLT 78* 81* 73* BMP: Recent Labs 05/27/21 1327 05/27/21 1327 05/27/21 2331 05/28/21 0356 05/29/21 0546 NA 149* -- -- 142 139 K 4.2 < > 4.2 4.8 4.4 CL 113* -- -- 105 104 CO2 16* -- -- 22 24 BUN 22 -- -- 25* 35* CREATININE 1.23* -- -- 1.67* 1.67* GLUCOSE 120* -- -- 133* 123* < > = values in this interval not displayed. Hepatic: No results for input(s): AST, ALT, ALB, BILITOT, ALKPHOS in the last 72 hours. Troponin: No results for input(s): TROPHS in the last 72 hours. BNP: No results for input(s): BNP in the last 72 hours. Lipids: No results for input(s): CHOL, HDL in the last 72 hours. Invalid input(s): LDLCALCU INR: Recent Labs 05/27/21 1327 05/28/21 0356 05/29/21 0546 INR 1.1 1.1 0.9 Objective: Vitals: BP (!) 122/53 Pulse 78 Temp 98.6 F (37 C) (Oral) Resp 16 Wt 235 lb 14.3 oz (107 kg) SpO2 95% BMI 34.84 kg/m General appearance: Alert. No acute distress. HEENT: Head: Normal, normocephalic, atraumatic. Neck: no JVD, trachea midline Lungs: Clear to auscultation bilaterally, no wheeze or crackles Heart: Regular rate and rhythm, S1, S2 normal, no murmur Abdomen: Soft, non-tender Extremities: No edema Neurologic: No focal neurologic deficits - ECHO 04/23/2021 LV normal size. LVEF 54% Normal LV wall thickness. Mildly dilated RV cavity. RV function appears normal. Trivial MR and TR. Est RVSP 23 mmHg - STRESS 04/23/2021 No significant perfusion defect at stress or rest. LVEF 62% - CATH 04/24/2021 LM 30-40% LAD Prox 70% Mid LAD 80%. D1 prox 80%. LCx Prox 80% OM1 90% RCA Dist 70% R PDA Prox 80% LVEF 60% Assessment: 1. 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 Preserved pre op LVEF 3. HTN 4. HLD 5. Renal insufficiency 6. Post op anemia 7. Thrombocytopenia Plan / Recommendations: 1. Hemodynamically stable. 2. ASA and plavix on hold per CTS due to thrombocytopenia 3. Continue statin, amio 4. Continue lopressor with parameters 5. Monitor renal function. IV lasix 20 mg bid. Encourage IS. 6. Post op care per CTS Thank you for allowing us to participate in Steven Ford Jr.'s care. Electronically signed on 05/29/21 at 8:06 AM by: Wong Seth MD, MD Fellow, Cardiovascular Diseases [facility] I performed a history and physical examination of the patient and discussed management with the resident. I reviewed the resident s note and agree with the documented findings and plan of care. Any areas of disagreement are noted on the chart. I was personally present for the hratley portions of any procedures. I have documented in the chart those procedures where I was not present during the hartley portions. I have personally evaluated this patient and have completed at least one if not all hartley elements of the E/M (history, physical exam, and MDM). Additional findings are as noted. Monitor PLT Casey Woodson MD [facility] Daily Progress Note Surgeon: Dr. Espino S/P : CABG X 3 POD#: 2 EF: 60 % Subjective: Mr. Ford feels well today with no acute complaints. Pain is controlled on current medication regimen. Denies chest pain or shortness of breath. Plan of care reviewed and questions answered. Physical Exam Vital Signs: BP (!) 122/53 Pulse 78 Temp 98.6 F (37 C) (Oral) Resp 16 Wt 235 lb 14.3 oz (107 kg) SpO2 95% BMI 34.84 kg/m O2 Flow Rate (L/min): 3 L/min Admit Weight: Weight: 218 lb 14.7 oz (99.3 kg) WEIGHTWeight: 235 lb 14.3 oz (107 kg) General: alert and oriented to person, place and time, well-developed and well-nourished, in no acute distress. Up in chair Heart: Normal S1 and S2. Regular rhythm. No murmurs, gallops, or rubs. Pacing Wires: Yes -To be clipped prior to discharge Lungs: clear to auscultation bilaterally and diminished breath sounds bibasilar Chest tubes: Yes, Air Leak: No Abdomen: soft, non tender, non distended, BS x4 Extremities: Trace edema Wounds: clean and dry, healing appropriately. Sternum: Covered SVG sites: Covered Scheduled Meds: furosemide 20 mg IntraVENous BID tamsulosin 0.4 mg Oral Daily metoclopramide 10 mg Oral 4x Daily AC & HS ferrous sulfate 325 mg Oral Daily with breakfast cetirizine 10 mg Oral Daily vitamin B-12 1,000 mcg Oral Daily gabapentin 400 mg Oral TID [Held by provider] traZODone 50 mg Oral Nightly Vitamin D 1,000 Units Oral Daily sodium chloride flush 10 mL IntraVENous 2 times per day [Held by provider] aspirin 81 mg Oral Daily [Held by provider] clopidogrel 75 mg Oral Daily amiodarone 200 mg Oral TID mupirocin Nasal BID polyethylene glycol 17 g Oral Daily metoprolol tartrate 25 mg Oral BID atorvastatin 80 mg Oral Nightly pantoprazole 40 mg Oral Daily ipratropium-albuterol 1 ampule Inhalation Q4H IA insulin glargine 0.15 Units/kg SubCUTAneous Nightly Continuous Infusions: sodium chloride norepinephrine Stopped (05/28/21 0116) insulin Stopped (05/28/21 0800) dextrose Data: CBC: Recent Labs 05/28/21 0356 05/28/21 1801 05/29/21 0546 WBC 8.5 10.6 8.7 HGB 8.6* 9.4* 8.4* HCT 26.5* 30.2* 26.3* MCV 91.7 96.2 93.6 PLT 78* 81* 73* BMP: Recent Labs 05/27/21 1327 05/27/21 1327 05/27/21 2331 05/28/21 0356 05/29/21 0546 NA 149* -- -- 142 139 K 4.2 < > 4.2 4.8 4.4 CL 113* -- -- 105 104 CO2 16* -- -- 22 24 BUN 22 -- -- 25* 35* CREATININE 1.23* -- -- 1.67* 1.67* < > = values in this interval not displayed. PT/INR: Recent Labs 05/27/21 1327 05/28/21 0356 05/29/21 0546 PROTIME 11.9 11.2 9.9 INR 1.1 1.1 0.9 APTT: Recent Labs 05/27/21 132 APTT 27.4 Chest X-Ray: Reviewed. Normal post-operative findings noted I/O: I/O last 3 completed shifts: In: 1957 [P.O.:360; I.V.:1048; NG/GT:50; IV Piggyback:500] Out: 1884 [Urine:1185; Chest Tube:700] Assessment/Plan: Diagnosis Date Arthritis Gastritis Hyperlipidemia Hypertension Neuro: Intact Lungs: Clear, diminished in the bases HD: VSS Edema: trace peripheral GI: Active bowel sounds X4 : Good urine output Beta-Mandie: yes ASA: yes Plavix: yes GI: yes Statin: yes Coumadin: no CANDE-I: no EF: 60% Oxygen as needed via nasal cannula to maintain SpO2 > 92% o Wean as tolerated Chest x-ray daily Keep Chest Tubes to wall suction o Will evaluate for possible removal this afternoon ABLA d/t above Add lasix BID Add reglan QID Add flomax Encourage incentive spirometry, acapella and ambulation Replace electrolytes as needed per sliding scale and recheck per policy Case Management consult for discharge planning The above recommendations including medications and orders were discussed and agreed upon with Dr. Espino, the attending on service for the cardiothoracic surgery group today. On this date 05/29/2021 I have spent 29 minutes reviewing previous notes, test results and face to face with the patient discussing the diagnosis and importance of compliance with the treatment plan as well as documenting on the day of the visit. At least 50% of the time documented was spent with the patient to provide counseling and/or coordination of care. This note was created with the assistance of a speech-recognition program. Although the intention is to generate a document that actually reflects the content of the visit, no guarantees can be provided that every mistake has been identified and corrected by editing. Note was updated later by me after physical examination and completion of the assessment. 500 Albumin ordered per Indra Wild Np d/t patient still not urinating after 20 lasix, and bladder scan showed 328 cc urine. Pt. Unable to urinate since santos out this am. Bladder scan performed only 213 cc urine. Notified Indra Wild NP with CTS. Order rec'd for 20 mg IVP lasix once. Afternoon dose of Vancomycin held 2/2 creatinine level. Indra Wild NP with CTS notified. Order to discontinue vancomycin received. Physical Therapy Facility/Department: [facility] 1 Initial Assessment NAME: Steven Ford Jr. : 1945 Date of Service: 05/28/2021 Discharge Recommendations: Further therapy recommended at discharge. No chief complaint on file. HPI: male who presents s/p cardiac cath with Dr Almanza. Patient initially presented to the emergency department after a syncopal episode while on a walk with his . Pertinent medical history includes hypertension, hyperlipidemia, history of ETOH/nicotine dependence. 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 Patient admits to chronic back pain, denies chest pain and shortness of breath at this time. He has been referred for consideration of coronary revascularization. PT Equipment Recommendations Equipment Needed: Yes Mobility Devices: Walker Walker: Rolling Assessment Body structures, Functions, Activity limitations: Decreased functional mobility ;Decreased balance;Decreased ADL status;Decreased high-level IADLs;Decreased endurance;Decreased strength Assessment: Pt ambulates 60 ft RW CGA. Pt is mod A x2 for transfer with RW. Pt currently is a high fall risk d/t decreased balance and endurance, requiring 24 hr assistance for functional mobility at this time. Pt would benefit from continued therapy to promote endurance, balance, and strengthening. Prognosis: Good Decision Making: Medium Complexity PT Education: Goals;PT Role;Plan of Care Barriers to Learning: none REQUIRES PT FOLLOW UP: Yes Activity Tolerance Activity Tolerance: Patient limited by endurance;Patient limited by fatigue Patient Diagnosis(es): The encounter diagnosis was CAD in [place] artery. has a past medical history of Arthritis, Gastritis, Hyperlipidemia, and Hypertension. has a past surgical history that includes back surgery; joint replacement; and Carpal tunnel release. Restrictions Restrictions/Precautions Restrictions/Precautions: Fall Risk Required Braces or Orthoses?: Yes Required Braces or Orthoses Other: Heart Hugger Brace Position Activity Restriction Sternal Precautions: 5# Lifting Restrictions Other position/activity restrictions: CABG x3 05/27. ambulate pt, up in chair Vision/Hearing Vision: Impaired Vision Exceptions: Wears glasses for reading Hearing: Within functional limits Subjective General Patient assessed for rehabilitation services?: Yes Response To Previous Treatment: Not applicable Family / Caregiver Present: No Follows Commands: Within Functional Limits Subjective Subjective: RN and pt agreeable to PT. pt agreeable and pleasant. pt seated in recliner at start of session. Pain Screening Patient Currently in Pain: Yes Pain Assessment Pain Assessment: 0-10 Pain Level: 5 Pain Type: Acute pain Pain Location: Chest;Incision Pain Orientation: Right;Left Pain Descriptors: Aching;Discomfort Pain Frequency: Continuous Pain Onset: On-going Non-Pharmaceutical Pain Intervention(s): Repositioned;Ambulation/Increased Activity Response to Pain Intervention: Patient Satisfied Vital Signs Patient Currently in Pain: Yes Orientation Orientation Overall Orientation Status: Within Functional Limits Social/Functional History Social/Functional History Lives With: Spouse Type of Home: House Home Layout: One level Home Access: Stairs to enter without rails Entrance Stairs - Number of Steps: 1 small step Bathroom Shower/Tub: Walk-in shower Bathroom Toilet: Handicap height Bathroom Equipment: Grab bars in shower,Built-in shower seat Home Equipment: Cane,Collar Turner,Long-handled shoehorn,Sock aid (pt reported only using cane for long distances) ADL Assistance: Independent Homemaking Assistance: Independent Homemaking Responsibilities: No (pt reported completes IADLS) Ambulation Assistance: Independent Transfer Assistance: Independent Active Director Park: Yes Mode of Transportation: Car Occupation: Retired Type of occupation: works at [employer] 1x/wk Leisure & Hobbies: golfing, yard work Additional Comments: pt reported is also retired and able to provide 24/7 if needed Cognition Cognition Overall Cognitive Status: WFL Objective Joint Mobility Spine: WFL ROM RLE: WFL ROM LLE: WFL ROM RUE: WFL within sternal precautions ROM LUE: WFL within sternal precautions Strength RLE Strength RLE: WFL Strength LLE Strength LLE: WFL Strength RUE Strength RUE: WFL Comment: within sternal precautions Strength LUE Strength LUE: WFL Comment: within sternal precautions Tone RLE RLE Tone: Normotonic Tone LLE LLE Tone: Normotonic Motor Control Gross Motor?: WFL Sensation Overall Sensation Status: WFL Bed mobility Supine to Sit: Unable to assess Sit to Supine: Unable to assess Scooting: Stand by assistance Comment: Pt begins and ends in recliner Transfers Sit to Stand: Moderate Assistance;2 Person Assistance Stand to sit: Minimal Assistance Comment: Verbal and tactile cues for use of heart hugger with fair return. Cues for hand placement with fair return. no complaint of dizziness or lightheadedness during session. Ambulation Ambulation?: Yes More Ambulation?: No Ambulation 1 Surface: level tile Device: Rolling Walker Other Apparatus: O2 (2 L per NC) Assistance: Contact guard assistance Gait Deviations: Slow Shira;Decreased step length;Decreased step height Distance: 60 ft Comments: no LOB noted. Stairs/Curb Stairs?: No Balance Posture: Good Sitting - Static: Good Sitting - Dynamic: Good;- Standing - Static: Fair Standing - Dynamic: Fair Comments: Assessed with RW Plan Plan Times per week: 7x per week 1-2x per day Current Treatment Recommendations: Strengthening,Transfer Training,Endurance Training,Neuromuscular Re-education,Patient/Caregiver Education & Training,ADL/Self-care Training,Equipment Evaluation, Education, & procurement,Balance Training,IADL Training,Gait Training,Home Exercise Program,Functional Mobility Training,Stair training,Safety Education & Training Safety Devices Type of devices: All fall risk precautions in place,Gait belt,Call light within reach,Left in chair,Nurse notified AM-PAC Score AM-PAC Inpatient Mobility Raw Score : 16 (05/28/211425) AM-PAC Inpatient T-Scale Score : 40.78 (05/28/211425) Mobility Inpatient CMS 0-100% Score: 54.16 (05/28/211425) Mobility Inpatient CMS G-Code Modifier : CK (05/28/211425) Goals Short term goals Time Frame for Short term goals: 14 visits Short term goal 1: Complete transfers with mod I and least restrictive v no AD Short term goal 2: Complete 300 ft of gait with mod I and least restrictive v no AD Short term goal 3: Complete one step with no HR and mod I Short term goal 4: Complete cardiac HEP independently Short term goal 5: Participate in 30 minutes of therapy to promote endurance Therapy Time Individual Concurrent Group Co-treatment Time In 825 Time Out 851 Minutes 26 Timed Code Treatment Minutes: 8 Minutes Albertina Richard PT Occupational Therapy Occupational Therapy Initial Assessment Date: 05/28/2021 Patient Name: Steven Ford Jr. : 1945 Date of Service: 05/28/2021 HPI: male who presents s/p cardiac cath with Dr Almanza. Patient initially presented to the emergency department after a syncopal episode while on a walk with his . Pertinent medical history includes hypertension, hyperlipidemia, history of ETOH/nicotine dependence. 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 Patient admits to chronic back pain, denies chest pain and shortness of breath at this time. He has been referred for consideration of coronary revascularization. Discharge Recommendations: Further therapy recommended at discharge. Assessment Performance deficits / Impairments: Decreased functional mobility ;Decreased ADL status;Decreased endurance;Decreased high-level IADLs Assessment: pt would benefit from further therapy at discharge in order to increase safety and independence with ADLS and functional transfers/functional mobility. Treatment Diagnosis: CABG Prognosis: Good Decision Making: Medium Complexity Patient Education: pt ed on POC, purpose of eval, importance of movement, safety during functional transfers/functional mobility, balancing rest with movement, breathing out during transfers, sternal precautions. good return REQUIRES OT FOLLOW UP: Yes Activity Tolerance Activity Tolerance: Patient Tolerated treatment well Safety Devices Safety Devices in place: Yes Type of devices: Gait belt;Call light within reach;Left in chair Restraints Initially in place: No Patient Diagnosis(es): The encounter diagnosis was CAD in [place] artery. has a past medical history of Arthritis, Gastritis, Hyperlipidemia, and Hypertension. has a past surgical history that includes back surgery; joint replacement; and Carpal tunnel release. Treatment Diagnosis: CABG Restrictions Restrictions/Precautions Required Braces or Orthoses?: Yes Required Braces or Orthoses Other: Heart Hugger Brace Position Activity Restriction Sternal Precautions: 5# Lifting Restrictions Other position/activity restrictions: CABG x3 05/27. ambulate pt, up in chair Subjective General Patient assessed for rehabilitation services?: Yes Family / Caregiver Present: No Diagnosis: CABG General Comment Comments: RN ok'd for therapy this morning. pt agreeable to participate insession and cooperative/pleasant throughout Patient Currently in Pain: Yes Pain Assessment Pain Assessment: 0-10 Pain Level: 5 Pain Type: Acute pain;Surgical pain Pain Location: Chest Non-Pharmaceutical Pain Intervention(s): Ambulation/Increased Activity;Distraction;Therapeutic presence Response to Pain Intervention: Patient Satisfied Social/Functional History Social/Functional History Lives With: Spouse Type of Home: House Home Layout: One level Home Access: Stairs to enter without rails Entrance Stairs - Number of Steps: 1 small step Bathroom Shower/Tub: Walk-in shower Bathroom Toilet: Handicap height Bathroom Equipment: Grab bars in shower,Built-in shower seat Home Equipment: Cane,Collar Turner,Long-handled shoehorn,Sock aid (pt reported only using cane for long distances) ADL Assistance: Independent Homemaking Assistance: Independent Homemaking Responsibilities: No (pt reported completes IADLS) Ambulation Assistance: Independent Transfer Assistance: Independent Active Director Park: Yes Mode of Transportation: Car Occupation: Retired Type of occupation: works at [employer] 1x/wk Leisure & Hobbies: golfing, yard work Additional Comments: pt reported is also retired and able to provide 24/7 if needed Objective Vision: Impaired Vision Exceptions: Wears glasses for reading Hearing: Within functional limits Orientation Overall Orientation Status: Within Functional Limits Balance Sitting Balance: Modified independent (~20 minutes in chair) Standing Balance: Contact guard assistance (with RW) Standing Balance Time: ~3 minutes Activity: pt completed functional mobility in to hallway and back to chair Comment: pt with no LOB and reported mild SOB upon completion Functional Mobility Functional - Mobility Device: Rolling Walker Activity: Other Assist Level: Contact guard assistance ADL Feeding: Modified independent Grooming: Modified independent UE Bathing: Stand by assistance LE Bathing: Moderate assistance UE Dressing: Stand by assistance LE Dressing: Moderate assistance Toileting: Contact guard assistance Additional Comments: OT facilitated pt in washing face while sitting in chair, with no difficulties. pt reported difficulties donning B socks and pants at baseline Tone RUE RUE Tone: Normotonic Tone LUE LUE Tone: Normotonic Coordination Movements Are Fluid And Coordinated: Yes Bed mobility Comment: pt in chair upon arrival and retired to chair at end of session Transfers Sit to stand: Moderate assistance;2 Person assistance Stand to sit: Minimal assistance Transfer Comments: with RW Cognition Overall Cognitive Status: WFL Sensation Overall Sensation Status: WFL LUE AROM (degrees) LUE AROM : WFL Left Hand AROM (degrees) Left Hand AROM: WFL RUE AROM (degrees) RUE AROM : WFL Right Hand AROM (degrees) Right Hand AROM: WFL LUE Strength Gross LUE Strength: WFL L Hand General: 4+/5 RUE Strength Gross RUE Strength: WFL R Hand General: 4+/5 Plan Plan Times per week: 4-6x/wk (CABG) AM-PAC Score AM-PAC Inpatient Daily Activity Raw Score: 18 (05/28/21 1054) AM-PAC Inpatient ADL T-Scale Score : 38.66 (05/28/21 1054) ADL Inpatient CMS 0-100% Score: 46.65 (05/28/21 1054) ADL Inpatient CMS G-Code Modifier : CK (05/28/211053) Goals Short term goals Time Frame for Short term goals: pt will, by discharge Short term goal 1: complete LB ADLs with min A, set up and AE, sa needed Short term goal 2: complete UB ADLs with mod I Short term goal 3: maintain sternal precautions with 0 verbal cues during functional tasks/functional transfers Short term goal 4: dem SBA during functional transfers/functional mobility with LRD ,as needed Short term goal 5: dem ~8 minutes dynamic standing tolerance with SBA in order to complete functional tasks Short term goal 6: increase activity tolerance to 25+ minutes in order to participate in daily tasks Therapy Time Individual Concurrent Group Co-treatment Time In 0825 Time Out 0851 Minutes 26 co-eval with PT Timed Code Treatment Minutes: 8 Minutes Natalia Enrique OTR/L [facility] Daily Progress Note Surgeon: Dr. Espino S/P : CABG X 3 POD#: 1 EF: 60 % Subjective: Mr. Ford feels well today with no acute complaints. Pain is controlled on current medication regimen. Denies chest pain or shortness of breath. Plan of care reviewed and questions answered. Physical Exam Vital Signs: BP 115/66 Pulse 82 Temp 98.5 F (36.9 C) (Oral) Resp 10 Wt 233 lb 14.5 oz (106.1 kg) SpO2 96% BMI 34.54 kg/m O2 Flow Rate (L/min): 3 L/min Admit Weight: Weight: 218 lb 14.7 oz (99.3 kg) WEIGHTWeight: 233 lb 14.5 oz (106.1 kg) General: alert and oriented to person, place and time, well-developed and well-nourished, in no acute distress. Up in chair Heart: Normal S1 and S2. Regular rhythm. No murmurs, gallops, or rubs. Pacing Wires: Yes -To be clipped prior to discharge Lungs: clear to auscultation bilaterally and diminished breath sounds bibasilar Chest tubes: Yes, Air Leak: No Abdomen: soft, non tender, non distended, BS x4 Extremities: Trace edema Wounds: clean and dry, healing appropriately. Sternum: Covered SVG sites: Covered Scheduled Meds: cetirizine 10 mg Oral Daily vitamin B-12 1,000 mcg Oral Daily ferrous sulfate 225 mg Oral Daily [Held by provider] gabapentin 400 mg Oral TID [Held by provider] traZODone 50 mg Oral Nightly Vitamin D 1,000 Units Oral Daily sodium chloride flush 10 mL IntraVENous 2 times per day aspirin 81 mg Oral Daily clopidogrel 75 mg Oral Daily amiodarone 200 mg Oral TID mupirocin Nasal BID polyethylene glycol 17 g Oral Daily metoprolol tartrate 25 mg Oral BID atorvastatin 80 mg Oral Nightly pantoprazole 40 mg Oral Daily vancomycin (VANCOCIN) IV 1,500 mg IntraVENous Q12H ipratropium-albuterol 1 ampule Inhalation Q4H WA insulin glargine 0.15 Units/kg SubCUTAneous Nightly Continuous Infusions: sodium chloride propofol Stopped (05/27/21 1345) norepinephrine Stopped (05/28/21 0116) insulin 2.72 Units/hr (05/28/21 0620) dextrose EPINEPHrine Data: CBC: Recent Labs 05/27/21 1327 05/27/21 2331 05/28/21 0356 WBC 9.2 9.4 8.5 HGB 10.1* 9.3* 8.6* HCT 30.3* 28.1* 26.5* MCV 90.2 90.6 91.7 PLT 80* 90* 78* BMP: Recent Labs 05/27/21 1317 05/27/21 1327 05/27/21 2331 05/28/21 0356 NA -- 149* -- 142 K -- 4.2 4.2 4.8 CL -- 113* -- 105 CO2 -- 16* -- 22 BUN -- 22 -- 25* CREATININE 1.26* 1.23* -- 1.67* PT/INR: Recent Labs 05/27/21 1327 05/28/21 0356 PROTIME 11.9 11.2 INR 1.1 1.1 APTT: Recent Labs 05/27/21 1327 APTT 27.4 Chest X-Ray: Reviewed. Normal post-operative findings noted I/O: I/O last 3 completed shifts: In: 5477.8 [I.V.:3577.8; Blood:850; NG/GT:50; IV Piggyback:1000] Out: 3270 [Urine:2190; Blood:350; Chest Tube:730] Assessment/Plan: Diagnosis Date Arthritis Gastritis Hyperlipidemia Hypertension Neuro: Intact Lungs: Clear, diminished in the bases HD: VSS Edema: trace peripheral GI: Active bowel sounds X4 : Good urine output Beta-Mandie: yes ASA: yes Plavix: yes GI: yes Statin: yes Coumadin: no CANDE-I: no EF: 60% Oxygen as needed via nasal cannula to maintain SpO2 > 92% o Wean as tolerated Chest x-ray daily Keep Chest Tubes to wall suction ABLA d/t above Encourage incentive spirometry, acapella and ambulation Replace electrolytes as needed per sliding scale and recheck per policy Case Management consult for discharge planning The above recommendations including medications and orders were discussed and agreed upon with Dr. Espino, the attending on service for the cardiothoracic surgery group today. On this date 05/28/2021 I have spent 34 minutes reviewing previous notes, test results and face to face with the patient discussing the diagnosis and importance of compliance with the treatment plan as well as documenting on the day of the visit. At least 50% of the time documented was spent with the patient to provide counseling and/or coordination of care. This note was created with the assistance of a speech-recognition program. Although the intention is to generate a document that actually reflects the content of the visit, no guarantees can be provided that every mistake has been identified and corrected by editing. Note was updated later by me after physical examination and completion of the assessment. Notified Eug[address] RO[address] ROLLER ENGINEER with CT surgery of Pts ABG values after Cpaping for an hour. Orders received to extubate Pt. Pt extubated at 213 and tolerated well. Counterintelligence Specialist continuing to monitor. [place] Industrial Ecology Technician Documentation Note Admission Dx: CAD in [place] artery [I25.10] Past Medical History: has a past medical history of Arthritis, Gastritis, Hyperlipidemia, and Hypertension. Previous Testing: CATH 04/24/2021: MVD. EF 60%. STRESS 04/23/2021: No significant perfusion defects at stress or rest. EF 62%. ECHO 04/23/2021: EF 54%, trivial MR/TR, RVSP is 23 mmHg. Previous office/hospital visit: Rodo Win NP 05/14/2021: - Syncope - ECHO 04/23/2021 LV normal size. LVEF 54% Normal LV wall thickness. Mildly dilated RV cavity. RV function appears normal. Trivial MR and TR. Est RVSP 23 mmHg - STRESS 04/23/2021 No significant perfusion defect at stress or rest. LVEF 62% - CATH 04/24/2021 LM 30-40% LAD Prox 70% Mid LAD 80%. D1 prox 80%. LCx Prox 80% OM1 90% RCA Dist 70% R PDA Prox 80% LVEF 60% - CABG planned 05/20/2021 Plan -- 1. CAD s/p cath with MV-CAD Plan for CABG as scheduled on 05/20/2021. Currently chest pain free. Continue ASA, statin, BB, ARB. Also on HCTZ. 2. HTN Controlled. Continue BB, ARB, and HCTZ 3. Follow up after planned CABG 05/20/2021 Call with questions/concerns. Kristi Fabian RN [place] [employer] Ecology Technician documented in this encounter [employer] Phone: 05-28-2021 Hospital Discharge instructions Ritu Tirado RN - 05/28/2021 3:59 PM EST Continuity of Care Form Patient Name: Steven Ford Jr. : 1945 Admit date: 05/27/2021 Discharge date: 05/31/21 Code Status Order: Full Code Advance Directives: Advance Care Flowsheet Documentation Date/Time Healthcare Directive Type of Healthcare Directive Copy in Chart Healthcare Agent Appointed Healthcare Agent's Name Healthcare Agent's Phone Number 05/27/21 0605 No, patient does not have an advance directive for healthcare treatment -- -- -- -- -- Admitting Physician: Jeffrey Espino MD PCP: Arelis Forbes MD Discharging Nurse: janine Discharging Hospital Unit/Room#: 1010/1010-01 Discharging Unit Phone Number: [phone] Emergency Contact: Extended Emergency Contact Information Primary Emergency Contact: DONNY FORD Relation: Spouse Past Surgical History: Past Surgical History: Procedure Laterality Date BACK SURGERY Pt has has 5 back surgeries CARPAL TUNNEL RELEASE R hand CORONARY ARTERY BYPASS GRAFT N/A 05/27/2021 CABG X3, ON PUMP, EMILIE SVG-OM1, SVG-PDA, ZARAGOZA-LAD performed by Jeffrey Espino MD at [facility] CVOR JOINT REPLACEMENT L knee x 2 Immunization History: Immunization History Administered Date(s) Administered COVID-19, Pfizer Purple top, DILUTE for use, 12+ yrs, 30mcg/0.3mL dose 06/29/2020, 07/20/2020, 03/01/2021 Active Problems: Patient Active Problem List Diagnosis Code Near syncope R55 B12 deficiency E53.8 Iron deficiency anemia D50.9 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 Lumbosacral spondylosis without myelopathy M47.817 Syncope and collapse R55 Primary osteoarthritis of left knee M17.12 CAD in [place] artery I25.10 Isolation/Infection: Isolation No Isolation Patient Infection Status None to display Nurse Assessment: Last Vital Signs: BP (!) 100/56 Pulse 79 Temp 98.1 F (36.7 C) (Oral) Resp 12 Wt 233 lb 14.5 oz (106.1 kg) SpO2 94% BMI 34.54 kg/m Last documented pain score (0-10 scale): Pain Level: 5 Last Weight: Wt Readings from Last 1 Encounters: 05/28/21 233 lb 14.5 oz (106.1 kg) Mental Status: oriented, alert, and thought processes intact IV Access: - None Nursing Mobility/ADLs: Walking Independent Transfer Assisted Bathing Assisted Dressing Assisted Toileting Assisted Feeding Independent Business Office Director Independent Med Delivery whole Wound Care Documentation and Therapy: Elimination: Continence: Bowel: Yes Bladder: Yes Urinary Catheter: None Colostomy/Ileostomy/Ileal Conduit: No Date of Last BM: 05/31/21 Intake/Output Summary (Last 24 hours) at 05/28/2021 1559 Last data filed at 05/28/2021 0700 Gross per 24 hour Intake 3127.84 ml Output 1395 ml Net 1732.84 ml I/O last 3 completed shifts: In: 5477.8 [I.V.:3577.8; Blood:850; NG/GT:50; IV Piggyback:1000] Out: 3270 [Urine:2190; Blood:350; Chest Tube:730] Safety Concerns: { ClassifEye Safety Concerns:[id number]} Impairments/Disabilities: { STEPHANIE Impairments/Disabilities:[id number]} Nutrition Therapy: Current Nutrition Therapy: - Oral Diet: General Routes of Feeding: Oral Liquids: No Restrictions Daily Fluid Restriction: no Last Modified Barium Swallow with Video (Video Swallowing Test): not done Treatments at the Time of Hospital Discharge: Respiratory Treatments: Oxygen Therapy: is not on home oxygen therapy. Ventilator: - No ventilator support Rehab Therapies: Physical Therapy and Occupational Therapy Weight Bearing Status/Restrictions: No weight bearing restirctions Other Medical Equipment (for information only, NOT a DME order): walker Other Treatments: Patient's personal belongings (please select all that are sent with patient): None RN SIGNATURE: CASE MANAGEMENT/SOCIAL WORK SECTION Inpatient Status Date: 05-27-21 Readmission Risk Assessment Score: Readmission Risk Risk of Unplanned Readmission: 23 Discharging to Facility/ Agency Name: [facility] Address: [address] [place], [place] [address] Phone: Fax: Dialysis Facility (if applicable) Name: Address: Dialysis Schedule: Phone: Fax: Travel Agent/Lumite Injector signature: PHYSICIAN SECTION Prognosis: Good Condition at Discharge: Stable Rehab Potential (if transferring to Rehab): Good Recommended Labs or Other Treatments After Discharge: detention cardio/pulmonary assessment EVERY shift/visit with vital signs and SaO2 call abnormal results to Surgeon's office Notify Surgeon's office for temp >101.5 F Daily weight and record. Call for weight gain of 3 lbs in 3 days or 5-7lbs in 7 days Monitor surgical incisions for signs of infection (redness, warmth, pain, purulent drainage, odor) and call with abnormal findings. Leave incisions open to air unless drainage is prohibitive. Call with any signs of separation or dehiscence. Shower daily with warm water and mild soap. Pat dry with clean towel, do not rub. Heart Hugger and Surgical bra on during daytime Large breasted patients need to wear surgical or soft sports bra at all times to reduce tension on sternal incision Neli hose on during day time, rinse and dry overnight to prevent infection of leg incisions Strict Sternal Precautions: No lifting/pushing/pulling over 5lbs x 4 weeks, may increase 5-10 lbs per week after that as tolerated. Physical therapy BID, plus ambulation 3x per day in addition. Up in chair for all meals Reinforce Cardiac and Diabetic Diet, medication compliance and activity instructions Arrange for transportation to all appointments Patient needs to see Surgeon and Grape Pruner within 2 weeks of discharge. Physician Certification: I certify the above information and transfer of Steven Langston Logan Wood is necessary for the continuing treatment of the diagnosis listed and that he requires Home Care for less 30 days. Update Admission H&P: No change in H&P PHYSICIAN SIGNATURE: documented in this encounter [employer] Phone: 04-25-2021 History of Present illness Narrative CLINICAL PHARMACY NOTE: MEDS TO BEDS Total # of Prescriptions Filled: 1 The following medications were delivered to the patient: Metoprolol tart. 25 mg tab Additional Documentation:Medication delivered to the patient in room 404 @ 3:29pm clover payment. [facility] Progress Note 04/25/2021 11:42 AM Subjective: Mr. Ford Resting in bed with no CP or SOB. Objective: BP 127/63 Pulse 58 Temp 97.3 F (36.3 C) (Axillary) Resp 13 Ht 5' 9 (1.753 m) Wt 190 lb 11.2 oz (86.5 kg) SpO2 95% BMI 28.16 kg/m Chest: pacing wires: no, chest tubes:no, air leak no, 0 + CV: no murmur noted, Normal S1, S2, NSR Lungs: clear to auscultation, no wheezes, rales, or rhonchi Abd: normal bowel sounds Lower Extremities: Trace edema Saph Incison: no sign of drainage or infection Sternal Incison: dressing applied-no excessive drainage or signs of infection noted Labs: Labs reviewed today CBC: Recent Labs 04/22/21 1404 04/25/21 0710 WBC 6.4 7.1 HGB 12.2* 13.0 HCT 38.2* 38.2* MCV 90.7 86.8 PLT See Reflexed IPF Result See Reflexed IPF Result BMP: Recent Labs 04/22/21 1404 04/25/21 0710 NA 140 142 K 4.1 4.3 CL 103 105 CO2 25 23 BUN 29* 21 CREATININE 1.37* 1.04 I/O: I/O last 3 completed shifts: In: - Out: 400 [Urine:400] Scheduled Meds: sodium chloride flush 5-40 mL IntraVENous 2 times per day aspirin 81 mg Oral Daily atorvastatin 80 mg Oral Nightly metoprolol tartrate 25 mg Oral BID insulin lispro 0-6 Units SubCUTAneous TID WC insulin lispro 0-3 Units SubCUTAneous Nightly sodium chloride flush 5-40 mL IntraVENous 2 times per day enoxaparin 40 mg SubCUTAneous Daily traZODone 50 mg Oral Nightly Continuous Infusions: sodium chloride dextrose sodium chloride PRN Meds:sodium chloride flush, sodium chloride, acetaminophen, sodium chloride flush, sodium chloride flush, glucose, dextrose, glucagon (rDNA), dextrose, sodium chloride flush, sodium chloride, acetaminophen, ondansetron OR ondansetron Daily Nursing Care: Please keep SCDS in place as DVT prophylaxis If not intubated, Please have patient use IS and acapella 10X/hr or during commercial breaks Please continue BM management Daily labs and CXR Daily PT/OT and ambulation Continue with Case Management for DC planning Assessment/ Plan: Still pending ordered tests No plans for surgery on admission. Negative trops and no EKG ST depressions. Plan is to have patient worked up and come back on scheduled date for surgery. Time spent with patient 10 Time spent in chart10 STAS SWANN NP Images from the original note were not included. [employer] Techn[employer] Progress Note Date: 04/25/2021 Patient name: Steven Ford Jr. Date of admission: 04/22/2021 1:44 PM Date of : 1945 PCP: Arelis Forbes MD Reason for Admission: Near syncope [R55] Subjective: Clinical Changes /Abnormalities: Seen & examined in room. No acute CV issues/concerns overnight. Labs, vitals, & tele reviewed. No post cath issues/concerns. Awaiting CTS pre-op testing. Review of Systems Medications: Scheduled Meds: sodium chloride flush 5-40 mL IntraVENous 2 times per day aspirin 81 mg Oral Daily atorvastatin 80 mg Oral Nightly metoprolol tartrate 25 mg Oral BID insulin lispro 0-6 Units SubCUTAneous TID insulin lispro 0-3 Units SubCUTAneous Nightly sodium chloride flush 5-40 mL IntraVENous 2 times per day enoxaparin 40 mg SubCUTAneous Daily traZODone 50 mg Oral Nightly Continuous Infusions: sodium chloride dextrose sodium chloride CBC: Recent Labs 04/22/21 1404 04/25/21 0710 WBC 6.4 7.1 HGB 12.2* 13.0 PLT See Reflexed IPF Result See Reflexed IPF Result BMP: Recent Labs 04/22/21 1404 04/25/21 0710 NA 140 142 K 4.1 4.3 CL 103 105 CO2 25 23 BUN 29* 21 CREATININE 1.37* 1.04 GLUCOSE 116* 97 Hepatic: Recent Labs 04/25/21 0710 AST 24 ALT 26 BILITOT 0.71 ALKPHOS 69 Troponin: Recent Labs 04/22/21 1404 04/22/21 1859 TROPHS 12 10 BNP: No results for input(s): BNP in the last 72 hours. Lipids: No results for input(s): CHOL, HDL in the last 72 hours. Invalid input(s): LDLCALCU INR: No results for input(s): INR in the last 72 hours. Objective: Vitals: BP 127/63 Pulse 62 Temp 97.3 F (36.3 C) (Axillary) Resp 16 Ht 5' 9 (1.753 m) Wt 190 lb 11.2 oz (86.5 kg) SpO2 97% BMI 28.16 kg/m General appearance: alert and cooperative with exam HEENT: Head: Normocephalic, no lesions, without obvious abnormality. Neck:no JVD, trachea midline, no adenopathy Lungs: Clear to auscultation Heart: Regular rate and rhythm, s1/s2 auscultated, no murmurs Abdomen: soft, non-tender, bowel sounds active Extremities: no edema Neurologic: not done Stress Test 04/23/21 Impression Perfusion: No significant perfusion defects at stress or rest. Function: Normal. Normal left ventricular ejection fraction is 62%. Risk stratification: LOW Cardiac Cath 04/24/21 Findings: LMCA: Mild irregularities 30-40%. LAD: Multiple stenosis. Lesion on Prox LAD: 70% stenosis. Lesion on Mid LAD: 80% stenosis. Lesion on 1st Diag: Proximal subsection.80% stenosis. LCx: Multiple stenosis. Lesion on Prox CX: 80% stenosis. Lesion on 1st Ob Belkis: Proximal subsection.90% stenosis. RCA: Multiple stenosis.Ectatic vessel Lesion on Dist RCA: 70% stenosis. Lesion on R PDA: Proximal subsection.80% stenosis. Coronary Tree Dominance: Right LV Analysis LV function assessed as:Normal. The LV gram was performed in the DIXON 30 position. LVEF: 60%. Conclusions: Multi-vessel Coronary Artery Disease. Normal LV systolic function. Recommendations CTS consult for CABG. Medical therapy as needed. Risk factor modification. [facility] 04/23/21 Summary Left ventricle is normal in size. Global left ventricular systolic function is normal. Calculated EF via 3D Heart Model is 54 %. Normal left ventricular wall thickness. Mildly dilated right ventricular cavity. Right ventricular function appears normal . Trivial mitral regurgitation. Trivial tricuspid regurgitation. Estimated right ventricular systolic pressure is 23 mmHg. Assessment / Acute Cardiac Problems: 1. Syncope 2. CAD/MVD as above 3. Preserved LVEF 4. Hx of ETOH use Patient Active Problem List: Near syncope Plan of Treatment: 1. Stable from CV standpoint. No further syncopal events. No CP or SOB overnight. 2. CTS pre-op testing ordered. Discussed with CTS ROAD ROLLER ENGINEER Eugenio and will likely plan for CABG as an outpatient. 3. Reviewed with Dr. Almanza and OK for discharge with OP surgery scheduled per CTS 4. Continue PO ASA, statin, & BB on discharge. [employer] [phone] ADDENDUM: Dr. Rodriguez spoke with Dr. Hawkins and will add on for cath today d/t symptoms concerning of angina at time of event. [facility] CDU / OBSERVATION ENCOUNTER ATTENDING NOTE I performed a history and physical examination of the patient and discussed management with the resident or midlevel provider. I reviewed the resident or midlevel provider's note and agree with the documented findings and plan of care. Any areas of disagreement are noted on the chart. I was personally present for the hartley portions of any procedures. I have documented in the chart those procedures where I was not present during the hartley portions. I have reviewed the nurses notes. I agree with the chief complaint, past medical history, past surgical history, allergies, medications, social and family history as documented unless otherwise noted below. The Family history, social history, and ROS are effectively unchanged since admission unless noted elsewhere in the chart. Patient with positive catheterization yesterday for multivessel disease. Patient kept for CT surgery evaluation. Patient for preop planning for coronary artery bypass. No medical complaint today. Coordinated with CT surgery. Kalani Rodriguez MD Attending Emergency Physician OBS/CDU RESIDENT NOTE Patients PCP is: Arelis Forbes MD SUBJECTIVE No acute events overnight. He reports feeling well today, denies chest pain or shortness of breath. Denies dizziness and syncopal episodes overnight. Patient underwent cath yesterday demonstrated multivessel coronary artery disease. I discussed this with the patient and that the recommendation was for surgery. Patient reports that he spoke with python web developer named him he leaves early follow-up with surgery next week. Patient tolerating food and reports that he feels ready to go home. PHYSICAL EXAM General: NAD, AO X 3 Heent: EMOI, PERRL Neck: SUPPLE, NO JVD Cardiovascular: Regular rate and rhythm, S1-2 auscultated Pulmonary: CTAB, NO SOB Abdomen: SOFT, NTTP, ND, +BS Extremities: +2/4 PULSES DISTAL, NO SWELLING Neuro / Psych: NO NUMBNESS OR TINGLING, MENTATION AT BASELINE PERTINENT TEST /EXAMS I have reviewed all available laboratory results. MEDICATIONS CURRENT sodium chloride flush 0.9 % injection 5-40 mL, 2 times per day sodium chloride flush 0.9 % injection 5-40 mL, PRN 0.9 % sodium chloride infusion, PRN acetaminophen (TYLENOL) tablet 650 mg, Q4H PRN aspirin EC tablet 81 mg, Daily atorvastatin (LIPITOR) tablet 80 mg, Nightly metoprolol tartrate (LOPRESSOR) tablet 25 mg, BID sodium chloride flush 0.9 % injection 10 mL, PRN sodium chloride flush 0.9 % injection 10 mL, PRN insulin lispro (HUMALOG) injection vial 0-6 Units, TID WC insulin lispro (HUMALOG) injection vial 0-3 Units, Nightly glucose (GLUTOSE) 40 % oral gel 15 g, PRN dextrose 50 % IV solution, PRN glucagon (rDNA) injection 1 mg, PRN dextrose 5 % solution, PRN sodium chloride flush 0.9 % injection 5-40 mL, 2 times per day sodium chloride flush 0.9 % injection 5-40 mL, PRN 0.9 % sodium chloride infusion, PRN enoxaparin (LOVENOX) injection 40 mg, Daily acetaminophen (TYLENOL) tablet 650 mg, Q4H PRN ondansetron (ZOFRAN-ODT) disintegrating tablet 4 mg, Q8H PRN Or ondansetron (ZOFRAN) injection 4 mg, Q6H PRN traZODone (DESYREL) tablet 50 mg, Nightly All medication charted and reviewed. CONSULTS IP CONSULT TO CARDIOLOGY ASSESSMENT/PLAN Steven Ford Jr. is a 76 y.o. male who presents for syncopal episode sitting and story consistent with diaphoresis. Patient was admitted for cardiac work-up of syncope. Stress test was inconclusive yesterday, echocardiogram showed normal action fraction. There was mildly dilated right ventricular cavity however left ventricular function was normal. Patient was reevaluated by cardiology today, patient will be taken to cardiac catheterization lab for evaluation of coronary vessels, as patient story was highly suggestive of a cardiac etiology for his syncope and diaphoresis. Patient was doing well today. 1) syncopal episode secondary to cardiac source -Cardiac cath demonstrating multivessel disease and plan for patient to undergo CABG next week with cardiothoracic surgery Appreciate CTS recommendations, will follow up with case management for DC planning Perioperative cardiac evaluation ongoing 2) type 2 diabetes -Sliding scale insulin coverage Continue home medications and pain control Monitor vitals, labs, and imaging DISPO: pending consults and clinical improvement -- Zhanna Priest DO Emergency Medicine Resident Physician This dictation was generated by voice recognition computer software. Although all attempts are made to edit the dictation for accuracy, there may be errors in the locomotive crane operator that are not intended. [facility] CDU / OBSERVATION ENCOUNTER ATTENDING NOTE I performed a history and physical examination of the patient and discussed management with the resident or midlevel provider. I reviewed the resident or midlevel provider's note and agree with the documented findings and plan of care. Any areas of disagreement are noted on the chart. I was personally present for the hartley portions of any procedures. I have documented in the chart those procedures where I was not present during the hartley portions. I have reviewed the nurses notes. I agree with the chief complaint, past medical history, past surgical history, allergies, medications, social and family history as documented unless otherwise noted below. The Family history, social history, and ROS are effectively unchanged since admission unless noted elsewhere in the chart. Patient discussed at length with cardiology. Patient was felt to require further evaluation with cardiac catheterization. Cardiac catheterization was performed showing multivessel disease. Patient will be evaluated by cardiothoracic surgery for CABG Kalani Rodriguez MD Attending Emergency Physician all of air removed from TR band, no bleeding or hematoma noted. Radial pulse palpable. [facility] Cardiothoracic Surgery CONSULTATION CC: Multivessel CAD HPI: Mr. Ford is a 76 y.o. male who presents s/p cardiac cath with Dr Almanza. Patient initially presented to the emergency department after a syncopal episode while on a walk with his . Pertinent medical history includes hypertension, hyperlipidemia, history of ETOH/nicotine dependence. 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 Patient admits to chronic back pain, denies chest pain and shortness of breath at this time. He has been referred for consideration of coronary revascularization. PMH: has a past medical history of Arthritis, Gastritis, Hyperlipidemia, and Hypertension. PSH: has a past surgical history that includes back surgery; joint replacement; and Carpal tunnel release. Allergies: Allergies Allergen Reactions Other Swelling Penicillins Other (See Comments) and Swelling Redness, lower extremity swelling Pregabalin Swelling Sulfa Antibiotics Other (See Comments) Redness and lower extremity swelling Medications: Current Facility-Administered Medications: sodium chloride flush 0.9 % injection 5-40 mL, 5-40 mL, IntraVENous, 2 times per day, Tiffany Steiner MD sodium chloride flush 0.9 % injection 5-40 mL, 5-40 mL, IntraVENous, PRN, Tiffany Steiner MD 0.9 % sodium chloride infusion, 25 mL, IntraVENous, PRN, Tiffany Steiner MD acetaminophen (TYLENOL) tablet 650 mg, 650 mg, Oral, Q4H PRN, Tiffany Steiner MD aspirin EC tablet 81 mg, 81 mg, Oral, Daily, Tiffany Steiner MD atorvastatin (LIPITOR) tablet 80 mg, 80 mg, Oral, Nightly, Tiffany Steiner MD metoprolol tartrate (LOPRESSOR) tablet 25 mg, 25 mg, Oral, BID, Tiffany Steiner MD sodium chloride flush 0.9 % injection 10 mL, 10 mL, IntraVENous, PRN, Demetrio Hawkins MD, 10 mL at 04/23/21 1311 sodium chloride flush 0.9 % injection 10 mL, 10 mL, IntraVENous, PRN, Demetrio Hawkins MD, 10 mL at 04/24/21 0918 insulin lispro (HUMALOG) injection vial 0-6 Units, 0-6 Units, SubCUTAneous, TID WC, Kalani Rodriguez MD insulin lispro (HUMALOG) injection vial 0-3 Units, 0-3 Units, SubCUTAneous, Nightly, Kalani Rodriguez MD glucose (GLUTOSE) 40 % oral gel 15 g, 15 g, Oral, PRN, Kalani Rodriguez MD dextrose 50 % IV solution, 12.5 g, IntraVENous, PRN, Kalani Rodriguez MD glucagon (rDNA) injection 1 mg, 1 mg, IntraMUSCular, PRN, Kalani Rodriguez MD dextrose 5 % solution, 100 mL/hr, IntraVENous, PRN, Kalani Rodriguez MD sodium chloride flush 0.9 % injection 5-40 mL, 5-40 mL, IntraVENous, 2 times per day, Larry Stoddard, DO, 10 mL at 04/24/21 0919 sodium chloride flush 0.9 % injection 5-40 mL, 5-40 mL, IntraVENous, PRN, Larry Stoddard, DO 0.9 % sodium chloride infusion, 25 mL, IntraVENous, PRN, Larry Stoddard, DO enoxaparin (LOVENOX) injection 40 mg, 40 mg, SubCUTAneous, Daily, Larry Stoddard, DO, 40 mg at 04/24/21 0918 acetaminophen (TYLENOL) tablet 650 mg, 650 mg, Oral, Q4H PRN, Larry Stoddard, DO ondansetron (ZOFRAN-ODT) disintegrating tablet 4 mg, 4 mg, Oral, Q8H PRN OR ondansetron (ZOFRAN) injection 4 mg, 4 mg, IntraVENous, Q6H PRN, Larry Stoddard, DO traZODone (DESYREL) tablet 50 mg, 50 mg, Oral, Nightly, Cayden Hawkins, , 50 mg at 04/23/21 8929 Social Hx: reports that he has never smoked. He has never used smokeless tobacco. Family Hx: Significant cardiac history including Dad (at 50 yo) and two younger brothers who all had CABG. ROS: Review of Systems Constitutional: Positive for activity change and fatigue. Negative for appetite change, chills, diaphoresis and fever. HENT: Negative for congestion. Eyes: Negative for visual disturbance. Respiratory: Negative for shortness of breath. Cardiovascular: Negative for chest pain. Gastrointestinal: Negative for abdominal pain, constipation and diarrhea. Genitourinary: Negative for dysuria. Musculoskeletal: Positive for back pain. Neurological: Negative for dizziness, weakness and light-headedness. Psychiatric/Behavioral: Negative for suicidal ideas. The patient is nervous/anxious. Physical Examination Vitals: Vitals: 04/24/21 1630 BP: (!) 151/74 Pulse: 75 Resp: 18 Temp: SpO2: 95% Physical Exam Vitals reviewed. Constitutional: General: He is not in acute distress. Appearance: Normal appearance. He is obese. He is not ill-appearing. HENT: Head: Normocephalic. Nose: Nose normal. Mouth/Throat: Mouth: Mucous membranes are moist. Pharynx: Oropharynx is clear. Eyes: Conjunctiva/sclera: Conjunctivae normal. Pupils: Pupils are equal, round, and reactive to light. Cardiovascular: Rate and Rhythm: Normal rate and regular rhythm. Pulses: Normal pulses. Heart sounds: Normal heart sounds. Pulmonary: Effort: Pulmonary effort is normal. Breath sounds: Normal breath sounds. Abdominal: Palpations: Abdomen is soft. Tenderness: There is no abdominal tenderness. Musculoskeletal: General: Normal range of motion. Cervical back: Normal range of motion. Right lower leg: No edema. Left lower leg: No edema. Skin: General: Skin is warm and dry. Capillary Refill: Capillary refill takes less than 2 seconds. Neurological: General: No focal deficit present. Mental Status: He is alert and oriented to person, place, and time. Psychiatric: Mood and Affect: Mood normal. Behavior: Behavior normal. Labs: CBC: Recent Labs 04/22/21 1404 WBC 6.4 HGB 12.2* HCT 38.2* MCV 90.7 PLT See Reflexed IPF Result BMP: Recent Labs 04/22/21 1404 NA 140 K 4.1 CL 103 CO2 25 BUN 29* CREATININE 1.37* Accucheck Glucoses: Recent Labs 04/23/21 1643 04/23/21 2112 04/24/21 0741 04/24/21 1124 POCGLU 69* 105 96 98 Cardiac Enzymes: No results for input(s): CKTOTAL, CKMB, CKMBINDEX, TROPONINI in the last 72 hours. PT/INR: No results for input(s): PROTIME, INR in the last 72 hours. APTT: No results for input(s): APTT in the last 72 hours. Liver Profile: No results found for: AST, ALT, ALB, BILIDIR, BILITOT, ALKPHOS, GGT, 5NUCNo results found for: CHOL, HDL, TRIG TSH: No results found for: TSH UA: Lab Results Component Value Date COLORU Dark Yellow 04/22/2021 PHUR 6.0 04/22/2021 SPECGRAV 1.018 04/22/2021 LEUKOCYTESUR NEGATIVE 04/22/2021 UROBILINOGEN Normal 04/22/2021 BILIRUBINUR NEGATIVE 04/22/2021 GLUCOSEU NEGATIVE 04/22/2021 Testing: Cardiac cath: Multi-vessel Coronary Artery Disease. Normal LV systolic function. Recommendations: CTS consult for CABG. Medical therapy as needed. Risk factor modification. Signature: Angiographic Findings: Cardiac Arteries and Lesion Findings LMCA: Mild irregularities 30-40%. LAD: Multiple stenosis. Lesion on Prox LAD: 70% stenosis. Lesion on Mid LAD: 80% stenosis. Lesion on 1st Diag: Proximal subsection.80% stenosis. LCx: Multiple stenosis. Lesion on Prox CX: 80% stenosis. Lesion on 1st Ob Belkis: Proximal subsection.90% stenosis. RCA: Multiple stenosis.Ectatic vessel Lesion on Dist RCA: 70% stenosis. Lesion on R PDA: Proximal subsection.80% stenosis. Coronary Tree Dominance: Right LV Analysis LV function assessed as:Normal. Ejection Fraction + -----+---+ !Method !EF%! + -----+---+ !LV gram !60 ! + -----+---+ Echo: Left ventricle is normal in size. Global left ventricular systolic function is normal. Calculated EF via 3D Heart Model is 54 %. Normal left ventricular wall thickness. Mildly dilated right ventricular cavity. Right ventricular function appears normal . Trivial mitral regurgitation. Trivial tricuspid regurgitation. Estimated right ventricular systolic pressure is 23 mmHg. Signature FINDINGS Left Atrium Left atrium is normal in size. Left Ventricle Left ventricle is normal in size. Global left ventricular systolic function is normal. Calculated EF via 3D Heart Model is 54 %. Normal left ventricular wall thickness. Right Atrium Right atrium is normal size . Right Ventricle Mildly dilated right ventricular cavity. Right ventricular function appears normal . Mitral Valve Normal mitral valve structure. Trivial mitral regurgitation. No mitral stenosis. Aortic Valve Aortic valve structure and function normal. Aortic valve is trileaflet. No aortic insufficiency. No aortic stenosis. Tricuspid Valve Normal tricuspid valve leaflets. Trivial tricuspid regurgitation. No tricuspid stenosis. Estimated right ventricular systolic pressure is 23 mmHg. Pulmonic Valve Pulmonic valve is normal in structure and function. No pulmonic insufficiency. No evidence of pulmonic stenosis. Pericardial Effusion No pericardial effusion seen. CXR: ONE XRAY VIEW OF THE CHEST 04/22/2021 1:56 pm COMPARISON: None. HISTORY: ORDERING SYSTEM PROVIDED HISTORY: Near syncope, dizziness TECHNOLOGIST PROVIDED HISTORY: Near syncope, dizziness FINDINGS: The lungs are without acute focal process. There is no effusion or pneumothorax. The cardiomediastinal silhouette is without acute process. The osseous structures are without acute process. Impression No acute process. CT scan: ordered Imaging Studies: I have personally reviewed the testing/imaging above with Dr Espino, he is in agreement with the findings listed above. In summary, Mr. Ford is a 76 y.o. year-old male with multivessel CAD. Problem List: Multivessel CAD s/p cardiac catheterization Syncope and collapse Hypertension Hyperlipidemia B12 deficiency Obesity, 30.96 History of ETOH and tobacco dependence Recommendation: Per discussion with Dr Espino, patient to have pre-operative testing completed and reviewed prior to determining surgical candidacy. I have discussed the proposed procedure, along with its risk, benefits, and therapeutic alternatives. Specific risks discussedincluded , stroke, mediastinitis, re-operation for bleeding, and atrial fibrillation. We have also discussed the potential need for blood transfusion, along with its risks and benefits. He appears to understand,and consents to proceed. Surgical intervention to be determined. On this date 04/24/2021 I have spent 50 minutes reviewing previous notes, test results and face to face with the patient discussing the diagnosis and importance of compliance with the treatment plan as well as documenting on the day of the visit. At least 50% of the time documented was spent with the patient to provide counseling and/or coordination of care. Eugenio Griffith, STAS - CIDER PRESS OPERATOR OBS/CDU RESIDENT NOTE Patients PCP is: Arelis Forbes MD SUBJECTIVE No acute events overnight. Has been able to tolerate a full diet without nausea or vomiting. The patient is urinating on his own and is passing flatus. Denies fever, chills, nausea, vomiting, chest pain, shortness of breath, abdominal pain, focal weakness, numbness, tingling, urinary/bowel symptoms, vision changes, visual hallucinations, or headache. Patient has not had any new episodes of chest pain shortness of breath dizziness drowsiness or other constitutional symptoms. Patient has remained hemodynamically stable. PHYSICAL EXAM General: NAD, AO X 3 Heent: EMOI, PERRL Neck: SUPPLE, NO JVD Cardiovascular: RRR, S1S2 Pulmonary: CTAB, NO SOB Abdomen: SOFT, NTTP, ND, +BS Extremities: +2/4 PULSES DISTAL, NO SWELLING Neuro / Psych: NO NUMBNESS OR TINGLING, MENTATION AT BASELINE PERTINENT TEST /EXAMS I have reviewed all available laboratory results. MEDICATIONS CURRENT sodium chloride flush 0.9 % injection 10 mL, PRN sodium chloride flush 0.9 % injection 10 mL, PRN insulin lispro (HUMALOG) injection vial 0-6 Units, TID WC insulin lispro (HUMALOG) injection vial 0-3 Units, Nightly glucose (GLUTOSE) 40 % oral gel 15 g, PRN dextrose 50 % IV solution, PRN glucagon (rDNA) injection 1 mg, PRN dextrose 5 % solution, PRN sodium chloride flush 0.9 % injection 5-40 mL, 2 times per day sodium chloride flush 0.9 % injection 5-40 mL, PRN 0.9 % sodium chloride infusion, PRN enoxaparin (LOVENOX) injection 40 mg, Daily acetaminophen (TYLENOL) tablet 650 mg, Q4H PRN ondansetron (ZOFRAN-ODT) disintegrating tablet 4 mg, Q8H PRN Or ondansetron (ZOFRAN) injection 4 mg, Q6H PRN traZODone (DESYREL) tablet 50 mg, Nightly All medication charted and reviewed. CONSULTS IP CONSULT TO CARDIOLOGY ASSESSMENT/PLAN Steven Ford Jr. is a 76 y.o. male who presents for syncopal episode sitting and story consistent with diaphoresis. Patient was admitted for cardiac work-up of syncope. Stress test was inconclusive yesterday, echocardiogram showed normal action fraction. There was mildly dilated right ventricular cavity however left ventricular function was normal. Patient was reevaluated by cardiology today, patient will be taken to cardiac catheterization lab for evaluation of coronary vessels, as patient story was highly suggestive of a cardiac etiology for his syncope and diaphoresis. Patient was doing well today. 1) syncopal episode -Echo was grossly unremarkable, within normal limits, troponin was negative and BNP was in the 300s. Although there was low suspicion based off of lab values and the echo for CAD, patient's concerning history for diaphoresis with syncope while seated is still very concerned, therefore decision was made to go ahead and take the patient to the cardiac catheterization lab. Following the results of cardiac catheterization, plan to discharge patient if clear. Pending further cardiology recommendations if abnormal cardiac catheterization. 2) type 2 diabetes -Sliding scale insulin coverage Continue home medications and pain control Monitor vitals, labs, and imaging DISPO: pending consults and clinical improvement -- Abdifatah Ramirez DO Emergency Medicine Resident Physician This dictation was generated by voice recognition computer software. Although all attempts are made to edit the dictation for accuracy, there may be errors in the locomotive crane operator that are not intended. Images from the original note were not included. [employer] Techn[employer] Progress Note Date: 04/24/2021 Patient name: Steven Ford Jr. Date of admission: 04/22/2021 1:44 PM Date of : 1945 PCP: Arelis Forbes MD Reason for Admission: Near syncope [R55] Subjective: Clinical Changes /Abnormalities: Seen & examined in room after discussing with RN. No acute CV issues/concerns overnight. Labs, vitals, & tele reviewed. Review of Systems Medications: Scheduled Meds: insulin lispro 0-6 Units SubCUTAneous TID WC insulin lispro 0-3 Units SubCUTAneous Nightly sodium chloride flush 5-40 mL IntraVENous 2 times per day enoxaparin 40 mg SubCUTAneous Daily traZODone 50 mg Oral Nightly Continuous Infusions: dextrose sodium chloride CBC: Recent Labs 04/22/21 1404 WBC 6.4 HGB 12.2* PLT See Reflexed IPF Result BMP: Recent Labs 04/22/21 1404 NA 140 K 4.1 CL 103 CO2 25 BUN 29* CREATININE 1.37* GLUCOSE 116* Hepatic:No results for input(s): AST, ALT, ALB, BILITOT, ALKPHOS in the last 72 hours. Troponin: Recent Labs 04/22/21 1404 04/22/21 1859 TROPHS 12 10 BNP: No results for input(s): BNP in the last 72 hours. Lipids: No results for input(s): CHOL, HDL in the last 72 hours. Invalid input(s): LDLCALCU INR: No results for input(s): INR in the last 72 hours. Objective: Vitals: BP 123/69 Pulse 63 Temp 97.5 F (36.4 C) (Oral) Resp 18 Ht 5' 9 (1.753 m) Wt 209 lb 10.5 oz (95.1 kg) SpO2 94% BMI 30.96 kg/m General appearance: alert and cooperative with exam HEENT: Head: Normocephalic, no lesions, without obvious abnormality. Neck:no JVD, trachea midline, no adenopathy Lungs: Clear to auscultation Heart: Regular rate and rhythm, s1/s2 auscultated, no murmurs Abdomen: soft, non-tender, bowel sounds active Extremities: no edema Neurologic: not done Stress Test 04/23/21 Impression Perfusion: No significant perfusion defects at stress or rest. Function: Normal. Normal left ventricular ejection fraction is 62%. Risk stratification: LOW Assessment / Acute Cardiac Problems: 1. Syncope Patient Active Problem List: Near syncope Plan of Treatment: 1. Stable from CV standpoint. No further syncopal events. Orthostatics negative and stress test negative. 2. Continue oral hydration 3. Echo completed and pending read. If low risk will be OK for discharge from CV standpoint. [employer] [phone] ADDENDUM: Dr. Rodriguez spoke with Dr. Hawkins and will add on for cath today d/t symptoms concerning of angina at time of event. Echo completed in the echo lab documented in this encounter [employer] Phone: 10-28-2020 Note Admission Informatio n DATE OF PROCEDURE/ADMISSION: 10/24/2020 PREOPERATIVE DIAGNOSES: 1. Prior L3-S1 decompression and fusion 2. L2-3 degenerative disc disease 3. L2-3 lumbar stenosis with neurogenic claudication 4. L2-3 spondylolisthesis, grade 1 5. Obesity with BMI of 34 POSTOPERATIVE DIAGNOSES: 1. Prior L3-S1 decompression and fusion 2. L2-3 degenerative disc disease 3. L2-3 lumbar stenosis with neurogenic claudication 4. L2-3 spondylolisthesis, grade 1 5. Obesity with BMI of 34 OPERATION PERFORMED: 1. L3-S1 exploration of fusion 2. L3-S1 removal of instrumentation 3. L2-3 bilateral laminectomy, partial medial facetectomies and foraminotomies of L2 and L3 nerve roots along with total facetectomy at L2-3 on the right for complete decompression of the right L2 nerve root 4. L2-S1 posterior spinal fusion extension 5. L2-3 posterior spinal instrumentation, Overwatch, Spinal Elements 6. Use of local autograft bone and crushed cancellous chips SURGEON: Lionel Tomlinson MD INDICATIONS: This is a 75-year-old male who underwent a L3-S1 decompression and fusion win 2018. He developed refractory back and right leg buttock from adjacent level lumbar stenosis and degenerative spondylolisthesis at L2-3. Patient had failed full conservative therapy including medication management, physical therapy. Due to the persistence of symptoms and reduction in the ADLs, patient elected surgical treatment. Patient, therefore, understood indications for the surgery as well as its risks, benefits, and alternatives. These risks include but are not limited to paralysis, infection, hematoma, dural tear, nerve root injury, nonunion, DVT/PE, AZ, stroke, etc. All questions were answered. Informed consent was obtained. DATE OF DISCHARGEL 10/27/2020 Hospital Course Patient admitted on the above date and had the above procedure performed. No complications during surgery. Patient then transferred to the PACU and to the ortho/neuro floor for post-op care. The patient's pain was initially controlled with IV pain medications, but we were able to transition to oral pain medications soon after their arrival to the floor. Their pain remained under good control throughout their hospital stay. Patient had improvement of their radicular symptoms. Patient was up and ambulating with Physical Therapy on POD#1. He c/o shakiness in his hands which improved with switching from Percocet to Lawson. Patient also required straight cath x 1 and patient was then able to void. BP low and medications held. POD#2 patient continued to do well. BP improved. POD#3 hgb improved to 9.4. He was given a dose of Decadron for burning in his hips. Ambulating well with PT. Hemovac drain was kept in place. The patient had a bowel movement prior to discharge. The patient was seen by Physical Therapy and found to be an ideal candidate for discharge to home. Patient was then safely discharged to home on the above date. Medications Home atorvastatin 40 mg oral tablet, 40 mg= 1 tabs, Oral, HS (at bedtime) cyanocobalamin 1000 mcg oral tablet, 1000 mcg= 1 tabs, Oral, Daily gabapentin 400 mg oral capsule, 400 mg= 1 caps, Oral, TID hydroCHLOROthiazide 25 mg oral tablet, 25 mg= 1 tabs, Oral, Daily losartan 100 mg oral tablet, 100 mg= 1 tabs, Oral, Daily multivitamin, 1 tabs, Oral, qAM pantoprazole 20 mg oral delayed release tablet, 20 mg= 1 tabs, Oral, Daily traMADol 50 mg oral tablet, 50 mg= 1 tabs, Oral, HS (at bedtime) ZyrTEC 10 mg oral tablet, 10 mg= 1 tabs, Oral, qAM Prescriptions No active Prescriptions Physical Exam Vitals & Measurements T: 36.4 ?C (Oral) HR: 74 (Peripheral) RR: 20 BP: 133/76 SpO2: 93% HT: 18 cm WT: 107.5 kg BMI: 31.11 AFebrile and VSS Dressing- C/D/I 5/5 muscle strength bilateral lower extremities Sensory intact to touch LE Additional Vitals No qualifying data available. Discharge Plan Patient to resume a regular diet. Resume home medications except for NSAIDs or blood thinners. Resume asa on POD#2 and all other blood thinners POD#5, unless instructed otherwise. Okay to resume NSAIDs 6 months after surgery. Take previously prescribed narcotic pain medications. Okay to take a shower without submerging the incision. Change dressing daily until incision is clean and dry, then leave open to air. Wear brace at all times when up and ambulating. Limit heavy lifting, bending and twisting until first postoperative visit. Follow up with Dr. Cifuentes 6 weeks after discharge as previously scheduled. Patient Discharge Condition Stable Discharge Disposition Home with for drain management Electronically signed by Tomás Fishman PA-C 10/29/20 10:21 EDT [address] by [facility] CLARK, Lionel Gonzalez 11/07/2020 10:05 [facility] 10-24-2020 Note Operative Report DATE OF PROCEDURE: 10/24/2020 PREOPERATIVE DIAGNOSES: 1. Prior L3-S1 decompression and fusion 2. L2-3 degenerative disc disease 3. L2-3 lumbar stenosis with neurogenic claudication 4. L2-3 spondylolisthesis, grade 1 5. Obesity with BMI of 34 POSTOPERATIVE DIAGNOSES: 1. Prior L3-S1 decompression and fusion 2. L2-3 degenerative disc disease 3. L2-3 lumbar stenosis with neurogenic claudication 4. L2-3 spondylolisthesis, grade 1 5. Obesity with BMI of 34 OPERATION PERFORMED: 1. L3-S1 exploration of fusion 2. L3-S1 removal of instrumentation 3. L2-3 bilateral laminectomy, partial medial facetectomies and foraminotomies of L2 and L3 nerve roots along with total facetectomy at L2-3 on the right for complete decompression of the right L2 nerve root 4. L2-S1 posterior spinal fusion extension 5. L2-3 posterior spinal instrumentation, Overwatch, Spinal Elements 6. Use of local autograft bone and crushed cancellous chips SURGEON: Lionel Tomlinson MD CLAIMS ADJUSTER: Tomás Fishman and Norris Jeff PA-C They assisted throughout the procedure with positioning, draping, retraction, wound closure and dressing application. ANESTHESIA: General. INDICATIONS: This is a 75-year-old male who underwent a L3-S1 decompression and fusion win 2018. He developed refractory back and right leg buttock from adjacent level lumbar stenosis and degenerative spondylolisthesis at L2-3. Patient had failed full conservative therapy including medication management, physical therapy. Due to the persistence of symptoms and reduction in the ADLs, patient elected surgical treatment. Patient, therefore, understood indications for the surgery as well as its risks, benefits, and alternatives. These risks include but are not limited to paralysis, infection, hematoma, dural tear, nerve root injury, nonunion, DVT/PE, AZ, stroke, etc. All questions were answered. Informed consent was obtained. OPERATIVE PROCEDURE: The patient was taken to the operating room by the Anesthesiology Service and had satisfactory general anesthesia. IV Vancomycin given preoperatively due to a penicillin allergy. Venous thromboembolic prophylaxis was performed with sequential devices. The patient was then positioned prone on a standard OSI frame with the abdomen hanging free and all bony prominences well padded. The low back was then prepped and draped in its entirety in the usual sterile fashion. Before incision, a formal time-out was taken per protocol. We next took a midline longitudinal approach and performed subperiosteal dissection out to the tips of the transverse processes of L2 and fusion mass/instrumentation L3-S1. Intraoperative localization of level was confirmed using patient's old instrumentation. We then explored his prior fusion from L3-S1. Patient had a solid, robust fusion so we elected to remove the pedicle screws from L4-S1 and leave the L3 screws in place. The crosslink and bilateral rods were also removed. We then began the laminectomy as well as decompression by removal of the spinous process of L2. Microcurettes were used to remove scar tissue adhered to the dura from his prior operation. We entered the spinal canal, resecting the ligamentum flavum in its entirety over this region. Partial medial facetectomy was then performed with an osteotome to get lateral to the facet overhang, but just medial to the pedicles and nerve roots. Kerrison's were then used to perform foraminotomies of the L2 and L3 nerve roots bilaterally. In order to get further lateral to the right L2 nerve root, total facetectomy was then performed at L2-3 on the right. In this way, the right L2 nerve root was completely visualized and foraminized. In this way, we completed decompression at L2-3 with foraminotomies of the L2 and L3 nerve roots bilaterally. Satisfied with this, we then turned our attention to perform spinal instrumentation and posterolateral fusion. Using anatomic landmarks and guided by direct visualization of the pedicles from within the canal, pedicle screws were placed bilaterally at L2. All the screws were completely interosseous as determined by bony palpation. Before the screws were inserted, the transverse processes were decorticated with a high-speed bur at L2 and fusion mass L3-4. Local allograft bone combined with crushed cancellous chips was then placed over the decorticated elements bilaterally. The screws were then inserted which were under tapped by 1 mm. Two rods were placed from L2-3, set screws engaged and tightened down to their final torque. Everything was tightened down. A very rigid construct was achieved. Final x-ray was taken, demonstrated good position of the spine and all of the implants. Satisfied with this, we then achieved hemostasis. We then copiously irrigated the wound. We then inserted a Hemovac drain through a separate stab incision. The wound was then closed in layer with interrupted 1 and 2-0 Vicryl sutures and dusted with 2 g vancomycin powder. A 3-0 Monocryl (more content not included)... [facility] 10-23-2020 Note Chief Complaint Lumbar pain History of Present Illness The patient is a 75-year-old male with complaints of low back pain that radiates pain into the right buttock. Patient is s/p L3-S1 decompression and fusion in 2018. He reports symptoms began over a year ago. No injury or fall. He does have N/T in the feet. Current VAS score 4/10. Percentage stoddard, 50% pain in the back and 50% right leg. Activities that aggravate the pain include standing and walking. Rest helps relieve the pain. Modifying factors include medication management and PT. No bowel or bladder incontinence. He also had a prior cervical surgery in 07/2020. Former smoker. PCP: Venkatesh Gallagher MD Review of Systems Constitutional: No fevers, chills Respiratory: No shortness of breath, cough Cardiovascular: No chest pain, palpitations Gastrointestinal: No nausea, vomiting, incontinence Genitourinary: No dysuria or incontinence Musculoskeletal: (+) back pain, leg pain Neurologic: (+) numbness/tingling, no h/a Psychiatric: No anxiety, depression Physical Exam Vital Signs: Ht 5'9 , Wt 235 lbs, BMI 34.70 General: Alert and oriented, well nourished, no acute distress. Head: Atraumatic, normocephalic Lungs: No respiratory distress. CTA bilaterally, no wheezes Heart: RRR, no murmur Abdomen: Soft, non-tender, non-distended, normal bowel sounds Musculoskeletal: Limited lumbar ROM. TTP lumbar spine. 5/5 muscle strength bilateral lower extremities Skin: Inspection of lumbar spine, shows a well-healed lumbar incision Neurologic: Awake, alert, and oriented X3, sensory intact lower extremities Psychiatric: Cooperative, appropriate mood and affect Additional Vitals No qualifying data available. Assessment/Plan Assessment: 1. Prior L3-S1 decompression and fusion 2. L2-3 spondylolisthesis, grade 1 with stenosis and neurogenic claudication Plan: L3-S1 hardware removal, L2-3 decompression and fusion extension up to L2. Problem List/Past Medical History Ongoing Acid reflux Arthritis Back pain CPAP (continuous positive airway pressure) dependence Dribbling Edema Frequency of urination High cholesterol HTN (hypertension) Leg cramps Muscle spasms of lower extremity Neuropathy Seasonal allergies Sleep apnea Historical COVID-19 Procedure/Surgical History Adherent cataract Ambulatory surgery Ambulatory surgery Ambulatory surgery Anesthesia for total knee replacement Arthroscopy Arthroscopy Arthroscopy Carpal tunnel Extraction of wisdom tooth Fusion Spine Lumbar Transforaminal Interbody (12/16/2017) Fusion Spine Cervical Anterior and Discectomy (07/11/2020) Medications Inpatient No active inpatient medications Home atorvastatin 20 mg oral tablet, 20 mg= 1 tabs, Oral, HS (at bedtime) gabapentin, 400 mg, Oral, TID hydroCHLOROthiazide, 25 mg, Oral, Daily losartan, 100 mg, Oral, Daily multivitamin, 1 tabs, Oral, qAM pantoprazole 20 mg oral delayed release tablet, 20 mg= 1 tabs, Oral, Daily traMADol 50 mg oral tablet, 50 mg= 1 tabs, Oral, HS (at bedtime) Vitamin B12, 1000 mcg, Oral, Daily ZyrTEC 10 mg oral tablet, 10 mg= 1 tabs, Oral, qAM Allergies penicillin (Swelling) sulfa drugs (Swelling) Social History Alcohol Current, Beer, 1-2 times per year, Alcohol use interferes with work or home: No. Employment/School Retired Exercise Exercise frequency: Daily. Self assessment: Good condition. Exercise type: Walking. Home/Environment Lives with Spouse. Living situation: Home/Independent. Home equipment: CPAP/BiPAP, Walker/Cane, PT DOES NOT USE CPAP MACHINE ANYMORE. Nutrition/Health Regular, Caffeine intake amount: COFFEE 2 -3 CUPS DAILY/ NO POP. Sleeping concerns: No. Substance Abuse Denies All Tobacco Former smoker, quit more than 5 years ago Use:. Lab Results Test Name Test Result Date/Time ABO/Rh O NEG 10/09/2020 08:00 EDT Antibody Screen Negative [facility] 10/09/2020 08:00 EDT Microbiology - Current Encounter No qualifying data available. Diagnostic Results MRI and CT Lumbar Spine done at [facility]. Electronically signed by Tomás Fishman PA-C 10/23/20 16:21 EDT Electronically signed by Lionel Tomlinson MD 10/24/2020 09:12 EDT [facility] 07-13-2020 Note OPERATIVE REPORT DATE OF PROCEDURE: 07/13/2020 PREOPERATIVE DIAGNOSES: 1. C3-C4, C4-C5 and C5-C6 cervical stenosis with myeloradiculopathy. 2. C3-C4, C4-C5 and C5-C6 degenerative disc disease 3. C3-C4, C4-C5 and C5-C6 herniated nucleus pulposus 4. Obesity, BMI 31.16 POSTOPERATIVE DIAGNOSES: 1. C3-C4, C4-C5 and C5-C6 cervical stenosis with myeloradiculopathy. 2. C3-C4, C4-C5 and C5-C6 degenerative disc disease 3. C3-C4, C4-C5 and C5-C6 herniated nucleus pulposus 4. Obesity, BMI 31.16 OPERATION PERFORMED: 1. C3-C4, C4-C5 and C5-C6 anterior cervical diskectomy and fusion with decompression and stabilization of spinal cord and nerve roots. 2. C3-C4, C4-C5 and C5-C6 Allos MC5 allograft with demineralized bone matrix, 8-mm height each 3. C3 through C6 anterior cervical plate, Cetra plate with 16-mm fixed angle and variable screws, Spinal Elements SURGEON: Lionel Cifuentes M.D. CLAIMS ADJUSTER: Norris Jeff PA-C. Norris Jeff PA-C assisted throughout the procedure with positioning, draping, retraction, wound closure and dressing application. ANESTHESIA: General. INDICATIONS: This is a 75-year-old male with refractory neck and arm pain and progressive myelopathic symptoms including gait instability and decreased dexterity from cervical stenosis primarily at C4 through C7. Patient has tried and failed conservative therapy including medication management and physician directed home exercises. Due to the persistence of the symptoms and reduction in ADLs, patient elected surgical treatment. Patient therefore understood the indications for the surgery as well as risks, benefits, and alternatives. These risks included, but are not limited to, paralysis, infection, dural tear, hematoma, nerve root injury, nonunion, permanent speech and swallowing disturbances, AZ, stroke, DVT/PE, etc. All questions were answered and informed consent was obtained. OPERATIVE PROCEDURE: The patient was taken to the operating room by Anesthesiology Service and had satisfactory general anesthesia. IV Vancomycin was given within 1 hour of surgical incision due to a penicillin allergy. Venous thromboembolic prophylaxis was performed with sequential devices. The patient was then positioned supine on a standard OR table, occiput in a doughnut. Neck extended well within the means of what can be tolerated neurologically. The anterior neck was then prepped and draped entirely in the usual sterile fashion. Before incision, a formal time-out was taken per protocol. We next took a left-sided Vinson-Stuart approach to the anterior cervical spine. A vertical incision was made in line with the skin crease. The platysma was divided in line with this incision. Blunt dissection was then proceeded medial to the sternocleidomastoid and carotid sheath. The omohyoid was divided. Intraoperative radiographic localization of level was confirmed. We then elevated the longus colli from C3 through C6. Satisfied with the exposure and confirmation of level, we positioned the self-retaining retractor at C3-4. We then began complete diskectomy with a variety of curettes from uncus to uncus. Bilateral endplate decortications were then performed with a high-speed bharat going back to the PLL. The PLL was then resected, incised in the midline going to neural foramina bilaterally. This was done until we could see the exiting portion of the C4 nerve roots. This thereby totally decompressed the neural elements. Satisfied with this, we then achieved hemostasis and sized the interspace. A size 8-mm graft appeared appropriate. The graft was then impacted into position with an excellent tight fit. Satisfied with this, we then repositioned the self-retaining retractor at C4-C5 and repeated the same procedure. Once again, complete diskectomy was performed with a variety of curettes from uncus to uncus. Bilateral endplate decortications were performed with a high-speed bharat going back to the PLL. The PLL was then resected, incised in the midline going to neural foramina bilaterally. This was done until we could see the exiting portion of the C5 nerve roots. This thereby totally decompressed our neural elements. Satisfied with this, we then achieved hemostasis and sized the interspace. A size 8-mm graft was appeared appropriate. The graft was then impacted into position with an excellent tight fit. Satisfied with this, we then repositioned the self-retaining retractor at C5-C6 and repeated the same procedure. Once again, complete diskectomy was performed with a variety of curettes from uncus to uncus. Bilateral endplate decortications were performed with a high-speed bharat going back to the PLL. The PLL was then resected, incised in the midline going to neural foramina bilaterally. This was done until we could see the exiting portion of the C6 nerve roots. This thereby totally decompressed our neural elements. Satisfied with this, we then achieved hemostasis and sized the interspace. A size 8-mm graft was appeared appropriate. The gr (more content not included)... [facility] 07-10-2020 Note Chief Complaint Gait instability History of Present Illness The patient is a 75-year-old male with c/o gait instability. He reports progressively worsening off balance issues and often drops items from his hand. He also has neck pain with numbness and tingling in the hands. Current VAS score 5 out of 10. Percentage stoddard, 50% pain in the neck and 50% into the arms. As it pertains to the arms, 50% left and 50% right. Activities that aggravate the symptoms include walking. Rest helps relieve the symptoms. Modifying factors include medication management and physician directed home exercises. These have provided no relief of his symptoms. No bowel or bladder incontinence. Nonsmoker. No prior cervical surgeries, patient has had a prior back surgery x 2 Review of Systems Constitutional: No fevers, chills Respiratory: No shortness of breath, cough Cardiovascular: No chest pain, palpitations Gastrointestinal: No nausea, vomiting, incontinence Genitourinary: No dysuria or incontinence Musculoskeletal: (+) neck pain, arm pain, back pain Neurologic: (+) numbness/tingling, gait disturbance Psychiatric: No anxiety, depression Physical Exam Vital Signs: Ht 5'9 , Wt 211 lbs, BMI 31.16. General: Alert and oriented, well nourished, no acute distress. Head: Atraumatic, normocephalic Lungs: No respiratory distress. CTA bilaterally, no wheezes Heart: RRR, no murmur Abdomen: Soft, non-tender, non-distended, normal bowel sounds Musculoskeletal: Limited cervical ROM. TTP cervical spine. 5/5 muscle strength bilateral upper extremities Skin: Inspection of cervical spine, shows no skin lesions or open wounds. Neurologic: Awake, alert, and oriented X3, sensory intact upper extremities. (+) Vargas sign. Unable to tandem walk Psychiatric: Cooperative, appropriate mood and affect Additional Vitals No qualifying data available. Assessment/Plan Assessment: C3-C6 degenerative disease and herniated nucleus pulposus with stenosis and myeloradiculopathy. Plan: C3-6 ACDF Problem List/Past Medical History Ongoing Acid reflux Arthritis Back pain CPAP (continuous positive airway pressure) dependence Dribbling Frequency of urination High cholesterol HTN (hypertension) Leg cramps Muscle spasms of lower extremity Neuropathy Seasonal allergies Sleep apnea Historical COVID-19 Procedure/Surgical History Adherent cataract Ambulatory surgery Ambulatory surgery Ambulatory surgery Anesthesia for total knee replacement Arthroscopy Arthroscopy Arthroscopy Carpal tunnel Extraction of wisdom tooth Fusion Spine Lumbar Transforaminal Interbody (12/16/2017) Medications Inpatient No active inpatient medications Home acetaminophen, 500 mg, Oral, q6hr, PRN atorvastatin 20 mg oral tablet, 20 mg= 1 tabs, Oral, HS (at bedtime) gabapentin, 400 mg, Oral, TID gabapentin 300 mg oral capsule, 300 mg= 1 caps, Oral, BID, PRN hydroCHLOROthiazide, 25 mg, Oral, Daily losartan, 100 mg, Oral, Daily losartan-hydroCHLOROthiazide 100 mg-25 mg oral tablet, 1 tabs, Oral, Daily meloxicam, 15 mg, Oral, Daily pantoprazole 20 mg oral delayed release tablet, 20 mg= 1 tabs, Oral, Daily Vitamin B12, 1000 mcg, Oral, Daily ZyrTEC 10 mg oral tablet, 10 mg= 1 tabs, Oral, qAM Allergies penicillin (Swelling) sulfa drugs (Swelling) Social History Alcohol Current, Beer, 1-2 times per year, Alcohol use interferes with work or home: No. Employment/School Retired Exercise Exercise frequency: Daily. Self assessment: Good condition. Exercise type: Walking. Home/Environment Lives with Spouse. Living situation: Home/Independent. Home equipment: CPAP/BiPAP, Walker/Cane, PT DOES NOT USE CPAP MACHINE ANYMORE. Nutrition/Health Regular, Caffeine intake amount: COFFEE 2 -3 CUPS DAILY/ NO POP. Sleeping concerns: No. Substance Abuse Denies All Tobacco Former smoker, quit more than 5 years ago Use:. Cigarettes Lab Results Test Name Test Result Date/Time ABO/Rh O NEG 06/24/2020 10:49 EST Antibody Screen Negative ABSC 06/24/2020 10:49 EST Microbiology - Current Encounter No qualifying data available. Electronically signed by Tomás Fishman PA-C 07/10/20 14:30 EST Electronically signed by Lionel Tomlinson MD 07/13/2020 11:06 EST [facility] Evaluation note Diagnosis Near syncope- Primary Syncope and collapse documented in this encounter [employer] Phone: evaluation note* Diagnosis CAD, multiple vessel Coronary atherosclerosis of unspecified type of vessel, [place] or graft documented in this encounter [employer] Phone: evalvecjns note* Diagnosis CAD, multiple vessel Coronary atherosclerosis of unspecified type of vessel, [place] or graft documented in this encounter [employer] Phone: evalfnukha note* Diagnosis VENANCIO (acute kidney injury) (HCC)- Primary Acute kidney failure, unspecified CAD in [place] artery Coronary atherosclerosis of [place] coronary artery S/P CABG x 3 Postsurgical aortocoronary bypass status documented in this encounter [employer] Phone: evalvalrrx note* Diagnosis S/P CABG (coronary artery bypass graft) Postsurgical aortocoronary bypass status documented in this encounter [employer] Phone: evaluation note* Diagnosis CAD in [place] artery (CMS/HCC) documented in this encounter [facility]erissa for visit Narrative* Auth/Cert Specialty Diagnoses / Procedures Referred By Vinh t Referred To Contact Diagnoses CAD (coronary artery disease) CAD Procedures NH CABG, VEIN, SINGLE CABG X3, ON PUMP, SHELBY, Jeffrey Mcwilliams MD [address] [place] [address] [employer] [address] [place] [address] Referral ID Status Reason Start Date Expiration Date Visits Re quested Visits Authorized [id number] 1 1 [employer] Phone: Summary Purpose Family History No Family History Records FoundNo Family History Records FoundNo Family History Records FoundNo Family History Records FoundNo Family History Records Found Advance Directives Latest Code Status on File Code Status Date Activated Date Inactivated Comments Full Code 04/24/2021 4:18 PM Full Code 04/22/2021 6:32 PM 04/24/2021 4:18 PM Latest Code Status on File Code Status Date Activated Date Inactivated Comments Full Code 04/24/2021 4:18 PM 04/25/2021 6:50 PM Latest Code Status on File Code Status Date Activated Date Inactivated Comments Full Code 04/24/2021 4:18 PM 04/25/2021 6:50 PM Full Code 04/22/2021 6:32 PM 04/24/2021 4:18 PM Latest Code Status on File Code Status Date Activated Date Inactivated Comments Full Code 05/27/2021 12:47 PM Full Code 04/24/2021 4:18 PM 04/25/2021 6:50 PM Latest Code Status on File Code Status Date Activated Date Inactivated Comments Full Code 05/27/2021 12:47 PM 05/31/2021 6:25 PM Full Code 04/24/2021 4:18 PM 04/25/2021 6:50 PM Reason for Referral Specialty Diagnoses / Procedures Referred By Vinh fajardo Referred To Contact Cardiology Diagnoses CAD, multiple vessel Procedures EKG 12 Lead Eugenio Griffith L, MOTO MIX OPERATOR - CIDER PRESS OPERATOR [address] [place] [address] Referral ID Status Reason Start Date Expiration Date Visits Re quested Visits Authorized [id number] Open 05/21/2021 05/21/2022 1 1 Specialty Diagnoses / Procedures Referred By Vinh fajardo Referred To Contact Nephrology Diagnoses VENANCIO (acute kidney injury) (HCC) Chris Wild, MOTO MIX OPERATOR - ROAD ROLLER ENGINEER [address] [facility] [address] [place] [address] Adelaida Alvarez MD [address] [place] [id number] Referral ID Status Reason Start Date Expiration Date V isits Requested Visits Authorized [id number] Open Specialty Services Required 05/31/2021 05/31/2022 1 1 Scheduling Instructions [facility] Adelaida Alvarez MD [address] [place] [id number] Specialty Diagnoses / Procedures Referred By Vinh fajardo Referred To Contact Cardiac Rehabilitation Diagnoses CAD in [place] artery [facility] [address] [place] [address] [facility] [address] [place] [id number] Referral ID Status Reason Start Date Expiration Date V isits Requested Visits Authorized [id number] Open Specialty Services Required 05/28/2021 05/28/2022 1 1 Scheduling Instructions [facility] [address] [place] [address] [phone] Toño: [phone] Additional Source Comments (unrecognized sect ion and content) No Status Records FoundNo Status Records FoundNo Status Records FoundNo Status Records FoundNo Status Records Found INFORMATION SOURCE (unrecogn ized section and content) DATE CREATED AUTHOR 11/08/2020 [facility] DATE CREATED AUTHOR AUTHOR'S ORGANIZ ATION 06/12/2021 [facility] DATE CREATED AUTHOR AUTHOR'S ORGANIZ ATION 06/13/2021 [facility] DATE CREATED AUTHOR AUTHOR'S ORGANIZ ATION 09/26/2021 [facility] Specialist DATE CREATED AUTHOR AUTHOR'S ORGANIZ ATION 11/24/2023 [facility] EPIC Reason for Visit (unrecogniz ed section and content) Reason Comments Chest Pain Specialty Diagnoses / Procedures Referred By Vinh fajardo Referred To Contact [facility] [address] [place] [address] Referral ID Status Reason Start Date Expiration Date Visits Re quested Visits Authorized [id number] 1 1 Reason Comments Med Refill Ordered Prescriptions (unrec ognized section and content) Prescription Sig Dispensed Refills Start Date End Da te metoprolol tartrate (LOPRESSOR) 25 MG tablet Take 1 tablet by mouth 2 times daily 60 tablet 3 04/25/2021 Prescription Sig Dispensed Refills Start Date End Da te tamsulosin (FLOMAX) 0.4 MG capsule Take 1 capsule by mouth daily 30 capsule 3 06/01/2021 oxyCODONE-acetaminophen (PERCOCET) 5-325 MG per tabletIndications:S/P CABG x 3 Take 1 tablet by mouth every 8 hours as needed for Pain for up to 7 days. 21 tablet 0 05/31/2021 06/07/2021 clopidogrel (PLAVIX) 75 MG tablet Take 1 tablet by mouth daily 30 tablet 3 05/31/2021 aspirin 81 MG EC tablet Take 1 tablet by mouth daily 30 tablet 3 05/31/2021 amiodarone (CORDARONE) 200 MG tablet Take 1 tablet by mouth 2 times daily 30 tablet 0 05/31/2021 Vitamin D (CHOLECALCIFEROL) 25 MCG (1000 UT) TABS tablet Take 1 tablet by mouth daily 60 tablet 0 06/01/2021 pantoprazole (PROTONIX) 40 MG tablet Take 1 tablet by mouth daily 30 tablet 3 06/01/2021 metoprolol tartrate (LOPRESSOR) 25 MG tablet Take 1 tablet by mouth 2 times daily 60 tablet 3 05/31/2021 ferrous sulfate (FE TABS 325) 325 (65 Fe) MG EC tablet Take 1 tablet by mouth daily (with breakfast) 90 tablet 3 06/01/2021 vitamin B-12 1000 MCG tablet Take 1 tablet by mouth daily 30 tablet 3 06/01/2021 atorvastatin (LIPITOR) 80 MG tablet Take 1 tablet by mouth nightly 30 tablet 3 05/31/2021 Scheduled Active and Recently Administ ered Medications (unrecognized section and content) Medication Order 04/23/2021 04/24/2021 04/25/2021 aspirin EC tablet 81 mg 81 mg, Oral, DAILY, First dose on Wed04/24/21 at 1645, Do not crush or break. 1926 (Held - Provider: Kevin Albert RN - Reason: Other)2232 (Given - Provider: Talya Allred RN) 0836 (Given - Provider: George Coyle, HRENAN) atorvastatin (LIPITOR) tablet 80 mg 80 mg, Oral, NIGHTLY, First dose on Wed04/24/21 at 2100 2231 (Given - Provider: Talya Allred RN) 2099 (Due) enoxaparin (LOVENOX) injection 40 mg 40 mg, SubCUTAneous, DAILY, First dose on Wed04/22/21 at 1845 0905 (Given - Provider: Joyce Avendano RN) 0918 (Given - Provider: Joyce Avendano RN) 0836 (Given - Provider: George Coyle, HERNAN) insulin lispro (HUMALOG) injection vial 0-3 Units 0-3 Units, SubCUTAneous, NIGHTLY, First dose on Wed04/23/21 at 2100, If continuous tube feedings/TPN/NPO, give correction dose based on result, no reduction in dose. If eating or bolus tube feeding: Corrective Bedtime (50%) Low Dose Algorithm Glucose: Dose: 70-139 No Insulin 140-249 1 Unit 250-349 2 Units Over 350 3 Units 2117 (Not Given - Provider: Shahbaz Alva RN (Shinn) - Reason: Order parameters not met - Comment: bs 105) 7903 (Not Given - Provider: Talya Allred RN - Reason: Order parameters not met - Comment: patient is not diabetic)2099 (Due) insulin lispro (HUMALOG) injection vial 0-6 Units 0-6 Units, SubCUTAneous, 3 TIMES DAILY WITH MEALS, First dose on Wed04/23/21 at 1700, Corrective Low Dose Algorithm Glucose: Dose: 70-139 No Insulin 140-199 1 Unit 200-249 2 Units 250-299 3 Units 300-349 4 Units 350-399 5 Units Over 399 6 Units 1820 (Not Given - Provider: Joyce Avendano RN - Reason: Order parameters not met) 0920 (Not Given - Provider: Joyce Avendano RN - Reason: Order parameters not met)1349 (Not Given - Provider: Joyce Avendano RN - Reason: Order parameters not met)1924 (Held - Provider: Kevin Albert RN - Reason: Other) 0800 (Not Given - Provider: George Coyle RN - Reason: Pt NPO)1142 (Not Given - Provider: George Coyle RN - Reason: Patient/family refused)1525 (Not Given - Provider: George Coyle RN - Reason: Patient/family refused) metoprolol tartrate (LOPRESSOR) tablet 25 mg 25 mg, Oral, 2 TIMES DAILY, First dose on Wed04/24/21 at 2100 2231 (Given - Provider: Talya Allred RN) 0836 (Given - Provider: George Coyle RN)2100 (Due) pantoprazole (PROTONIX) tablet 20 mg 20 mg, Oral, 2 TIMES DAILY BEFORE MEALS, First dose on Wed04/25/21 at 1600, Do not crush or break. 1614 (Given - Provider: George Coyle RN) sodium chloride flush 0.9 % injection 5-40 mL 5-40 mL, IntraVENous, EVERY 12 HOURS SCHEDULED (2 times per day), First dose on Wed04/22/21 at 2100, For Line Patency: Peripheral IV = 5 mL; Midline or Central Line = 10 mL/lumen. If following IV push medication, administer flush at same rate as the IV push. Flush volume is determined by type of infusion therapy being given. For non-viscous solutions use: Peripheral IV = 5 mL Midline or Central Line = 10 mL/lumen For viscous solutions (i.e. blood components, parenteral nutrition, contrast media, or after obtaining blood sample) use: Peripheral IV = 10 mL Midline or Central Line = 20 mL/lumen 0907 (Given - Provider: Joyce Avendano RN)2149 (Given - Provider: Shahbaz Alva RN (Shinn)) 0919 (Given - Provider: Joyce Avendano RN)2200 (Not Given - Provider: Talya Allred RN - Reason: Loss of IV access) 0802 (Given - Provider: George Coyle RN)2100 (Due) sodium chloride flush 0.9 % injection 5-40 mL 5-40 mL, IntraVENous, EVERY 12 HOURS SCHEDULED (2 times per day), First dose on Darlene 04/24/21 at 2100, For Line Patency: Peripheral IV = 5 mL; Midline or Central Line = 10 mL/lumen. If following IV push medication, administer flush at same rate as the IV push. Flush volume is determined by type of infusion therapy being given. For non-viscous solutions use: Peripheral IV = 5 mL Midline or Central Line = 10 mL/lumen For viscous solutions (i.e. blood components, parenteral nutrition, contrast media, or after obtaining blood sample) use: Peripheral IV = 10 mL Midline or Central Line = 20 mL/lumen, Recovery(Cath) 2200 (Given - Provider: Talya Allred RN) 0802 (Not Given - Provider: George Coyle RN - Reason: Other - Comment: duplicate order)2100 (Due) traZODone (DESYREL) tablet 50 mg 50 mg, Oral, NIGHTLY, First dose on e 04/22/21 at 2130 2149 (Given - Provider: Shahbaz Alva RN (Shinn)) 2231 (Given - Provider: Talya Allred RN) 2100 (Due) PRN Medication Order 04/23/2021 04/24/2021 04/25/2021 0.9 % sodium chloride infusion 25 mL, IntraVENous, at 100 mL/hr, PRN, If patient receiving piggyback infusions without ordered maintenance IV fluids or with frequent/long duration piggyback infusions, Starting on e 04/22/21 at 1831, Administer at the same rate as the piggyback being infused. 0.9 % sodium chloride infusion 25 mL, IntraVENous, at 100 mL/hr, PRN, If patient receiving piggyback infusions without ordered maintenance IV fluids or with frequent/long duration piggyback infusions, Starting on Darlene 04/24/21 at 1618, Administer at the same rate as the piggyback being infused., Recovery(Cath) acetaminophen (TYLENOL) tablet 650 mg 650 mg, Oral, EVERY 4 HOURS PRN, Pain Mild (1-3), Pain Mild (1-3) or Fever greater than 100.5 F (38 C), Starting on e 04/22/21 at 1831, If acetaminophen and ibuprofen are both ordered PRN for mild pain, may administer together. acetaminophen (TYLENOL) tablet 650 mg 650 mg, Oral, EVERY 4 HOURS PRN, Pain Mild (1-3), Fever, Fever >100.5 F (38 C), Starting on Darlene 04/24/21 at 1618, Maximum dose of acetaminophen is 4000 mg from all sources in 24 hours., Recovery(Cath) dextrose 5 % solution 100 mL/hr, IntraVENous, PRN, Low blood sugar, Starting on Wed04/23/21 at 1553, Start infusion following administration of dextrose 50% or glucagon. dextrose 50 % IV solution 12.5 g, IntraVENous, PRN, Low blood sugar, Blood glucose less than 70 mg/dL and patient NOT ALERT or NPO., Starting on Wed04/23/21 at 1553, If patient does not respond within 5 minutes, repeat dose x1. Start D5W at 100 mL/hour until ordering provider can be reached. Repeat blood glucose in 15 minutes. If blood glucose is less than 70 mg/dL, repeat treatment and recheck blood glucose in 15 minutes x2. If using Glucostabilizer, dose as instructed per system. glucagon (rDNA) injection 1 mg 1 mg, IntraMUSCular, PRN, Low blood sugar, Blood glucose less than 70 mg/dL and patient NOT ALERT or NPO and does not have IV access., Starting on Wed04/23/21 at 1553, After administration, attempt intravenous access and start D5W at 100 mL/hr. Repeat blood glucose in 15 minutes x2 and notify provider. glucose (GLUTOSE) 40 % oral gel 15 g 15 g, Oral, PRN, Low blood sugar, Starting on Wed04/23/21 at 1553, If blood glucose less than 50 mg/dL and patient ALERT and TOLERATING PO, give 2 tubes glucose gel. If blood glucose less than 70 mg/dL and patient ALERT and TOLERATING PO, give 1 tube glucose gel. Repeat blood glucose in 15 minutes. If blood glucose is less than 70 mg/dL, repeat treatment and recheck blood glucose in 15 minutes x2 and notify provider. ondansetron (ZOFRAN) injection 4 mg(Linked Group 1) 4 mg, IntraVENous, EVERY 6 HOURS PRN, Nausea, Vomiting, Starting on Wed04/22/21 at 1831, Administer if oral route cannot be used. 0809 (Given - Provider: George Leonides, RN) ondansetron (ZOFRAN-ODT) disintegrating tablet 4 mg(Linked Group 1) 4 mg, Oral, EVERY 8 HOURS PRN, Nausea, Vomiting, Starting on Wed04/22/21 at 1831 0809 (See Alternativ e - Provider: George Coyle RN) regadenoson (LEXISCAN) injection 0.4 mg (COMPLETED) 0.4 mg, IntraVENous, IMG ONCE PRN, Other, Starting on Wed04/23/21 at 1124, For 1 dose, Only to be given in Nuclear Med during CARDIAC STRESS TEST ONLY., Pre-procedure(Stress) 1151 (Given - Provider: Nathalie Arreguin RN) sodium chloride flush 0.9 % injection 10 mL 10 mL, IntraVENous, PRN, Line Care, Starting on Wed04/23/21 at 1319, Nuclear Medicine 1311 (Given - Provider: Izzy Kraft) sodium chloride flush 0.9 % injection 10 mL 10 mL, IntraVENous, PRN, Line Care, Starting on Wed04/23/21 at 1319, Nuclear Medicine 1205 (Given - Provider: Izzy Kraft) 0918 (Given - Provider: Joyce Avendano RN) sodium chloride flush 0.9 % injection 5-40 mL 5-40 mL, IntraVENous, PRN, Line Care, After every IV line use, Starting on Wed04/22/21 at 1831, For Line Patency: Peripheral IV = 5 mL; Midline or Central Line = 10 mL/lumen. If following IV push medication, administer flush at same rate as the IV push. Flush volume is determined by type of infusion therapy being given. For non-viscous solutions use: Peripheral IV = 5 mL Midline or Central Line = 10 mL/lumen For viscous solutions (i.e. blood components, parenteral nutrition, contrast media, or after obtaining blood sample) use: Peripheral IV = 10 mL Midline or Central Line = 20 mL/lumen sodium chloride flush 0.9 % injection 5-40 mL (CANCELED) 5-40 mL, IntraVENous, PRN, Line Care, Starting on Wed04/23/21 at 1124, For 6 hours, FOR USE IN CARDIAC STRESS LAB ONLY. If following IV push medication, administer flush at same rate as the IV push. Flush volume is determined by type of infusion therapy being given. For non-viscous solutions use: Peripheral IV = 5 mL Midline or Central Line = 10 mL/lumen For viscous solutions (i.e. blood components, parenteral nutrition, contrast media, or after obtaining blood sample) use: Peripheral IV = 10 mL Midline or Central Line = 20 mL/lumen, Pre-procedure(Stress) 1142 (Given - Provider: Nathalie Arreguin RN)1152 (Given - Provider: Nathalie Arreguni RN) sodium chloride flush 0.9 % injection 5-40 mL 5-40 mL, IntraVENous, PRN, Line Care, Starting on Darlene 04/24/21 at 1618, For Line Patency: Peripheral IV = 5 mL; Midline or Central Line = 10 mL/lumen. If following IV push medication, administer flush at same rate as the IV push. Flush volume is determined by type of infusion therapy being given. For non-viscous solutions use: Peripheral IV = 5 mL Midline or Central Line = 10 mL/lumen For viscous solutions (i.e. blood components, parenteral nutrition, contrast media, or after obtaining blood sample) use: Peripheral IV = 10 mL Midline or Central Line = 20 mL/lumen, Recovery(Cath) technetium sestamibi (CARDIOLITE) injection 11 millicurie (COMPLETED) 11 millicurie, IntraVENous, IMG ONCE PRN, Other, Starting on Wed04/23/21 at 1319, For 1 dose, Nuclear Medicine 1205 (Given - Provider: Izzy Kraft) technetium sestamibi (CARDIOLITE) injection 42.5 millicurie (COMPLETED) 42.5 millicurie, IntraVENous, IMG ONCE PRN, Other, Starting on Wed04/23/21 at 1319, For 1 dose, Nuclear Medicine 1311 (Given - Provider: Izzy Kraft) Linked Groups Order Group 1: ondansetron (ZOFRAN-ODT) disintegrating tablet 4 mgJump to med 4 mg, Oral, EVERY 8 HOURS PRN, Nausea, Vomiting, Starting on Wed04/22/21 at 1831 Or ondansetron (ZOFRAN) injection 4 mgJump to med 4 mg, IntraVENous, EVERY 6 HOURS PRN, Nausea, Vomiting, Starting on Wed04/22/21 at 1831
Administer if oral route cannot be used.
Scheduled Medication Order 05/29/2021 05/30/2021 05/31/2021 amiodarone (CORDARONE) tablet 200 mg 200 mg, Oral, 3 TIMES DAILY, First dose on Wed05/27/21 at 1400, Post-op 0844 (Given - Provider: Garrick Choudhary, RN)1342 (Given - Provider: Garrick Choudhary, RN)2029 (Given - Provider: Ira Mendez, RN) 0838 (Given - Provider: Gaby Lincoln, HERNAN)1418 (Given - Provider: Gaby Lincoln RN)2030 (Given - Provider: Ela Quinn RN) 0820 (Given - Provider: Leighann Fan, RN)1403 (Given - Provider: Leighann Fan RN)2100 (Due) aspirin EC tablet 81 mg 81 mg, Oral, DAILY, First dose on Wed05/27/21 at 1315, Do not crush or break. Please hold for platelets less than 100,000, Post-op 0900 (Automatically Held - Provider: Kristin Germain APRN - CHEY) 0900 (Automatically Held - Provider: Kristin Germain APRN - CHEY) 0900 (Automatically Held - Provider: Kristin Germain APRN - CIDER PRESS OPERATOR)1009 (Unheld by provider - Provider: Chris Wild APRN - ROAD ROLLER ENGINEER) atorvastatin (LIPITOR) tablet 80 mg 80 mg, Oral, NIGHTLY, First dose on Wed05/28/21 at 2100, Please hold for elevated liver function enzymes, Post-op 0015 (Given - Provider: Ela Quinn RN)2029 (Given - Provider: Ira Mendez RN) 2030 (Given - Provider: Ela Quinn RN) 2100 (Due) cetirizine (ZYRTEC) tablet 10 mg 10 mg, Oral, DAILY, First dose on Wed05/27/21 at 1315 0844 (Given - Provider: Garrick Choudhary RN) 0838 (Given - Provider: Gaby Lincoln RN) 0820 (Given - Provider: Leighann Fan RN) clopidogrel (PLAVIX) tablet 75 mg 75 mg, Oral, DAILY, First dose on Wed05/28/21 at 0900, Please hold for platelets less than 100,000, Post-op 0900 (Automatically Held - Provider: Kristin Germain APRN - CIDER PRESS OPERATOR) 0900 (Automatically Held - Provider: Kristin Germain APRN - CIDER PRESS OPERATOR) 0900 (Automatically Held - Provider: Kristin Germain APRN - CIDER PRESS OPERATOR)1009 (Unheld by provider - Provider: Chris Wild, MOTO MIX OPERATOR - ROAD ROLLER ENGINEER) ferrous sulfate (FE TABS 325) EC tablet 325 mg 325 mg, Oral, DAILY WITH BREAKFAST, First dose on Wed05/29/21 at 0800 0843 (Given - Provider: Garrick Choudhary RN) 0838 (Given - Provider: Gaby Lincoln RN) 0820 (Given - Provider: Leighann Fan RN) furosemide (LASIX) injection 20 mg (CANCELED) 20 mg, IntraVENous, 2 TIMES DAILY, First dose on Wed05/29/21 at 0900 0850 (Given - Provider: Garrick Choudhary RN)1717 (Given - Provider: Garrick Choudhary RN) furosemide (LASIX) injection 40 mg 40 mg, IntraVENous, 2 TIMES DAILY, First dose (after last modification) on Wed05/30/21 at 0900 0837 (Not Given - Provider: Gaby Lincoln RN - Reason: Contraindicated)0840 (Held by provider - Provider: Wong Seth MD - Reason: Other)1800 (Automatically Held - Provider: Wong Seth MD) 0900 (Automatically Held - Provider: Wong Seth MD)1800 (Automatically Held - Provider: Wong Seth MD) gabapentin (NEURONTIN) capsule 400 mg 400 mg, Oral, 3 TIMES DAILY, First dose on Wed05/27/21 at 1400 0843 (Given - Provider: Garrick Choudhary RN)1342 (Given - Provider: Garrick Choudhary RN)2030 (Given - Provider: Ira Mendez RN) 0838 (Given - Provider: Gaby Lincoln RN)1418 (Given - Provider: Gaby Lincoln RN)2031 (Given - Provider: Ela Quinn, HERNAN) 0820 (Given - Provider: Leighann Fan RN)1403 (Given - Provider: Leighann Fan RN)2100 (Due - Provider: Kristin Germain MOTO MIX OPERATOR - CIDER PRESS OPERATOR) insulin glargine (LANTUS) injection vial 15 Units 15 Units (rounded from 14.895 Units = 0.15 Units/kg 99.3 kg), SubCUTAneous, NIGHTLY, First dose on Wed05/28/21 at 2100, Post-op 2030 (Not Given - Provider: Ira Mendez, RN - Reason: Order parameters not met - Comment: bg 132) 2028 (Not Given - Provider: Ela Quinn, HERNAN - Reason: Other - Comment: 132) 2099 (Due) ipratropium-albuterol (DUONEB) nebulizer solution 1 ampule 1 ampule, Inhalation, EVERY 4 HOURS WHILE AWAKE, First dose on Wed05/27/21 at 1600, Post-op 09 (Not Given - Provider: Mima Melton RCP - Reason: Other)1148 (Given - Provider: Mima Melton RCP)1555 (Given - Provider: Mima Melton RCP)2010 (Given - Provider: Tamiko Neely RCP) 0825 (Given - Provider: John Holloway ORACLE FINANCIAL APPLICATION DEVELOPER)1147 (Given - Provider: John Holloway RCP)1648 (Given - Provider: John Holloway RCP)2022 (Not Given - Provider: Danae Chicas RCP - Reason: Patient/family refused) 0815 (Given - Provider: Waleska Lentz ORACLE FINANCIAL APPLICATION DEVELOPER)1228 (Given - Provider: John Holloway RCP)1600 (Due)2000 (Due) metoclopramide (REGLAN) tablet 5 mg 5 mg, Oral, 4 TIMES DAILY BEFORE MEALS & NIGHTLY, First dose on Wed05/29/21 at 1100 1142 (Given - Provider: Garrick Choudhary RN)1717 (Given - Provider: Garrick Choudhary RN)2030 (Given - Provider: Ira Mendez RN) 0838 (Given - Provider: Gaby Lincoln, HERNAN)1240 (Given - Provider: Gaby Lincoln, HERNAN)1717 (Given - Provider: Gaby Lincoln RN)2032 (Given - Provider: Ela Quinn RN) 0820 (Given - Provider: Leighann Fan RN)1243 (Given - Provider: Leighann Fan, RN)1700 (Due)2100 (Due) metoprolol tartrate (LOPRESSOR) tablet 25 mg 25 mg, Oral, 2 TIMES DAILY, First dose on Wed05/27/21 at 1315, Hold for pulse < 70, SBP < 100, if patient on vasopressors, or if patient has a temporary pacemaker, Post-op 0844 (Given - Provider: Garrick Choudhary RN)2029 (Given - Provider: Ira Mendez, RN) 0838 (Given - Provider: Gaby Lincoln, HERNAN)203 (Given - Provider: Ela Quinn RN) 0820 (Given - Provider: Leighann Fan RN)2100 (Due) mupirocin (BACTROBAN) 2 % ointment Nasal, 2 TIMES DAILY, First dose on Wed05/27/21 at 1315, For 10 doses, Post-op 0844 (Given - Provider: Garrick Choudhary RN)2030 (Given - Provider: Ira Mendez, RN) 1054 (Given - Provider: Gaby Lincoln, HERNAN)203 (Given - Provider: Ela Quinn RN) 0821 (Given - Provider: Leighann Fan RN)2100 (Due) pantoprazole (PROTONIX) tablet 40 mg 40 mg, Oral, DAILY, First dose on Wed05/27/21 at 1315, Do not crush or break., Post-op 0844 (Given - Provider: Garrick Choudhary RN) 0838 (Given - Provider: Gaby Lincoln RN) 0820 (Given - Provider: Leighann Fan RN) polyethylene glycol (GLYCOLAX) packet 17 g 17 g, Oral, DAILY, First dose on Wed05/27/21 at 1315, Post-op 0843 (Given - Provider: Garrick Choudhary RN) 0837 (Given - Provider: Gaby Lincoln, HERNAN) 0822 (Not Given - Provider: Leighann Fan RN - Reason: Other - Comment: not required) sodium chloride flush 0.9 % injection 10 mL 10 mL, IntraVENous, EVERY 12 HOURS SCHEDULED (2 times per day), First dose on Wed05/27/21 at 2100, Post-op 0933 (Given - Provider: Garrick Choudhary, RN)2030 (Given - Provider: Ira Mendez RN) 1055 (Not Given - Provider: Gaby Lincoln RN - Reason: Contraindicated)2032 (Given - Provider: Ela Quinn, RN) 0821 (Given - Provider: Leighann Fan, RN)2100 (Due) tamsulosin (FLOMAX) capsule 0.4 mg 0.4 mg, Oral, DAILY, First dose on Wed05/29/21 at 0900, Do not crush or break. 1142 (Given - Provider: Garrick Choudhary RN) 0838 (Given - Provider: Gaby Lincoln RN) 0818 (Given - Provider: Leighann Fan RN) traZODone (DESYREL) tablet 50 mg 50 mg, Oral, NIGHTLY, First dose on Wed05/27/21 at 2100 2100 (Held - Provider: Ira Mendez RN - Reason: Other - Comment: held by provider) 2100 (Automatically Held) 2100 (Automatically Held) vitamin B-12 (CYANOCOBALAMIN) tablet 1,000 mcg 1,000 mcg, Oral, DAILY, First dose on Wed05/27/21 at 1315 0844 (Given - Provider: Garrick Choudhary RN) 0838 (Given - Provider: Gaby Lincoln RN) 0820 (Given - Provider: Leighann Fan, HERNAN) Vitamin D (CHOLECALCIFEROL) tablet 1,000 Units 1,000 Units, Oral, DAILY, First dose on Wed05/27/21 at 1315, Labeling may look different. 25 gxy=4472 Units. Please double check dosages. 0844 (Given - Provider: Garrick Choudhary RN) 0837 (Given - Provider: Gaby Lincoln, HERNAN) 0822 (Given - Provider: Leighann Fan, HERNAN) PRN Medication Order 05/29/2021 05/30/2021 05/31/2021 0.9 % sodium chloride infusion 25 mL, IntraVENous, at 100 mL/hr, PRN, If patient receiving piggyback infusions without ordered maintenance IV fluids or with frequent/long duration piggyback infusions, Starting on Wed05/27/21 at 1247, Administer at the same rate as the piggyback being infused., Post-op acetaminophen (TYLENOL) tablet 650 mg 650 mg, Oral, EVERY 4 HOURS PRN, Pain Mild (1-3), Fever, Fever >100.5 F (38 C), Starting on Wed05/27/21 at 1247, Maximum dose of acetaminophen is 4000 mg from all sources in 24 hours., Post-op albumin human 5 % IV solution 25 g 25 g, IntraVENous, at 500 mL/hr, Administer over 60 Minutes, PRN, Other, PAD below goal and Low CI and/or Low BP and /or Low urine output per hemodynamic goals, Starting on Wed05/27/21 at 1247, Up to a max of 2000 mL. Notify surgeon for further orders if max volume infused., Post-op bisacodyl (DULCOLAX) EC tablet 5 mg 5 mg, Oral, DAILY PRN, Constipation, Starting on Wed05/27/21 at 1247, First line therapy for constipation., Post-op 0837 (Given - Provider: Gaby Lincoln RN) calcium chloride 1,000 mg in sodium chloride 0.9 % 100 mL IVPB 1,000 mg, IntraVENous, at 100 mL/hr, Administer over 60 Minutes, PRN, Other, Electrolyte Replacement, Starting on Wed05/27/21 at 1247, Administer 1 gram over 1 hour for ionic calcium level less than 1.05 mmol/L, Post-op dextrose 5 % solution 100 mL/hr, IntraVENous, PRN, Low blood sugar, Starting on Wed05/27/21 at 1247, Start infusion following administration of dextrose 50% or glucagon., Post-op dextrose 50 % IV solution 12.5 g, IntraVENous, PRN, Low blood sugar, Blood glucose less than 70 mg/dL and patient NOT ALERT or NPO., Starting on Wed05/27/21 at 1247, If patient does not respond within 5 minutes, repeat dose x1. Start D5W at 100 mL/hour until ordering provider can be reached. Repeat blood glucose in 15 minutes. If blood glucose is less than 70 mg/dL, repeat treatment and recheck blood glucose in 15 minutes x2. If using Glucostabilizer, dose as instructed per system., Post-op diphenhydrAMINE (BENADRYL) tablet 25 mg 25 mg, Oral, NIGHTLY PRN, Sleep, Starting on Wed05/28/21 at 0000, Post-op fentaNYL (SUBLIMAZE) injection 25 mcg(Linked Group 1) 25 mcg, IntraVENous, EVERY 1 HOUR PRN, Pain Moderate (4-6), Starting on Wed05/27/21 at 1247, If oral and IV narcotics ordered, use oral first and only use IV if oral is ineffective or cannot take oral. Do Not give oral and IV within 1 hour of each other unless specifically ordered., Post-op fentaNYL (SUBLIMAZE) injection 50 mcg(Linked Group 1) 50 mcg, IntraVENous, EVERY 1 HOUR PRN, Pain Severe (7-10), Starting on Wed05/27/21 at 1247, If oral and IV narcotics ordered, use oral first and only use IV if oral is ineffective or cannot take oral. Do Not give oral and IV within 1 hour of each other unless specifically ordered., Post-op fleet rectal enema 1 enema 1 enema, Rectal, DAILY PRN, Constipation, Starting on Wed05/27/21 at 1247, Second line therapy for constipation, After 24 hours, if no result from first line PRN therapy, give second line therapy in combination with first line therapy., Post-op glucagon (rDNA) injection 1 mg 1 mg, IntraMUSCular, PRN, Low blood sugar, Blood glucose less than 70 mg/dL and patient NOT ALERT or NPO and does not have IV access., Starting on Wed05/27/21 at 1247, After administration, attempt intravenous access and start D5W at 100 mL/hr. Repeat blood glucose in 15 minutes x2 and notify provider. glucose (GLUTOSE) 40 % oral gel 15 g 15 g, Oral, PRN, Low blood sugar, Starting on Wed05/27/21 at 1247, If blood glucose less than 50 mg/dL and patient ALERT and TOLERATING PO, give 2 tubes glucose gel. If blood glucose less than 70 mg/dL and patient ALERT and TOLERATING PO, give 1 tube glucose gel. Repeat blood glucose in 15 minutes. If blood glucose is less than 70 mg/dL, repeat treatment and recheck blood glucose in 15 minutes x2 and notify provider., Post-op hydrALAZINE (APRESOLINE) injection 5 mg 5 mg, IntraVENous, EVERY 5 MIN PRN, High Blood Pressure, Starting on Wed05/27/21 at 1247, Refer to hemodynamic goals for specific blood pressure parameters. May repeat doses up to a total of 20mg IV every 6 hours., Post-op magnesium sulfate 1000 mg in dextrose 5% 100 mL IVPB 1,000 mg, IntraVENous, at 100 mL/hr, Administer over 1 Hours, PRN, Other, Electrolyte Replacement, Starting on Wed05/27/21 at 1247, For magnesium less than 2 mg/dl give 1 gram X 2 doses (Total of 2 grams). Check with MD if elevation of BUN and creatinine. Repeat magnesium level in AM., Post-op metoprolol (LOPRESSOR) injection 2.5 mg 2.5 mg, IntraVENous, EVERY 10 MIN PRN, High Blood Pressure, For HR greater than 120, Starting on Wed05/27/21 at 1247, For 3 doses, Call cardiothoracic surgeon if HR still greater than 120 after 3 doses Please hold for HR less than 70 and/or SBP less than 100, Post-op norepinephrine (LEVOPHED) 16 mg in sodium chloride 0.9 % 250 mL infusion 0.2 mcg/kg/min 99.3 kg (18.6188 mL/hr, rounded to 18.6 mL/hr), IntraVENous, CONTINUOUS PRN, Cardiac Index above hemodynamic goal, SBP below hemodynamic goal and PAD above hemodynamic goal, Starting on Wed05/27/21 at 1247, Initial Dose is 0.04 mcg/kg/min. May titrate up to 3.3 mcg/kg/min Titrate by 0.05 mcg/kg/min no faster than every 1 minute to goal May titrate outside of defined titration parameters (increments and frequency) under the direction of the provider. If cardiac index above hemodynamic goal or SBP above hemodynamic goal or PAD above hemodynamic goal, wean drip, re-evaluate, once hemodynamic parameters are back within range; resume drip using previous ordered parameters. For unstable, emergent situation, may titrate accordingly to meet hemodynamic goal. Notify Physician if reach max dose and patient not at hemodynamic goal of 0.08 mcg/kg/min, Post-op ondansetron (ZOFRAN) injection 4 mg 4 mg, IntraVENous, EVERY 8 HOURS PRN, Nausea, Starting on Wed05/27/21 at 1247, Post-op oxyCODONE-acetaminophen (PERCOCET) 5-325 MG per tablet 1 tablet(Linked Group 2) 1 tablet, Oral, EVERY 4 HOURS PRN, Pain Moderate (4-6), Starting on Wed05/27/21 at 1247, Maximum dose of acetaminophen is 4000 mg from all sources in 24 hours., Post-op 08 (Given - Provider: Garrick Choudhary RN) 2031 (Given - Provider: Ela Quinn, HERNAN) oxyCODONE-acetaminophen (PERCOCET) 5-325 MG per tablet 2 tablet(Linked Group 2) 2 tablet, Oral, EVERY 4 HOURS PRN, Pain Severe (7-10), Starting on Wed05/27/21 at 1247, Maximum dose of acetaminophen is 4000 mg from all sources in 24 hours., Post-op 08 (See Alternative - Provider: Garrick Choudhary RN) 2031 (See Alternative - Provider: Ela Quinn, HERNAN) potassium chloride 20 mEq/50 mL IVPB (Central Line) 20 mEq, IntraVENous, at 25 mL/hr, PRN, Other, Electrolyte Replacement, Starting on Wed05/27/21 at 1247, KCL 40 mEq IVPB for K less than 3.5 mmol/l. KCL 30 mEq IVPB for K 3.5-3.9 mmol/l. KCL 20 mEq IVPB for K 4-4.4 mmol/l. ALL KCL doses to be given in central line only. Notify MD if K greater than 5 mmol/l., Post-op sodium chloride flush 0.9 % injection 10 mL 10 mL, IntraVENous, PRN, Line Care, Starting on Wed05/27/21 at 1247, After every IV line use, Post-op Linked Groups Order Group 1: fentaNYL (SUBLIMAZE) injection 25 mcgJump to med 25 mcg, IntraVENous, EVERY 1 HOUR PRN, Pain Moderate (4-6), Starting on Wed05/27/21 at 1247
If oral and IV narcotics ordered, use oral first and only use IV if oral is ineffective or cannot take oral. Do Not give oral and IV within 1 hour of each other unless specifically ordered.
Post-op Or fentaNYL (SUBLIMAZE) injection 50 mcgJump to med 50 mcg, IntraVENous, EVERY 1 HOUR PRN, Pain Severe (7-10), Starting on Wed05/27/21 at 1247
If oral and IV narcotics ordered, use oral first and only use IV if oral is ineffective or cannot take oral. Do Not give oral and IV within 1 hour of each other unless specifically ordered.
Post-op Group 2: oxyCODONE-acetaminophen (PERCOCET) 5-325 MG per tablet 1 tabletJump to med 1 tablet, Oral, EVERY 4 HOURS PRN, Pain Moderate (4-6), Starting on Wed05/27/21 at 1247
Maximum dose of acetaminophen is 4000 mg from all sources in 24 hours.
Post-op Or oxyCODONE-acetaminophen (PERCOCET) 5-325 MG per tablet 2 tabletJump to med 2 tablet, Oral, EVERY 4 HOURS PRN, Pain Severe (7-10), Starting on Wed05/27/21 at 1247
Maximum dose of acetaminophen is 4000 mg from all sources in 24 hours.
Post-op Care Teams (unrecognized sec tion and content) Pcas Relationship Specialty Start Date End Date Arelis Forbes MD [address] [place] [address], [place] [address] PCP - General 04/22/21 Pcas Relationship Specialty Start Date End Date Arelis Forbes MD [address] [place] [address], [place] [address] PCP - General 04/22/21 Pcas Relationship Specialty Start Date End Date Arelis Forbes MD [address] [place] [address], [place] [address] PCP - General 04/22/21 Pcas Relationship Specialty Start Date End Date Arelis Forbes MD [address] [place] [address], [place] [address] PCP - General 04/22/21 Pcas Relationship Specialty Start Date End Date Arelis Forbes MD [address] [place] [address], [place] [address] PCP - General 04/22/21 Pcas Relationship Specialty Start Date End Date Arelis Forbes MD [address] [facility] [place], [place] [id number] PCP - General 04/22/21 Pcas Relationship Specialty Start Date End Date Arelis Forbes MD [address] [place], [place] [id number] PCP - General Family Medicine 10/14/22 Arelis Forbes MD [address] [place], [place] [id number] PCP - ACO Reach 09/08/23 FOR RECORDS PERTAINING TO PATIENTS WHO ARE OR HAVE BEEN ENROLLED IN A CHEMICAL DEPENDENCY/SUBSTANCEABUSE PROGRAM, SOME INFORMATION MAY BE OMITTED. This clinical summary was aggregated from multiple sources. Caution should be exercised in using it in the provision of clinical care. This summary normalizes information from multiple sources, and as a consequence, information in this document may materially change the coding, format and clinical context of patient data. In addition, data may be omitted in some cases. CLINICAL DECISIONS SHOULD BE BASED ON THE PRIMARY CLINICAL RECORDS. [facility] [employer] [facility]. provides no warranty or guarantee of the accuracy or completeness of information in this document.
--- NOTE | 2024-02-24 09:23 | CT_ITS ---
[address] [address] Patient Name: STEVEN DANIELS MRN: [id number] date: 1945 Sex: M Assigned Patient Location: CT Current Patient Location: CT Accession/Order Number: [id number] Exam Date: 02/24/2024 09:28 Report Date: 02/25/2024 15:03 At the request of: ALIA NUNN Procedure: CT lumbar spine wo con CT LUMBAR SPINE WITHOUT CONTRAST, 02/24/2024. HISTORY: Back pain. Numbness in left leg. COMPARISON: MRI lumbar spine, 11/18/2023. TECHNIQUE: Noncontrast axial CT images obtained through the lumbar spine. Reconstructions obtained in the sagittal and coronal planes. Dose reduction techniques were achieved by using automated exposure control and/or adjustment of mA and/or kV according to patient size and/or use of iterative reconstruction technique. FINDINGS: There is pedicle screw and diamante fixation at L2-L3. The hardware is in good position and intact. This finding is stable. Laminectomies have been performed from L2 through L5. Pedicle screws have been removed at L4, L5, and S1. There is interbody fusion at L4-L5. There is osseous fusion across the L2-L3 through L5-S1 disc spaces. There appears to be good posterior osseous fusion at these levels. There is grade 1 retrolisthesis at the L2-L3 level that is stable. No acute lumbar spine fracture identified. The lumbar spinal canal is decompressed. No evidence of lumbar spinal canal stenosis at any level. There is a chronic loculated postoperative seroma in the laminectomy space at the L4-L5 level. Moderate neural foraminal narrowing at multiple levels from disc space narrowing and osteophytes. Foraminal narrowing is further characterized on the prior MRI. There is moderate degenerative disc disease at L1-L2. There is mild retrolisthesis at this level. No spinal stenosis or foraminal narrowing. No paraspinal soft tissue swelling. No paraspinal mass. CT/CT lumbar spine wo con IMPRESSION: 1. There are postoperative changes from multilevel laminectomy at L2 through L5. Pedicle screw and diamante fixation hardware at L2-L3 is intact. There is good osseous fusion across the disc spaces at L2-L3 through L5-S1 and solid osseous fusion along the posterior elements at these levels. 2. No significant lumbar spinal canal stenosis. 3. Moderate degenerative disc disease at L1-L2. Electronically authenticated by: DANIAL DAVILA Date: 02/25/2024 15:03
== END 2024-02-24 09:18 | disposition home or self-care (01) ==
LOC: CT 09:17
PROVIDERS: PCP Family Medicine; Visit Provider Physician Assistant
DX: M96.842 Postprocedural seroma of a musculoskeletal structure following a musculoskeletal system procedure (principal); R20.0 Anesthesia of skin; Z98.1 Arthrodesis status; M51.369 Other intervertebral disc degeneration, lumbar region without mention of lumbar back pain or lower extremity pain
CPT/HCPCS: 72131